=== PATIENT | male | born 1945 | race Caucasian/White ===

== ENCOUNTER → 2016-12-07 | Outpatient (CLI) | payer BC ==
[~2016-12-07] MED LIST: ASPI81TA21 PO; ATOR10TA88 PO; ATV/1 PO; CHOL1000 PO; EXEN1INJ4 SQ; FISHOIL PO; HYDR25TA4 PO; IBUP-103 PO; INSPMPHMLG; LISI-792 PO; LISI10TA PO; MULTTAB58 PO; NEPA0.6D OPL; OMEP20CA9 PO; OSEL75CA12 PO; POTASSIUM 99MG; PRED1SUS OPL; VALE250C PO; VITAMIN D3; [UNRECOGNIZED DRUG - OTHER]
[2016-12-07 12:38] LABS: ALT/SGPT 57 U/L (12-78); BLOOD UREA NITROGEN 20 mg/dl (7-18); BUN/CREATININE RATIO 16.5 (10-20); CALCIUM 8.9 mg/dl (8.5-10.1); CARBON DIOXIDE 29 mmol/L (21-32); CHLORIDE 101 mmol/L (98-107); CHOLESTEROL 94 mg/dl (0-200); GLUCOSE 309 mg/dl (70-99); POTASSIUM 4.2 mmol/L (3.5-5.1); SODIUM 139 mmol/L (136-145)
[2016-12-07 12:42] LABS: ESTIMATED AVERAGE GLUCOSE 183 mg/dl; HA1C FLAG Normal (Normal)
[2016-12-07 12:49] LABS: ALB/GLOB RATIO 1.4 (0.9-2); ALKALINE PHOSPHATASE 91 U/L (45-117); AST/SGOT 32 U/L (15-37); CHOLESTEROL/HDL RATIO 2.9; HDL CHOLESTEROL 32 mg/dl; LDL CHOLESTEROL CALCULATED 31 mg/dl; TRIGLYCERIDES 155 mg/dl (0-150); VERY LOW DENSITY LIPOPROT CALC 31 mg/dl
--- NOTE | 2016-12-12 13:32 | CODING QUERY MEDICAL NECESSITY ---
SUPPORTING DIAGNOSIS NEEDED A supporting diagnosis is required for the test/procedure performed on this patient in order for us to be reimbursed by the patient's insurance. Please provide a supporting diagnosis for the following test/procedure listed below next to the test name along with your signature. *If there is no additional diagnosis for this patient that would support the following test/procedure please document that below next to the test/procedure. Test(s)/Procedure(s) that require a supporting diagnosis: DOS 12/07 * Vitamin D DIAGNOSIS: Provider Signature: Date: Thank you [facility] Once completed, please kindly fax back to [phone] For questions please call [phone]
== END | disposition home or self-care (01) ==
LOC: C.LABPVFM 10:25
PROVIDERS: ATTEND Family Medicine
DX: E78.5 Hyperlipidemia, unspecified (principal); I10 Essential (primary) hypertension; K21.9 Gastro-esophageal reflux disease without esophagitis; E11.49 Type 2 diabetes mellitus with other diabetic neurological complication; Z12.31 Encounter for screening mammogram for malignant neoplasm of breast; E55.9 Vitamin D deficiency, unspecified

== ENCOUNTER → 2017-02-22 | Day surgery (SDC) | payer BC ==
[2017-02-13 13:39] VITALS: Ht 182.9 cm; Wt 118.2 kg
[~2017-02-22] VITALS: Ht 182.9 cm; Wt 118.2 kg
[~2017-02-22] MED LIST changes: +500ML BSS 0.3ML EPI 1:1000PF IRRIG ONE; +ACETAMINOPHEN 325 MG TAB PO PRN; +AMVISC PLUS 0.8ML SYRINGE INT OCU ONE; +ATOR10TA82 PO; -ATOR10TA88 PO; +ATROPINE SULFATE 0.1 MG/ML 5ML SYR IV PRN; +BSS FLUSH ONE; +ENDOCOAT 0.85ML SYRINGE INT OCU ONE; -EXEN1INJ4 SQ; +EpHEDrine SULFATE INJ 50 MG/ML AMP IV PRN; +EpINEphrine INJ 1MG/ML AMP 1 MG/ML AMP ONE; +FENTANYL CITRATE INJ 50 MCG/1 ML 2 ML VIAL IV PRN; -FISHOIL PO; +FLUMAZENIL 0.1 MG/1 ML 10 ML VIAL IV PRN; +HYDROmorphone INJ 2 MG/ML SYR/VIAL IV PRN; +LABETALOL HCL IV 5 MG/ML 20ML IV PRN; +LACTATED RINGER'S 1000ML 500 ML IV SCH; +LIDOCAINE 4% OP SOLN DROP CHARGE ONE; +LIDOCAINE 4% OP SOLN DROP CHARGE OPL SCH; +LIDOCAINE HCL 1% MPF 2 ML VIAL ONE; -LISI-792 PO; +MEPERIDINE HCL 25 MG/ML CARP IV PRN; +MIDAZOLAM HCL 1 MG/ML 2ML VIAL ONE; +MIX: 4ML BSS 1ML EPI 1:1000 PF TOP ONE; +MOXIFLOXACIN OPH SOLN PER DROP CHARGE ONE; +NALOXONE HCL 0.4 MG/1 ML VIAL/CARP IV PRN; +ONDANSETRON INJ 2 MG/ML 2 ML VIAL IV PRN; -OSEL75CA12 PO; +PHENYLEPHRINE 100MCG/ML 5ML SYR IV PRN; +PHENYLEPHRINE HCL 10% OP SOLN 5 ML BTL OPL ONE; -POTASSIUM 99MG; +POVIDONE-IODINE OP SOLN 30 ML BTL ONE; +PROPARACAINE 0.5% OP SOLN PER DROP CHARGE OPL SCH; +PROPARACAINE HCL 0.5% OP SOLN 15 ML BTL OPL ONE; +TOBRAMYCIN/DEXAMETHASONE OPH OINT PER APPLN CHARGE ONE; -VITAMIN D3; -[UNRECOGNIZED DRUG - OTHER]
[2017-02-22] MEDS: PHENYLEPHRINE HCL 10% OP SOLN PER DROP CHARGE OPL SCH ×3 (10:15→10:25)
[2017-02-22] MEDS: TROPICAMIDE 1% OP SOLN PER DROP CHARGE OPL SCH ×3 (10:16→10:26)
[2017-02-22] MEDS: CYCLOPENTOLATE HCL 1% OP SOLN PER DROP CHARGE OPL SCH ×3 (10:17→10:27)
[2017-02-22] MEDS: MOXIFLOXACIN OPH SOLN PER DROP CHARGE OPL SCH ×3 (10:18→10:28)
--- NOTE | 2017-02-22 11:06 | History & Physical Bridge - SC ---
H&P Re-Evaluation Bridge Note: I have examined the patient, reviewed the History & Physical and in the interval since the performance of the History & Physical I have noted the following changes of clinical significance: No changes noted. Left eye femtosecond-asissted cataract surgery
--- NOTE | 2017-02-22 11:50 | [facility] Post Operative Brief Note ---
Immediate Operative Summary Operative Date Feb 22, 2017. Pre-Operative Diagnosis Cataract left eye Post-Operative Diagnosis same Procedure(s) Performed Right Cataract Phacoemulsification With Intraocular Lens Implant Surgeon Dr Gregory Theatrical Rigger Surgeon(s) 0 Estimated Blood Loss 0 Findings left cataract Specimens 0 Complication(s) None Disposition
[2017-02-22 11:52] VITALS: TEMP 36.9
--- NOTE | 2017-02-22 11:53 | [facility] Operative Report ---
Operative Report Date of Service Feb 22, 2017. Operative Report DATE OF OPERATION: 02/22/17 PREOPERATIVE DIAGNOSIS: Senile nuclear cataract and astigmatism, left eye POSTOPERATIVE DIAGNOSIS: Senile nuclear cataract and astigmatism, left eye PROCEDURE PERFORMED: Phacoemulsification with toric intraocular lens implantation, left eye SURGEON: Dr. Reg Gregory ANESTHESIA: Topical with 1% intracameral lidocaine and monitored anesthesia care COMPLICATIONS: None DESCRIPTION OF PROCEDURE: After positively identifying the patient both verbally and by wristband in the preoperative area, the left eye was marked as the operative eye. Using a sterile marker, the 3:00, 6:00 and 9:00 position on the limbus were marked, and the Robomarker was used to melanie the 174 degree axis after placing a drop of proparacaine. The patient was first brought to the laser room where the femtosecond laser was used to create the capsulotomy, lens fragmentation, and main wound. The patient was then brought back to the operating room by the anesthesia and nursing staff where they were given a drop of tetracaine and betadine into the operative eye. They were then sterilely prepped and draped in the standard fashion typical for ophthalmic surgery. Steri-strips were placed along the upper eyelids to keep the lashes back, and a lid speculum was placed into the operative eye. At this point, a documented time out was performed with members of the ophthalmology, nursing, and anesthesia staffs all agreeing upon the correct patient, correct location for surgery, correct procedure, and correct type and power of intraocular lens to be implanted. The microscope was then swung into position. Then, a paracentesis wound was made using a sideport blade. Then, in sequence, 1% preservative-free lidocaine followed by Endocoat viscoelastic was injected into the anterior chamber. Next , the main incision opened with a Emmanuel spatula, and Utrata forceps were used to remove the capsulotomy. Hydrodissection was then performed with BSS on a flat-tip cannula. Next, the phacoemulsification handpiece was introduced into the eye and used to remove the nucleus in a avwkct-ycm-zxhlbae fashion. This was done without complication and then the irrigation-aspiration handpiece was introduced into the eye and used to remove all remaining cortical and epinuclear material. Amvisc was then injected into the anterior chamber as well as into the capsular bag and using the lens injector system, a [id number] 16.0 D lens, serial number [id number], and expiration date 08/2021 was injected into the capsular bag and rotated into the correct position to correctly line up with the toric marking. Next, the irrigation-aspiration handpiece was used to remove all remaining Amvisc. BSS was used to hydrate the main wound, and then BSS was injected into the paracentesis site to reach physiologic pressure and then the main wound was checked and found to be watertight. The patient was given drops of Vigamox and tobradex ointment into the operative eye, and then the surrounding area was cleaned and dried. A clear plastic shield was placed over the eye and the patient was then sat up and taken from the operating room by the anesthesia staff having tolerated the procedure well and suffering no complications. DISPOSITION: The patient was returned to the recovery room in stable condition. I attest to the content of the Intraoperative Record and any orders documented therein. Any exceptions are noted below.
--- NOTE | 2017-02-22 11:54 | Discharge Instructions-SurgCtr ---
Discharge Instructions Date of Service Feb 22, 2017. Visit Reason for Visit: Cataract Left Eye Discharge Discharge Diagnosis / Problem: left cataract Discharge Goals Goal(s): Decrease discomfort, Improve function Activity Recommendations Activity Limitations: as noted below Anesthesia . Post Anesthesia Instructions: If you have had General Anesthesia or IV Sedation: * Do not drive today. * Resume driving when surgeon permits. * Do not make important decisions or sign legal documents today. * Call surgeon for: 1. Temperature elevations greater than 101 degrees F. 2. Uncontrollable pain. 3. Excessive bleeding. 4. Persistent nausea and vomiting. 5. Medication intolerance (nausea, vomiting or rash). * For nausea and vomiting use only clear liquids such as: tea, soda, bouillon until nausea subsides, then gradually increase diet as tolerated. * If you have any concerns or questions, call your surgeon's office. If physician is unavailable and it is an emergency, call 911 or go to the nearest emergency room. . Instructions / Follow-Up Instructions / Follow-Up ACTIVITY RECOMMENDATIONS: * Light activities. * You may walk outside, read, watch television. * You may notice redness on the white part of the eye and some blurry vision - this is normal. MEDICATIONS: Resume previous medications unless instructed otherwise by your surgeon. Start all eye drops at 2 pm today: * Eye drops (today): Prednisone - one drop in operative eye every 2 hours while awake Ciprofloxacin - one drop in operative eye every 2 hours while awake Ilevro - one drop in operative eye daily SPECIAL CARE INSTRUCTIONS: * Tape plastic shield over eye to sleep at night. Call your doctor at with any concerns or problems. FOLLOW UP VISIT: Follow-up with Dr Gregory at [facility] as scheduled. Diet Recommendations Home Diet: no limitations Procedures Procedures Performed: Right Cataract Phacoemulsification With Intraocular Lens Implant Pending Studies Studies pending at discharge: no Medical Emergencies . Who to Call and When: Medical Emergencies: If at any time you feel your situation is an emergency, please call 911 immediately. . Non-Emergent Contact Non-Emergency issues call your: Surgeon . . "Provider Documentation" section prepared by Reg Gregory.
[2017-02-22 12:14] VITALS: BP 148/85; PULSE 77; O2SAT 97
--- NOTE | 2017-02-22 12:14 | Anesthesia Progress Nt - [facility] ---
Anesthesia Post Op Note Date & Time Feb 22, 2017 at 12:13 Vital Signs Pain Intensity: 0 Vital Signs Past 12 Hours Date Time Temp Pulse Resp B/P Pulse Ox O2 Delivery O2 Flow Rate FiO2 02/22/17 11:52 36.9 79 16 162/84 96 Room Air 02/22/17 11:20 84 20 180/91 100 02/22/17 11:15 88 20 174/92 98 02/22/17 10:05 36.5 86 18 157/91 97 Room Air Notes Mental Status: alert / awake / arousable, participated in evaluation Pt Amnestic to Procedure: Yes Nausea / Vomiting: adequately controlled Pain: adequately controlled Airway Patency, RR, SpO2: stable & adequate BP & HR: stable & adequate Hydration State: stable & adequate Anesthetic Complications: no major complications apparent
== END | disposition home or self-care (01) ==
LOC: X.SURG 09:52
PROVIDERS: ATTEND Ophthalmology
DX: H25.12 Age-related nuclear cataract, left eye (principal); I10 Essential (primary) hypertension; E11.36 Type 2 diabetes mellitus with diabetic cataract; Z88.0 Allergy status to penicillin; E66.9 Obesity, unspecified; G47.33 Obstructive sleep apnea (adult) (pediatric); Z98.890 Other specified postprocedural states

== ENCOUNTER → 2017-03-08 | Day surgery (SDC) | payer BC ==
[2017-03-01 10:56] VITALS: Ht 182.9 cm; Wt 120.5 kg
[~2017-03-08] VITALS: Ht 182.9 cm; Wt 120.5 kg
[~2017-03-08] MED LIST changes: -ATROPINE SULFATE 0.1 MG/ML 5ML SYR IV PRN; -EpHEDrine SULFATE INJ 50 MG/ML AMP IV PRN; -FENTANYL CITRATE INJ 50 MCG/1 ML 2 ML VIAL IV PRN; -FLUMAZENIL 0.1 MG/1 ML 10 ML VIAL IV PRN; -HYDROmorphone INJ 2 MG/ML SYR/VIAL IV PRN; -LABETALOL HCL IV 5 MG/ML 20ML IV PRN; -LIDOCAINE 4% OP SOLN DROP CHARGE OPL SCH; +LIDOCAINE 4% OP SOLN DROP CHARGE OPR SCH; -MEPERIDINE HCL 25 MG/ML CARP IV PRN; -NALOXONE HCL 0.4 MG/1 ML VIAL/CARP IV PRN; +NURSING VERBAL MED ORDER ONE; -ONDANSETRON INJ 2 MG/ML 2 ML VIAL IV PRN; -PHENYLEPHRINE 100MCG/ML 5ML SYR IV PRN; -PHENYLEPHRINE HCL 10% OP SOLN 5 ML BTL OPL ONE; +PHENYLEPHRINE HCL 10% OP SOLN 5 ML BTL OPR ONE; +PHENYLEPHRINE HCL 10% OP SOLN PER DROP CHARGE OPR SCH; -PROPARACAINE 0.5% OP SOLN PER DROP CHARGE OPL SCH; +PROPARACAINE 0.5% OP SOLN PER DROP CHARGE OPR SCH; -PROPARACAINE HCL 0.5% OP SOLN 15 ML BTL OPL ONE; +PROPARACAINE HCL 0.5% OP SOLN 15 ML BTL OPR ONE
[2017-03-08] MEDS: PHENYLEPHRINE HCL 2.5% OP SOLN PER DROP CHARGE OPR SCH ×4 (08:55→09:37)
[2017-03-08] MEDS: TROPICAMIDE 1% OP SOLN PER DROP CHARGE OPR SCH ×3 (08:56→09:06)
[2017-03-08] MEDS: CYCLOPENTOLATE HCL 1% OP SOLN PER DROP CHARGE OPR SCH ×3 (08:57→09:07)
[2017-03-08] MEDS: MOXIFLOXACIN OPH SOLN PER DROP CHARGE OPR SCH ×3 (08:58→09:08)
--- NOTE | 2017-03-08 09:02 | History & Physical Bridge - SC ---
H&P Re-Evaluation Bridge Note: I have examined the patient, reviewed the History & Physical and in the interval since the performance of the History & Physical I have noted the following changes of clinical significance: No changes noted. Right eye femtosecond laser-assisted cataract surgery.
--- NOTE | 2017-03-08 10:17 | [facility] Post Operative Brief Note ---
Immediate Operative Summary Operative Date Mar 08, 2017. Pre-Operative Diagnosis Cataract Right Eye Post-Operative Diagnosis Same Procedure(s) Performed Right Cataract Phacoemulsification With Intraocular Lens Implant; Symfony Lens Surgeon Dr. Gregory Wastewater Superintendent Surgeon(s) None Estimated Blood Loss 0 mL Findings right cataract Specimens None Complication(s) None Disposition
--- NOTE | 2017-03-08 10:20 | [facility] Operative Report ---
Operative Report Date of Service Mar 08, 2017. Operative Report DATE OF OPERATION: 03/08/17 PREOPERATIVE DIAGNOSIS: Senile nuclear cataract and astigmatism, right eye POSTOPERATIVE DIAGNOSIS: Senile nuclear cataract and astigmatism, right eye PROCEDURE PERFORMED: Phacoemulsification with toric intraocular lens implantation, right eye SURGEON: Dr. Reg Gregory ANESTHESIA: Topical with 1% intracameral lidocaine and monitored anesthesia care COMPLICATIONS: None DESCRIPTION OF PROCEDURE: After positively identifying the patient both verbally and by wristband in the preoperative area, the right eye was marked as the operative eye. Using a Robomarker, the 1 degree axis was marked after placing a drop of proparacaine. The patient was first brought to the laser room where the femtosecond laser was used to create the capsulotomy, lens fragmentation, and main incision. The patient was then brought back to the operating room by the anesthesia and nursing staff where they were given a drop of tetracaine and betadine into the operative eye. They were then sterilely prepped and draped in the standard fashion typical for ophthalmic surgery. Steri-strips were placed along the upper eyelids to keep the lashes back, and a lid speculum was placed into the operative eye. At this point, a documented time out was performed with members of the ophthalmology, nursing, and anesthesia staffs all agreeing upon the correct patient, correct location for surgery, correct procedure, and correct type and power of intraocular lens to be implanted. The microscope was then swung into position. Then, a paracentesis wound was made using a sideport blade. Then, in sequence, 1% preservative-free lidocaine followed by Endocoat viscoelastic was injected into the anterior chamber. Next , the main incision was made with a keratome blade in triplanar fashion as the femto main wound was incomplete. Utrata forceps were used to remove the capsulotomy. Hydrodissection was then performed with BSS on a flat-tip cannula. Next, the phacoemulsification handpiece was introduced into the eye and used to remove the nucleus in a clvecr-dgp-xffqtwc fashion. This was done without complication and then the irrigation-aspiration handpiece was introduced into the eye and used to remove all remaining cortical and epinuclear material. Amvisc was then injected into the anterior chamber as well as into the capsular bag and using the lens injector system, a [id number] 14.0 D lens, serial number [id number], and expiration date 10/2021 was injected into the capsular bag and rotated into the correct position to correctly line up with the toric marking. Next, the irrigation-aspiration handpiece was used to remove all remaining Amvisc. BSS was used to hydrate the main wound, and then BSS was injected into the paracentesis site to reach physiologic pressure and then the main wound was checked and found to be watertight. The patient was given drops of Vigamox and tobradex ointment into the operative eye, and then the surrounding area was cleaned and dried. A clear plastic shield was placed over the eye and the patient was then sat up and taken from the operating room by the anesthesia staff having tolerated the procedure well and suffering no complications. DISPOSITION: The patient was returned to the recovery room in stable condition. I attest to the content of the Intraoperative Record and any orders documented therein. Any exceptions are noted below.
--- NOTE | 2017-03-08 10:21 | Discharge Instructions-SurgCtr ---
Discharge Instructions Date of Service Mar 08, 2017. Visit Reason for Visit: Cataract Right Eye Discharge Discharge Diagnosis / Problem: right cataract Discharge Goals Goal(s): Decrease discomfort, Improve function Activity Recommendations Activity Limitations: as noted below Anesthesia . Post Anesthesia Instructions: If you have had General Anesthesia or IV Sedation: * Do not drive today. * Resume driving when surgeon permits. * Do not make important decisions or sign legal documents today. * Call surgeon for: 1. Temperature elevations greater than 101 degrees F. 2. Uncontrollable pain. 3. Excessive bleeding. 4. Persistent nausea and vomiting. 5. Medication intolerance (nausea, vomiting or rash). * For nausea and vomiting use only clear liquids such as: tea, soda, bouillon until nausea subsides, then gradually increase diet as tolerated. * If you have any concerns or questions, call your surgeon's office. If physician is unavailable and it is an emergency, call 911 or go to the nearest emergency room. . Instructions / Follow-Up Instructions / Follow-Up ACTIVITY RECOMMENDATIONS: * Light activities. * You may walk outside, read, watch television. * You may notice redness on the white part of the eye and some blurry vision - this is normal. MEDICATIONS: Resume previous medications unless instructed otherwise by your surgeon. Start all eye drops at 12:30 pm today: * Eye drops (today): Prednisone - one drop in operative eye every 2 hours while awake Ciprofloxacin - one drop in operative eye every 2 hours while awake Ilevro - one drop in operative eye daily SPECIAL CARE INSTRUCTIONS: * Tape plastic shield over eye to sleep at night. Call your doctor at with any concerns or problems. FOLLOW UP VISIT: Follow-up with Dr Gregory at [place] office as scheduled. Diet Recommendations Home Diet: no limitations Procedures Procedures Performed: Right Cataract Phacoemulsification With Intraocular Lens Implant; Symfony Lens Pending Studies Studies pending at discharge: no Medical Emergencies . Who to Call and When: Medical Emergencies: If at any time you feel your situation is an emergency, please call 911 immediately. . Non-Emergent Contact Non-Emergency issues call your: Surgeon . . "Provider Documentation" section prepared by Reg Gregory. .
[2017-03-08 10:25] VITALS: TEMP 36.5
--- NOTE | 2017-03-08 10:29 | Anesthesia Progress Nt - [facility] ---
Anesthesia Post Op Note Date & Time Mar 08, 2017 at 10:29 Vital Signs Pain Intensity: 0 Vital Signs Past 12 Hours Date Time Temp Pulse Resp B/P Pulse Ox O2 Delivery O2 Flow Rate FiO2 03/08/17 10:25 36.5 70 16 142/84 99 Room Air 03/08/17 09:46 76 16 173/89 98 03/08/17 09:42 75 16 175/92 97 03/08/17 08:51 36.5 85 18 148/90 97 Room Air Notes Mental Status: alert / awake / arousable, participated in evaluation Pt Amnestic to Procedure: No (recall as expected) Nausea / Vomiting: adequately controlled Pain: adequately controlled Airway Patency, RR, SpO2: stable & adequate BP & HR: stable & adequate Hydration State: stable & adequate Anesthetic Complications: no major complications apparent Pt doing well.
[2017-03-08 10:43] VITALS: BP 147/78; PULSE 67; O2SAT 98
== END | disposition home or self-care (01) ==
LOC: X.SURG 08:11
PROVIDERS: ATTEND Ophthalmology
DX: H25.11 Age-related nuclear cataract, right eye (principal); H52.201 Unspecified astigmatism, right eye; I10 Essential (primary) hypertension; E11.36 Type 2 diabetes mellitus with diabetic cataract; Z88.0 Allergy status to penicillin; Z68.36 Body mass index [BMI] 36.0-36.9, adult; Z90.89 Acquired absence of other organs; Z98.890 Other specified postprocedural states; E66.9 Obesity, unspecified

== ENCOUNTER → 2017-03-09 | Outpatient (CLI) | payer BC ==
[~2017-03-09] MED LIST changes: -500ML BSS 0.3ML EPI 1:1000PF IRRIG ONE; -ACETAMINOPHEN 325 MG TAB PO PRN; -AMVISC PLUS 0.8ML SYRINGE INT OCU ONE; -BSS FLUSH ONE; -ENDOCOAT 0.85ML SYRINGE INT OCU ONE; -EpINEphrine INJ 1MG/ML AMP 1 MG/ML AMP ONE; -LACTATED RINGER'S 1000ML 500 ML IV SCH; -LIDOCAINE 4% OP SOLN DROP CHARGE ONE; -LIDOCAINE 4% OP SOLN DROP CHARGE OPR SCH; -LIDOCAINE HCL 1% MPF 2 ML VIAL ONE; -MIDAZOLAM HCL 1 MG/ML 2ML VIAL ONE; -MIX: 4ML BSS 1ML EPI 1:1000 PF TOP ONE; -MOXIFLOXACIN OPH SOLN PER DROP CHARGE ONE; -NURSING VERBAL MED ORDER ONE; -PHENYLEPHRINE HCL 10% OP SOLN 5 ML BTL OPR ONE; -PHENYLEPHRINE HCL 10% OP SOLN PER DROP CHARGE OPR SCH; -POVIDONE-IODINE OP SOLN 30 ML BTL ONE; -PROPARACAINE 0.5% OP SOLN PER DROP CHARGE OPR SCH; -PROPARACAINE HCL 0.5% OP SOLN 15 ML BTL OPR ONE; -TOBRAMYCIN/DEXAMETHASONE OPH OINT PER APPLN CHARGE ONE
[2017-03-09 12:57] LABS: ESTIMATED AVERAGE GLUCOSE 169 mg/dl; HA1C FLAG Normal (Normal)
[2017-03-09 14:15] LABS: ALT/SGPT 46 U/L (12-78); AST/SGOT 27 U/L (15-37); BLOOD UREA NITROGEN 18 mg/dl (7-18); BUN/CREATININE RATIO 16.5 (10-20); CALCIUM 8.9 mg/dl (8.5-10.1); CARBON DIOXIDE 31 mmol/L (21-32); CHLORIDE 107 mmol/L (98-107); GLUCOSE 133 mg/dl (70-99); SODIUM 141 mmol/L (136-145)
[2017-03-09 14:18] LABS: ALB/GLOB RATIO 1.2 (0.9-2); ALKALINE PHOSPHATASE 76 U/L (45-117); CHOLESTEROL 83 mg/dl (0-200); CHOLESTEROL/HDL RATIO 2.3; HDL CHOLESTEROL 36 mg/dl; LDL CHOLESTEROL CALCULATED 30 mg/dl; TRIGLYCERIDES 84 mg/dl (0-150); VERY LOW DENSITY LIPOPROT CALC 17 mg/dl
[2017-03-09 16:54] LABS: RATIO 6.5 mcg/mg (0-30.0)
== END | disposition home or self-care (01) ==
LOC: C.LABPVFM 09:28
PROVIDERS: ATTEND Family Medicine
DX: E78.5 Hyperlipidemia, unspecified (principal); E55.9 Vitamin D deficiency, unspecified; E11.65 Type 2 diabetes mellitus with hyperglycemia; I10 Essential (primary) hypertension

== ENCOUNTER → 2017-07-13 | Outpatient (CLI) | payer BC ==
[~2017-07-13] MED LIST changes: -ATOR10TA82 PO; +ATOR10TA88 PO
[2017-07-13 12:59] LABS: ESTIMATED AVERAGE GLUCOSE 171 mg/dl; HA1C FLAG Normal (Normal)
[2017-07-13 13:09] LABS: ALT/SGPT 52 U/L (12-78); AST/SGOT 30 U/L (15-37); BLOOD UREA NITROGEN 22 mg/dl (7-18); BUN/CREATININE RATIO 19.6 (10-20); CALCIUM 8.7 mg/dl (8.5-10.1); CARBON DIOXIDE 31 mmol/L (21-32); CHLORIDE 104 mmol/L (98-107); GLUCOSE 174 mg/dl (70-99); POTASSIUM 3.9 mmol/L (3.5-5.1); SODIUM 138 mmol/L (136-145)
[2017-07-13 13:10] LABS: ALB/GLOB RATIO 1.1 (0.9-2); ALKALINE PHOSPHATASE 84 U/L (45-117); CHOLESTEROL 87 mg/dl (0-200); CHOLESTEROL/HDL RATIO 2.9; HDL CHOLESTEROL 30 mg/dl; LDL CHOLESTEROL CALCULATED 25 mg/dl; TRIGLYCERIDES 159 mg/dl (0-150); VERY LOW DENSITY LIPOPROT CALC 32 mg/dl
== END | disposition home or self-care (01) ==
LOC: C.LABPVFM 08:52
PROVIDERS: ATTEND Family Medicine
DX: E78.5 Hyperlipidemia, unspecified (principal); I10 Essential (primary) hypertension; K21.9 Gastro-esophageal reflux disease without esophagitis; E11.9 Type 2 diabetes mellitus without complications; E55.9 Vitamin D deficiency, unspecified

== ENCOUNTER → 2017-08-17 | Outpatient (CLI) | payer BC ==
--- NOTE | 2017-08-17 13:24 | DIAGNOSTIC IMAGING REPORT ---
SCROTAL ULTRASOUND CLINICAL HISTORY: Testicular lump. COMPARISON STUDY: None. TECHNIQUE: Grayscale and color and duplex Doppler sonography of the scrotum was performed. FINDINGS: The right testis measures 4.4 x 2.7 x 3.1 cm and the left measures 4.4 x 2.6 x 3.1 cm. There is no testicular mass. Color flow within each testis is symmetric. There are no solid epididymal lesions. There are multiple small bilateral epididymal cysts, the largest of which is a 1 cm left-sided cyst. This represents the palpable abnormality. There are small bilateral hydroceles and a small left varicocele. IMPRESSION: 1. No testicular mass. No evidence of testicular torsion. 2. 1 cm left epididymal cyst which represents the palpable abnormality. 3. Small left varicocele and small bilateral hydroceles. Electronically signed by: Gabriele Alvarez M.D. 08/17/2017 1:22 PM Dictated Date/Time: 08/17/2017 1:19 PM
== END | disposition home or self-care (01) ==
LOC: C.ULTR 12:30
PROVIDERS: ATTEND Urology
DX: N50.3 Cyst of epididymis (principal); I86.1 Scrotal varices; N43.3 Hydrocele, unspecified

== ENCOUNTER → 2017-09-11 | Outpatient (CLI) | payer BC ==
[~2017-09-11] MED LIST changes: +ATOR10TA82 PO; -ATOR10TA88 PO
--- NOTE | 2017-09-11 12:44 | DIAGNOSTIC IMAGING REPORT ---
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 The left kidney measures 12.4 cm. There is no evidence of hydronephrosis. There is a 18 mm upper pole left renal cyst. Both kidneys demonstrate a slightly lobulated contour. No bladder abnormalities are visualized. Bilateral ureteral jets were visualized. The prostate is significantly enlarged measuring approximately 7 cm. IMPRESSION : 1. 18 mm left renal cyst 2. No hydronephrosis 3. Prostamegaly Electronically signed by: Alex Juan M.D. 09/11/2017 12:43 PM Dictated Date/Time: 09/11/2017 12:42 PM
== END | disposition home or self-care (01) ==
LOC: C.ULTR 12:12
PROVIDERS: ATTEND Family Medicine
DX: D21.9 Benign neoplasm of connective and other soft tissue, unspecified (principal)

== ENCOUNTER → 2017-11-09 | Outpatient (CLI) | payer BC ==
[2017-11-09 13:02] LABS: ESTIMATED AVERAGE GLUCOSE 177 mg/dl; HA1C FLAG Normal (Normal)
[2017-11-09 13:08] LABS: ALT/SGPT 64 U/L (12-78); AST/SGOT 41 U/L (15-37); BLOOD UREA NITROGEN 18 mg/dl (7-18); BUN/CREATININE RATIO 16.3 (10-20); CALCIUM 8.9 mg/dl (8.5-10.1); CARBON DIOXIDE 28 mmol/L (21-32); CHLORIDE 101 mmol/L (98-107); CREATININE 1.13 mg/dl (0.60-1.40); GLUCOSE 190 mg/dl (70-99); POTASSIUM 4.1 mmol/L (3.5-5.1); SODIUM 134 mmol/L (136-145)
[2017-11-09 13:11] LABS: ALB/GLOB RATIO 1.1 (0.9-2); ALKALINE PHOSPHATASE 85 U/L (45-117); CHOLESTEROL 94 mg/dl (0-200); CHOLESTEROL/HDL RATIO 2.8; HDL CHOLESTEROL 34 mg/dl; LDL CHOLESTEROL CALCULATED 31 mg/dl; TRIGLYCERIDES 143 mg/dl (0-150); VERY LOW DENSITY LIPOPROT CALC 29 mg/dl
== END | disposition home or self-care (01) ==
LOC: C.LABPVFM 09:18
PROVIDERS: ATTEND Nurse Practitioner Adult Health
DX: Z00.00 Encounter for general adult medical examination without abnormal findings (principal); R97.20 Elevated prostate specific antigen [PSA]; N43.40 Spermatocele of epididymis, unspecified; E78.5 Hyperlipidemia, unspecified; I10 Essential (primary) hypertension; E66.9 Obesity, unspecified; G47.00 Insomnia, unspecified; E11.65 Type 2 diabetes mellitus with hyperglycemia

== ENCOUNTER → 2018-01-03 | Outpatient (CLI) | payer BC ==
[~2018-01-03] MED LIST changes: +AMLO-114 PO; -NEPA0.6D OPL; +OXYC-57 PO; -PRED1SUS OPL
[2018-01-03 17:33] LABS: BASO % 0.4 %; BASO ABS # 0.03 K/uL (0-0.2); EOS % 4.3 %; EOS ABS # 0.29 K/uL (0-0.5); HEMATOCRIT 41.7 % (42-52); HEMOGLOBIN 14.6 g/dL (14.0-18.0); IG# 0.03 K/uL (0.00-0.02); LYMPH % 16.6 %; LYMPH ABS # 1.12 K/uL (1.2-3.4); MEAN CELL VOLUME 83.7 fL (80-100); MEAN CORPUSCULAR HEMOGLOBIN 29.3 pg (25-34); MEAN PLATELET VOLUME 11.9 fL (7.4-10.4); MONO % 7.4 %; NEUT % 70.9 %; NEUT ABS # 4.79 K/uL (1.4-6.5); PLATELET COUNT 191 K/uL (130-400); RED CELL DISTRIBUTION WIDTH CV 13.8 % (11.5-14.5); RED CELL DISTRIBUTION WIDTH SD 41.7 fL (36.4-46.3); WHITE BLOOD COUNT 6.76 K/uL (4.8-10.8)
[2018-01-03 17:43] LABS: BLOOD UREA NITROGEN 17 mg/dl (7-18); CALCIUM 8.7 mg/dl (8.5-10.1); CARBON DIOXIDE 29 mmol/L (21-32); CREATININE 1.22 mg/dl (0.60-1.40); GLUCOSE 201 mg/dl (70-99); POTASSIUM 4.3 mmol/L (3.5-5.1); SODIUM 136 mmol/L (136-145)
== END | disposition home or self-care (01) ==
LOC: C.LABPVFM 14:16
PROVIDERS: ATTEND Surgery
DX: Z01.818 Encounter for other preprocedural examination (principal); K64.9 Unspecified hemorrhoids

== ENCOUNTER → 2018-01-09 | Day surgery (SDC) | payer BC ==
[2018-01-01 13:43] VITALS: Ht 182.9 cm; Wt 131.4 kg
[~2018-01-09] VITALS: Ht 182.9 cm; Wt 131.4 kg
[~2018-01-09] MED LIST changes: +ATROPINE SULFATE 0.1 MG/ML 5ML SYR IV PRN; +BENZOIN SPRAY 118 ML BTL TOP ONE; +BUPIVACAINE 0.5 % 5 MG/1 ML MPF 30ML VIAL ONE; +CLINDAMYCIN PHOS 150 MG/ML 2 ML VIAL IV SCH; +EpHEDrine SULFATE INJ 50 MG/ML AMP IV PRN; +FENTANYL CITRATE INJ 50 MCG/1 ML 2 ML VIAL IV PRN; +FENTANYL CITRATE INJ 50 MCG/1 ML 2 ML VIAL ONE; +LACTATED RINGER'S 1000ML 1,000 ML IV SCH; +MIDAZOLAM HCL 1 MG/ML 2ML VIAL ONE; +ONDANSETRON INJ 2 MG/ML 2 ML VIAL IV PRN; +OXYCODONE/ACETAMINOPHEN 5-325 TAB PO PRN; +PROMETHAZINE HCL INJ 6.25 MG in SODIUM CHLORIDE 0.9% 50ML 50 ML IV PRN; +PROPOFOL IV EMULSION 10 MG/ML 20 ML VIAL IV ONE; +SODIUM CHLORIDE 0.9% 1000ML 1,000 ML IV SCH
--- NOTE | 2018-01-09 08:11 | History & Physical Bridge - SC ---
H&P Re-Evaluation Bridge Note: I have examined the patient, reviewed the History & Physical and in the interval since the performance of the History & Physical I have noted the following changes of clinical significance: No changes noted
--- NOTE | 2018-01-09 09:02 | [facility] Operative Report ---
Operative Report Operative Date Jan 09, 2018. 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 Any exceptions are noted below.
--- NOTE | 2018-01-09 09:14 | Discharge Instructions-SurgCtr ---
Discharge Instructions Date of Service Jan 09, 2018. Visit Reason for Visit: Hemorrhoids Discharge Discharge Diagnosis / Problem: fistula in ano, hypertrophic papilla Discharge Goals Goal(s): Decrease discomfort, Improve function, Improve disease control Medications Stopped Medications Name(s): ASA Activity Recommendations Activity Limitations: as noted below Lifting Limitations: gradually increase as tolerated Exercise/Sports Limitations: until after follow-up appointment May Resume Sexual Activity: when tolerated Shower/Bathe: no limitations (may also soak in warm tub) Driving or Machine Use: resume 1 day after discharge Anesthesia . Post Anesthesia Instructions: If you have had General Anesthesia or IV Sedation: * Do not drive today. * Resume driving when surgeon permits. * Do not make important decisions or sign legal documents today. * Call surgeon for: 1. Temperature elevations greater than 101 degrees F. 2. Uncontrollable pain. 3. Excessive bleeding. 4. Persistent nausea and vomiting. 5. Medication intolerance (nausea, vomiting or rash). * For nausea and vomiting use only clear liquids such as: tea, soda, bouillon until nausea subsides, then gradually increase diet as tolerated. * If you have any concerns or questions, call your surgeon's office. If physician is unavailable and it is an emergency, call 911 or go to the nearest emergency room. . Instructions / Follow-Up Instructions / Follow-Up SPECIAL CARE INSTRUCTIONS: * Cover incisions and change daily for comfort/drainage. will have some drainage, and mild bleeding- will require a pad for 1-2 weeks * * Avoid constipation- may use Metamucil powder and colace twice daily and adjust as needed * May use ibuprofen for pain as tolerated. * Expect some swelling and bruising. Call your doctor if: * Temperature above 101 degrees * Pain not relieved by pain medicine ordered * There is increased drainage or redness from any incision * You have any unanswered questions or concerns [phone]. FOLLOW UP VISIT: If not already scheduled, please call the office for a follow-up visit. for 2 weeks- check up OFFICE PHONE NUMBER: Dr. Rebolledo Office Diet Recommendations Home Diet: resume previous diet Procedures Procedures Performed: Anal examine under anesthesia, fistulotomy, debridement and excision of anal skin tags Pending Studies Studies pending at discharge: no Medical Emergencies . Who to Call and When: Medical Emergencies: If at any time you feel your situation is an emergency, please call 911 immediately. . Non-Emergent Contact Non-Emergency issues call your: Primary Care Provider, Surgeon . . "Provider Documentation" section prepared by Raheel Rebolledo. .
--- NOTE | 2018-01-09 09:49 | Anesthesia Progress Nt - [facility] ---
Anesthesia Post Op Note Date & Time Jan 09, 2018 at 09:49 Vital Signs Pain Intensity: 0 Vital Signs Past 12 Hours Date Time Temp Pulse Resp B/P (MAP) Pulse Ox O2 Delivery O2 Flow Rate FiO2 01/09/18 09:23 36.6 89 16 154/87 100 Mask 6 01/09/18 07:32 36.7 87 20 171/95 (120) 97 Room Air Notes Mental Status: alert / awake / arousable, participated in evaluation Pt Amnestic to Procedure: Yes Nausea / Vomiting: adequately controlled Pain: adequately controlled Airway Patency, RR, SpO2: stable & adequate BP & HR: stable & adequate Hydration State: stable & adequate Anesthetic Complications: no major complications apparent
[2018-01-09 10:12] VITALS: TEMP 36.6
--- NOTE | 2018-01-09 10:32 | OPERATIVE REPORT ---
DATE OF OPERATION: 01/09/2018 NAME OF OPERATION: Examination under anesthesia, fistulotomy, and debridement of scar tissue and excision of hypertrophic papilla. PREOPERATIVE DIAGNOSIS: Anal pain and bleeding. POSTOPERATIVE DIAGNOSIS: Same with jxskidz-qm-zty and hypertrophic papilla. STAFF SURGEON: Raheel Rebolledo MD. ANESTHESIA: General. DESCRIPTION OF PROCEDURE: The patient was brought in the operating room and intubated on the bed and then placed on the operating room table in the prone position. His buttocks were taped apart, and then prepped and draped in the usual fashion. On inspection, the patient did have multiple anal papilla with 1 large area to the right and anterior and on inspection, he had what appeared to be a fhzddsq-fa-ics with significant scar tissue and stricturing in this area. He did not have significant prolapsing internal hemorrhoids. His internal hemorrhoids were approximately grade 2. At this point, a fistulotomy was performed and then the edges were debrided of scar tissue and then the hypertrophic papillae were excised. The fistulotomy also entailed at least partial internal sphincterotomy. He did appear to have somewhat of a stricture preoperatively. Post-fistulotomy, it appeared to be much more normal admitting 2 fingers easily. His external sphincter muscles were completely intact. Two chromic sutures were placed in the anoderm. The remainder of the wound was left open. Dressing was applied and the patient then transferred back to recovery room in stable condition. I did use some 0.5% plain Marcaine to anesthetize around the wound. I attest to the content of the Intraoperative Record and any orders documented therein. Any exception s are noted below.
[2018-01-09 10:33] VITALS: BP 176/99; PULSE 86; O2SAT 96
== END | disposition home or self-care (01) ==
LOC: X.SURG 07:03
PROVIDERS: ATTEND Surgery
DX: K60.3 Anal fistula (principal); K62.89 Other specified diseases of anus and rectum; K21.9 Gastro-esophageal reflux disease without esophagitis; N40.0 Benign prostatic hyperplasia without lower urinary tract symptoms; E11.49 Type 2 diabetes mellitus with other diabetic neurological complication; E11.42 Type 2 diabetes mellitus with diabetic polyneuropathy; E78.5 Hyperlipidemia, unspecified; H02.839 Dermatochalasis of unspecified eye, unspecified eyelid; I10 Essential (primary) hypertension; E55.9 Vitamin D deficiency, unspecified; E66.01 Morbid (severe) obesity due to excess calories; Z68.39 Body mass index [BMI] 39.0-39.9, adult; Z88.0 Allergy status to penicillin; Z79.4 Long term (current) use of insulin; Z87.442 Personal history of urinary calculi; Z83.3 Family history of diabetes mellitus; Z82.49 Family history of ischemic heart disease and other diseases of the circulatory system; Z80.1 Family history of malignant neoplasm of trachea, bronchus and lung

== ENCOUNTER → 2018-03-30 | Outpatient (CLI) | payer BC ==
[~2018-03-30] MED LIST changes: +ASPI-319 PO; -ASPI81TA21 PO; -ATROPINE SULFATE 0.1 MG/ML 5ML SYR IV PRN; -BENZOIN SPRAY 118 ML BTL TOP ONE; -BUPIVACAINE 0.5 % 5 MG/1 ML MPF 30ML VIAL ONE; -CLINDAMYCIN PHOS 150 MG/ML 2 ML VIAL IV SCH; -EpHEDrine SULFATE INJ 50 MG/ML AMP IV PRN; -FENTANYL CITRATE INJ 50 MCG/1 ML 2 ML VIAL IV PRN; -FENTANYL CITRATE INJ 50 MCG/1 ML 2 ML VIAL ONE; -LACTATED RINGER'S 1000ML 1,000 ML IV SCH; -MIDAZOLAM HCL 1 MG/ML 2ML VIAL ONE; -ONDANSETRON INJ 2 MG/ML 2 ML VIAL IV PRN; -OXYCODONE/ACETAMINOPHEN 5-325 TAB PO PRN; -PROMETHAZINE HCL INJ 6.25 MG in SODIUM CHLORIDE 0.9% 50ML 50 ML IV PRN; -PROPOFOL IV EMULSION 10 MG/ML 20 ML VIAL IV ONE; -SODIUM CHLORIDE 0.9% 1000ML 1,000 ML IV SCH
[2018-03-30 13:34] LABS: HEMOGLOBIN A1C 7.4 % (4.5-5.6)
== END | disposition home or self-care (01) ==
LOC: C.LABPVFM 08:59
PROVIDERS: ATTEND Nurse Practitioner Adult Health
DX: E11.49 Type 2 diabetes mellitus with other diabetic neurological complication (principal)

== ENCOUNTER 2022-04-05 13:49 | Inpatient (IN) ==
[2022-04-05] MEDS ORDERED: ONDANSETRON INJ 2 MG/ML 2 ML VIAL IV STA ×2 (14:05→17:11)
--- NOTE | 2022-04-05 14:10 | Emergency Department Note ---
Impression & Plan Near syncope, Vomiting and diarrhea, Hypomagnesemia ED Provider Note NAME: XANDER VANEGAS AGE: 76 SEX: M : 1945 ARRIVES VIA: Ambulance INFORMANT: [Patient][nursing] ED PROVIDER(S): [Armand Walsh MD] CHIEF COMPLAINT: Near syncope HISTORY OF PRESENT ILLNESS: The patient is a 76-year-old male who states that today, he began to have some diarrhea. He was at work when he began to feel dizzy and lightheaded and nauseated. He began to sweat. He had 2 vomiting spells and had a near syncopal event. There was no chest pain or abdominal pain. No black or bloody stool. The patient has not had fever or chills. The patient states that he is short of breath but this is a chronic issue for him. The patient states that his whole family or at least a good part of the family has the stomach bug. They came down with vomiting and diarrhea over the weekend. As per EMS, BSG was in the 140s. REVIEW OF SYSTEMS: See HPI for pertinent positives and negatives. A total of ten systems were reviewed and were otherwise negative. PMHx/PSHx: See Below SOCIAL HISTORY: See Below. PHYSICAL EXAM: GENERAL: Patient is in no acute distress. HEENT: No acute trauma, normocephalic atraumatic, mucous membranes moist, no nasal congestion, no scleral icterus. NECK: No stridor, no adenopathy, no meningismus, trachea is midline. LUNGS: Clear to auscultation bilaterally, no wheeze, no rhonchi, breath sounds equal. Breath sounds are diminished bilaterally. HEART: Mildly tachycardic with a regular rhythm, subtle systolic murmur heard. ABDOMEN: Soft, nontender, bowel sounds positive, small nontender umbilical hernia, no peritonitis. EXTREMITIES: No cyanosis, mild bilateral pedal edema, full range of motion of all the joints without pain or difficulty, no signs for acute trauma. NEUROLOGIC: Oriented x 3, no acute motor or sensory deficits, no focal weakness. SKIN: No rash, no jaundice, no diaphoresis. DIFFERENTIAL DIAGNOSIS: Infection, dehydration, foodborne or viral illness, dysrhythmia, metabolic abnormality, hypo/hyperglycemia, electrolyte disturbance, anemia, hypoxia, cardiac sources, intracerebral event, toxicologic issues, stroke, TIA, as well as other pathologies. EMERGENCY DEPARTMENT COURSE/PROCEDURES: ECG: Indication was near syncope. The ECG shows a sinus tachycardia with a first-degree AV block. PACs are seen. There is a right bundle branch block. The rate is 110. There is no ST elevation, no PVCs. The QTc is 473. Compared to an ECG from 11 November 2012, significant changes have occurred. Continuous Cardiac Monitoring: An order was placed for continuous cardiac monitoring. The monitor shows a rate of 103 with sinus tachycardia with a f irst-degree block. MEDICAL DECISION MAKING: There is no leukocytosis or concerning anemia. There is a normal platelet count. No renal failure. Magnesium was somewhat low at 1.6. There were some subtle liver enzyme elevations that have been documented before. ECG shows a si nus tachycardia, no obvious ischemia. Cardiac enzyme testing x1 is not consistent with acute cardiac injury. COVID, influenza and RSV test returned negative. Chest x-ray did not show pneumonia or CHF. On exam, the patient was nauseated and slightly tachycardic. He was not toxic, he was not febrile. Patient received IV Tylenol, IV magnesium, IV Zofran. A second dose of IV Zofran was given. He received IV saline, 1 L. The patient did attempt to take in some liquid and crackers, he began vomiting, he was given IV Phenergan. The patient is in need of a hospital stay. He is not doing well despite 3 doses of nausea medication. I do not think he is safe for discharge. This illness is very likely viral and/or foodborne. Apparently, several members of his family have something similar but, they are not quite as ill. I spoke with the patient, I talked with his family. I spoke with the director case. The on-call hospitalist was consulted. Past Med/Surg History Medical History BPH (benign prostatic hyperplasia) Diabetes mellitus, type 2 Dysesthesia R/L feet GERD (gastroesophageal reflux disease) History of TMJ syndrome Hyperlipidemia Hypertension Insulin pump in place Morbid obesity Urinary retention s/p urinary catheter (05/2021)- since removed Surgical History H/O knee surgery Spur removed from knee H/O neck surgery History of carpal tunnel surgery RT History of cataract surgery RT/LEFT History of colonoscopy History of esophagogastroduodenoscopy (EGD) History of surgery Exam under anesthesia, removal of skin tags, fistulotomy (01/09/18): Grade view 1 with Glidescope#4, ETT 8.0 (difficult mask. vent with 2 person 2/2 hamilton > elective glidescope with minimal neck extension- ETT easily passed, small right upper lip laceration noted) History of tonsillectomy and adenoidectomy History of tooth extraction RECENT TOOTH EXTRACTION Hx of LASIK Family History Aunt Diabetes Father Lung cancer Sister Diabetes Other No family history of adverse response to anesthesia Denies family history of Ovarian cancer Prostate cancer Myocardial infarction Breast cancer Colorectal cancer Hypertension Stroke Social History Smoking Status: Never smoker Second Hand Exposure: Yes (IN THE PAST); Hx Alcohol Use: Yes Alcohol type: beer Alcohol Intake Frequency: Monthly or Less Hx Substance Use: No Preferred Language: Turkmen Communication Ability: Effective Visual Impairment: No Limitations Hearing Ability: Normal 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: No Beliefs That Will Affect Care: None marital status: / Current Living Situation: Alone current occupational status: employed 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 Feels Safe at Home: Yes caffeine: Yes (coffee) Dental Care, Regularly: Yes Physical Activity Frequency: Does not Exercise Seatbelt Use: always Sunscreen Use: Yes Assistive Devices: Glasses Allergies Allergies Allergy/AdvReac Type Severity Reaction Status Date / Time Penicillins Allergy Intermediate HIVES Verified 04/05/22 19:29 metformin AdvReac Intermediate GI Verified 04/05/22 19:29 distress/diarrhea Home Meds Home Medications Medication Instructions Recorded Confirmed multivitamin 1 tab PO QAM 08/20/19 04/05/22 fluticasone propionate 50 2 sprays INTRANASAL DAILY PRN #16 12/09/19 04/05/22 mcg/actuation nasal gm spray,suspension cholecalciferol (vitamin D3) 25 2,000 units PO QAM cap 08/14/20 04/05/22 mcg (1,000 unit) capsule flash glucose scanning reader #1 ea 08/14/20 03/24/22 (FreeStyle Harini 14 Day [place]) aspirin 81 mg tablet,delayed 81 mg PO QAM 06/20/21 05/24/22 release cyanocobalamin (vitamin B-12) 1,000 mcg PO QAM 05/02/21 04/05/22 1,000 mcg capsule finasteride 5 mg tablet 5 mg PO HS 10/01/21 04/05/22 tamsulosin 0.4 mg capsule (Flomax) 0.4 mg PO QAM 10/01/21 04/05/22 ibuprofen 200 mg tablet 600 mg PO TID PRN tab 11/18/21 04/05/22 insulin lispro 100 unit/mL 0 unit CONTINUOUS SUBCUTANEOUS 04/05/22 04/05/22 subcutaneous solution (Humalog INFUSION CONTINOUS U-100 Insulin) valerian root 1,000 mg capsule 2,000 mg PO HS 04/05/22 04/05/22 Previous Rx's Medication Instructions Recorded insulin syringe-needle U-100 1 mL #300 ea 08/05/21 31 gauge x 5/16" (BD Insulin Syringe Ultra-Fine) trazodone 100 mg tablet 100 mg PO HS #90 tab 08/06/21 atorvastatin 10 mg tablet 5 mg PO HS #45 tab 08/11/21 lisinopril 20 mg tablet 40 mg PO QAM #90 tab 09/21/21 omeprazole 40 mg capsule,delayed 40 mg PO DAILYBB #90 cap 10/04/21 release hydrochlorothiazide 25 mg tablet 25 mg PO QAM #90 tab 10/22/21 Results & Data (ED) Vital Signs Vital Signs - 24 hr 04/05/22 14:00 04/05/22 14:07 04/05/22 14:30 Temperature 36.8 C Temperature Source Oral Pulse Rate 110 H 112 H 102 H Pulse Rate [Finger] Pulse Rate from SpO2 Sensor 109 H 102 H Respiratory Rate 24 16 24 Respiratory Effort / Characteristics Non-Labored Respiratory Depth Normal Respiratory Pattern Regular Blood Pressure 159/84 H 179/82 H Blood Pressure [Right Arm] Blood Pressure Mean 109 114 Blood Pressure Mean [Right Arm] Blood Pressure Position Sitting Pulse Oximetry 97 97 96 Oxygen Delivery Method Room Air Sepsis Recent Fever Within 48 Hours No Sepsis New/Unexplained Change in Mental Status No Sepsis Action Taken by Nursing No Action Required 04/05/22 14:31 04/05/22 15:00 04/05/22 15:30 Temperature Temperature Source Pulse Rate 106 H 102 H Pulse Rate [Finger] Pulse Rate from SpO2 Sensor 105 H 106 H 99 H Respiratory Rate 22 20 30 H Respiratory Effort / Characteristics Respiratory Depth Respiratory Pattern Blood Pressure 167/94 H 175/95 H 166/93 H Blood Pressure [Right Arm] Blood Pressure Mean 118 121 117 Blood Pressure Mean [Right Arm] Blood Pressure Position Pulse Oximetry 97 98 96 Oxygen Delivery Method Sepsis Recent Fever Within 48 Hours Sepsis New/Unexplained Change in Mental Status Sepsis Action Taken by Nursing 04/05/22 16:00 04/05/22 16:30 04/05/22 17:00 Temperature Temperature Source Pulse Rate 102 H 92 H 100 H Pulse Rate [Finger] Pulse Rate from SpO2 Sensor 100 H 92 H 100 H Respiratory Rate 21 28 H 28 H Respiratory Effort / Characteristics Respiratory Depth Respiratory Pattern Blood Pressure 181/83 H 141/83 H Blood Pressure [Right Arm] Blood Pressure Mean 115 102 Blood Pressure Mean [Right Arm] Blood Pressure Position Pulse Oximetry 95 95 96 Oxygen Delivery Method Sepsis Recent Fever Within 48 Hours Sepsis New/Unexplained Change in Mental Status Sepsis Action Taken by Nursing 04/05/22 17:01 04/05/22 17:23 04/05/22 17:30 Temperature Temperature Source Pulse Rate 103 H 104 H 103 H Pulse Rate [Finger] Pulse Rate from SpO2 Sensor Respiratory Rate 18 25 H Respiratory Effort / Characteristics Respiratory Depth Respiratory Pattern Blood Pressure 149/74 H 147/80 H 146/84 H Blood Pressure [Right Arm] Blood Pressure Mean 99 102 104 Blood Pressure Mean [Right Arm] Blood Pressure Position Pulse Oximetry Oxygen Delivery Method Sepsis Recent Fever Within 48 Hours Sepsis New/Unexplained Change in Mental Status Sepsis Action Taken by Nursing 04/05/22 19:58 Temperature Temperature Source Pulse Rate Pulse Rate [Finger] 105 H Pulse Rate from SpO2 Sensor Respiratory Rate 18 Respiratory Effort / Characteristics Respiratory Depth Respiratory Pattern Blood Pressure Blood Pressure [Right Arm] 134/83 Blood Pressure Mean Blood Pressure Mean [Right Arm] 100 Blood Pressure Position Pulse Oximetry 97 Oxygen Delivery Method Room Air Sepsis Recent Fever Within 48 Hours Sepsis New/Unexplained Change in Mental Status Sepsis Action Taken by [facility] Medications Current Medication List: was personally reviewed by me Laboratory Data Attestation: I reviewed the patient's lab results. Result diagrams: 04/05/22 14:00 04/05/22 14:00 Lab Results 04/05/22 04/05/22 04/05/22 Range/Units 14:00 14:00 14:22 WBC 9.32 (4.8-10.8) K/uL RBC 5.48 (4.7-6.1) M/uL Hgb 15.0 (14.0-18.0) g/dL Hct 44.8 (42-52) % MCV 81.8 (80-100) fL MCH 27.4 (25-34) pg MCHC 33.5 (32-36) g/dL RDW Std Deviation 42.2 (36.4-46.3) fL RDW Coeff of Joselin 14.1 (11.5-14.5) % Plt Count 160 (130-400) K/uL MPV 11.0 H (7.4-10.4) fL Immature Gran % (Auto) 0.1 % Neut % (Auto) 91.9 % Lymph % (Auto) 4.4 % [place] % (Auto) 2.6 % Eos % (Auto) 0.9 % Baso % (Auto) 0.1 % Neut # (Auto) 8.57 H (1.4-6.5) K/uL Lymph # (Auto) 0.41 L (1.2-3.4) K/uL [place] # (Auto) 0.24 (0.11-0.59) K/uL Eos # (Auto) 0.08 (0-0.5) K/uL Baso # (Auto) 0.01 (0-0.2) K/uL Immature Gran # (Auto) 0.01 (0.00-0.02) K/uL Sodium 140 (136-145) mmol/L Potassium 3.6 (3.5-5.1) mmol/L Chloride 103 (98-107) mmol/L Carbon Dioxide 27 (21-32) mmol/L Anion Gap 10 (3-11) BUN 20 (6-23) mg/dl Creatinine 1.07 (0.6-1.4) mg/dl Est Cr Clr Drug Dosing Not Reportable Est GFR ( Amer) 78.3 ml/min Est GFR (Non-Af Amer) 67.5 ml/min BUN/Creatinine Ratio 18.7 (10-20) Glucose 137 H (70-99(Fasting)) mg/dl Calcium 8.5 (8.5-10.1) mg/dl Magnesium 1.6 L (1.7-2.4) mg/dl Total Bilirubin 1.6 H (0.2-1.0) mg/dl AST 50 H (13-39) U/L ALT 61 H (7-52) U/L Alkaline Phosphatase 94 (34-104) U/L Troponin I High Sens 8.0 (0-20) pg/ml Total Protein 6.9 (6.0-8.3) gm/dl Albumin 4.3 (3.4-5.0) gm/dl Globulin 2.6 (2.5-4.0) gm/dl Albumin/Globulin Ratio 1.7 (0.9-2) SARS-CoV-2 (PCR) NEGATIVE (Negative) Influenza Type A (PCR) Negative (Neg) Influenza Type B (PCR) Negative (Neg) RSV (RT-PCR) Negative (Neg) Administered Medications Discontinued Medications Acetaminophen (Acetaminophen 1000 Mg/100 Ml Iv) 1,000 mg IV NOW STA Stop: 04/05/22 19:59 Last Admin: 04/05/22 20:10 Dose: 1,000 mg Documented by: [id number] Sodium Chloride (Nss) 500 mls @ 999 mls/hr IV .Q31M JEANA Stop: 04/05/22 14:45 Last Infusion: 04/05/22 14:51 Dose: 0 mls/hr Documented by: [id number] Admin: 04/05/22 14:20 Dose: 999 mls/hr Documented by: [id number] Magnesium Sulfate/Dextrose (Magnesium Sulfate / D5w) 1 gm in 100 mls @ 100 mls/hr IV NOW STA Stop: 04/05/22 17:04 Last Infusion: 04/05/22 17:26 Dose: 0 mls/hr Documented by: [id number] Admin: 04/05/22 16:26 Dose: 100 mls/hr Documented by: [id number] Sodium Chloride (Nss 1000ml) 500 mls @ 999 mls/hr IV .Q31M ONE Stop: 04/05/22 16:46 Last Infusion: 04/05/22 16:57 Dose: 0 mls/hr Documented by: [id number] Admin: 04/05/22 16:26 Dose: 999 mls/hr Documented by: [id number] Promethazine HCl (Phenergan) 6.25 mg in 50.25 mls @ 201 mls/hr IV NOW STA Stop: 04/05/22 17:25 Last Infusion: 04/05/22 19:35 Dose: 0 mls/hr Documented by: [id number] Admin: 04/05/22 19:17 Dose: 201 mls/hr Documented by: [id number] Ioversol (Optiray 320 100ml) 92 ml IV ONCE ONE Stop: 04/05/22 20:22 Last Admin: 04/05/22 20:23 Dose: 92 ml Documented by: [id number] Ondansetron HCl (Ondansetron Inj 2 Mg/Ml 2 Ml Vial) 4 mg IV NOW STA Stop: 04/05/22 14:06 Last Admin: 04/05/22 14:19 Dose: 4 mg Documented by: [id number] Ondansetron HCl (Ondansetron Inj 2 Mg/Ml 2 Ml Vial) 4 mg IV NOW STA Stop: 04/05/22 17:12 Last Admin: 04/05/22 17:22 Dose: 4 mg Documented by: [id number] Imaging Data Radiologist's Impression: Chest X-Ray 04/05/22 15:41 XR chest 1V portable CLINICAL HISTORY: Shortness of breath. COMPARISON STUDY: Chest radiograph September 21, 2021. FINDINGS: Postoperative findings within the spine are incidentally noted. There is no pneumothorax or pleural effusion. There is no consolidation to suggest pneumonia. Cardiomegaly is unchanged. Slight interstitial prominence is unchanged. IMPRESSION: No acute cardiopulmonary findings. No change in appearance of the chest. ACT 112: Negative or not required by law. Electronically signed by: Gabriele Alvarez M.D. 04/05/2022 4:06 PM Abdomen/Pelvis CT 04/05/22 19:58 CT abd pelvis IV con only CLINICAL HISTORY: abdominal pain, diarrhea COMPARISON STUDY: No previous studies for comparison. CT DOSE: 1593.69 mGy.cm TECHNIQUE: Standard CT of the Abdomen and Pelvis was performed with IV contrast. A dose lowering technique was utilized adhering to the principles of ALARA. Contrast Volume: Optiray 320, 92 ml. The patient did not receive oral contrast. FINDINGS: Lung base: The lung bases are clear. Abdominal cavity: There is no evidence for abdominal mass, adenopathy or ascites. Liver: There is homogeneous attenuation of the liver parenchyma. There is no evidence for enhancing mass lesion. There is evidence for fatty infiltration of the liver. Spleen: There is homogeneous attenuation of the splenic parenchyma. There is no enhancing mass lesion. Pancreas: There is homogeneous attenuation of the pancreatic parenchyma. There is no evidence for mass lesion or peripancreatic fluid collection. Gall Bladder: The gallbladder is well distended with no evidence for intraluminal calculi, wall thickening or pericholecystic edema. Adrenal glands: The adrenal glands are normal in size and attenuation. There is no evidence for enhancing mass lesion. Kidneys: There is homogeneous attenuation of the renal parenchyma bilaterally. There is no evidence for renal calculus or hydronephrosis. There is no evidence for enhancing mass. Bowel: Fluid-filled loops of large and small bowel are seen throughout the a bdomen and pelvis without evidence for disproportionate dilatation or obstruction. The findings are most characteristic of an ileus versus gastroenteritis. There is no evidence for mass lesion. There are no inflammatory changes present. There is no evidence for free air. There is no evidence for an inflamed appendix. Bladder: The bladder is markedly distended with encroachment upon the floor the bladder related to a markedly enlarged prostate. : There is no evidence for pelvic mass or adenopathy. There is no evidence for pelvic ascites. The prostate is markedly enlarged. Vasculature: There is no evidence for aneurysmal dilatation of the abdominal aorta. Mild atherosclerotic calcification is present. Osseous structures: There is no acute osseous pathology. Degenerative changes are seen within the spine. IMPRESSION: 1. Fluid-filled loops of large and small bowel throughout the abdomen and pelvis without evidence for disproportionate dilatation or obstruction. The findings are characteristic of an ileus versus gastroenteritis and correspond to the patient's history of diarrhea. 2. Marked prostate enlargement with encroachment upon the floor the bladder and marked distention of the urinary bladder. 3. Additional nonacute findings are delineated above. ACT 112: Negative or not required by law. Electronically signed by: Sigifredo Edward M.D. 04/05/2022 8:42 PM Discharge Plan Visit Data Chief Complaint: Shortness of Breath/Dyspnea Stated Complaint: SOB ED Provider: Armand Walsh Discharge Problem: Near syncope, Vomiting and diarrhea, Hypomagnesemia Patient Disposition: Admitted As Inpatient Condition: Fair Forms Stand Alone Forms: Work/School Release (ED), [facility], [facility], Virtual Emergency Department, Important Visit Information Prescriptions Prescriptions: No Action (DME) insulin syringe-needle U-100 [BD Insulin Syringe Ultra-Fine] 1 mL 31 gauge x 5/16 syringe See Dose Instructions .ROUTE .MEDSUPPLY Qty: 300 RF: 3 trazodone 100 mg tablet 100 mg PO HS Qty: 90 RF: 3 atorvastatin 10 mg tablet 5 mg PO HS Qty: 45 RF: 3 lisinopril 20 mg tablet 40 mg PO QAM Qty: 90 RF: 3 omeprazole 40 mg capsule,delayed release(DR/EC) 40 mg PO DAILYBB Qty: 90 RF: 3 hydrochlorothiazide 25 mg tablet 25 mg PO QAM Qty: 90 RF: 1 multivitamin tablet 1 tab PO QAM RF: 0 fluticasone propionate 50 mcg/actuation spray,suspension 2 sprays intranasal DAILY PRN (Reason: Congestion) Qty: 16 RF: 0 cholecalciferol (vitamin D3) 25 mcg (1,000 unit) capsule 2,000 units PO QAM RF: 0 (DME) FreeStyle Harini 14 Day [place] Misc See Rx Instructions .ROUTE .MEDSUPPLY Qty: 1 RF: 0 tamsulosin [Flomax] 0.4 mg capsule 0.4 mg PO QAM RF: 0 finasteride 5 mg tablet 5 mg PO HS RF: 0 valerian root 1,000 mg Capsule 2,000 mg PO HS RF: 0 insulin lispro [Humalog U-100 Insulin] 100 unit/mL solution 0 unit continuous subcutaneous infusion CONTINOUS RF: 0 aspirin 81 mg Tablet,Delayed Release (Dr/Ec) 81 mg PO QAM RF: 0 cyanocobalamin (vitamin B-12) 1,000 mcg capsule 1,000 mcg PO QAM RF: 0 ibuprofen 200 mg tablet 600 mg PO TID PRN (Reason: Pain) RF: 0 Referrals Referrals: Nohemi Teresa MD [Primary Care Provider] -
[2022-04-05] MEDS ORDERED: SODIUM CHLORIDE 0.9% 500 ML IV SCH (14:15)
[2022-04-05 14:16] LABS: Basophils # (auto) 0.01 K/uL (0-0.2); Basophils % (auto) 0.1 %; Eosinophils # (auto) 0.08 K/uL (0-0.5); Eosinophils % (auto) 0.9 %; Hematocrit (blood only) 44.8 % (42-52); Immature Granulocytes # (auto) 0.01 K/uL (0.00-0.02); Immature Granulocytes % (auto) 0.1 %; Lymphocytes # (auto) 0.41 K/uL (1.2-3.4); Lymphocytes % (auto) 4.4 %; Mean Corpuscular Hemoglobin 27.4 pg (25-34); Mean Corpuscular Hgb Conc 33.5 g/dL (32-36); Mean Corpuscular Volume 81.8 fL (80-100); Monocytes # (auto) 0.24 K/uL (0.11-0.59); Monocytes % (auto) 2.6 %; Neutrophils # (auto) 8.57 K/uL (1.4-6.5); Neutrophils % (auto) 91.9 %; Platelet Count 160 K/uL (130-400); RDW Coefficient of Variation 14.1 % (11.5-14.5); RDW Standard Deviation 42.2 fL (36.4-46.3); Red Blood Count 5.48 M/uL (4.7-6.1); White Blood Count 9.32 K/uL (4.8-10.8)
[2022-04-05 15:00] LABS: Alanine Aminotransferase 61 U/L (7-52); Albumin Globulin Ratio 1.7 (0.9-2); Albumin Level 4.3 gm/dl (3.4-5.0); Alkaline Phosphatase 94 U/L (34-104); Anion Gap 10 (3-11); Aspartate Aminotransferase 50 U/L (13-39); BUN Creatinine Ratio 18.7 (10-20); Bilirubin,Total 1.6 mg/dl (0.2-1.0); Blood Urea Nitrogen 20 mg/dl (6-23); Calcium 8.5 mg/dl (8.5-10.1); Carbon Dioxide 27 mmol/L (21-32); Chloride 103 mmol/L (98-107); Est GFR (African American) 78.3 ml/min; Est GFR (Non-African American) 67.5 ml/min; Globulin 2.6 gm/dl (2.5-4.0); Glucose 137 mg/dl (70-99(Fasting)); Magnesium 1.6 mg/dl (1.7-2.4); Potassium 3.6 mmol/L (3.5-5.1); Sodium 140 mmol/L (136-145); Total Protein 6.9 gm/dl (6.0-8.3)
[2022-04-05 15:29] LABS: Influenza A virus by PCR Negative (Neg); Influenza B virus by PCR Negative (Neg); RSV by PCR Negative (Neg); SARS CoV2 RNA(COVID-19) InHosp NEGATIVE (Negative)
[2022-04-05] MEDS ORDERED: MAGNESIUM SULFATE / D5W 1 GM/100 ML BAG IV STA (16:05)
--- NOTE | 2022-04-05 16:08 | XRay Report ---
XR chest 1V portable CLINICAL HISTORY: Shortness of breath. COMPARISON STUDY: Chest radiograph September 21, 2021. FINDINGS: Postoperative findings within the spine are incidentally noted. There is no pneumothorax or pleural effusion. There is no consolidation to suggest pneumonia. Cardiomegaly is unchanged. Slight interstitial prominence is unchanged. IMPRESSION: No acute cardiopulmonary findings. No change in appearance of the chest. ACT 112: Negative or not required by law. Electronically signed by: Gabriele Alvarez M.D. 04/05/2022 4:06 PM
[2022-04-05] MEDS ORDERED: SODIUM CHLORIDE 0.9% 1000ML 500 ML IV ONE (16:16)
[2022-04-05] MEDS ORDERED: PROMETHAZINE 6.25 MG/50.25 ML BAG IV STA (17:11)
--- NOTE | 2022-04-05 19:35 | History & Physical Report ---
Date of Service April 05, 2022 Assessment & Plan (1) Vomiting and diarrhea: Plan: - Suspect patient has a foodborne/viral GI illness as he was at a birthday democrat Monday and since then, multiple family members have also developed vomiting, diarrhea, and headache. - No leukocytosis or fever. Will obtain CT A/P, stool biofire, UA, and lipase for further workup and to look for potential sources of symptoms. - For now, clear liquid diet to be advanced as tolerated by patient, hydrate with IVF, pain and nausea/vomiting control, replete magnesium. (2) Hypomagnesemia: Plan: - 1.6, likely due to vomiting, diarrhea, also on HCTZ which can contribute. - Will replete and recheck in AM. (3) Diabetes mellitus, type 2: Plan: - Has an insulin pump which we will continue. BSG achs. - A1c last checked in January, 7.8. - CC diet. (4) Hyperlipidemia: Plan: - Continue atorvastatin. (5) Acid reflux disease: Plan: - Continue PPI. (6) Benign hypertension: Plan: - Continue HCTZ, lisinopril. (7) Insomnia: Plan: - Continue trazodone at night. (8) Low back pain: Plan: - Chronic, stable. - Continue PRN ibuprofen, Tylenol. (9) BPH w urinary obs/LUTS: Plan: - Continue with Flomax, Proscar. - Will bladder scan given distended bladder on CT. With dysuria here in ED, UA ordered. Plan: - Admit to med/surg. - SCDs for DVT ppx. - Ful Code. History of Present Illness Chief Complaint: vomiting, diarrhea x 1 day Primary Care Provider: Nohemi Teresa MD Mr. Garner is a 73 year-old male with past medical history of IDDM2 with neuropathy, hypertension, hyperlipidemia, GERD, BPH, anc chronic low back pain who presents today with diarrhea and vomiting. He has had frequent nonbloody diarrhea throughout the day starting today and at work this afternoon, had two episodes of diaphoresis followed by nausea and nonbloody emesis x2. He had no chest or abdominal pain prior to this and since then has felt nauseous and weak. He was at a birthday democrat with family on Monday and since then several of them have developed similar symptoms. He had some dysuria when urinating here in the ED, but this is his first time experiencing this. Denies fever/chills, myalgias, chest pain, palpitations, SOB, cough, abdominal pain, hematemesis, melena, or hematochezia. In ED, he is hypertensive and slightly tachycardic and tachypneic but afebrile and >95% on room air. Labs largely unremarkable, significant for magnesium 1.6, T bili 1.6, AST 50, ALT 61. CXR unremarkable. CT A/P with fluid-filled loops of large and small bowel throughout the abdomen and pelvis without evidence for disproportionate dilatation or obstruction, characteristic of an ileus versus gastroenteritis and correspond to the patient's history of diarrhea. Marked prostate enlargement with encroachment upon the floor the bladder and marked distention of the urinary bladder. Allergies Allergy/AdvReac Type Severity Reaction Status Date / Time Penicillins Allergy Intermediate HIVES Verified 04/05/22 19:29 metformin AdvReac Intermediate GI Verified 04/05/22 19:29 distress/diarrhea Home Medications Medication Instructions Recorded Confirmed Type multivitamin 1 tab PO QAM 08/20/19 04/05/22 History fluticasone propionate 50 2 sprays INTRANASAL DAILY PRN #16 12/09/19 04/05/22 History mcg/actuation nasal gm spray,suspension cholecalciferol (vitamin D3) 25 2,000 units PO QAM cap 08/14/20 04/05/22 History mcg (1,000 unit) capsule flash glucose scanning reader #1 ea 08/14/20 03/24/22 History (FreeStyle Harini 14 Day [place]) aspirin 81 mg tablet,delayed 81 mg PO QAM 05/02/21 04/05/22 History release cyanocobalamin (vitamin B-12) 1,000 mcg PO QAM 05/02/21 04/05/22 History 1,000 mcg capsule insulin syringe-needle U-100 1 mL #300 ea 08/05/21 03/24/22 Rx 31 gauge x 5/16" (BD Insulin Syringe Ultra-Fine) trazodone 100 mg tablet 100 mg PO HS #90 tab 08/06/21 04/05/22 Rx atorvastatin 10 mg tablet 5 mg PO HS #45 tab 08/11/21 04/05/22 Rx lisinopril 20 mg tablet 40 mg PO QAM #90 tab 09/21/21 04/05/22 Rx finasteride 5 mg tablet 5 mg PO HS 10/01/21 04/05/22 History tamsulosin 0.4 mg capsule (Flomax) 0.4 mg PO QAM 10/01/21 04/05/22 History omeprazole 40 mg capsule,delayed 40 mg PO DAILYBB #90 cap 10/04/21 04/05/22 Rx release hydrochlorothiazide 25 mg tablet 25 mg PO QAM #90 tab 10/22/21 04/05/22 Rx ibuprofen 200 mg tablet 600 mg PO TID PRN tab 11/18/21 04/05/22 History insulin lispro 100 unit/mL 0 unit CONTINUOUS SUBCUTANEOUS 04/05/22 04/05/22 History subcutaneous solution (Humalog INFUSION CONTINOUS U-100 Insulin) valerian root 1,000 mg capsule 2,000 mg PO HS 04/05/22 04/05/22 History Past Med/Surg History Medical History BPH (benign prostatic hyperplasia) Diabetes mellitus, type 2 Dysesthesia R/L feet GERD (gastroesophageal reflux disease) History of TMJ syndrome Hyperlipidemia Hypertension Insulin pump in place Morbid obesity Urinary retention s/p urinary catheter (05/2021)- since removed Surgical History H/O knee surgery Spur removed from knee H/O neck surgery History of carpal tunnel surgery RT History of cataract surgery RT/LEFT History of colonoscopy History of esophagogastroduodenoscopy (EGD) History of surgery Exam under anesthesia, removal of skin tags, fistulotomy (01/09/18): Grade view 1 with Glidescope#4, ETT 8.0 (difficult mask. vent with 2 person 2/2 hamilton > elective glidescope with minimal neck extension- ETT easily passed, small right upper lip laceration noted) History of tonsillectomy and adenoidectomy History of tooth extraction RECENT TOOTH EXTRACTION Hx of LASIK Family History Aunt Diabetes Father Lung cancer Sister Diabetes Other No family history of adverse response to anesthesia Denies family history of Ovarian cancer Prostate cancer Myocardial infarction Breast cancer Colorectal cancer Hypertension Stroke Social History Smoking Status: Never smoker Second Hand Exposure: Yes (IN THE PAST); Hx Alcohol Use: Yes Alcohol type: beer Alcohol Intake Frequency: Monthly or Less Hx Substance Use: No Preferred Language: Welsh Communication Ability: Effective Visual Impairment: No Limitations Hearing Ability: Normal Buddhist Monk Required: No Beliefs That Will Affect Care: None marital status: / Current Living Situation: Alone current occupational status: employed 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 Other Information That Helps Us Care for You: No Feels Safe at Home: Yes Safety Concerns: Feels Safe At This Time caffeine: Yes (coffee) Dental Care, Regularly: Yes Physical Activity Frequency: Does not Exercise Seatbelt Use: always Sunscreen Use: Yes Assistive Devices: None Assistive Devices Comment: pt has a cane but does not use it Review of Systems Review of Systems: Constitutional: No fever/chills, weakness, fatigue, myalgias, anorexia, night sweats Eyes: No diplopia, no worsening or blurred vision ENT: normal hearing, no trouble swallowing Respiratory: No cough, sputum, dyspnea at rest or on exertion Cardiovascular: No chest pain, tightness or palpitations Abdomen: nausea with nonbloody emesis x2 today, diarrhea since this AM; no abdominal pain, constipation, hematochezia or melena : dysuria once this evening; otherwise without hematuria, increased urgency/frequency, urinary retention Musculoskeletal: chronic back pain not acutely worse today; No joint pain, calf pain, swelling Neurologic: No weakness, numbness/tingling, or balance problems Psychiatric: No anxiety or depression Skin: No rash or itch Physical Exam Physical Exam: General: awake, alert, no apparent distress Head: Normocephalic, atraumatic ENT: PERRL, EOMI, no pharyngeal exudate, mucous membranes moist Chest: Clear to auscultation, on room air, no adventitious breath sounds Cardiac: Regular rate and rhythm, no murmur, no JVD, normal peripheral pulses, good capillary refill Abdominal: TTP in LLQ/suprapubic region; umbilical hernia present, not incarcerated; NABS x 4 quadrants, soft, no rebound, guarding or tenderness Extremities: Normal inspection, no peripheral edema or erythema, calfs nontender to palpation Psych: Normal mood and affect Neuro: AAO x 3, strength intact bilaterally and rated 5/5, no motor deficits, speech is clear, no peripheral sensory deficits Skin: no rash or erythema Results & Data Results & Data ([facility]) Vital Signs (Past 12 Hours) Vital Signs Temp Pulse Resp BP Pulse Ox 04/05/22 17:30 103 H 146/84 H 04/05/22 17:23 104 H 25 H 147/80 H 04/05/22 17:01 103 H 18 149/74 H 04/05/22 17:00 100 H 28 H 96 04/05/22 16:30 92 H 28 H 141/83 H 95 04/05/22 16:00 102 H 21 181/83 H 95 04/05/22 15:30 102 H 30 H 166/93 H 96 04/05/22 15:00 20 175/95 H 98 04/05/22 14:31 106 H 22 167/94 H 97 04/05/22 14:30 102 H 24 96 04/05/22 14:07 36.8 C 112 H 16 179/82 H 97 04/05/22 14:00 110 H 24 159/84 H 97 Laboratory Results Abnormal lab results 04/05/22 04/05/22 Range/Units 14:00 14:00 MPV 11.0 H (7.4-10.4) fL Neut # (Auto) 8.57 H (1.4-6.5) K/uL Lymph # (Auto) 0.41 L (1.2-3.4) K/uL Glucose 137 H (70-99(Fasting)) mg/dl Magnesium 1.6 L (1.7-2.4) mg/dl Total Bilirubin 1.6 H (0.2-1.0) mg/dl AST 50 H (13-39) U/L ALT 61 H (7-52) U/L Diagnostic Findings Chest X-Ray 04/05/22 15:41 XR chest 1V portable CLINICAL HISTORY: Shortness of breath. COMPARISON STUDY: Chest radiograph September 21, 2021. FINDINGS: Postoperative findings within the spine are incidentally noted. There is no pneumothorax or pleural effusion. There is no consolidation to suggest pneumonia. Cardiomegaly is unchanged. Slight interstitial prominence is unchanged. IMPRESSION: No acute cardiopulmonary findings. No change in appearance of the chest. ACT 112: Negative or not required by law. Electronically signed by: Gabriele Alvarez M.D. 04/05/2022 4:06 PM ECG Additional Comments: Sinus tachycardia with 1st degree A-V block with Premature atrial complexes Right bundle branch block Left anterior fascicular block Bifascicular block . No ST elevations, Code Status & VTE Plan Code Status Full Code. Supervising Physician Co-Signing Physician Notes Attending addendum: I have physically seen this patient, have supervised the LILLIAN's activities, and agree with the H&P unless as otherwise noted. Assessment and Plan: Nausea/vomiting and diarrhea- Differential: Toxin associated food poisoning versus viral etiology, among others Ordered CT abdomen and pelvis without contrast, stool PCR, UA and lipase Clear liquid diet for now, advance as tolerated IV fluids Diabetes mellitus- Continue insulin pump with coverage scale Hypomagnesemia- Magnesium 1.6 upon admission Hold HCTZ Replete IV, recheck labs in a.m. Remaining orders and notations as noted PG Care Time/CCT Total # of Minutes Spent Total Time Spent with Patient: Total time spent is greater than 50% in coordination of care (as documented) at patient's floor/unit and/or counseling patient: Coding Level of Care Code 23832 Initial Inpt Care Lvl 3 Diagnoses Vomiting and diarrhea R11.10; R19.7 Hyperlipidemia E78.5 Diabetes mellitus, type 2 E11.9 Acid reflux disease K21.9 Benign hypertension I10 Insomnia G47.00 Low back pain M54.5 BPH w urinary obs/LUTS N40.1; N13.8 Hypomagnesemia E83.42
[2022-04-05] MEDS ORDERED: ACETAMINOPHEN 1000 MG/100 ML IV IV STA (19:58)
[2022-04-05] MEDS ORDERED: OPTIRAY 320 100ml IV ONE (20:21)
--- NOTE | 2022-04-05 20:44 | CT Scan Report ---
CT abd pelvis IV con only CLINICAL HISTORY: abdominal pain, diarrhea COMPARISON STUDY: No previous studies for comparison. CT DOSE: 1593.69 mGy.cm TECHNIQUE: Standard CT of the Abdomen and Pelvis was performed with IV contrast. A dose lowering lexus hnique was utilized adhering to the principles of ALARA. Contrast Volume: Optiray 320, 92 ml. The patient did not receive oral contrast. FINDINGS: Lung base: The lung bases are clear. Abdominal cavity: There is no evidence for abdominal mass, adenopathy or ascites. Liver: There is homogeneous attenuation of the liver parenchyma. There is no evidence for enhancing m ass lesion. There is evidence for fatty infiltration of the liver. Spleen: There is homogeneous attenuation of the splenic parenchyma. There is no enhancing mass lesion . Pancreas: There is homogeneous attenuation of the pancreatic parenchyma. There is no evidence for mas s lesion or peripancreatic fluid collection. Gall Bladder: The gallbladder is well distended with no evidence for intraluminal calculi, wall thick ening or pericholecystic edema. Adrenal glands: The adrenal glands are normal in size and attenuation. There is no evidence for enhan cing mass lesion. Kidneys: There is homogeneous attenuation of the renal parenchyma bilaterally. There is no evidence f or renal calculus or hydronephrosis. There is no evidence for enhancing mass. Bowel: Fluid-filled loops of large and small bowel are seen throughout the abdomen and pelvis without evidence for disproportionate dilatation or obstruction. The findings are most characteristic of an ileus versus gastroenteritis. There is no evidence for mass lesion. There are no inflammatory changes present. There is no evidence for free air. There is no evidence for an inflamed appendix. Bladder: The bladder is markedly distended with encroachment upon the floor the bladder related to a markedly enlarged prostate. : There is no evidence for pelvic mass or adenopathy. There is no evidence for pelvic ascites. The prostate is markedly enlarged. Vasculature: There is no evidence for aneurysmal dilatation of the abdominal aorta. Mild atherosclero tic calcification is present. Osseous structures: There is no acute osseous pathology. Degenerative changes are seen within the spi ne. IMPRESSION: 1. Fluid-filled loops of large and small bowel throughout the abdomen and pelvis without evidence for disproportionate dilatation or obstruction. The findings are characteristic of an ileus versus gastr oenteritis and correspond to the patient's history of diarrhea. 2. Marked prostate enlargement with encroachment upon the floor the bladder and marked distention of the urinary bladder. 3. Additional nonacute findings are delineated above. ACT 112: Negative or not required by law. Electronically signed by: Sigifredo Edward M.D. 04/05/2022 8:42 PM
[2022-04-05] MEDS ORDERED: ONDANSETRON INJ 2 MG/ML 2 ML VIAL IV PRN (21:49)
[2022-04-05] MEDS ORDERED: GLUCAGON FOR INJ 1 MG VIAL SQ PRN (21:49)
[2022-04-05] MEDS ORDERED: GLUCOSE 10 TABS/TUBE PO PRN (21:49)
[2022-04-05] MEDS ORDERED: [UNRECOGNIZED DRUG - OTHER] SCH (21:49)
[2022-04-05] MEDS ORDERED: INSULIN U SCH (21:49)
[2022-04-05] MEDS ORDERED: MoRPHine SULFATE 2 MG/ML CARP IV PRN (21:49)
[2022-04-05] MEDS ORDERED: PHARMACY GLYCEMIC MGMT CONSULT PRN (21:49)
[2022-04-05] MEDS ORDERED: MoRPHine SULFATE 4 MG/ML 1 ML CARP\\VIAL IV PRN (21:49)
[2022-04-05] MEDS ORDERED: CARBOHYDRATES FOR HYPOGLYCEMIA PO PRN (21:49)
[2022-04-05] MEDS ORDERED: PROMETHAZINE HCL 12.5 MG in SODIUM CHLORIDE 0.9% 50 ML IV PRN (21:49)
[2022-04-05] MEDS ORDERED: FLUTICASONE PROPIONATE NA SPR 16 GM BTL NAE PRN (21:49)
[2022-04-05] MEDS ORDERED: ACETAMINOPHEN 325 MG TAB PO PRN (21:49)
[2022-04-05] MEDS ORDERED: POLYETHYLENE (MIRALAX) 17 GM PACK PO PRN (21:49)
[2022-04-05] MEDS ORDERED: [UNRECOGNIZED DRUG - OTHER] SCH (21:49)
[2022-04-05] MEDS ORDERED: DEXTROSE 50% 50 ML SYRINGE IV PRN (21:49)
[2022-04-05] MEDS ORDERED: GLUCOSE 40% GEL 15 GM TUBE PO PRN (21:49)
[2022-04-05] MEDS ORDERED: INSULIN HUMAN LISPRO (humaLOG) 100 UNITS/ML VIAL SC PRN (23:15)
[2022-04-05] MEDS: MAGNESIUM SULFATE / D5W 1 GM/100 ML BAG IV SCH (23:23)
[2022-04-05] MEDS: LACTATED RINGER'S 1,000 ML IV SCH (23:23)
[2022-04-05] MEDS: ATORVASTATIN 10 MG TAB PO SCH (23:23)
[2022-04-05] MEDS: FINASTERIDE 5 MG TAB PO SCH (23:24)
[2022-04-05] MEDS: traZODone HCL 100 MG TAB PO SCH (23:24)
[2022-04-06] MEDS: MAGNESIUM SULFATE / D5W 1 GM/100 ML BAG IV SCH (01:41)
[2022-04-06 03:42] LABS: Appearance Urine Clear (Clear); Bilirubin Urine Negative (Negative); Blood Urine Negative (Negative); Color Urine Yellow; Glucose Urine UA Negative (Negative); Ketones Urine Negative (Negative); Leukocyte Esterase Urine Negative (Negative); Nitrite Urine Negative (Negative); Protein Urine Negative (Negative); Specific Gravity Urine 1.028 (1.000-1.030); Urobilinogen Urine Negative (Negative); pH Urine 5.5 (4.5-7.5)
[2022-04-06 04:10] LABS: Adenovirus F 40/41 PCR Not Detected (NotDetected); Astrovirus PCR Not Detected (NotDetected); Campylobacter PCR Not Detected (NotDetected); Clostridium diff Toxin A/B PCR Not Detected (NotDetected); Cryptosporidium PCR Not Detected (NotDetected); Cyclospora cayetanensis PCR Not Detected (NotDetected); Entamoeba histolytica PCR Not Detected (NotDetected); Enteroaggregative E.coli(EAEC) Not Detected (NotDetected); Enteropathogenic E.coli (EPEC) Not Detected (NotDetected); Enterotoxigenic E.coli (ETEC) Not Detected (NotDetected); Giardia lamblia PCR Not Detected (NotDetected); Plesiomonas shigelloides PCR Not Detected (NotDetected); Rotavirus A PCR Not Detected (NotDetected); Salmonella PCR Not Detected (NotDetected); Sapovirus PCR Not Detected (NotDetected); Shiga-like Toxin E.coli (STEC) Not Detected (NotDetected); Shigella/Enteroinvasive E.coli Not Detected (NotDetected); Vibrio cholerae PCR Not Detected (NotDetected); Vibrio species PCR Not Detected (NotDetected); Yersinia enterocolitica PCR Not Detected (NotDetected)
[2022-04-06 04:17] LABS: Norovirus GI/GII PCR DETECTED (NotDetected)
[2022-04-06] MEDS: LACTATED RINGER'S 1,000 ML IV SCH ×2 (08:30→16:17)
[2022-04-06] MEDS: TAMSULOSIN HCL 0.4 MG CAP PO SCH (08:36)
[2022-04-06] MEDS: PANTOprazole 40 MG TAB PO SCH (08:37)
[2022-04-06] MEDS: lisinopril 40 MG TAB PO SCH (08:37)
[2022-04-06] MEDS: CYANOCOBALAMIN (B-12) 500 MCG TABLET PO SCH (08:38)
[2022-04-06] MEDS: hydroCHLOROthiazide 25 MG TAB PO SCH (08:38)
[2022-04-06] MEDS: CHOLECALCIFEROL 1,000 UNITS 25 MCG TAB PO SCH (08:39)
[2022-04-06] MEDS: ASPIRIN 81 MG ECTAB PO SCH (08:39)
--- NOTE | 2022-04-06 08:52 | Pharmacy Report ---
Pharmacy Glycemic Short Note 2 - Date of Service April 06, 2022 - Glycemic Short BSG Results (Last 24 hours): 04/05/22 04/05/22 04/06/22 14:00 22:23 02:58 Glucose 137 H POC Glucose 179 H 138 H 04/06/22 08:22 Glucose POC Glucose 119 H OUTPATIENT ANTIDIABETIC REGIMEN: * Humalog insulin pump * Settings obtained from diabetes visit note on 02/14/22 * Basal: 104 units/day * Correction factor: 25 * Carb ratio: 5 * BSG goal range 90-140 mg/dL * Will sometimes use SC injections in addition to pump * HbA1c: 7.8% (02/08/22) ASSESSMENT: * GS is a 76 year old male with type 2 DM reasonably well-controlled with insulin pump * Presents with nausea and vomiting, likely due to gastroenteritis * Humalog insulin pump continued upon admission and will continue for now * Will follow BSGs closely in light of sickness and likely decreased PO intake * May require temporary basal rate vs. transition to SC basal/bolus PLAN FOR INPATIENT GLYCEMIC CONTROL: Pt is to manage BSGs with insulin pump per outpatient settings. * RN will have patient read and sign agreement [id number] Insulin Pump Therapy Patient Agreement. * RN will provide and explain form [id number] Flowsheet for Patient * Patient will document their insulin dose given on [id number] which is kept at the bedside, available to caregivers upon request, and which becomes part of the permanent medical record. If at any time the patients condition evidences that he/she is not able to manage the insulin pump (i.e. frequent hypo/hyperglycemia) Pharmacy will assume glycemic control by discontinuing the pump & managing with SQ basal bolus insulin regimen for the interim.
[2022-04-06] MEDS: IBUPROFEN 600 MG TAB PO PRN ×3 (10:01→21:47)
[2022-04-06 11:13] LABS: Eosinophils # (auto) 0.01 K/uL (0-0.5); Eosinophils % (auto) 0.1 %; Hematocrit (blood only) 40.7 % (42-52); Hemoglobin 13.7 g/dL (14.0-18.0); Immature Granulocytes # (auto) 0.01 K/uL (0.00-0.02); Immature Granulocytes % (auto) 0.1 %; Lymphocytes # (auto) 0.46 K/uL (1.2-3.4); Lymphocytes % (auto) 6.9 %; Mean Corpuscular Hgb Conc 33.7 g/dL (32-36); Mean Corpuscular Volume 83.1 fL (80-100); Mean Platelet Volume 11.2 fL (7.4-10.4); Monocytes # (auto) 0.32 K/uL (0.11-0.59); Monocytes % (auto) 4.8 %; Neutrophils # (auto) 5.88 K/uL (1.4-6.5); Neutrophils % (auto) 88.1 %; Platelet Count 158 K/uL (130-400); RDW Coefficient of Variation 14.3 % (11.5-14.5); RDW Standard Deviation 43.8 fL (36.4-46.3); White Blood Count 6.68 K/uL (4.8-10.8)
[2022-04-06 11:29] LABS: Albumin Globulin Ratio 1.5 (0.9-2); Albumin Level 3.7 gm/dl (3.4-5.0); BUN Creatinine Ratio 14.5 (10-20); Bilirubin,Total 1.4 mg/dl (0.2-1.0); Calcium 8.4 mg/dl (8.5-10.1); Creatinine Clr Calc Pharmacy 80.6 ml/min; Est GFR (African American) 75.7 ml/min; Est GFR (Non-African American) 65.3 ml/min; Globulin 2.4 gm/dl (2.5-4.0); Potassium 3.9 mmol/L (3.5-5.1); Total Protein 6.1 gm/dl (6.0-8.3)
[2022-04-06] MEDS ORDERED: Nursing to Pharmacy Communication SCH (11:45)
--- NOTE | 2022-04-06 13:20 | Electrocardiogram Report ---
Test Reason : Blood Pressure : / mmHG Vent. Rate : 110 BPM Atrial Rate : 110 BPM P-R Int : 224 ms QRS Dur : 138 ms QT Int : 350 ms P-R-T Axes : 000 -84 042 degrees QTc Int : 473 ms Sinus tachycardia with 1st degree A-V block with Premature atrial complexes Right bundle branch block Left anterior fascicular block Bifascicular block Possible Anterolateral infarct , age undetermined Abnormal ECG When compared with ECG of 11-NOV-2012 11:00, Premature atrial complexes are now Present (RBBB and left anterior fascicular block) is now Present Borderline criteria for Lateral infarct are now Present Confirmed by Godwin May ([id number]) on 04/06/2022 1:20:25 PM Referred By: REFERRED SELF Confirmed By:Godwin May
[2022-04-06] MEDS ORDERED: LOPERAMIDE HCL 2 MG CAP PO STA (16:32)
--- NOTE | 2022-04-06 21:14 | Hospitalist Progress Note ---
Date of Service April 06, 2022 Assessment & Plan (1) Vomiting and diarrhea: Plan: Norvovirus Gastroenteritis confirmed. - patient has a foodborne/viral GI illness as he was at a birthday constitution party Monday and since then, multiple family members have also developed vomiting, diarrhea, and headache. - No leukocytosis or fever. Will obtain CT A/P, stool biofire, UA, and lipase for further workup and to look for potential sources of symptoms. - For now, clear liquid diet to be advanced as tolerated by patient, hydrate with IVF, pain and nausea/vomiting control, replete magnesium. -Continue IVF, ordered one time dose of loperamide due to his frequency of s tools and patient request. But will limit the usage as such to not mask his improvement. Possible discharge on 04/07 (2) Hypomagnesemia: Plan: - 1.6, likely due to vomiting, diarrhea, also on HCTZ which can contribute. - will recheck: 2.0 (3) Diabetes mellitus, type 2: Plan: - Has an insulin pump which we will continue. BSG achs. - A1c last checked in January, 7.8. - CC diet. (4) Hyperlipidemia: Plan: - Continue atorvastatin. (5) Acid reflux disease: Plan: - Continue PPI. (6) Benign hypertension: Plan: - Continue HCTZ, lisinopril. (7) Insomnia: Plan: - Continue trazodone at night. (8) Low back pain: Plan: - Chronic, stable. - Continue PRN ibuprofen, Tylenol. (9) BPH w urinary obs/LUTS: Plan: - Continue with Flomax, Proscar. - Will bladder scan given distended bladder on CT. With dysuria here in ED, UA ordered. Plan: - Admit to med/surg. - SCDs for DVT ppx. - Ful Code. Admission and Anticipated Discharge Date Admission Date: April 05, 2022 Subjective Patient reports his diarrhea has been ongoing. One BM per hour up until the afternoon, where it has decreased. Review of Systems Review of Systems: All systems reviewed & are unremarkable except as noted in HPI & below Physical Exam Physical Exam: General: awake, alert, no apparent distress Head: Normocephalic, atraumatic ENT: PERRL, EOMI, no pharyngeal exudate, mucous membranes moist Chest: Clear to auscultation, on room air, no adventitious breath sounds Cardiac: Regular rate and rhythm, no murmur, no JVD, normal peripheral pulses, good capillary refill Abdominal: umbilical hernia present, not incarcerated; NABS x 4 quadrants, soft, no rebound, guarding or tenderness Extremities: Normal inspection, no peripheral edema or erythema, calfs nontender to palpation Psych: Normal mood and affect Neuro: AAO x 3, strength intact bilaterally and rated 5/5, no motor deficits, speech is clear, no peripheral sensory deficits Skin: no rash or erythema Results & Data Results & Data ([facility]) Vital Signs (Past 12 Hours) Vital Signs Temp Pulse Resp BP Pulse Ox 04/06/22 15:59 37.1 C 106 H 16 138/81 95 PG Care Time/CCT Total # of Minutes Spent Total Time Spent with Patient: Total time spent is greater than 50% in coordination of care (as documented) at patient's floor/unit and/or counseling patient: Coding Level of Care Code 42130 Subseq Hosp Care Lvl 2 Diagnoses Vomiting and diarrhea R11.10; R19.7 Hypomagnesemia E83.42 Diabetes mellitus, type 2 E11.9 Hyperlipidemia E78.5 Acid reflux disease K21.9 Benign hypertension I10 Insomnia G47.00 Low back pain M54.5 BPH w urinary obs/LUTS N40.1; N13.8
[2022-04-06] MEDS: traZODone HCL 100 MG TAB PO SCH (21:48)
[2022-04-06] MEDS: FINASTERIDE 5 MG TAB PO SCH (21:48)
[2022-04-06] MEDS: ATORVASTATIN 10 MG TAB PO SCH (21:48)
[2022-04-07] MEDS: LACTATED RINGER'S 1,000 ML IV SCH ×2 (00:15→08:10)
[2022-04-07 07:23] LABS: Hematocrit (blood only) 40.3 % (42-52); Hemoglobin 13.5 g/dL (14.0-18.0); Mean Corpuscular Hemoglobin 27.8 pg (25-34); Mean Corpuscular Hgb Conc 33.5 g/dL (32-36); Mean Corpuscular Volume 83.1 fL (80-100); Platelet Count 140 K/uL (130-400); RDW Coefficient of Variation 14.3 % (11.5-14.5); RDW Standard Deviation 43.7 fL (36.4-46.3); Red Blood Count 4.85 M/uL (4.7-6.1); White Blood Count 4.98 K/uL (4.8-10.8)
[2022-04-07 07:35] LABS: BUN Creatinine Ratio 12.5 (10-20); Calcium 8.5 mg/dl (8.5-10.1); Creatinine Clr Calc Pharmacy 85.2 ml/min; Est GFR (Non-African American) 69.9 ml/min; Potassium 3.8 mmol/L (3.5-5.1)
[2022-04-07] MEDS: IBUPROFEN 600 MG TAB PO PRN (08:18)
[2022-04-07] MEDS: ASPIRIN 81 MG ECTAB PO SCH (08:18)
[2022-04-07] MEDS: CYANOCOBALAMIN (B-12) 500 MCG TABLET PO SCH (08:19)
[2022-04-07] MEDS: lisinopril 40 MG TAB PO SCH (08:19)
[2022-04-07] MEDS: PANTOprazole 40 MG TAB PO SCH (08:19)
[2022-04-07] MEDS: CHOLECALCIFEROL 1,000 UNITS 25 MCG TAB PO SCH (08:19)
[2022-04-07] MEDS: TAMSULOSIN HCL 0.4 MG CAP PO SCH (08:19)
[2022-04-07] MEDS: hydroCHLOROthiazide 25 MG TAB PO SCH (08:19)
--- NOTE | 2022-04-07 10:56 | Discharge Summary ---
Date of Service April 07, 2022 Admission HPI Per Admitting Provider Mr. Garner is a 73 year-old male with past medical history of IDDM2 with neuropathy, hypertension, hyperlipidemia, GERD, BPH, anc chronic low back pain who presents today with diarrhea and vomiting. He has had frequent nonbloody diarrhea throughout the day starting today and at work this afternoon, had two episodes of diaphoresis followed by nausea and nonbloody emesis x2. He had no chest or abdominal pain prior to this and since then has felt nauseous and weak. He was at a birthday green party with family on Monday and since then several of them have developed similar symptoms. He had some dysuria when urinating here in the ED, but this is his first time experiencing this. Denies fever/chills, myalgias, chest pain, palpitations, SOB, cough, abdominal pain, hematemesis, melena, or hematochezia. In ED, he is hypertensive and slightly tachycardic and tachypneic but afebrile and >95% on room air. Labs largely unremarkable, significant for magnesium 1.6, T bili 1.6, AST 50, ALT 61. CXR unremarkable. CT A/P with fluid-filled loops of large and small bowel throughout the abdomen and pelvis without evidence for disproportionate dilatation or obstruction, characteristic of an ileus versus gastroenteritis and correspond to the patient's history of diarrhea. Marked prostate enlargement with encroachment upon the floor the bladder and marked distention of the urinary bladder. Principal Diagnosis 1. Viral gastroenteritis d/t norovirus 2. Hypomagnesemia--replaced/resolved Discharge Exam GENERAL: 76 yo well-developed, well-nourished WM. NAD. LUNGS: Clear to auscultation bilaterally. No W/R/R. CARDIOVASCULAR: Regular rate and rhythm. No M/G/R. No JVD. ABDOMEN: Soft, non-tender and non-distended. BS normal x 4 quad. EXTREMITIES: No edema. Non-tender. Peripheral pulses +2/4. NEUROLOGIC: A&O x3. PSYCHIATRIC: Cooperative. Appropriate mood and affect. SKIN: Warm, dry, intact. No rashes or lesions. Discharge Data Allergies Allergy/AdvReac Type Severity Reaction Status Date / Time Penicillins Allergy Intermediate HIVES Verified 04/05/22 19:29 metformin AdvReac Intermediate GI Verified 04/05/22 19:29 distress/diarrhea Consultations 04/05/22 19:04 ED Decision to Admit Stat Ordered Studies Chest X-Ray 04/05/22 15:41 XR chest 1V portable CLINICAL HISTORY: Shortness of breath. COMPARISON STUDY: Chest radiograph September 21, 2021. FINDINGS: Postoperative findings within the spine are incidentally noted. There is no pneumothorax or pleural effusion. There is no consolidation to suggest pneumonia. Cardiomegaly is unchanged. Slight interstitial prominence is unchanged. IMPRESSION: No acute cardiopulmonary findings. No change in appearance of the chest. ACT 112: Negative or not required by law. Electronically signed by: Gabriele Alvarez M.D. 04/05/2022 4:06 PM Abdomen/Pelvis CT 04/05/22 19:58 CT abd pelvis IV con only CLINICAL HISTORY: abdominal pain, diarrhea COMPARISON STUDY: No previous studies for comparison. CT DOSE: 1593.69 mGy.cm TECHNIQUE: Standard CT of the Abdomen and Pelvis was performed with IV contrast. A dose lowering technique was utilized adhering to the principles of ALARA. Contrast Volume: Optiray 320, 92 ml. The patient did not receive oral contrast. FINDINGS: Lung base: The lung bases are clear. Abdominal cavity: There is no evidence for abdominal mass, adenopathy or ascites. Liver: There is homogeneous attenuation of the liver parenchyma. There is no evidence for enhancing mass lesion. There is evidence for fatty infiltration of the liver. Spleen: There is homogeneous attenuation of the splenic parenchyma. There is no enhancing mass lesion. Pancreas: There is homogeneous attenuation of the pancreatic parenchyma. There is no evidence for mass lesion or peripancreatic fluid collection. Gall Bladder: The gallbladder is well distended with no evidence for intraluminal calculi, wall thickening or pericholecystic edema. Adrenal glands: The adrenal glands are normal in size and attenuation. There is no evidence for enhancing mass lesion. Kidneys: There is homogeneous attenuation of the renal parenchyma bilaterally. There is no evidence for renal calculus or hydronephrosis. There is no evidence for enhancing mass. Bowel: Fluid-filled loops of large and small bowel are seen throughout the abdomen and pelvis without evidence for disproportionate dilatation or obstruction. The findings are most characteristic of an ileus versus gastroenteritis. There is no evidence for mass lesion. There are no inflammatory changes present. There is no evidence for free air. There is no evidence for an inflamed appendix. Bladder: The bladder is markedly distended with encroachment upon the floor the bladder related to a markedly enlarged prostate. : There is no evidence for pelvic mass or adenopathy. There is no evidence for pelvic ascites. The prostate is markedly enlarged. Vasculature: There is no evidence for aneurysmal dilatation of the abdominal aorta. Mild atherosclerotic calcification is present. Osseous structures: There is no acute osseous pathology. Degenerative changes are seen within the spine. IMPRESSION: 1. Fluid-filled loops of large and small bowel throughout the abdomen and pelvis without evidence for disproportionate dilatation or obstruction. The findings are characteristic of an ileus versus gastroenteritis and correspond to the patient's history of diarrhea. 2. Marked prostate enlargement with encroachment upon the floor the bladder and marked distention of the urinary bladder. 3. Additional nonacute findings are delineated above. ACT 112: Negative or not required by law. Electronically signed by: Sigifredo Edward M.D. 04/05/2022 8:42 PM Hospital Course (1) Vomiting and diarrhea: - patient has a foodborne/viral GI illness as he was at a birthday green party Monday and since then, multiple family members have also developed vomiting, diarrhea, and headache. - No leukocytosis or fever. CT A/P obtained with results as noted above (c/w GE) - stool biofire, UA, and lipase for further workup and to look for potential sources of symptoms. * stool biofire positive for norovirus - started on clear liquid diet and was advanced as tolerated by patient - he was hydrated with IVF, IV pain control and anti-emetics provided - Given a one time dose of Imodium for his diarrhea on 04/06 - This AM (04/07) pt completely asymptomatic, tolerating oral intake, no n/v/d for over 24 hrs - cap ivf (2) Hypomagnesemia: - 1.6, likely due to vomiting, diarrhea, also on HCTZ which can contribute. - replaced and normalized to 2.0 (3) Diabetes mellitus, type 2: - Has an insulin pump which we will continue. BSG achs. - A1c last checked in January, 7.8. - CC diet. (4) Hyperlipidemia: - Continue atorvastatin. (5) Acid reflux disease: - Continue PPI. (6) Benign hypertension: - Continue HCTZ, lisinopril. (7) Insomnia: - Continue trazodone at night. (8) Low back pain: - Chronic, stable. - Continue PRN ibuprofen, Tylenol. (9) BPH w urinary obs/LUTS: - Continue with Flomax, Proscar. - Will bladder scan given distended bladder on CT. With dysuria in ED, UA obtained which was WNL Patient is medically and hemodynamically stable for discharge. He can resume his home medications upon d/c (no changes made during this hospitalization). Recommended contacting his family physician to notify he was hospitalized and can discuss follow up. Above plan has been discussed with Dr. Valentino who has also seen and evaluated this patient prior to discharge and is in agreement with the aforementioned. Total Time Total Time Spent Total Time Spent (In Minutes): >30 minutes Discharge Plan Discharge Items Patient Disposition: Home - Self-Care Reason For Visit: GASTROENTERITIS Discharge Diagnosis: viral stomach illness Condition on Discharge: Fair Activity: Resume your previous activity Non-emergency contact: Primary Care Provider Call non-emergency contact if: you have any medication questions and your symptoms worsen Follow-up/Referrals: Nohemi Teresa MD [Primary Care Provider] - 04/12/22 3:00 pm Diet: Carb Consistent or DM2 Addtl Attending Provider Instructions: You were hospitalized due to a viral stomach illness (gastroenteritis). You were treated supportively with intravenous fluids, anti-nausea medicines, and some anti-diarrheal medicines. Thankfully, this is a self-limiting virus and generally symptoms completely resolve within 24-48 hours. It is recommended that you contact your family doctor upon discharge to schedule a follow up phone call and determine if she feels you should be seen in the office for follow up. You can resume your medications as prescribed prior to this hospitalization. No changes have been made to your medications. If you have any questions or concerns, please call the nonemergency number listed on your discharge paperwork. In the event of a medical emergency, call 911. Pending Studies at Discharge: No Stand-Alone Forms: [employer], Smoking Cessation Medications and DC Order Prescriptions: Continued (DME) insulin syringe-needle U-100 [BD Insulin Syringe Ultra-Fine] 1 mL 31 gauge x 5/16 syringe See Dose Instructions .ROUTE .MEDSUPPLY Qty: 300 RF: 3 trazodone 100 mg tablet 100 mg PO HS Qty: 90 RF: 3 atorvastatin 10 mg tablet 5 mg PO HS Qty: 45 RF: 3 lisinopril 20 mg tablet 40 mg PO QAM Qty: 90 RF: 3 omeprazole 40 mg capsule,delayed release(DR/EC) 40 mg PO DAILYBB Qty: 90 RF: 3 hydrochlorothiazide 25 mg tablet 25 mg PO QAM Qty: 90 RF: 1 multivitamin tablet 1 tab PO QAM RF: 0 fluticasone propionate 50 mcg/actuation spray,suspension 2 sprays intranasal DAILY PRN (Reason: Congestion) Qty: 16 RF: 0 cholecalciferol (vitamin D3) 25 mcg (1,000 unit) capsule 2,000 units PO QAM RF: 0 (DME) FreeStyle Harini 14 Day [place] Misc See Rx Instructions .ROUTE .MEDSUPPLY Qty: 1 RF: 0 tamsulosin [Flomax] 0.4 mg capsule 0.4 mg PO QAM RF: 0 finasteride 5 mg tablet 5 mg PO HS RF: 0 valerian root 1,000 mg Capsule 2,000 mg PO HS RF: 0 insulin lispro [Humalog U-100 Insulin] 100 unit/mL solution 0 unit continuous subcutaneous infusion CONTINOUS RF: 0 aspirin 81 mg Tablet,Delayed Release (Dr/Ec) 81 mg PO QAM RF: 0 cyanocobalamin (vitamin B-12) 1,000 mcg capsule 1,000 mcg PO QAM RF: 0 ibuprofen 200 mg tablet 600 mg PO TID PRN (Reason: Pain) RF: 0 Discharge Orders: Discharge Order (Routine); Ordered 04/07/22 Ordered By: Gela Lazo/Other Patient Handouts: ED Food Poison Or Gastroenteritis, ED Gastroenteritis, Viral (Adult) Admission Data Admit Date/Time: 04/05/22 20:07 Attending Provider: Iglesia Valentino Admit Provider: Jefferson Mensah Primary Care Provider: Nohemi Teresa Other Providers: Jefferson Mensah Other Interventions: Discharge Summary Assessment (RN) Last Done: 04/07/22 12:54 Supervising Physician Co-Signing Physician Notes I personally examined the patient and verified all owens points of history and exam, discussed case, and agree with decision making with Gurinder Cruz PAC feeling better eating Ok feels up to going home norovirus GE - now improved, safe/stable for home Coding Level of Care Code D/C DAY MANAGEMENT >30 MINS Diagnoses Vomiting and diarrhea R11.10; R19.7 Hypomagnesemia E83.42 Diabetes mellitus, type 2 E11.9 Hyperlipidemia E78.5 Acid reflux disease K21.9 Benign hypertension I10 Insomnia G47.00 Low back pain M54.5 BPH w urinary obs/LUTS N40.1; N13.8
== END 2022-04-07 15:19 | disposition home or self-care (01) | DRG 392 ==
LOC: ED 13:49 → SUATTDRO 20:07 → 3E 20:07

== ENCOUNTER 2023-05-17 16:58 | Observation (INO) ==
--- NOTE | 2023-05-17 17:06 | Emergency Department Note ---
Impression & Plan Syncope, Fall, Constipation, Acute thoracic back pain, Acute urinary retention, Hyperglycemia ED Provider Note NAME: XANDER VANEGAS AGE: 77 SEX: M : 1945 ARRIVES VIA: Ambulance INFORMANT: Patient, ED PROVIDER(S): Lance Sorto MD CHIEF COMPLAINT: Constipation, difficulty with urination, fall, back pain MEDICAL DECISION MAKING: Patient presents status post syncope and fall complaining of back discomfort. IV was established blood work was obtained patient did have a CT of the head cervical spine and thoracic spine as well as abdomen pelvis. Bladder scan performed the patient was ordered IV morphine IV Zofran. Patient's blood work shows a white count of 13 with a normal H&H and platelet count. The patient's kidney function is unremarkable with normal electrolytes. Glucose of 191. Bilirubin 1.6. Patient has had elevated bilirubin in the past. Troponin is not elevated. Urinalysis without evidence of obvious blood or infection. Ketones noted. Did receive IV fluids. COVID-negative. Patient CTs without any acute traumatic finding. Patient does have prior C4-C7 anterior discectomy and fusion. CT of the abdomen pelvis does show enlarged prostate with a decompressed bladder secondary to the Mao catheter that was placed. Patient does have constipation noted. Patient does have a noted cystic focus within the pancreatic body. The patient was informed of the findings. The patient still has back pain and did syncopized. He has been to the on-call hospital service Dr. Zaragoza and the patient was admitted to the medicine service. The patient was ordered Tylenol lidocaine patch as well as milk molasses enema Prior /Outside records reviewed: I did review diabetes visit from Stacie Lott from May 16. Differential diagnosis: Fracture, dislocation, contusion, intra-abdominal, pneumothorax, intrathoracic, intracranial, neurologic, compartment syndrome, rhabdomyolysis, as well as other pathologies. Diagnostics, as interpreted by me: ECG: Sinus tachycardia with first-degree AV block, rate of 109, prolonged [place], wide QRS, right bundle branch block pattern. No obvious ST elevations. Patient's EKG looks relatively unchanged from comparison April 05, 2022. Cardiac monitoring: An order was placed for continuous cardiac monitoring. The monitor shows a rate of 109 with tachcyardia and regular rhythm. Patient was placed on pulse oximetry Medical decision rules: [place] CT head rule, Nexus rule Imaging studies: See below HPI: Patient presents due to concern for fall and syncope. The patient states that he did try to have a bowel movement over the course of the day but is not pooped in 3 days. The patient states that he has been up and off the commode over the last day about 10 or 12 times but no diarrhea no bowel movement. The patient not urinated in 78 hours. Patient states that he started to get a little queasy and that he had a fall and believes that he likely hurt his back as he does have thoracic back pain. Patient denies any chest pains or shortness of breath. Patient has had some nausea but no vomiting. Patient did not take anything for pain prior to arrival to PAST MEDICAL HISTORY: See Below PAST SURGICAL HISTORY: See Below SOCIAL HISTORY: See Below HOME MEDICATIONS: See Below ALLERGIES: See Below VITALS: See Below PHYSICAL EXAMINATION: GENERAL: NAD, non-toxic. EYE EXAM: Normal conjunctiva. PERRL, no anisocoria and EOM's grossly intact w/o pain. Head: Normocephalic atraumatic. NECK: Supple, no nuchal rigidity, no adenopathy, non-tender. No signs of meningismus. FROM of the neck with good chin to chest and neck extension. No stridor. No midline C-spine TTP LUNGS: Clear to auscultation. Normal chest wall mechanics. HEART: Tachycardic and regular, no MRG. ABDOMEN: Abdomen soft, mild diffuse abdominal discomfort, reducible umbilical hernia. BACK: Midline mid thoracic discomfort without lower lumbar or lumbar midline TTP. No posterior chest wall pain SKIN: No rashes and no bruising. UPPER EXTREMITIES: Upper extremities are grossly normal. No TTP or deformity. LOWER EXTREMITIES: Grossly normal, no edema. No TTP or deformity. NEURO EXAM: A&O x3, cranial nerves II-XII grossly intact, normal speech, moves all 4 extremities. Past Med/Surg History Medical History BPH (benign prostatic hyperplasia) Diabetes mellitus, type 2 Dysesthesia R/L feet GERD (gastroesophageal reflux disease) History of esophageal dilatation History of TMJ syndrome Hyperlipidemia Hypertension Insulin pump in place Morbid obesity Urinary retention s/p urinary catheter (05/2021)- since removed Surgical History H/O knee surgery Spur removed from knee H/O neck surgery History of carpal tunnel surgery RT History of cataract surgery RT/LEFT History of colonoscopy History of esophagogastroduodenoscopy (EGD) History of prostate biopsy (~10/05/21) under MAC anesthesia @ [facility] History of surgery Exam under anesthesia, removal of skin tags, fistulotomy (01/09/18): Grade view 1 with Glidescope#4, ETT 8.0 (difficult mask. vent with 2 person 2/2 hamilton > elective glidescope with minimal neck extension- ETT easily passed, small right upper lip laceration noted) History of tonsillectomy and adenoidectomy History of tooth extraction RECENT TOOTH EXTRACTION Hx of LASIK Family History Aunt Diabetes Father Lung cancer Sister Diabetes Other No family history of adverse response to anesthesia Denies family history of Ovarian cancer Prostate cancer Myocardial infarction Breast cancer Colorectal cancer Hypertension Stroke Social History Smoking Status: Never smoker Second Hand Exposure: No; Do You Dip or Chew Tobacco: No; Hx Alcohol Use: Yes Alcohol type: beer Alcohol Intake Frequency: Monthly or Less Hx Substance Use: No Preferred Language: Grenadian Communication Ability: Effective Visual Impairment: No Limitations Hearing Ability: Normal Doll Wig Maker Rooted Hair Required: No Beliefs That Will Affect Care: None marital status: / Current Living Situation: Alone 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 How many Children do You have: 2 Feels Safe at Home: Yes Childhood Exposure to Second-Hand Smoke: No Diet: regular caffeine: Yes (coffee) Dental Care, Regularly: Yes Physical Activity Frequency: Daily Seatbelt Use: always Sunscreen Use: Yes Assistive Devices: None Allergies Allergies Allergy/AdvReac Type Severity Reaction Status Date / Time Penicillins Allergy Intermediate HIVES Verified 05/17/23 19:23 metformin AdvReac Intermediate GI Verified 05/17/23 19:23 distress/diarrhea Home Meds Home Medications Medication Instructions Recorded Confirmed multivitamin 1 tab PO QAM 08/20/19 05/17/23 flash glucose scanning reader #1 ea 08/14/20 03/28/23 (FreeStyle Harini 14 Day [place]) aspirin 81 mg tablet,delayed 81 mg PO QAM 05/02/21 05/17/23 release ibuprofen 200 mg tablet 600 mg PO TID PRN Pain 11/18/21 05/17/23 valerian root 1,000 mg capsule 2,000 mg PO HS 04/05/22 05/17/23 cholecalciferol (vitamin D3) 25 1,000 unit PO QAM 05/19/22 05/17/23 mcg (1,000 unit) capsule docusate sodium 100 mg capsule 100 mg PO BID PRN Constipation 08/19/22 05/17/23 (Colace) gabapentin 300 mg capsule 600 mg PO HS 05/17/23 05/17/23 Previous Rx's Medication Instructions Recorded insulin syringe-needle U-100 1 mL #300 ea 05/20/22 31 gauge x 5/16" (BD Insulin Syringe Ultra-Fine) blood sugar diagnostic (Contour #100 ea 09/29/22 Next Test Strips) lorazepam 1 mg tablet 1 mg PO DAILY PRN anxiety #30 tabs 09/29/22 trazodone 100 mg tablet 100 mg PO HS #90 tabs 12/01/22 flash glucose scanning reader #1 ea 12/30/22 (FreeStyle Harini 2 [place]) insulin lispro 100 unit/mL See Rx Instructions continuous 03/06/23 subcutaneous solution (Humalog subcutaneous infusion CONTINOUS U-100 Insulin) #23 vials semaglutide 2 mg/dose (8 mg/3 mL) 2 mg (0.75 mL) subcut .COMPLEX #9 03/06/23 subcutaneous pen injector mL atorvastatin 10 mg tablet 5 mg PO HS #45 tabs 03/13/23 amlodipine 5 mg tablet 5 mg PO QAM #90 tabs 03/28/23 finasteride 5 mg tablet 5 mg PO HS #90 tabs 03/28/23 hydrochlorothiazide 25 mg tablet 25 mg PO QAM #90 tabs 03/28/23 lisinopril 40 mg tablet 40 mg PO QAM #90 tabs 03/28/23 pantoprazole 40 mg tablet,delayed 40 mg PO DAILY #90 tabs 03/28/23 release tramadol 50 mg tablet 50 mg PO BID PRN pain #90 tabs 03/28/23 tamsulosin 0.4 mg capsule (Flomax) 0.4 mg PO QAM #90 caps 05/17/23 Results & Data (ED) Vital Signs Vital Signs - 24 hr 05/17/23 17:10 05/17/23 17:10 05/17/23 17:19 Temperature 36.9 C Temperature Source Oral Pulse Rate 106 H 107 H Pulse Rate [Apical] 107 H Pulse Rate from SpO2 Sensor Respiratory Rate 18 Respiratory Effort / Characteristics Non-Labored Respiratory Depth Normal Blood Pressure 136/95 Blood Pressure [Right Arm] Blood Pressure Mean 108 Blood Pressure Mean [Right Arm] Pulse Oximetry 98 Oxygen Delivery Method Room Air Sepsis Recent Fever Within 48 Hours No Sepsis New/Unexplained Change in Mental Status No Sepsis Action Taken by Nursing No Action Required 05/17/23 17:26 05/17/23 19:00 05/17/23 19:14 Temperature Temperature Source Pulse Rate Pulse Rate [Apical] 91 H Pulse Rate from SpO2 Sensor 96 H Respiratory Rate 16 Respiratory Effort / Characteristics Non-Labored Spontaneous Respiratory Depth Normal Blood Pressure 108/70 Blood Pressure [Right Arm] 108/70 Blood Pressure Mean 82 Blood Pressure Mean [Right Arm] 82 Pulse Oximetry 98 98 98 Oxygen Delivery Method Room Air Room Air Sepsis Recent Fever Within 48 Hours Sepsis New/Unexplained Change in Mental Status Sepsis Action Taken by Nursing 05/17/23 19:30 05/17/23 20:00 05/17/23 20:30 Temperature Temperature Source Pulse Rate Pulse Rate [Apical] Pulse Rate from SpO2 Sensor Respiratory Rate Respiratory Effort / Characteristics Respiratory Depth Blood Pressure 118/59 L 132/77 133/82 Blood Pressure [Right Arm] Blood Pressure Mean 87 91 97 Blood Pressure Mean [Right Arm] Pulse Oximetry Oxygen Delivery Method Sepsis Recent Fever Within 48 Hours Sepsis New/Unexplained Change in Mental Status Sepsis Action Taken by Snf Medications Current Medication List: was personally reviewed by me Laboratory Data Attestation: I reviewed the patient's lab results. 05/17/23 17:18 05/17/23 17:18 Lab Results 05/17/23 05/17/23 05/17/23 Range/Units 17:18 17:18 17:18 WBC 13.76 H (4.8-10.8) K/ul RBC 5.63 (4.70-6.10) M/uL Hgb 15.6 (14.0-18.0) g/dl Hct 46.3 (42.0-52.0) % MCV 82.2 (80.0-100.0) fL MCH 27.7 (25.0-34.0) pg MCHC 33.7 (32.0-36.0) g/dL RDW Std Deviation 41.2 (36.4-46.3) fL RDW Coeff of Joselin 14.0 (11.5-14.5) % Plt Count 173 (130-400) K/uL MPV 11.1 (9.4-12.4) fL Immature Gran % (Auto) 0.5 % Neut % (Auto) 90.3 % Lymph % (Auto) 3.4 % Teller % (Auto) 5.2 % Eos % (Auto) 0.3 % Baso % (Auto) 0.3 % Neut # (Auto) 12.43 H (1.40-6.50) K/uL Lymph # (Auto) 0.47 L (1.2-3.4) K/uL Teller # (Auto) 0.71 H (0.11-0.59) K/uL Eos # (Auto) 0.04 (0-0.50) K/uL Baso # (Auto) 0.04 (0-0.2) K/uL Immature Gran # (Auto) 0.07 (0.01-0.20) K/uL PT 11.4 (9.0-12.0) Seconds INR 1.0 (0.9-1.1) APTT 23.0 (21.0-31.0) Seconds PTT Ratio 0.8 Sodium 137 (136-145) mmol/L Potassium 3.8 (3.5-5.1) mmol/L Chloride 100 (98-107) mmol/L Carbon Dioxide 28 (21-32) mmol/L Anion Gap 9 (3-11) BUN 20 (6-23) mg/dl Creatinine 1.12 (0.6-1.4) mg/dl Est Cr Clr Drug Dosing 73.6 ml/min Est GFR ( Amer) 73.6 ml/min Est GFR (Non-Af Amer) 63.5 ml/min BUN/Creatinine Ratio 17.9 (10-20) Glucose 191 H (70-99(Fasting)) mg/dl Calcium 9.0 (8.6-10.3) mg/dl Magnesium 1.7 (1.7-2.4) mg/dl Total Bilirubin 1.6 H (0.2-1.0) mg/dl AST 27 (13-39) U/L ALT 30 (7-52) U/L Alkaline Phosphatase 90 (34-104) U/L Troponin I High Sens 4.7 (0-20) pg/ml Total Protein 7.1 (6.0-8.3) gm/dl Albumin 4.3 (3.4-5.0) gm/dl Globulin 2.8 (2.5-4.0) gm/dl Albumin/Globulin Ratio 1.5 (0.9-2) Lipase 14 (11-82) U/L TSH (0.300-4.500) uIu/ml Urine Color Urine Appearance (Clear) Urine pH (4.5-7.5) Ur Specific [place] (1.000-1.030) Urine Protein (Negative) Urine Glucose (UA) (Negative) Urine Ketones (Negative) Urine Blood (Negative) Urine Nitrite (Negative) Urine Bilirubin (Negative) Urine Urobilinogen (Negative) Ur Leukocyte Esterase (Negative) SARS-CoV-2, RNA, NAAT (NEGATIVE) 05/17/23 05/17/23 05/17/23 Range/Units 17:18 17:42 17:42 WBC (4.8-10.8) K/ul RBC (4.70-6.10) M/uL Hgb (14.0-18.0) g/dl Hct (42.0-52.0) % MCV (80.0-100.0) fL MCH (25.0-34.0) pg MCHC (32.0-36.0) g/dL RDW Std Deviation (36.4-46.3) fL RDW Coeff of Joselin (11.5-14.5) % Plt Count (130-400) K/uL MPV (9.4-12.4) fL Immature Gran % (Auto) % Neut % (Auto) % Lymph % (Auto) % Teller % (Auto) % Eos % (Auto) % Baso % (Auto) % Neut # (Auto) (1.40-6.50) K/uL Lymph # (Auto) (1.2-3.4) K/uL Teller # (Auto) (0.11-0.59) K/uL Eos # (Auto) (0-0.50) K/uL Baso # (Auto) (0-0.2) K/uL Immature Gran # (Auto) (0.01-0.20) K/uL PT (9.0-12.0) Seconds INR (0.9-1.1) APTT (21.0-31.0) Seconds PTT Ratio Sodium (136-145) mmol/L Potassium (3.5-5.1) mmol/L Chloride (98-107) mmol/L Carbon Dioxide (21-32) mmol/L Anion Gap (3-11) BUN (6-23) mg/dl Creatinine (0.6-1.4) mg/dl Est Cr Clr Drug Dosing ml/min Est GFR ( Amer) ml/min Est GFR (Non-Af Amer) ml/min BUN/Creatinine Ratio (10-20) Glucose (70-99(Fasting)) mg/dl Calcium (8.6-10.3) mg/dl Magnesium (1.7-2.4) mg/dl Total Bilirubin (0.2-1.0) mg/dl AST (13-39) U/L ALT (7-52) U/L Alkaline Phosphatase (34-104) U/L Troponin I High Sens (0-20) pg/ml Total Protein (6.0-8.3) gm/dl Albumin (3.4-5.0) gm/dl Globulin (2.5-4.0) gm/dl Albumin/Globulin Ratio (0.9-2) Lipase (11-82) U/L TSH 1.930 (0.300-4.500) uIu/ml Urine Color Dark Yellow Urine Appearance Clear (Clear) Urine pH 6.0 (4.5-7.5) Ur Specific [place] 1.022 (1.000-1.030) Urine Protein Negative (Negative) Urine Glucose (UA) Negative (Negative) Urine Ketones 1+ H (Negative) Urine Blood Negative (Negative) Urine Nitrite Negative (Negative) Urine Bilirubin Negative (Negative) Urine Urobilinogen Negative (Negative) Ur Leukocyte Esterase Negative (Negative) SARS-CoV-2, RNA, NAAT NEGATIVE (NEGATIVE) Administered Medications Miscellaneous (Remove Lidoderm Patch) 1 each N/A DAILY@2100 [facility], [facility]–1983 Stop: 06/16/23 20:59 Last Admin: 05/17/23 21:14 Dose: Not Given Documented By: TOD Discontinued Medications Acetaminophen (Acetaminophen 500 Mg Tab) 1,000 mg PO NOW STA Stop: 05/17/23 20:46 Last Admin: 05/17/23 21:13 Dose: 1,000 mg Documented By: TOD Lidocaine (Lidocaine 5% 1 Patch) 1 patch TD NOW STA Stop: 05/17/23 20:46 Last Admin: 05/17/23 21:13 Dose: 1 patch Documented By: TOD Morphine Sulfate (Morphine Sulfate 4 Mg/Ml 1 Ml Carp\\Vial) 4 mg IV NOW STA Stop: 05/17/23 17:20 Last Admin: 05/17/23 17:32 Dose: 4 mg Documented By: JOANNE Ondansetron HCl (Ondansetron Inj 2 Mg/Ml 2 Ml Vial) 4 mg IV NOW STA Stop: 05/17/23 17:20 Last Admin: 05/17/23 17:32 Dose: 4 mg Documented By: JOANNE Imaging Data Radiologist's Impression: Abdomen/Pelvis CT 05/17/23 17:19 CT OF THE ABDOMEN AND PELVIS WITH CONTRAST CLINICAL HISTORY: Abdominal pain. Fall. COMPARISON STUDY: CT of the abdomen and pelvis April 05, 2022. TECHNIQUE: Following IV administration of 95 mL of Optiray, axial images of the abdomen and pelvis were obtained from the lung bases to the proximal femurs. Images were reviewed in the axial, sagittal, and coronal planes. IV contrast was administered without complication. Automated exposure control was utilized for the study. A dose lowering technique was utilized adhering to the principles of ALARA. FINDINGS: Lung bases are unremarkable. No pneumatosis, free air or portal venous gas is present. No hemoperitoneum or pneumoperitoneum is present. There is hepatic steatosis. Splenomegaly is unchanged. The adrenal glands are unremarkable. A cystic focus within the pancreatic body is noted. This measures approximately 3.1 cm. The pancreatic duct is difficult to assess on this exam. There is no biliary ductal dilatation. There is a 3.1 cm left renal cyst. Several small bilateral renal calculi measure up to 3 mm there are no ureteral calculi. There is no hydronephrosis. There is a moderate to large amount of stool within the rectum. There is a moderate amount stool within the colon. There is mild presacral stranding. The prostate is markedly enlarged. A Mao balloon within the bladder is present. The bladder is collapsed. No acute fractures are identified within the visualized skeletal structures. IMPRESSION: 1. No acute traumatic findings within the abdomen or pelvis. 2. Markedly enlarged prostate. Mao balloon within the bladder which is collapsed. No hydronephrosis. Small bilateral renal calculi. No ureteral calculi. 3. Moderate to large amount stool within the rectum. Mild presacral stranding. This is nonspecific and could reflect mild stercoral colitis. No free air. Moderate of stool within the colon. 4. Cystic focus within the pancreatic body, as described above. This measures approximately 3.1 cm. This may reflect a side branch IPMN. This is not highly suspicious however main duct involvement would be difficult to exclude on this exam. Nonemergent pancreatic protocol MRI is recommended. ACT 112: Negative or not required by law. Electronically signed by: Gabriele Alvarez M.D. 05/17/2023 7:[address] 05/17/23 17:19 CT OF THE CERVICAL SPINE WITHOUT CONTRAST CLINICAL HISTORY: fall COMPARISON STUDY: Cervical spine CT November 11, 2012. TECHNIQUE: Helical axial images of the cervical spine were obtained without IV contrast. Sagittal and coronal reconstructions were viewed. Automated exposure control was utilized for the study. A dose lowering technique was utilized adhering to the principles of ALARA. FINDINGS: Alignment of the cervical spine is anatomic. There are stable postoperative findings consistent with C4-C7 anterior discectomy and fusion. Vertebral body heights are maintained. No acute cervical spine fracture or subluxation is present. There is no prevertebral edema. Facet joints are intact. Anterior osteophytosis of the upper cervical spine is present. There is moderate multilevel facet arthrosis. IMPRESSION: 1. No acute cervical spine fracture or subluxation. 2. Stable postoperative findings following C4-C7 anterior discectomy and fusion. ACT 112: Negative or not required by law. Electronically signed by: Gabriele Alvarez M.D. 05/17/2023 6:[address] 05/17/23 17:20 CT OF THE HEAD WITHOUT CONTRAST CLINICAL HISTORY: Fall. COMPARISON STUDY: Head CT November 11, 2012. TECHNIQUE: Helical axial images of the head were obtained without IV contrast. Automated exposure control was utilized for the study. A dose lowering technique was utilized adhering to the principles of ALARA. FINDINGS: No acute intracranial hemorrhage, midline shift or mass effect is present. The ventricular system is unremarkable. The basal cisterns are patent. No extra-axial collections are present. There are no findings to suggest acute dural sinus thrombosis or acute territorial infarct. No significant calvarial abnormalities are present. Visualized portions of the sinuses and mastoid air cells are clear. IMPRESSION: 1. No acute intracranial findings. 2. No acute calvarial fracture. ACT 112: Negative or not required by law. Electronically signed by: Gabriele Alvarez M.D. 05/17/2023 6:[address] 05/17/23 17:32 CT OF THE THORACIC SPINE CLINICAL HISTORY: Fall, mid thoracic pain. COMPARISON STUDY: Chest radiograph September 21, 2021. TECHNIQUE: Helical axial images of the thoracic spine were obtained. Sagittal and coronal reconstructions were viewed. Automated exposure control was utilized for the study. A dose lowering technique was utilized adhering to the principles of ALARA. FINDINGS: Alignment of the thoracic spine is anatomic. Vertebral body heights are maintained. There is no acute thoracic spine fracture. Moderate anterior osteophytosis of the thoracic spine is noted. There is mild multilevel disc space narrowing. Facet joints are intact. Central canal and neural foramen are suboptimally assessed given CT technique. Paravertebral soft tissues are unremarkable. No acute fractures are identified within visualized portions of the posterior ribs. Anterior fusion within the cervical spine is partially imaged. IMPRESSION: No acute thoracic spine fracture or subluxation. ACT 112: Negative or not required by law. Electronically signed by: Gabriele Alvarez M.D. 05/17/2023 7:05 PM Discharge Plan Visit Data Chief Complaint: Syncope ED Provider: Lance Sorto Discharge Problem: Syncope, Fall, Constipation, Acute thoracic back pain, Acute urinary retention, Hyperglycemia
[2023-05-17] MEDS ORDERED: ONDANSETRON INJ 2 MG/ML 2 ML VIAL IV STA (17:19)
[2023-05-17] MEDS ORDERED: MoRPHine SULFATE 4 MG/ML 1 ML CARP\\VIAL IV STA (17:19)
[2023-05-17 17:42] LABS: Hematocrit (blood only) 46.3 % (42.0-52.0); Hemoglobin 15.6 g/dl (14.0-18.0); Mean Corpuscular Hemoglobin 27.7 pg (25.0-34.0); Mean Corpuscular Hgb Conc 33.7 g/dL (32.0-36.0); Mean Corpuscular Volume 82.2 fL (80.0-100.0); Mean Platelet Volume 11.1 fL (9.4-12.4); Platelet Count 173 K/uL (130-400); RDW Standard Deviation 41.2 fL (36.4-46.3); Red Blood Count 5.63 M/uL (4.70-6.10); White Blood Count 13.76 K/ul (4.8-10.8)
[2023-05-17 17:59] LABS: Albumin Globulin Ratio 1.5 (0.9-2); Albumin Level 4.3 gm/dl (3.4-5.0); BUN Creatinine Ratio 17.9 (10-20); Bilirubin,Total 1.6 mg/dl (0.2-1.0); Creatinine Clr Calc Pharmacy 73.6 ml/min; Est GFR (African American) 73.6 ml/min; Est GFR (Non-African American) 63.5 ml/min; Globulin 2.8 gm/dl (2.5-4.0); Magnesium 1.7 mg/dl (1.7-2.4); Potassium 3.8 mmol/L (3.5-5.1); Total Protein 7.1 gm/dl (6.0-8.3)
[2023-05-17 18:00] LABS: Appearance Urine Clear (Clear); Bilirubin Urine Negative (Negative); Blood Urine Negative (Negative); Color Urine Dark Yellow; Glucose Urine UA Negative (Negative); Ketones Urine 1+ (Negative); Leukocyte Esterase Urine Negative (Negative); Nitrite Urine Negative (Negative); Protein Urine Negative (Negative); Specific Gravity Urine 1.022 (1.000-1.030); Urobilinogen Urine Negative (Negative)
[2023-05-17 18:03] LABS: Troponin I High Sensitivity 4.7 pg/ml (0-20)
[2023-05-17 18:07] LABS: Basophils # (auto) 0.04 K/uL (0-0.2); Basophils % (auto) 0.3 %; Eosinophils # (auto) 0.04 K/uL (0-0.50); Eosinophils % (auto) 0.3 %; Immature Granulocytes # (auto) 0.07 K/uL (0.01-0.20); Immature Granulocytes % (auto) 0.5 %; Lymphocytes # (auto) 0.47 K/uL (1.2-3.4); Lymphocytes % (auto) 3.4 %; Monocytes # (auto) 0.71 K/uL (0.11-0.59); Monocytes % (auto) 5.2 %; Neutrophils # (auto) 12.43 K/uL (1.40-6.50); Neutrophils % (auto) 90.3 %; Partial Thromboplastin Ratio 0.8; Prothrombin Time 11.4 Seconds (9.0-12.0)
--- NOTE | 2023-05-17 18:53 | CT Scan Report ---
CT OF THE HEAD WITHOUT CONTRAST CLINICAL HISTORY: Fall. COMPARISON STUDY: Head CT November 11, 2012. TECHNIQUE: Helical axial images of the head were obtained without IV contrast. Automated exposure con trol was utilized for the study. A dose lowering technique was utilized adhering to the principles o f ALARA. FINDINGS: No acute intracranial hemorrhage, midline shift or mass effect is present. The ventricular system is unremarkable. The basal cisterns are patent. No extra-axial collections are present. There are no findings to suggest acute dural sinus thrombosis or acute territorial infarct. No significant calvarial abnormalities are present. Visualized portions of the sinuses and mastoid air cells are yanira ar. IMPRESSION: 1. No acute intracranial findings. 2. No acute calvarial fracture. ACT 112: Negative or not required by law. Electronically signed by: Gabriele Alvarez M.D. 05/17/2023 6:52 PM
--- NOTE | 2023-05-17 18:58 | CT Scan Report ---
CT OF THE CERVICAL SPINE WITHOUT CONTRAST CLINICAL HISTORY: fall COMPARISON STUDY: Cervical spine CT November 11, 2012. TECHNIQUE: Helical axial images of the cervical spine were obtained without IV contrast. Sagittal a nd coronal reconstructions were viewed. Automated exposure control was utilized for the study. A do se lowering technique was utilized adhering to the principles of ALARA. FINDINGS: Alignment of the cervical spine is anatomic. There are stable postoperative findings consis tent with C4-C7 anterior discectomy and fusion. Vertebral body heights are maintained. No acute cervi hugo spine fracture or subluxation is present. There is no prevertebral edema. Facet joints are intact . Anterior osteophytosis of the upper cervical spine is present. There is moderate multilevel facet arthrosis. IMPRESSION: 1. No acute cervical spine fracture or subluxation. 2. Stable postoperative findings following C4-C7 anterior discectomy and fusion. ACT 112: Negative or not required by law. Electronically signed by: Gabriele Alvarez M.D. 05/17/2023 6:55 PM
--- NOTE | 2023-05-17 19:07 | CT Scan Report ---
CT OF THE THORACIC SPINE CLINICAL HISTORY: Fall, mid thoracic pain. COMPARISON STUDY: Chest radiograph September 21, 2021. TECHNIQUE: Helical axial images of the thoracic spine were obtained. Sagittal and coronal reconstru ctions were viewed. Automated exposure control was utilized for the study. A dose lowering techniqu e was utilized adhering to the principles of ALARA. FINDINGS: Alignment of the thoracic spine is anatomic. Vertebral body heights are maintained. There i s no acute thoracic spine fracture. Moderate anterior osteophytosis of the thoracic spine is noted. T here is mild multilevel disc space narrowing. Facet joints are intact. Central canal and neural sima en are suboptimally assessed given CT technique. Paravertebral soft tissues are unremarkable. No acut e fractures are identified within visualized portions of the posterior ribs. Anterior fusion within t he cervical spine is partially imaged. IMPRESSION: No acute thoracic spine fracture or subluxation. ACT 112: Negative or not required by law. Electronically signed by: Gabriele Alvarez M.D. 05/17/2023 7:05 PM
--- NOTE | 2023-05-17 19:20 | CT Scan Report ---
CT OF THE ABDOMEN AND PELVIS WITH CONTRAST CLINICAL HISTORY: Abdominal pain. Fall. COMPARISON STUDY: CT of the abdomen and pelvis April 05, 2022. TECHNIQUE: Following IV administration of 95 mL of Optiray, axial images of the abdomen and pelvis we re obtained from the lung bases to the proximal femurs. Images were reviewed in the axial, sagittal, and coronal planes. IV contrast was administered without complication. Automated exposure control wa s utilized for the study. A dose lowering technique was utilized adhering to the principles of ALARA . FINDINGS: Lung bases are unremarkable. No pneumatosis, free air or portal venous gas is present. No h emoperitoneum or pneumoperitoneum is present. There is hepatic steatosis. Splenomegaly is unchanged. The adrenal glands are unremarkable. A cystic focus within the pancreatic body is noted. This measure s approximately 3.1 cm. The pancreatic duct is difficult to assess on this exam. There is no biliary ductal dilatation. There is a 3.1 cm left renal cyst. Several small bilateral renal calculi measure u p to 3 mm there are no ureteral calculi. There is no hydronephrosis. There is a moderate to large ameena unt of stool within the rectum. There is a moderate amount stool within the colon. There is mild pres acral stranding. The prostate is markedly enlarged. A Mao balloon within the bladder is present. Th e bladder is collapsed. No acute fractures are identified within the visualized skeletal structures. IMPRESSION: 1. No acute traumatic findings within the abdomen or pelvis. 2. Markedly enlarged prostate. Mao balloon within the bladder which is collapsed. No hydronephrosis . Small bilateral renal calculi. No ureteral calculi. 3. Moderate to large amount stool within the rectum. Mild presacral stranding. This is nonspecific an d could reflect mild stercoral colitis. No free air. Moderate of stool within the colon. 4. Cystic focus within the pancreatic body, as described above. This measures approximately 3.1 cm. T his may reflect a side branch IPMN. This is not highly suspicious however main duct involvement would be difficult to exclude on this exam. Nonemergent pancreatic protocol MRI is recommended. ACT 112: Negative or not required by law. Electronically signed by: Gabriele Alvarez M.D. 05/17/2023 7:18 PM
[2023-05-17] MEDS ORDERED: ACETAMINOPHEN 500 MG TAB PO STA (20:45)
[2023-05-17] MEDS ORDERED: LIDOCAINE 5% 1 PATCH TD STA (20:45)
--- NOTE | 2023-05-17 21:47 | History & Physical Report ---
Date of Service May 17, 2023 Assessment & Plan (1) Syncope: (2) Constipation: (3) Urinary retention: (4) GERD (gastroesophageal reflux disease): (5) Controlled type 2 diabetes mellitus, with long-term current use of insulin: (6) Chronic back pain: (7) Hyperlipidemia: (8) Insomnia: Plan 77yo Male with PMH prostatomegaly, DM2 with neuropathy, GERD, HTN, HLD here for concern syncope urinary retention constipation. Syncope -CT head cervical thoracic spine no acute fracture or stroke -normal HR, doing well on room air -likely vasovagal syncope -admit to med/tele obs Urinary retention -urinary catheter placed drained 600cc -continue tamsulosin and finasteride Constipation -CT A/P: No acute traumatic findings within the abdomen or pelvis. Markedly enlarged prostate. Mao balloon within the bladder which is collapsed. No hydronephrosis. Small bilateral renal calculi. No ureteral calculi.Moderate to large amount stool within the rectum. Mild presacral stranding. This is nonspecific and could reflect mild stercoral colitis. No free air. Moderate of stool within the colon. -ED ordered milk of magnesia enema Pancreatic Mass -CT A/P Cystic focus within the pancreatic body, as described above. This measures approximately 3.1 cm. This may reflect a side branch IPMN. This is not highly suspicious however main duct involvement would be difficult to exclude on this exam. Nonemergent pancreatic protocol MRI is recommended. HTN -continue HCTZ lisinopril amlodipine HLD -continue atorvastatin Neuropathy -continue gabapentin Insomnia -continue trazodone DM2 -using his own insulin pump GERD -continue protonix FENa: carb consistent Code Status: Full DVT PPX: SCDs Dispo: med/tele Olivia Decker D.O. PGY 3, FCM History of Present Illness Chief Complaint: Syncope Primary Care Provider: Nohemi Teresa MD 77yo Male with PMH prostatomegaly, DM2 with neuropathy, GERD, HTN, HLD here for concern syncope urinary retention constipation. Patient states his last BM was 3.5 days ago, he feels constipated strained over toilet for 3 hours tried to dig out pieces with his fingers didn't help. He was walking back to the bathroom when he passed out fell backwards hit his back on the floor did not hit furniture on the way down. Feels he strained too hard over the toilet. He denies any fever SOB nausea pain. Only new medications in the past month were gabapentin added for his neuropathy. Patient follows with urology on a yearly basis, doesn't have urinary difficulty at baseline did pee earlier this morning, no history prostate surgery. Allergies Allergy/AdvReac Type Severity Reaction Status Date / Time Penicillins Allergy Intermediate HIVES Verified 05/17/23 19:23 metformin AdvReac Intermediate GI Verified 05/17/23 19:23 distress/diarrhea Home Medications Medication Instructions Recorded Confirmed Type multivitamin 1 tab PO QAM 08/20/19 05/19/23 History flash glucose scanning reader #1 ea 08/14/20 03/28/23 History (FreeStyle Harini 14 Day [place]) aspirin 81 mg tablet,delayed 81 mg PO QAM 05/02/21 05/19/23 History release ibuprofen 200 mg tablet 600 mg PO TID PRN Pain 11/18/21 05/19/23 History valerian root 1,000 mg capsule 2,000 mg PO HS 04/05/22 05/19/23 History insulin syringe-needle U-100 1 mL #300 ea 05/20/22 03/28/23 Rx 31 gauge x 5/16" (BD Insulin Syringe Ultra-Fine) blood sugar diagnostic (Contour #100 ea 09/29/22 03/28/23 Rx Next Test Strips) lorazepam 1 mg tablet 1 mg PO DAILY PRN anxiety #30 tabs 09/29/22 05/19/23 Rx trazodone 100 mg tablet 100 mg PO HS #90 tabs 12/01/22 05/19/23 Rx flash glucose scanning reader #1 ea 12/30/22 03/28/23 Rx (FreeStyle Harini 2 [place]) insulin lispro 100 unit/mL See Rx Instructions continuous 03/06/23 05/19/23 Rx subcutaneous solution (Humalog subcutaneous infusion CONTINOUS U-100 Insulin) #23 vials semaglutide 2 mg/dose (8 mg/3 mL) 2 mg (0.75 mL) subcut .COMPLEX #9 03/06/23 05/19/23 Rx subcutaneous pen injector mL atorvastatin 10 mg tablet 5 mg PO HS #45 tabs 03/13/23 05/19/23 Rx amlodipine 5 mg tablet 5 mg PO QAM #90 tabs 03/28/23 05/19/23 Rx finasteride 5 mg tablet 5 mg PO HS #90 tabs 03/28/23 05/19/23 Rx hydrochlorothiazide 25 mg tablet 25 mg PO QAM #90 tabs 03/28/23 05/19/23 Rx lisinopril 40 mg tablet 40 mg PO QAM #90 tabs 03/28/23 05/19/23 Rx pantoprazole 40 mg tablet,delayed 40 mg PO DAILY #90 tabs 03/28/23 05/19/23 Rx release tramadol 50 mg tablet 50 mg PO BID PRN pain #90 tabs 03/28/23 05/19/23 Rx tamsulosin 0.4 mg capsule (Flomax) 0.4 mg PO QAM #90 caps 05/17/23 05/19/23 Rx acetaminophen 325 mg tablet 650 mg PO Q4H PRN pain #30 tabs 05/18/23 05/19/23 Rx docusate sodium 100 mg capsule 100 mg PO BID #60 caps 05/18/23 05/19/23 Rx (Colace) polyethylene glycol 3350 17 17 g PO BID #119 grams 05/18/23 05/19/23 Rx gram/dose oral powder (Miralax) sennosides 8.6 mg capsule (senna) 8.6 mg PO BID #60 caps 05/18/23 05/19/23 Rx gabapentin 300 mg capsule 600 mg PO HS 05/19/23 05/19/23 History Past Med/Surg History Medical History (Updated 05/18/23 @ 17:52 by Rupa Weaver MD) BPH (benign prostatic hyperplasia) Cystic mass of pancreas Diabetes mellitus, type 2 Dysesthesia R/L feet GERD (gastroesophageal reflux disease) History of esophageal dilatation History of TMJ syndrome Hyperlipidemia Hypertension Insulin pump in place Morbid obesity Urinary retention s/p urinary catheter (05/2021)- since removed Surgical History H/O knee surgery Spur removed from knee H/O neck surgery History of carpal tunnel surgery RT History of cataract surgery RT/LEFT History of colonoscopy History of esophagogastroduodenoscopy (EGD) History of prostate biopsy (~10/05/21) under MAC anesthesia @ [facility] History of surgery Exam under anesthesia, removal of skin tags, fistulotomy (01/09/18): Grade view 1 with Glidescope#4, ETT 8.0 (difficult mask. vent with 2 person 2/2 hamilton > elective glidescope with minimal neck extension- ETT easily passed, small right upper lip laceration noted) History of tonsillectomy and adenoidectomy History of tooth extraction RECENT TOOTH EXTRACTION Hx of LASIK Family History Aunt Diabetes Father Lung cancer Sister Diabetes Other No family history of adverse response to anesthesia Denies family history of Ovarian cancer Prostate cancer Myocardial infarction Breast cancer Colorectal cancer Hypertension Stroke Social History Smoking Status: Former smoker Second Hand Exposure: No; Do You Dip or Chew Tobacco: No; Hx Alcohol Use: Yes Alcohol type: beer Alcohol Intake Frequency: Monthly or Less Hx Substance Use: No Preferred Language: Divehi Communication Ability: Effective Visual Impairment: No Limitations Hearing Ability: Normal Cabbage Salter Required: No Beliefs That Will Affect Care: None marital status: / Current Living Situation: Alone Current Living Situation Comment: Lives home alone 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 How many Children do You have: 2 Feels Safe at Home: Yes Childhood Exposure to Second-Hand Smoke: No Diet: regular caffeine: Yes (coffee) Dental Care, Regularly: Yes Physical Activity Frequency: Daily Seatbelt Use: always Sunscreen Use: Yes Assistive Devices: Cane Physical Exam Constitutional: well developed, well nourished, + obese, cooperative and comfortable Eyes: PERRL, conjunctivae normal, anicteric sclerae ENMT: external ear and nose normal, oropharynx normal Neck: trachea midline, no thyromegaly Respiratory: normal respiratory effort, lungs clear to auscultation Cardiovascular: Rate/Rhythm: regular rate and regular rhythm Gastrointestinal (Abdomen): Inspection/Auscultation: + abdomen distended Percussion/Palpation: abdomen soft; abdomen nontender Skin: no rashes, warm and dry Neurologic: PERRL, EOMI, accommodation nl, no face palsy, no dysarthria Psychiatric: Urinary catheter in place Results & Data Results & Data Vital Signs (Past 12 Hours) Vital Signs Temp Pulse Pulse Resp BP BP Pulse Ox 07/05/23 20:30 133/82 05/17/23 20:00 132/77 05/17/23 19:30 118/59 L 05/17/23 19:14 108/70 98 05/17/23 19:00 91 H 16 108/70 98 05/17/23 17:26 98 05/17/23 17:19 107 H 05/17/23 17:10 107 H 05/17/23 17:10 36.9 C 106 H 18 136/95 98 O2 Del Method 05/17/23 20:30 05/17/23 20:00 05/17/23 19:30 05/17/23 19:14 05/17/23 19:00 Room Air 05/17/23 17:26 Room Air 05/17/23 17:19 05/17/23 17:10 05/17/23 17:10 Room Air Supervising Physician Co-Signing Physician Notes Attending addendum: I have physically seen this patient, have supervised the medical residents activities, and agree with the H&P unless as otherwise noted. Assessment and Plan: Status post fall- Consistent with vasovagal syncope The patient will be admitted to telemetry for serial cardiac enzymes, serial EKG's, cardiac rhythm monitoring and a 2-D echocardiogram with Dopplers. BPH with LUTS- Urinary retention with catheter placement draining 600 cc Continue finasteride but changed from evening to morning Increase tamsulosin from 0.4 to 0.8 mg and change to evening IPMN- Side chain pancreatic cystic mass 3.1 cm in size Order pancreatic protocol MRI as noted as an outpatient depending upon MRI imaging results. it will be followed with serial imaging hypertension- Continue amlodipine, lisinopril and HCTZ Insomnia- Can continue trazodone for now, but be aware of potential aggravation of orthostatic hypotension Diabetes mellitus- Patient will use on pump and coverage notify nursing of correction pattern remaining orders and notations as noted Resident Activity Tracking Resident Involvement: Resident Care Provided Care Provided: Adult [facility] Medicine
[2023-05-17] MEDS ORDERED: GLUCOSE 40% GEL 15 GM TUBE PO PRN (22:54)
[2023-05-17] MEDS ORDERED: GLUCAGON FOR INJ 1 MG VIAL SQ PRN (22:54)
[2023-05-17] MEDS ORDERED: DEXTROSE 50% 50 ML SYRINGE IV PRN (22:54)
[2023-05-17] MEDS ORDERED: GLUCOSE 10 TAB/TUBE PO PRN (22:54)
[2023-05-17] MEDS ORDERED: CARBOHYDRATES FOR HYPOGLYCEMIA PO PRN (22:54)
[2023-05-17] MEDS ORDERED: POLYETHYLENE (MIRALAX) 17 GM PACK PO PRN (22:54)
[2023-05-17] MEDS ORDERED: INSULIN ASPART PER UNIT CHARGE SC SCH (23:15)
[2023-05-17] MEDS ORDERED: LANTUS PER UNIT CHARGE SQ SCH (23:15)
[2023-05-18] MEDS ORDERED: KETOROLAC TROMETHAMINE 15 MG/ML VIAL IV ONE (02:49)
[2023-05-18 07:45] LABS: Hematocrit (blood only) 39.6 % (42.0-52.0); Hemoglobin 13.6 g/dl (14.0-18.0); Mean Corpuscular Hemoglobin 27.9 pg (25.0-34.0); Mean Corpuscular Hgb Conc 34.3 g/dL (32.0-36.0); Mean Corpuscular Volume 81.3 fL (80.0-100.0); Mean Platelet Volume 11.5 fL (9.4-12.4); Platelet Count 159 K/uL (130-400); RDW Coefficient of Variation 14.2 % (11.5-14.5); RDW Standard Deviation 41.3 fL (36.4-46.3); Red Blood Count 4.87 M/uL (4.70-6.10); White Blood Count 8.46 K/ul (4.8-10.8)
[2023-05-18 08:11] LABS: BUN Creatinine Ratio 17.4 (10-20); Calcium 8.6 mg/dl (8.6-10.3); Creatinine Clr Calc Pharmacy 66.3 ml/min; Est GFR (Non-African American) 57.8 ml/min; Potassium 3.9 mmol/L (3.5-5.1)
[2023-05-18] MEDS: ACETAMINOPHEN 325 MG TAB PO PRN ×2 (08:36→14:21)
[2023-05-18] MEDS ORDERED: ASPIRIN 81 MG ECTAB PO SCH (09:00)
[2023-05-18] MEDS ORDERED: lisinopril 40 MG TAB PO SCH (09:00)
[2023-05-18] MEDS ORDERED: FINASTERIDE 5 MG TAB PO SCH ×2 (09:00→21:00)
[2023-05-18] MEDS ORDERED: hydroCHLOROthiazide 25 MG TAB PO SCH (09:00)
[2023-05-18] MEDS ORDERED: amLODIPine BESYLATE 5 MG TAB PO SCH (09:00)
[2023-05-18] MEDS ORDERED: PANTOprazole 40 MG TAB PO SCH (09:00)
[2023-05-18] MEDS ORDERED: TAMSULOSIN HCL 0.4 MG CAP PO SCH ×2 (09:00→21:00)
[2023-05-18] MEDS ORDERED: bisacodyL 10 MG SUPP PR STA (11:02)
[2023-05-18] MEDS ORDERED: DOCUSATE SODIUM/SENNA 50/8.6MG TAB PO SCH (11:15)
[2023-05-18] MEDS ORDERED: POLYETHYLENE (MIRALAX) 17 GM PACK PO SCH (11:15)
--- NOTE | 2023-05-18 17:46 | Discharge Summary ---
Discharge Summary Date of Service May 18, 2023 Notes For Next Care Provider Needs trial of void with Urology within 1-2 weeks Needs follow up with GI for 3.1cm pancreatic body cyst Admission HPI Per Admitting Provider 77yo Male with PMH prostatomegaly, DM2 with neuropathy, GERD, HTN, HLD here for concern syncope urinary retention constipation. Patient states his last BM was 3.5 days ago, he feels constipated strained over toilet for 3 hours tried to dig out pieces with his fingers didn't help. He was walking back to the bathroom when he passed out fell backwards hit his back on the floor did not hit furniture on the way down. Feels he strained too hard over the toilet. He denies any fever SOB nausea pain. Only new medications in the past month were gabapentin added for his neuropathy. Patient follows with urology on a yearly basis, doesn't have urinary difficulty at baseline did pee earlier this morning, no history prostate surgery. Principal Dx & Hospital Course #1 = Principal Diagnosis (1) Syncope: 77yo Male with PMH prostatomegaly, DM2 with neuropathy, GERD, HTN, HLD here for concern syncope urinary retention constipation. Syncope-ECG unchanged from previous, history consistent with vasovagal syncope from constipation and straining. No events on tele here. -CT head, cervical, thoracic spine no acute fracture or stroke -avoid straining and constipation -no other workup needed -does take FLomax but needs to stay on this given severe BPH and urinary retention (2) Constipation: Constipation -CT A/P: No acute traumatic findings within the abdomen or pelvis. Markedly enlarged prostate. Mao balloon within the bladder which is collapsed. No hydronephrosis. Small bilateral renal calculi. No ureteral calculi.Moderate to large amount stool within the rectum. Mild presacral stranding. This is nonspecific and could reflect mild stercoral colitis. No free air. Moderate of stool within the colon. -ED ordered milk of magnesia enema -I ordered bisacodyl HI x 1, Miralax, sennakot/docusate and had 4 BMs after admission -continue Miralax bid, senna bid, docusate bid after discharge until cleaned out -he thinks constipation much worse since starting on gabapentin-advised d/w PCP about reduction in dose as he should stay on gabapentin for his neuropathy (as it is helping) (3) Urinary retention: Urinary retention-long history of such, requiring Mao and CIC at times Had prostate MRI and biopsy in past that was benign. Offered surgical reduction in prostate but declined at that time -urinary catheter placed drained 600cc -continue tamsulosin and finasteride -f/u with Urology within 1-2 weeks for TOV and to discuss resumption of CIC vs s urgical options (4) GERD (gastroesophageal reflux disease): -continue protonix (5) Controlled type 2 diabetes mellitus, with long-term current use of insulin: DM2 -using his own insulin pump -on Ozempic with Neuropathy -continue gabapentin and consider reducing dose as above for constipation (6) Chronic back pain: with acute pain from fall, mild, imaging negative (7) Hyperlipidemia: -continue atorvastatin (8) Insomnia: -continue trazodone (9) Cystic mass of pancreas: Pancreatic Mass -CT A/P Cystic focus within the pancreatic body,This measures approximately 3.1 cm. This may reflect a side branch IPMN. This is not highly suspicious however main duct involvement would be difficult to exclude on this exam. Nonemergent pancreatic protocol MRI is recommended. Advised pt he needs outpt GI f/u and possibly EUS but can get pancreas MRI first asked Nurse Navigator to arrange GI f/u (10) Benign hypertension: BPs controlled -continue HCTZ ,lisinopril, amlodipine Plan Dispo-stable for dc to home Discharge Exam Constitutional WD/WN, vitals as above + obese Respiratory normal respiratory effort, lungs clear to auscultation Cardiovascular RRR, no murmur, no edema Gastrointestinal (Abdomen) normal bowel sounds, soft, nontender, no hepatosplenomegaly Updated Medication List Medication Instructions Recorded Confirmed Type multivitamin 1 tab PO QAM 08/20/19 05/17/23 History flash glucose scanning reader #1 ea 08/14/20 03/28/23 History (FreeStyle Harini 14 Day [place]) aspirin 81 mg tablet,delayed 81 mg PO QAM 05/02/21 05/17/23 History release ibuprofen 200 mg tablet 600 mg PO TID PRN Pain 11/18/21 05/17/23 History valerian root 1,000 mg capsule 2,000 mg PO HS 04/05/22 05/17/23 History cholecalciferol (vitamin D3) 25 1,000 unit PO QAM 05/19/22 05/17/23 History mcg (1,000 unit) capsule insulin syringe-needle U-100 1 mL #300 ea 05/20/22 03/28/23 Rx 31 gauge x 5/16" (BD Insulin Syringe Ultra-Fine) blood sugar diagnostic (Contour #100 ea 09/29/22 03/28/23 Rx Next Test Strips) lorazepam 1 mg tablet 1 mg PO DAILY PRN anxiety #30 tabs 09/29/22 05/17/23 Rx trazodone 100 mg tablet 100 mg PO HS #90 tabs 12/01/22 05/17/23 Rx flash glucose scanning reader #1 ea 12/30/22 03/28/23 Rx (YOGASMOGA Harini 2 [place]) insulin lispro 100 unit/mL See Rx Instructions continuous 03/06/23 05/17/23 Rx subcutaneous solution (Humalog subcutaneous infusion CONTINOUS U-100 Insulin) #23 vials semaglutide 2 mg/dose (8 mg/3 mL) 2 mg (0.75 mL) subcut .COMPLEX #9 03/06/23 05/17/23 Rx subcutaneous pen injector mL atorvastatin 10 mg tablet 5 mg PO HS #45 tabs 03/13/23 05/17/23 Rx amlodipine 5 mg tablet 5 mg PO QAM #90 tabs 03/28/23 05/17/23 Rx finasteride 5 mg tablet 5 mg PO HS #90 tabs 03/28/23 05/17/23 Rx hydrochlorothiazide 25 mg tablet 25 mg PO QAM #90 tabs 03/28/23 05/17/23 Rx lisinopril 40 mg tablet 40 mg PO QAM #90 tabs 03/28/23 05/17/23 Rx pantoprazole 40 mg tablet,delayed 40 mg PO DAILY #90 tabs 03/28/23 05/17/23 Rx release tramadol 50 mg tablet 50 mg PO BID PRN pain #90 tabs 03/28/23 05/17/23 Rx gabapentin 300 mg capsule 600 mg PO HS 05/17/23 05/17/23 History tamsulosin 0.4 mg capsule (Flomax) 0.4 mg PO QAM #90 caps 05/17/23 05/17/23 Rx acetaminophen 325 mg tablet 650 mg PO Q4H PRN pain #30 tabs 05/18/23 Rx docusate sodium 100 mg capsule 100 mg PO BID #60 caps 05/18/23 05/17/23 Rx (Colace) polyethylene glycol 3350 17 17 g PO BID #119 grams 05/18/23 Rx gram/dose oral powder (Miralax) sennosides 8.6 mg capsule (senna) 8.6 mg PO BID #60 caps 05/18/23 Rx Hospital Stay Data Consultations 05/17/23 20:45 ED Decision to Admit Stat 05/18/23 17:17 Consult [facility] nuclear physics professor Routine 05/18/23 17:45 Consult [facility] nuclear physics professor Routine Diagnostic Imagining Performed 05/17/23 17:19 CT abd pelvis IV con only Stat CT cervical spine wo con Stat 05/17/23 17:20 CT head/brain wo con Stat 05/17/23 17:32 CT thoracic spine wo con Stat Pending Results Patient Have Any Pending Studies at Discharge: No Discharge Instructions Given to Patient (Per Discharging Provider) You were admitted after passing out after straining to have a bowel movement. You had a fecal impaction which was treated with laxatives and a suppository with success. You passed out from straining. The workup for your heart was normal and you did not have any problems with abnormal heart rhythms. Please continue to take laxatives daily until you have cleaned yourself out to the point where your stool is watery and loose. You should talk to your doctor about possibly decreasing the dose of your gabapentin as this may have contributed to your worsening constipation. You were also retaining a large amount of urine and required a Mao catheter be placed. Please keep the Mao in place and follow up with your Urologist within 1-2 weeks for a trial of void. You may need restart self-catheterization versus have a prostate surgery to keep this from happening again. It is also important to keep your bowels moving as constipatino can also contribute to urinary retention. Incidentally, you were found to have a cyst on your pancreas that will need follow up. An appointment with GI will be arranged for you to further discuss this nad order a pancreas MRI. Total Time Total Time Spent Total Time Spent (In Minutes): 35 min Coding Level of Care Code 17753 INP/OBS DISCH >30 MIN Diagnoses Syncope R55 Constipation K59.00 Urinary retention R33.9 GERD (gastroesophageal reflux disease) K21.9 Controlled type 2 diabetes mellitus, with long-term current use of insulin E11.9; Z79.4 Chronic back pain M54.9; G89.29 Hyperlipidemia E78.5 Insomnia G47.00 Cystic mass of pancreas K86.2 Benign hypertension I10
[2023-05-18] MEDS ORDERED: GABAPENTIN 300 MG CAP PO SCH (21:00)
[2023-05-18] MEDS ORDERED: ATORVASTATIN 10 MG TAB PO SCH (21:00)
[2023-05-18] MEDS ORDERED: traZODone HCL 100 MG TAB PO SCH (21:00)
--- NOTE | 2023-05-19 23:01 | Electrocardiogram Report ---
Test Reason : Blood Pressure : / mmHG Vent. Rate : 109 BPM Atrial Rate : 109 BPM P-R Int : 224 ms QRS Dur : 136 ms QT Int : 370 ms P-R-T Axes : 000 -87 014 degrees QTc Int : 498 ms Sinus tachycardia with 1st degree A-V block Right bundle branch block Left anterior fascicular block Bifascicular block Possible Anterolateral infarct (cited on or before 05-APR-2022) Abnormal ECG When compared with ECG of 05-APR-2022 13:58, Premature atrial complexes are no longer Present T wave inversion now evident in Inferior leads Confirmed by Antonio Ulloa ([id number]) on 05/19/2023 11:01:20 PM Referred By: REFERRED SELF Confirmed By:Antonio Ulloa
--- NOTE | 2023-05-20 05:16 | Billing Data ---
Date of Service May 20, 2023 Coding Level of Care Code 74852 INT INP/OBS CARE
== END 2023-05-18 18:38 | disposition home or self-care (01) ==
LOC: ED 16:58 → 2W 16:58 → SUATTDRO 21:42 → 2W 05-18 00:17
DX: Z79.4 Long term (current) use of insulin; G89.29 Other chronic pain; I44.0 Atrioventricular block, first degree; N40.1 Benign prostatic hyperplasia with lower urinary tract symptoms; Y92.009 Unspecified place in unspecified non-institutional (private) residence as the place of occurrence of the external cause; Z79.82 Long term (current) use of aspirin; E11.42 Type 2 diabetes mellitus with diabetic polyneuropathy; E66.9 Obesity, unspecified; E78.5 Hyperlipidemia, unspecified; W18.30XA Fall on same level, unspecified, initial encounter; K86.2 Cyst of pancreas; Z68.36 Body mass index [BMI] 36.0-36.9, adult; Z87.891 Personal history of nicotine dependence; Z98.1 Arthrodesis status; Z88.0 Allergy status to penicillin; Z79.85 Long-term (current) use of injectable non-insulin antidiabetic drugs; K21.9 Gastro-esophageal reflux disease without esophagitis; K59.00 Constipation, unspecified; Y93.01 Activity, walking, marching and hiking; M54.6 Pain in thoracic spine; R55 Syncope and collapse; Z79.899 Other long term (current) drug therapy; I45.10 Unspecified right bundle-branch block; Z88.8 Allergy status to other drugs, medicaments and biological substances; Z20.822 Contact with and (suspected) exposure to COVID-19; G47.00 Insomnia, unspecified; I10 Essential (primary) hypertension; R33.8 Other retention of urine

== ENCOUNTER 2025-02-25 01:19 | Inpatient (IN) ==
--- NOTE | 2025-02-25 01:34 | Emergency Department Note ---
Impression & Plan Fever, Confusion, Dehydration, Pulmonary embolism, Hypoxia ED Provider Note ED Provider Note NAME: XANDER VANEGAS AGE:79 SEX: Male : 1945 ARRIVES VIA: EMS INFORMANT: Patient ED PROVIDER(s): Gillian Moran DO CHIEF COMPLAINT: Confusion, fever, recent surgery HPI: This is a 79-year-old male brought in by EMS due to family's concern for slight confusion noted this evening when he did not know the date today. Patient recently underwent a partial pancreatectomy at [facility]. While admitted he also developed C. difficile and was started on vancomycin. Patient states he has been doing well since arrival home, taking the medications including the antibiotics as prescribed, and following his other discharge instructions. On arrival here patient can answer all questions of orientation with exception of the date. He states he still has intermittent nausea and does take Zofran at home. He denies any abdominal pain. He denies headaches, difficulty breathing, cough or URI symptoms. He states he has not had diarrhea in 3 to 4 days now. He denies any melena or hematochezia. PAST MEDICAL HISTORY:See Below PAST SURGICAL HISTORY:See Below FAMILY HISTORY:See Below SOCIAL HISTORY:See Below HOME MEDICATIONS:See Below ALLERGIES:See Below VITALS:See Below PHYSICAL EXAMINATION: GENERAL: alert, well appearing, well nourished, no distress, non-toxic EYE EXAM: normal conjunctiva, PERRL and EOM's grossly intact OROPHARYNX: no exudate, no erythema, lips, buccal mucosa, and tongue normal and mucous membranes are dry NECK: supple, no nuchal rigidity, no adenopathy, non-tender LUNGS: Clear to auscultation. Normal chest wall mechanics, no w/r/r, patient mildly hypoxic on arrival at 88% HEART: no murmurs, S1 normal and S2 normal ABDOMEN: abdomen soft, non-tender, normo-active bowel sounds, no masses, no rebound or guarding. Vertical midline incision consistent with exploratory laparotomy noted and appears to be healing well, other smaller incisions consistent with initial laparoscopic surgery and/or drains also are well- appearing and healing, no evidence of dehiscence, drainage, or surrounding cellulitis SKIN: no rashes, petechiae, orbruising UPPER EXTREMITIES: upper extremities are grossly normal. FROM, nml pulses b/l. LOWER EXTREMITIES: 1+ bl pitting edema which patient states is chronic. FROM, nml pulses b/l. No calf tenderness bilaterally. NEURO EXAM: Normal sensorium, cranial nerves II-XII grossly intact, normal speech, no facial droop,nogross weakness of arms, no gross weakness of legs. Gross sensation intact. No ataxia. Vital Signs: reviewed and remarkable Differential Diagnosis: PE, C.diff, sbo, viral syndrome, pneumonia, meningitis, urinary tract infection, sepsis, bacteremia, postop abscess, cellulitis, as well as others were entertained. MEDICAL DECISION MAKING: This is a 79-year-old male presents emergency department due to concern for fatigue, fever, and mild confusion noted by family. Patient noted to be mildly hypoxic here additionally. Patient's status post partial pancreatectomy 2 weeks ago. Labs including cultures for possible sepsis drawn and sent, IV established, EKG and chest x-ray performed at bedside and interpreted by me and patient monitored on telemetry. Patient started on IV fluids per sepsis protocol. He was given empiric dose of IV cefepime. Patient is already taking oral vancomycin due to recent diagnosis of C. difficile. He was placed on oxygen via nasal cannula due to the mild hypoxia noted although he denied any sense of being short of breath. Nasal swab obtained and sent for viral panel. No leukocytosis and initial lactic acid reassuring. Nasal swab negative for acute viral illness. Patient was noted to have mild hyponatremia and elevated creatinine. Patient continued on IV fluids. Out of consideration for the differential diagnosis and due to concern for initial vitals and presentation patient sent for CT imaging of the head, chest, abdomen and pelvis. Patient found to have multiple PEs on CT angiography of the chest. No evidence of acute abnormalities in the head including no ICH. Abdominal CT reassuring accounting for postop changes and findings. Possible splenic infarct noted. Patient and family at bedside updated on results. No prior history of any bleeding problems. Patient started on heparin bolus and drip. Patient did receive greater than 30 mL/KG of IV fluids based on ideal body weight. He did appear improved and reported feeling improved with this. Patient was noted to have an elevated procalcitonin. Troponin negative. VBG reassuring. Case discussed with the hospitalist team for additional evaluation and management. I do not suspect meningitis/encephalitis. Consultation(s): 0515: Discussed with Dr. Cohen, [facility] hospitalist team, for additional evaluation and management. ER Treatment Provided: See below 0217: Updated family who is now at bedside. They state yesterday he seemed more tired and did not have much to eat or drink all day. Today he seemed fatigued as well but was sipping some diet Sprite. She states this evening then he developed shaking chills and at that time began talking about the furniture store. 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 She states she was concerned that he was getting confused and given the chills was concern for other postop complication. Family states they are fdc through the course of oral vancomycin and his stools are no longer watery but are still soft. She does feel he has been improving. Diagnostics Interpreted By Me: -ECG: Sinus tachycardia rate of 101 with first-degree AV block, leftward axis, right bundle branch block, nonspecific ST/T wave changes -Cardiac Monitoring: An order was placed for continuous cardiac monitoring. The monitor shows a rate of 92 with normal sinus rhythm. -Laboratory studies: As stated above and show below. -Imaging studies: X-ray Chest: A single view study of the chest was reviewed and was negative for cardiomegaly, focal infiltrate, effusion, pulmonary edema, or wide mediastinum. Triage Nursing Note Reviewed Prior/Outside Records Reviewed Critical Care: Critical care of 42 min performed to assess and manage high likelihood of life-threatening pulmonary embolism, involving labs and imaging performed with assessment to evaluate fever and hypoxia diagnosis with frequent reassessment. This time includes bedside time, treatment discussions with patient/family/consultants, documentation time and excludes procedure time. Past Med/Surg History Problem List (Updated 02/25/25 @ 06:14 by Patria Holden PA-C) Anemia Altered mental status Renal insufficiency Hypoxia (Acute) Pulmonary embolism (Acute) Dehydration (Acute) Confusion (Acute) Fever (Acute) S/P laparotomy C. 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 Rash COVID (Acute) Intraductal papillary mucinous neoplasm of pancreas Urinary retention Cystic mass of pancreas Constipation (Acute) Acute thoracic back pain (Acute) Acute urinary retention (Acute) Hyperglycemia (Acute) Constipation Syncope Chronic back pain (~01/30/25) Grieving Vitamin D deficiency Steatosis of liver Metabolic syndrome Dietary counseling and surveillance GERD (gastroesophageal reflux disease) Cramping of hands Esophageal dysphagia Hyperlipidemia Acid reflux disease Benign hypertension Insomnia Low back pain Controlled type 2 diabetes mellitus, with long-term current use of insulin (Chronic) Diabetic peripheral neuropathy Obesity Elevated PSA Routine health maintenance Cerumen impaction Hematuria Prostate cancer screening BPH w urinary obs/LUTS Hearing loss Encounter for pre-operative examination Gastroenteritis due to norovirus Encounter for examination following treatment at hospital Medical History Diabetes mellitus, type 2 Fall Syncope History of esophageal dilatation Morbid obesity Urinary retention s/p urinary catheter (05/2021)- since removed BPH (benign prostatic hyperplasia) Insulin pump in place History of TMJ syndrome Hypertension Hyperlipidemia Dysesthesia R/L feet Surgical History History of prostate biopsy (~10/05/21) under MAC anesthesia @ [facility] History of surgery Exam under anesthesia, removal of skin tags, fistulotomy (01/09/18): Grade view 1 with Glidescope#4, ETT 8.0 (difficult mask. vent with 2 person 2/2 hamilton > elective glidescope with minimal neck extension- ETT easily passed, small right upper lip laceration noted) History of esophagogastroduodenoscopy (EGD) History of colonoscopy Hx of LASIK History of cataract surgery RT/LEFT History of tooth extraction RECENT TOOTH EXTRACTION H/O knee surgery Spur removed from knee History of tonsillectomy and adenoidectomy H/O neck surgery History of carpal tunnel surgery RT Family History Aunt Diabetes Father Lung cancer Sister Diabetes Other No family history of adverse response to anesthesia Denies family history of Ovarian cancer Prostate cancer Myocardial infarction Breast cancer Colorectal cancer Hypertension Stroke Social History Smoking Status: Never smoker Second Hand Exposure: No; Do You Dip or Chew Tobacco: No; Hx Alcohol Use: Yes Alcohol type: beer Alcohol Intake Frequency: Monthly or Less Hx Substance Use: No Preferred Language: Khmer Communication Ability: Effective Visual Impairment: No Limitations Hearing Ability: Normal Impact 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 Beliefs That Will Affect Care: None marital status: / Current Living Situation: Alone Current Living Situation Comment: Lives home alone 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 How many Children do You have: 2 Other Information That Helps Us Care for You: No Feels Safe at Home: Yes Safety Concerns: Feels Safe At This Time Childhood Exposure to Second-Hand Smoke: No Diet: regular caffeine: Yes (coffee) during the past year weight has: remained stable Dental Care, Regularly: Yes Physical Activity Frequency: Daily Seatbelt Use: always Sunscreen Use: Yes Do you think of yourself as: straight/heterosexual Gender Identity: Male Assistive Devices: Cane and Walker Allergies Allergies Allergy/AdvReac Type Severity Reaction Status Date / Time Penicillins Allergy Intermediate HIVES Verified 12/05/24 12:51 metformin AdvReac Intermediate GI Verified 12/05/24 12:51 distress/diarrhea Home Meds Home Medications Medication Instructions Recorded Confirmed multivitamin 1 tab PO QAM 08/20/19 02/25/25 aspirin 81 mg tablet,delayed 81 mg PO QAM 05/02/21 02/25/25 release semaglutide 0.25 mg or 0.5 mg (2 2 mg subcut UD 12/05/24 02/25/25 mg/3 mL) subcutaneous pen injector (Ozempic) NALOXONE NASAL SPRAY 1 spray intranasal DIRECTED PRN 02/19/25 02/25/25 Other cholecalciferol (vitamin D3) 25 25 mcg PO DAILY 02/19/25 02/25/25 mcg (1,000 unit) tablet enoxaparin 40 mg/0.4 mL 40 mg subcut DAILY 02/19/25 02/25/25 subcutaneous syringe mecobalamin (vitamin B12) 1 tab PO DAILY 02/19/25 02/25/25 ondansetron 4 mg disintegrating 4 mg PO Q6H PRN nausea and vomiting 02/19/25 02/25/25 tablet oxycodone 5 mg tablet See Rx Instructions PO Q4H PRN Pain 02/19/25 02/25/25 vancomycin 25 mg/mL oral solution 125 mg PO Q6H 02/19/25 02/25/25 amlodipine 5 mg tablet 5 mg PO QPM 02/25/25 02/25/25 lisinopril 40 mg tablet 40 mg PO UD 02/25/25 02/25/25 pantoprazole 40 mg tablet,delayed 40 mg PO UD 02/25/25 02/25/25 release Previous Rx's Medication Instructions Recorded insulin syringe-needle U-100 1 mL #300 ea 05/20/22 31 gauge x 5/16" (BD Insulin Syringe Ultra-Fine) blood sugar diagnostic (Contour #100 ea 09/29/22 Next Test Strips) acetaminophen 325 mg tablet 650 mg (2 x 325 mg) PO Q4H PRN 05/18/23 pain #30 tabs atorvastatin 10 mg tablet 5 mg (1/2 x 10 mg) PO HS #45 tabs 03/07/24 pen needle, diabetic 31 gauge x #100 ea 03/07/24 3/16" (BD Ultra-Fine Mini Pen Needle) insulin lispro 100 unit/mL See Rx Instructions continuous 03/14/24 subcutaneous solution (Humalog subcutaneous infusion CONTINOUS U-100 Insulin) #23 vials gabapentin 300 mg capsule 300 mg PO HS #90 caps 05/23/24 hydrochlorothiazide 25 mg tablet 25 mg PO QAM #90 tabs 11/14/24 trazodone 100 mg tablet 100 mg PO HS #90 tabs 11/18/24 tramadol 50 mg tablet 50 mg PO BID PRN pain #90 tabs 01/27/25 Results & Data (ED) Vital Signs Vital Signs - 24 hr 02/25/25 01:28 02/25/25 01:28 02/25/25 01:29 Temperature 38.9 C H Temperature Source Oral Pulse Rate 102 H 100 H 99 H Pulse Rate [Apical] Pulse Rate [Finger] Pulse Rhythm [Finger] Pulse Strength [Finger] Respiratory Rate 15 18 Respiratory Effort / Characteristics Respiratory Depth Respiratory Pattern Blood Pressure 138/45 L Blood Pressure [Right Arm] Blood Pressure Mean 76 Blood Pressure Mean [Right Arm] Pulse Oximetry 88 L 93 Oxygen Delivery Method Room Air Nasal Cannula Oxygen Flow Rate 2 Sepsis Recent Fever Within 48 Hours Yes Sepsis New/Unexplained Change in Mental Status Yes Sepsis Action Taken by Nursing Physician Notified 02/25/25 01:50 02/25/25 02:54 02/25/25 03:30 Temperature Temperature Source Pulse Rate Pulse Rate [Apical] 85 Pulse Rate [Finger] 98 H 91 H Pulse Rhythm [Finger] Regular Pulse Strength [Finger] Normal Respiratory Rate 22 18 24 Respiratory Effort / Characteristics Non-Labored Spontaneous Non-Labored Spontaneous Non-Labored Spontaneous Respiratory Depth Normal Normal Normal Respiratory Pattern Regular Blood Pressure Blood Pressure [Right Arm] 132/58 L 100/54 L 115/62 Blood Pressure Mean Blood Pressure Mean [Right Arm] 82 69 79 Pulse Oximetry 96 93 95 Oxygen Delivery Method Nasal Cannula Nasal Cannula Nasal Cannula Oxygen Flow Rate 2 2 2 Sepsis Recent Fever Within 48 Hours Sepsis New/Unexplained Change in Mental Status Sepsis Action Taken by Nursing 02/25/25 04:15 02/25/25 04:42 02/25/25 05:29 Temperature 37.6 C H Temperature Source Oral Pulse Rate 83 Pulse Rate [Apical] 84 Pulse Rate [Finger] Pulse Rhythm [Finger] Pulse Strength [Finger] Respiratory Rate 24 Respiratory Effort / Characteristics Respiratory Depth Respiratory Pattern Blood Pressure Blood Pressure [Right Arm] 111/61 Blood Pressure Mean Blood Pressure Mean [Right Arm] 77 Pulse Oximetry 94 Oxygen Delivery Method Nasal Cannula Oxygen Flow Rate 2 Sepsis Recent Fever Within 48 Hours Sepsis New/Unexplained Change in Mental Status Sepsis Action Taken by Nursing Laboratory Data 02/26/25 01:14 02/25/25 01:29 Lab Results 02/25/25 02/25/25 02/25/25 Range/Units 01:29 01:34 01:40 WBC 8.95 (4.8-10.8) K/ul RBC 3.25 L (4.70-6.10) M/uL Hgb 8.6 L (14.0-18.0) g/dl Hct 26.6 L (42.0-52.0) % MCV 81.8 (80.0-100.0) fL MCH 26.5 (25.0-34.0) pg MCHC 32.3 (32.0-36.0) g/dL RDW Std Deviation 47.6 H (36.4-46.3) fL RDW Coeff of Joselin 15.9 H (11.5-14.5) % Plt Count 451 H (130-400) K/uL MPV 11.5 (9.4-12.4) fL Immature Gran % (Auto) 0.8 % Neut % (Auto) 87.3 % Lymph % (Auto) 6.6 % [place] % (Auto) 4.9 % Eos % (Auto) 0.1 % Baso % (Auto) 0.3 % Neut # (Auto) 7.81 H (1.40-6.50) K/uL Lymph # (Auto) 0.59 L (1.20-3.40) K/uL [place] # (Auto) 0.44 (0.11-0.59) K/uL Eos # (Auto) 0.01 (0.00-0.50) K/uL Baso # (Auto) 0.03 (0.00-0.20) K/uL Immature Gran # (Auto) 0.07 (0.01-0.20) K/uL PT Cancelled INR Cancelled VBG pH (7.36-7.41) VBG pCO2 (38-50) mmHg VBG pO2 mmHg VBG HCO3 mmol/L VBG O2 Saturation % VBG Base Excess mEq/L Sodium 133 L (136-145) mmol/L Potassium 3.6 (3.5-5.1) mmol/L Chloride 99 (98-107) mmol/L Carbon Dioxide 28 (21-32) mmol/L Anion Gap 6 (3-11) BUN 26 H (6-23) mg/dl Creatinine 1.78 H (0.6-1.4) mg/dl Est Cr Clr Drug Dosing 45.0 ml/min eGFR 38.57 BUN/Creatinine Ratio 14.6 (10-20) Glucose 138 H (70-99(Fasting)) mg/dl Lactate 1.4 (0.4-2.0) mmol/L Calcium 7.9 L (8.6-10.3) mg/dl Magnesium 2.0 (1.7-2.4) mg/dl Total Bilirubin 0.9 (0.2-1.0) mg/dl Direct Bilirubin 0.3 H (0-0.2) mg/dl AST 32 (13-39) U/L ALT 28 (7-52) U/L Alkaline Phosphatase 92 (34-104) U/L Troponin I High Sens 13.4 (0-20) pg/ml Total Protein 5.7 L (6.0-8.3) gm/dl Albumin 3.4 (3.4-5.0) gm/dl Procalcitonin 0.90 H (0-0.5) ng/ml Nasal Screen MRSA (PCR) (Negative) Adenovirus (PCR) Not Detected (NotDetected) B. pertussis DNA (PCR) Not Detected (NotDetected) B.parapertussis DNA PCR Not Detected (NotDetected) C. pneumoniae DNA (PCR) Not Detected (NotDetected) Coronavirus OC43 (PCR) Not Detected (NotDetected) Coronavirus HKU1 (PCR) Not Detected (NotDetected) Coronavirus 229E (PCR) Not Detected (NotDetected) SARS-CoV-2 (PCR) Not Detected (NotDetected) Coronavirus NL63 (PCR) Not Detected (NotDetected) Human Metapneumovir PCR Not Detected (NotDetected) Influenza Type A (PCR) Not Detected (NotDetected) Influenza Type B (PCR) Not Detected (NotDetected) M. pneumoniae (PCR) Not Detected (NotDetected) Parainfluenza 1 (PCR) Not Detected (NotDetected) Parainfluenza 2 (PCR) Not Detected (NotDetected) Parainfluenza 3 (PCR) Not Detected (NotDetected) Parainfluenza 4 (PCR) Not Detected (NotDetected) RSV (PCR) Not Detected (NotDetected) Entero/Rhino (PCR) Not Detected (NotDetected) 02/25/25 02/25/25 Range/Units 02:05 04:51 WBC (4.8-10.8) K/ul RBC (4.70-6.10) M/uL Hgb (14.0-18.0) g/dl Hct (42.0-52.0) % MCV (80.0-100.0) fL MCH (25.0-34.0) pg MCHC (32.0-36.0) g/dL RDW Std Deviation (36.4-46.3) fL RDW Coeff of Joselin (11.5-14.5) % Plt Count (130-400) K/uL MPV (9.4-12.4) fL Immature Gran % (Auto) % Neut % (Auto) % Lymph % (Auto) % [place] % (Auto) % Eos % (Auto) % Baso % (Auto) % Neut # (Auto) (1.40-6.50) K/uL Lymph # (Auto) (1.20-3.40) K/uL [place] # (Auto) (0.11-0.59) K/uL Eos # (Auto) (0.00-0.50) K/uL Baso # (Auto) (0.00-0.20) K/uL Immature Gran # (Auto) (0.01-0.20) K/uL PT 12.5 H INR 1.2 H VBG pH 7.40 (7.36-7.41) VBG pCO2 44 (38-50) mmHg VBG pO2 22 mmHg VBG HCO3 27 mmol/L VBG O2 Saturation < 60.0 % VBG Base Excess 2.0 mEq/L Sodium (136-145) mmol/L Potassium (3.5-5.1) mmol/L Chloride (98-107) mmol/L Carbon Dioxide (21-32) mmol/L Anion Gap (3-11) BUN (6-23) mg/dl Creatinine (0.6-1.4) mg/dl Est Cr Clr Drug Dosing ml/min eGFR BUN/Creatinine Ratio (10-20) Glucose (70-99(Fasting)) mg/dl Lactate (0.4-2.0) mmol/L Calcium (8.6-10.3) mg/dl Magnesium (1.7-2.4) mg/dl Total Bilirubin (0.2-1.0) mg/dl Direct Bilirubin (0-0.2) mg/dl AST (13-39) U/L ALT (7-52) U/L Alkaline Phosphatase (34-104) U/L Troponin I High Sens (0-20) pg/ml Total Protein (6.0-8.3) gm/dl Albumin (3.4-5.0) gm/dl Procalcitonin (0-0.5) ng/ml Nasal Screen MRSA (PCR) Negative (Negative) Adenovirus (PCR) (NotDetected) B. pertussis DNA (PCR) (NotDetected) B.parapertussis DNA PCR (NotDetected) C. pneumoniae DNA (PCR) (NotDetected) Coronavirus OC43 (PCR) (NotDetected) Coronavirus HKU1 (PCR) (NotDetected) Coronavirus 229E (PCR) (NotDetected) SARS-CoV-2 (PCR) (NotDetected) Coronavirus NL63 (PCR) (NotDetected) Human Metapneumovir PCR (NotDetected) Influenza Type A (PCR) (NotDetected) Influenza Type B (PCR) (NotDetected) M. pneumoniae (PCR) (NotDetected) Parainfluenza 1 (PCR) (NotDetected) Parainfluenza 2 (PCR) (NotDetected) Parainfluenza 3 (PCR) (NotDetected) Parainfluenza 4 (PCR) (NotDetected) RSV (PCR) (NotDetected) Entero/Rhino (PCR) (NotDetected) Administered Medications Acetaminophen (Acetaminophen 325 Mg Tab) 650 mg PO Q4H PRN PRN Reason: Pain or Fever Stop: 03/27/25 08:54 Last Admin: 02/25/25 22:20 Dose: 650 mg Documented By: Admin: 02/25/25 12:54 Dose: 650 mg Documented By: Amlodipine Besylate (Amlodipine Besylate 5 Mg Tab) 5 mg PO QPM JEANA Stop: 03/27/25 20:59 Last Admin: 02/25/25 20:53 Dose: 5 mg Documented By: VALERIE Aspirin (Aspirin 81 Mg Ectab) 81 mg PO QAM JEANA Stop: 03/27/25 08:59 Last Admin: 02/25/25 09:16 Dose: 81 mg Documented By: Atorvastatin Calcium (Atorvastatin 10 Mg Tab) 5 mg PO HS JEANA Stop: 03/27/25 20:59 Last Admin: 02/25/25 20:53 Dose: 5 mg Documented By: VALERIE Wallace Syrup (Wallace Syrup 5 Ml Udp) 5 ml PO Q6 JEANA Stop: 03/04/25 23:59 Last Admin: 02/26/25 06:13 Dose: 5 ml Documented By: Admin: 02/26/25 01:10 Dose: 5 ml Documented By: Admin: 02/25/25 17:10 Dose: 5 ml Documented By: Admin: 02/25/25 11:58 Dose: 5 ml Documented By: Gabapentin (Gabapentin 300 Mg Cap) 300 mg PO HS JEANA Stop: 03/27/25 20:59 Last Admin: 02/25/25 20:53 Dose: 300 mg Documented By: VALERIE Heparin Sodium/Dextrose (Heparin 69225 Unit/500 Ml D5w) 25,000 units in 500 mls @ 33 mls/hr IV .[id number] JEANA; Protocol Stop: 03/27/25 04:59 Last Titration: 02/26/25 07:16 Dose: 1,650 units/hr, 33 mls/hr Documented By: PIERRE Co-signed By: VALERIE Admin: 02/25/25 20:56 Dose: 1,650 units/hr, 33 mls/hr Documented By: KF Co-signed By: GAUTAM Titration: 02/25/25 20:42 Dose: Infused Documented By: VALERIE Co-signed By: GAUTAM Titration: 02/25/25 19:06 Dose: 1,650 units/hr, 33 mls/hr Documented By: ALEX Co-signed By: VALERIE Titration: 02/25/25 17:42 Dose: 1,650 units/hr, 33 mls/hr Documented By: ALEX Co-signed By: CESARIO Titration: 02/25/25 12:59 Dose: 1,650 units/hr, 33 mls/hr Documented By: Co-signed By: RIGO Admin: 02/25/25 05:32 Dose: 1,650 units/hr, 33 mls/hr Documented By: MED Co-signed By: DML Insulin Aspart (Insulin, Rapid-Acting Pump) 0 each N/A ACHS [facility]; Protocol Stop: 03/27/25 09:09 Last Admin: 02/25/25 20:57 Dose: 0.6 each Documented By: VALERIE Co-signed By: GAUTAM Admin: 02/25/25 17:14 Dose: 9 each Documented By: ALEX Co-signed By: CESARIO Admin: 02/25/25 15:18 Dose: Not Given Documented By: Admin: 02/25/25 11:55 Dose: Not Given Documented By: Miscellaneous (Continuous Glucose Monitor) 0 each N/A ACHS JEANA Stop: 03/27/25 16:29 Last Admin: 02/25/25 20:59 Dose: Not Given Documented By: Admin: 02/25/25 16:05 Dose: Not Given Documented By: ALEX Miscellaneous (Continuous Glucose Monitor) 0 each N/A ACHS JEANA Stop: 03/27/25 16:29 Last Admin: 02/25/25 20:57 Dose: 1 each Documented By: Admin: 02/25/25 16:56 Dose: 1 each Documented By: ALEX Trazodone HCl (Trazodone Hcl 100 Mg Tab) 100 mg PO HS JEANA Stop: 03/27/25 20:59 Last Admin: 02/25/25 20:53 Dose: 100 mg Documented By: VALERIE Vancomycin HCl (Vancomycin Hcl 125 Mg/2.5ml Soln) 125 mg PO Q6 JEANA Stop: 03/04/25 23:59 Last Admin: 02/26/25 06:13 Dose: 125 mg Documented By: Admin: 02/26/25 01:10 Dose: 125 mg Documented By: Admin: 02/25/25 17:10 Dose: 125 mg Documented By: Admin: 02/25/25 11:58 Dose: 125 mg Documented By: Discontinued Medications Heparin Sodium (Porcine) (Heparin Sod (Porcine) 1000 Unit/Ml) 1 units IV NOW ONE Stop: 02/25/25 04:47 Last Admin: 02/25/25 05:34 Dose: 7,000 units Documented By: CARLEE Co-signed By: PARVEZ Heparin Sodium/Dextrose (Heparin Iv Adult Wt-Based Standard W/ Initial Bolus Protocol) 1 each IV NOW STA; Protocol Stop: 02/25/25 04:32 Last Admin: 02/25/25 05:48 Dose: Not Given Documented By: CARLEE Sodium Chloride (Nss) 1,000 mls @ 999 mls/hr IV .Q1H1M JEANA Stop: 02/25/25 02:30 Last Infusion: 02/25/25 02:27 Dose: Infused Documented By: Admin: 02/25/25 01:47 Dose: 999 mls/hr Documented By: PADMINI Cefepime HCl (Maxipime 2000mg) 2,000 mg in 20 mls @ 5 mls/min IV NOW STA; Protocol Stop: 02/25/25 01:32 Last Admin: 02/25/25 01:46 Dose: 5 mls/min Documented By: PADMINI Acetaminophen (Ofirmev) 1,000 mg in 100 mls @ 400 mls/hr IV NOW STA Stop: 02/25/25 01:43 Last Infusion: 02/25/25 02:25 Dose: Infused Documented By: Admin: 02/25/25 01:46 Dose: 400 mls/hr Documented By: PADMINI Sodium Chloride (Nss) 1,000 mls @ 999 mls/hr IV .Q1H1M ONE Stop: 02/25/25 03:23 Last Infusion: 02/25/25 07:42 Dose: Infused Documented By: Admin: 02/25/25 02:27 Dose: 999 mls/hr Documented By: RIGO Sodium Chloride (Nss) 1,000 mls @ 999 mls/hr IV .Q1H1M ONE Stop: 02/25/25 04:35 Last Infusion: 02/25/25 07:42 Dose: Infused Documented By: Admin: 02/25/25 04:18 Dose: 999 mls/hr Documented By: CARLEE Ioversol (Optiray 320 125ml) 125 ml IV ONCE ONE Stop: 02/25/25 02:52 Last Admin: 02/25/25 02:51 Dose: 118 ml Documented By: ANSHUL Imaging Data Radiologist's Impression: Chest X-Ray 02/25/25 01:29 EXAM: XR chest 1V portable CLINICAL HISTORY: Sepsis. TECHNIQUE: An X-ray image of the chest is obtained in AP projection. COMPARISON: 04/05/2022. FINDINGS: Pulmonary Parenchyma: Lungs show prominent perihilar bronchovascular markings. No evidence of consolidation, collapse, or focal opacities. No pulmonary nodules are identified. No evidence of pleural effusion or pleural thickening. Heart and Mediastinum: The heart size appears enlarged. No mediastinal widening or masses. No hilar or mediastinal lymphadenopathy. Bony Thorax: The bony thorax appears intact without fractures or deformities. 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 Soft Tissues: Soft tissues overlying the chest wall are unremarkable. IMPRESSION: 1. Prominent perihilar bronchovascular markings, a non-specific finding; clinical correlation is advised. 2. No acute cardiopulmonary abnormalities are identified. 3. No interval changes. Electronically signed by Danny Dash 02-25-2025 02:57 AM Abdomen/Pelvis CT 02/25/25 01:31 EXAM: CT abd pelvis IV con only CLINICAL HISTORY: fever, s/p abd surgery TECHNIQUE: Multiple contiguous axial images were obtained from the level of diaphragm to the pubis symphysis. This study was acquired after the IV administration of iodinated contrast material, given the patients indications for the examination. If IV contrast material had not been administered, the likelihood of detecting abnormalities relevant to the patients condition would have been substantially decreased. Coronal and sagittal reformatted images were generated and reviewed to improve anatomic localization and optimize lesion detection. CT scan was performed according to ALARA (as low as reasonable achievable). COMPARISON: with CT dated 05/17/2023 FINDINGS: The visualized lung bases shows subsegmental atelectasis changes and a thin walled cyst in left lung base measuring ~27 x 21mm.- as seen previously. ABDOMEN/PELVIS: The liver is normal in size and attenuation. No focal liver lesions are seen. There is no intra or extrahepatic biliary ductal dilatation. Hepatic vasculature is patent. The gallbladder is distended. Faint hyperdense content seen in dependent areas- could be sludge. The spleen is enlarged in size with ill defined hypodense areas within, largest measuring ~ 51 x 47 x 40mm - could represent areas of infarcts- suggest ultrasound correlation - new finding. The pancreas is diffusely replaced by fat, predominantly in the region of body and tail with fat stranding in pancreatic and peripancreatic regions. there is interval increase of fatty infiltration compared to previous study. Adrenal glands are unremarkable. The kidneys are normal in size and attenuation. There is no hydronephrosis. Minimal bilateral perinephric fat stranding. No renal masses are identified. Bosniak type 1 cyst in upper pole of left kidney. ~2mm radiodense calculi in lower pole of right and upper pole of left kidney. The ureters are normal in caliber and no ureteral calculi are seen. The bladder is normal in contour with diffusely thickening of wall, measuring upto 6mm in thickness. Enlarged and heterodense prostate measuring ~5.5 x 4.6 x 3.8cm No evidence of focal or diffuse bowel wall thickening or evidence of bowel obstruction is seen. No evidence of inflamed appendix. No adenopathy or fluid collections are seen. The aorta is normal in caliber. No aggressive appearing osseous lesions are identified. Degenerative changes in visualised spine. IMPRESSION: 1. Splenomegaly with interval development of hypodense areas within - could be infarcts - suggest ultrasound correlation - new finding. 2. Diffuse fatty infiltration of pancreas with peripancreatic fat stranding - advised correlation with serum amylase and lipase to rule out pancreatitis - new finding. 3. Prostatomegaly with diffuse urinary bladder wall thickening - could be due to chronic outflow obstruction - suggest clinical correlation. 4. Bilateral non obstructive renal calculi. 5. Faint hyperdense content seen in dependent area of gall bladder- could be sludge. Advised ultrasound correlation. Electronically signed by Yoel Montano 02-25-2025 03:55 AM Chest CTA 02/25/25 01:31 EXAM: CT angio chest PE protocol CLINICAL HISTORY: PE TECHNIQUE: Contiguous axial images were obtained from the neck base through the upper abdomen following intravenous administration of iodinated contrast material. Angiographic images were processed, 3D MIP images were acquired for interpretation. If IV contrast material had not been administered, the likelihood of detecting abnormalities relevant to the patient's condition would have been substantially decreased. Coronal and sagittal 3-D MIPs were likewise performed and indicated to increase the sensitivity of detectin diffuse clinically relevant pathology. CT scan was performed according to ALARA (as low as reasonable achievable). COMPARISON: None. FINDINGS: Hypodense filling defects are noted involving distal part of right main pulmonary artery extending into the anterior segmental branch of right upper lobe, right middle lobar artery, right lower lobar artery and its segmental branches - suggestive of pulmonary embolism. Small thin walled cyst/bulla is noted involving lingula. Few subsegmental atelectasis are noted involving bilateral lung bases. The central airways are patent. Rest of lungs are clear. No pleural effusion. The heart, aorta, and pulmonary arteries are of normal size and configuration. There are coronary artery and aortic atherosclerotic calcifications. No pericardial effusion is identified. The thyroid is unremarkable. No mediastinal, hilar, or axillary lymphadenopathy is noted. No suspicious lytic or sclerotic osseous lesions are identified. IMPRESSION: 1. Hypodense filling defects are noted involving distal part of right main pulmonary artery extending into the anterior segmental branch of right upper lobe, right middle lobar artery, right lower lobar artery and its segmental branches - suggestive of pulmonary thromboembolism. 2. Small thin walled cyst/bulla is noted involving lingula. 3. Few subsegmental atelectasis are noted involving bilateral lung bases. Electronically signed by Yoel Montano 02-25-2025 03:[address] 02/25/25 01:34 EXAM: CT head/brain wo con CLINICAL HISTORY: confusion TECHNIQUE: Multiple axial images are obtained from the skull base to the vertex without contrast. CT scan was performed according to ALARA (as low as reasonable achievable). COMPARISON: 17:34:32 [employer] . FINDINGS: There is cerebral atrophy. No evidence of space occupying lesion, hemorrhage, edema, mass effect, midline shift, extra axial collection, or hydrocephalus is noted. Basal cisterns are symmetric and normal in size and configuration. There are scattered periventricular hypodensities as can be seen with chronic microvascular ischemic changes. The mares-white matter differentiation is preserved. Visualized paranasal sinuses and mastoid air cells are well aerated. Orbital contents are within normal limits. Bony structures are intact. IMPRESSION: 1. No evidence of acute intracranial abnormality is demonstrated. 2. Chronic microvascular ischemic changes. 3. Cerebral atrophy. No other new interval abnormality since prior study. Electronically signed by Yoel Montano 02-25-2025 03:46 AM Discharge Plan Visit Data Chief Complaint: Illness Stated Complaint: FEVER, RECENT SURGERY ON PANCREAS AND APPENDIX ED Provider: Gillian Moran Discharge Problem: Fever, Confusion, Dehydration, Pulmonary embolism, Hypoxia Patient Disposition: Admitted As Inpatient Discharge Instructions Interventions: ED Discharge Assessment Last Done: 02/25/25 08:57
[2025-02-25] MEDS: CEFEPIME 2000MG 2,000 MG/20 ML SYR IV STA (01:46)
[2025-02-25] MEDS: ACETAMINOPHEN 1,000 MG/100 ML VIAL IV STA (01:46)
[2025-02-25] MEDS: SODIUM CHLORIDE 0.9% 1,000 ML IV SCH (01:47)
[2025-02-25 01:55] LABS: Basophils # (auto) 0.03 K/uL (0.00-0.20); Basophils % (auto) 0.3 %; Eosinophils # (auto) 0.01 K/uL (0.00-0.50); Eosinophils % (auto) 0.1 %; Hematocrit (blood only) 26.6 % (42.0-52.0); Hemoglobin 8.6 g/dl (14.0-18.0); Immature Granulocytes # (auto) 0.07 K/uL (0.01-0.20); Immature Granulocytes % (auto) 0.8 %; Lymphocytes # (auto) 0.59 K/uL (1.20-3.40); Lymphocytes % (auto) 6.6 %; Mean Corpuscular Hemoglobin 26.5 pg (25.0-34.0); Mean Corpuscular Hgb Conc 32.3 g/dL (32.0-36.0); Mean Corpuscular Volume 81.8 fL (80.0-100.0); Mean Platelet Volume 11.5 fL (9.4-12.4); Monocytes # (auto) 0.44 K/uL (0.11-0.59); Monocytes % (auto) 4.9 %; Neutrophils # (auto) 7.81 K/uL (1.40-6.50); Neutrophils % (auto) 87.3 %; Platelet Count 451 K/uL (130-400); RDW Coefficient of Variation 15.9 % (11.5-14.5); RDW Standard Deviation 47.6 fL (36.4-46.3); Red Blood Count 3.25 M/uL (4.70-6.10); White Blood Count 8.95 K/ul (4.8-10.8)
[2025-02-25 02:12] LABS: Albumin Level 3.4 gm/dl (3.4-5.0); BUN Creatinine Ratio 14.6 (10-20); Bilirubin Direct 0.3 mg/dl (0-0.2); Bilirubin,Total 0.9 mg/dl (0.2-1.0); Calcium 7.9 mg/dl (8.6-10.3); Potassium 3.6 mmol/L (3.5-5.1); Total Protein 5.7 gm/dl (6.0-8.3)
[2025-02-25 02:18] LABS: Troponin I High Sensitivity 13.4 pg/ml (0-20)
[2025-02-25] MEDS: SODIUM CHLORIDE 0.9% 1,000 ML IV ONE ×2 (02:27→04:18)
[2025-02-25 02:29] LABS: HCO3 VBG 27 mmol/L; Oxygen Saturation VBG < 60.0 %; PCO2 VBG 44 mmHg (38-50); PO2 VBG 22 mmHg
[2025-02-25 02:40] LABS: Adenovirus PCR Not Detected (NotDetected); Bordetella parapertussis PCR Not Detected (NotDetected); Bordetella pertussis PCR Not Detected (NotDetected); Chlamydia pneumoniae PCR Not Detected (NotDetected); Coronavirus 229E PCR Not Detected (NotDetected); Coronavirus CoV-2 (COVID19)PCR Not Detected (NotDetected); Coronavirus HKU1 PCR Not Detected (NotDetected); Coronavirus NL63 PCR Not Detected (NotDetected); Coronavirus OC43PCR Not Detected (NotDetected); Human Metapneumovirus PCR Not Detected (NotDetected); Influenza A PCR Not Detected (NotDetected); Influenza B PCR Not Detected (NotDetected); Mycoplasma pneumoniae PCR Not Detected (NotDetected); Parainfluenza Virus 1 PCR Not Detected (NotDetected); Parainfluenza Virus 2 PCR Not Detected (NotDetected); Parainfluenza Virus 3 PCR Not Detected (NotDetected); Parainfluenza Virus 4 PCR Not Detected (NotDetected); Respiratory Syncytial VirusPCR Not Detected (NotDetected); Rhinovirus/Enterovirus PCR Not Detected (NotDetected)
[2025-02-25] MEDS: OPTIRAY 320 125ml IV ONE (02:51)
--- NOTE | 2025-02-25 02:57 | XRay Report ---
EXAM: XR chest 1V portable CLINICAL HISTORY: Sepsis. TECHNIQUE: An X-ray image of the chest is obtained in AP projection. COMPARISON: 04/05/2022. FINDINGS: Pulmonary Parenchyma: Lungs show prominent perihilar bronchovascular markings. No evidence of consolidation, collapse, or focal opacities. No pulmonary nodules are identified. No evidence of pleural effusion or pleural thickening. Heart and Mediastinum: The heart size appears enlarged. No mediastinal widening or masses. No hilar or mediastinal lymphadenopathy. Bony Thorax: The bony thorax appears intact without fractures or deformities. 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 Soft Tissues: Soft tissues overlying the chest wall are unremarkable. IMPRESSION: 1. Prominent perihilar bronchovascular markings, a non-specific finding; clinical correlation is advised. 2. No acute cardiopulmonary abnormalities are identified. 3. No interval changes. Electronically signed by Danny Dash 02-25-2025 02:57 AM
[2025-02-25 03:01] LABS: INR 1.2 (0.9-1.1); Prothrombin Time 12.5 Seconds (9.0-12.0)
--- NOTE | 2025-02-25 03:37 | CT Scan Report ---
EXAM: CT angio chest PE protocol CLINICAL HISTORY: PE TECHNIQUE: Contiguous axial images were obtained from the neck base through the upper abdomen following intravenous administration of iodinated contrast material. Angiographic images were processed, 3D MIP images were acquired for interpretation. If IV contrast material had not been administered, the likelihood of detecting abnormalities relevant to the patient's condition would have been substantially decreased. Coronal and sagittal 3-D MIPs were likewise performed and indicated to increase the sensitivity of detectin diffuse clinically relevant pathology. CT scan was performed according to ALARA (as low as reasonable achievable). COMPARISON: None. FINDINGS: Hypodense filling defects are noted involving distal part of right main pulmonary artery extending into the anterior segmental branch of right upper lobe, right middle lobar artery, right lower lobar artery and its segmental branches - suggestive of pulmonary embolism. Small thin walled cyst/bulla is noted involving lingula. Few subsegmental atelectasis are noted involving bilateral lung bases. The central airways are patent. Rest of lungs are clear. No pleural effusion. The heart, aorta, and pulmonary arteries are of normal size and configuration. There are coronary artery and aortic atherosclerotic calcifications. No pericardial effusion is identified. The thyroid is unremarkable. No mediastinal, hilar, or axillary lymphadenopathy is noted. No suspicious lytic or sclerotic osseous lesions are identified. IMPRESSION: 1. Hypodense filling defects are noted involving distal part of right main pulmonary artery extending into the anterior segmental branch of right upper lobe, right middle lobar artery, right lower lobar artery and its segmental branches - suggestive of pulmonary thromboembolism. 2. Small thin walled cyst/bulla is noted involving lingula. 3. Few subsegmental atelectasis are noted involving bilateral lung bases. Electronically signed by Yoel Montano 02-25-2025 03:37 AM
--- NOTE | 2025-02-25 03:46 | CT Scan Report ---
EXAM: CT head/brain wo con CLINICAL HISTORY: confusion TECHNIQUE: Multiple axial images are obtained from the skull base to the vertex without contrast. CT scan was performed according to ALARA (as low as reasonable achievable). COMPARISON: 17:34:32 [employer] . FINDINGS: There is cerebral atrophy. No evidence of space occupying lesion, hemorrhage, edema, mass effect, midline shift, extra axial collection, or hydrocephalus is noted. Basal cisterns are symmetric and normal in size and configuration. There are scattered periventricular hypodensities as can be seen with chronic microvascular ischemic changes. The mares-white matter differentiation is preserved. Visualized paranasal sinuses and mastoid air cells are well aerated. Orbital contents are within normal limits. Bony structures are intact. IMPRESSION: 1. No evidence of acute intracranial abnormality is demonstrated. 2. Chronic microvascular ischemic changes. 3. Cerebral atrophy. No other new interval abnormality since prior study. Electronically signed by Yoel Montano 02-25-2025 03:46 AM
--- NOTE | 2025-02-25 03:55 | CT Scan Report ---
EXAM: CT abd pelvis IV con only CLINICAL HISTORY: fever, s/p abd surgery TECHNIQUE: Multiple contiguous axial images were obtained from the level of diaphragm to the pubis symphysis. This study was acquired after the IV administration of iodinated contrast material, given the patients indications for the examination. If IV contrast material had not been administered, the likelihood of detecting abnormalities relevant to the patients condition would have been substantially decreased. Coronal and sagittal reformatted images were generated and reviewed to improve anatomic localization and optimize lesion detection. CT scan was performed according to ALARA (as low as reasonable achievable). COMPARISON: with CT dated 05/17/2023 FINDINGS: The visualized lung bases shows subsegmental atelectasis changes and a thin walled cyst in left lung base measuring ~27 x 21mm.- as seen previously. ABDOMEN/PELVIS: The liver is normal in size and attenuation. No focal liver lesions are seen. There is no intra or extrahepatic biliary ductal dilatation. Hepatic vasculature is patent. The gallbladder is distended. Faint hyperdense content seen in dependent areas- could be sludge. The spleen is enlarged in size with ill defined hypodense areas within, largest measuring ~ 51 x 47 x 40mm - could represent areas of infarcts- suggest ultrasound correlation - new finding. The pancreas is diffusely replaced by fat, predominantly in the region of body and tail with fat stranding in pancreatic and peripancreatic regions. there is interval increase of fatty infiltration compared to previous study. Adrenal glands are unremarkable. The kidneys are normal in size and attenuation. There is no hydronephrosis. Minimal bilateral perinephric fat stranding. No renal masses are identified. Bosniak type 1 cyst in upper pole of left kidney. ~2mm radiodense calculi in lower pole of right and upper pole of left kidney. The ureters are normal in caliber and no ureteral calculi are seen. The bladder is normal in contour with diffusely thickening of wall, measuring upto 6mm in thickness. Enlarged and heterodense prostate measuring ~5.5 x 4.6 x 3.8cm No evidence of focal or diffuse bowel wall thickening or evidence of bowel obstruction is seen. No evidence of inflamed appendix. No adenopathy or fluid collections are seen. The aorta is normal in caliber. No aggressive appearing osseous lesions are identified. Degenerative changes in visualised spine. IMPRESSION: 1. Splenomegaly with interval development of hypodense areas within - could be infarcts - suggest ultrasound correlation - new finding. 2. Diffuse fatty infiltration of pancreas with peripancreatic fat stranding - advised correlation with serum amylase and lipase to rule out pancreatitis - new finding. 3. Prostatomegaly with diffuse urinary bladder wall thickening - could be due to chronic outflow obstruction - suggest clinical correlation. 4. Bilateral non obstructive renal calculi. 5. Faint hyperdense content seen in dependent area of gall bladder- could be sludge. Advised ultrasound correlation. Electronically signed by Yoel Montano 02-25-2025 03:55 AM
--- NOTE | 2025-02-25 05:09 | History & Physical Report ---
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 ED evaluation reveals no leukocytosis, H&H 8.6/26.6; PT/INR 12.5/1.2; VBG WNL; CMP sodium 133, BUN 26, CR 1.78, glucose 138; lactate 1.4; calcium 7.9; procalcitonin 0.9; UA pending; BioFire negative; CXR prominent perihilar bronchovascular markings which is nonspecific but no acute findings otherwise; CTAP splenomegaly interval development of hypodense areas (could be infarct), diffuse fatty infiltrated pancreas with peripancreatic fat stranding, prostamegaly diffuse urinary bladder wall thickening could be due to chronic outflow obstruction, bilateral nonobstructive renal calculi, faint hyperdense content seen in the dependent area of gallbladder could be sludge; c hest CTA hypotensively defect noted involving distal part of right main pulmonary artery extending to the anterior segment branch of right upper lobe, right middle lobe artery, right lower lobar artery, and segmental branches suggestive of pulmonary TE, small thin-walled cyst/bullae noted in lingula, few suppurative potential atelectasis bilateral lung bases; head CT no evidence of acute findings, chronic microvascular ischemic changes and cerebral atrophy; EKG sinus tach with first-degree AV block and PACs, LAD, RBBB at 101 bpm.; Provided with 3L NSS, heparin, cefepime, and acetaminophen in ED. #AMS Altered mentation following partial pancreatectomy, with associated fever starting day of arrival. On Vancomycin for CDiff. Is taking Oxycodone for pain 2/2 recent surgery, has taken ~ 15 pills since procedure and no adverse reactions or change in mentation. Suspect component of hypoxia from PE, ? medication related, pending UA. - CBC without leukocytosis, H&H 8.6/26.6; PT/INR elevated 12.5/1.2; CMP sodium 133, creatinine and BUN supportive of PAYAM, glucose 138, Pro-Amos 0.90 - CXR without acute findings - CTAP with splenomegaly and peripancreatic fat stranding, possible sludge in gallbladder, prostatomegaly with diffuse bladder wall thickening, nonobstructing renal calculi - CTA supportive for pulmonary TE- patient was hypoxic on arrival -- heparin co ntinued - Pending UA - No other clear source of infection - Cefepime x 1 given in ED- deferred continuation of abx at time of admission #Acute Hypoxia/PE Onset of AMS on the day of arrival, tachycardic initially and hypoxic on arrival. Patient with recent surgical intervention (partial pancreatectomy) on 02/09/2025. - EKG sinus tachycardia with a first-degree AV block and PACs - CTA with findings suggestive of pulmonary TE - Echo pending (no prior echo in chart) - Heparin - continue #Renal insufficiency Likely secondary to renal hypoperfusion due to decreased intake since recent discharge from prior hospital. Received 3L NSS in ED. - Cr 1.78, BUN 26; UA pending - BMP am - PVR pending; bladder scan prn - Hold nephrotoxic agents - HOLD lisinopril, HCTZ, avoid NSAIDs - Continue to promote oral hydration- deferred further IVF given presence of PE and pending echo for pressures - adjust fluids as appropriate #Anemia S/p partial pancreatectomy, no active bleeding per patient - H/H 8.6/26.6 -> Repeat q12hr - Transfuse if Hgb < 7 - Iron panel pending - Vitamin B12 + folate pending #T2DM H/o DMT2, on insulin, with hypoinsulinemia and s/p partial pancreatectomy. At home regimen insulin lispro and semaglutide weekly. With insulin pump in place; follows with endocrinology. - Most recent A1C 11/2024 @ 6.4% - May use own insulin pump - BSG ACHS - Adjust regimen as needed - Please contact patient's scada engineer per patient's request #C. diff Previously identified C. difficile as diagnosed per [facility] discharge summary on 02/16/2025, placed on vancomycin every 6 hours - Contact precautions deferred at admission - formed stool x 3 days - add precautions if change in stools/diarrhea - CBC without leukocytosis, lactate normal, Pro-Amos 0.90 - Continue p.o. vancomycin #Bed sores Patient expresses concern for bedsores on backside - Wound care q shift - Turn q2hr #Pain- Gabapentin, tramadol, oxycodone #HTN- Amlodipine, HCTZ, lisinopril #HLD- Atorvastatin #GERD- Pantoprazole Dispo: Admit, PCU VTE Prophylaxis: Heparin This document was dictated utilizing NumberFour. Please excuse any grammatical errors that may be secondary to use of this software. 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 Patient was evaluated at [facility] on February 10, 2025 to have part of the pancreas and his appendix removed. Patient was home on February 18, 2025. Started on vancomycin for C. difficile but seem to have decreased oral intake over the past few days since being home and with altered mentation. Daughter is in room and helps to provide a history. 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 He spiked a fever around 2014 (101.4F) and his daughter gave him Tylenol and an Oxycodone but then shortly after this, he had an abrupt onset of altered mentation and was unaware of the year or where he was. Daughter notes that the patient seemed to have been deep breathing at that time then would hold his breath and he appeared to have a glazed over look in his eyes. 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 Of note, patient does state that he feels as though he has not been able to urinate as freely as he helped but he also has not had a good oral intake over the past 2 to 3 days. Notes that his stools became more formed approximately 3 days ago and he is having a bowel movement approximately 1-2 times per day and they are more formed. Has continued to take vancomycin as prescribed. Patient states that he feels better overall and the daughter states that he seems to be more at his baseline. He states he has no complaints at the time of evaluation to include no chest pain, shortness of breath, palpitations, abdominal pain, N/V/D/C, numbness/tingling, URI symptoms, or fever/chills. Patient has never had this happen before. ED evaluation reveals no leukocytosis, H&H 8.6/26.6; PT/INR 12.5/1.2; VBG WNL; CMP sodium 133, BUN 26, CR 1.78, glucose 138; lactate 1.4; calcium 7.9; procalcitonin 0.9; UA pending; BioFire negative; CXR prominent perihilar bronchovascular markings which is nonspecific but no acute findings otherwise; CTAP splenomegaly interval development of hypodense areas (could be infarct), diffuse fatty infiltrated pancreas with peripancreatic fat stranding, prostamegaly diffuse urinary bladder wall thickening could be due to chronic outflow obstruction, bilateral nonobstructive renal calculi, faint hyperdense content seen in the dependent area of gallbladder could be sludge; chest CTA hypotensively defect noted involving distal part of right main pulmonary artery extending to the anterior segment branch of right upper lobe, right middle lobe artery, right lower lobar artery, and segmental branches suggestive of pulmonary TE, small thin-walled cyst/bullae noted in lingula, few suppurative potential atelectasis bilateral lung bases; head CT no evidence of acute findings, chronic microvascular ischemic changes and cerebral atrophy; EKG sinus tach with first-degree AV block and PACs, LAD, RBBB at 101 bpm.; Provided with 3L NSS, heparin, cefepime, and acetaminophen in ED. Please see Dr. Cohen's attestation for adjustments/additions to treatment plan. Allergies Allergy/AdvReac Type Severity Reaction Status Date / Time Penicillins Allergy Intermediate HIVES Verified 12/05/24 12:51 metformin AdvReac Intermediate GI Verified 12/05/24 12:51 distress/diarrhea Home Medications Medication Instructions Recorded Confirmed Type multivitamin 1 tab PO QAM 08/20/19 02/25/25 History aspirin 81 mg tablet,delayed 81 mg PO QAM 05/02/21 02/25/25 History release insulin syringe-needle U-100 1 mL #300 ea 05/20/22 02/19/25 Rx 31 gauge x 5/16" (BD Insulin Syringe Ultra-Fine) blood sugar diagnostic (Contour #100 ea 09/29/22 02/19/25 Rx Next Test Strips) acetaminophen 325 mg tablet 650 mg (2 x 325 mg) PO Q4H PRN 05/18/23 02/25/25 Rx pain #30 tabs atorvastatin 10 mg tablet 5 mg (1/2 x 10 mg) PO HS #45 tabs 03/07/24 02/25/25 Rx pen needle, diabetic 31 gauge x #100 ea 03/07/24 02/19/25 Rx 3/16" (BD Ultra-Fine Mini Pen Needle) insulin lispro 100 unit/mL See Rx Instructions continuous 03/14/24 02/25/25 Rx subcutaneous solution (Humalog subcutaneous infusion CONTINOUS U-100 Insulin) #23 vials gabapentin 300 mg capsule 300 mg PO HS #90 caps 05/23/24 02/25/25 Rx hydrochlorothiazide 25 mg tablet 25 mg PO QAM #90 tabs 11/14/24 02/25/25 Rx trazodone 100 mg tablet 100 mg PO HS #90 tabs 11/18/24 02/25/25 Rx semaglutide 0.25 mg or 0.5 mg (2 2 mg subcut UD 12/05/24 02/25/25 History mg/3 mL) subcutaneous pen injector (Ozempic) tramadol 50 mg tablet 50 mg PO BID PRN pain #90 tabs 01/27/25 02/25/25 Rx NALOXONE NASAL SPRAY 1 spray intranasal DIRECTED PRN 02/19/25 02/25/25 History Other cholecalciferol (vitamin D3) 25 25 mcg PO DAILY 02/19/25 02/25/25 History mcg (1,000 unit) tablet enoxaparin 40 mg/0.4 mL 40 mg subcut DAILY 02/19/25 02/25/25 History subcutaneous syringe mecobalamin (vitamin B12) 1 tab PO DAILY 02/19/25 02/25/25 History ondansetron 4 mg disintegrating 4 mg PO Q6H PRN nausea and vomiting 02/19/25 02/25/25 History tablet oxycodone 5 mg tablet See Rx Instructions PO Q4H PRN Pain 02/19/25 02/25/25 History vancomycin 25 mg/mL oral solution 125 mg PO Q6H 02/19/25 02/25/25 History amlodipine 5 mg tablet 5 mg PO QPM 02/25/25 02/25/25 History lisinopril 40 mg tablet 40 mg PO UD 02/25/25 02/25/25 History pantoprazole 40 mg tablet,delayed 40 mg PO UD 02/25/25 02/25/25 History release Past Med/Surg History Problem List (Updated 02/25/25 @ 06:14 by Patria Holden PA-C) Anemia Altered mental status Renal insufficiency Hypoxia (Acute) Pulmonary embolism (Acute) Dehydration (Acute) Confusion (Acute) Fever (Acute) S/P laparotomy C. 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 Rash COVID (Acute) Intraductal papillary mucinous neoplasm of pancreas Urinary retention Cystic mass of pancreas Constipation (Acute) Acute thoracic back pain (Acute) Acute urinary retention (Acute) Hyperglycemia (Acute) Constipation Syncope Chronic back pain (~01/30/25) Grieving Vitamin D deficiency Steatosis of liver Metabolic syndrome Dietary counseling and surveillance GERD (gastroesophageal reflux disease) Cramping of hands Esophageal dysphagia Hyperlipidemia Acid reflux disease Benign hypertension Insomnia Low back pain Controlled type 2 diabetes mellitus, with long-term current use of insulin (Chronic) Diabetic peripheral neuropathy Obesity Elevated PSA Routine health maintenance Cerumen impaction Hematuria Prostate cancer screening BPH w urinary obs/LUTS Hearing loss Encounter for pre-operative examination Gastroenteritis due to norovirus Encounter for examination following treatment at hospital Medical History Diabetes mellitus, type 2 Fall Syncope History of esophageal dilatation Morbid obesity Urinary retention s/p urinary catheter (05/2021)- since removed BPH (benign prostatic hyperplasia) Insulin pump in place History of TMJ syndrome Hypertension Hyperlipidemia Dysesthesia R/L feet Surgical History History of prostate biopsy (~10/05/21) under MAC anesthesia @ [facility] History of surgery Exam under anesthesia, removal of skin tags, fistulotomy (01/09/18): Grade view 1 with Glidescope#4, ETT 8.0 (difficult mask. vent with 2 person 2/2 hamilton > elective glidescope with minimal neck extension- ETT easily passed, small right upper lip laceration noted) History of esophagogastroduodenoscopy (EGD) History of colonoscopy Hx of LASIK History of cataract surgery RT/LEFT History of tooth extraction RECENT TOOTH EXTRACTION H/O knee surgery Spur removed from knee History of tonsillectomy and adenoidectomy H/O neck surgery History of carpal tunnel surgery RT Family History Aunt Diabetes Father Lung cancer Sister Diabetes Other No family history of adverse response to anesthesia Denies family history of Ovarian cancer Prostate cancer Myocardial infarction Breast cancer Colorectal cancer Hypertension Stroke Social History Smoking Status: Never smoker Second Hand Exposure: No; Do You Dip or Chew Tobacco: No; Hx Alcohol Use: Yes Alcohol type: beer Alcohol Intake Frequency: Monthly or Less Hx Substance Use: No Preferred Language: Maldivian Communication Ability: Effective Visual Impairment: No Limitations Hearing Ability: Normal Staff Development Educator Required: No Beliefs That Will Affect Care: None marital status: / Current Living Situation: Alone Current Living Situation Comment: Lives home alone current occupational status: retired current occupation: [employer] How many Children do You have: 2 Other Information That Helps Us Care for You: No Feels Safe at Home: Yes Safety Concerns: Feels Safe At This Time Childhood Exposure to Second-Hand Smoke: No Diet: regular caffeine: Yes (coffee) during the past year weight has: remained stable Dental Care, Regularly: Yes Physical Activity Frequency: Daily Seatbelt Use: always Sunscreen Use: Yes Do you think of yourself as: straight/heterosexual Gender Identity: Male Assistive Devices: Cane and Walker Review of Systems Review of Systems: All systems reviewed & are unremarkable except as noted in Subjective Physical Exam Physical Exam: General: No acute distress Skin: Warm and dry, slightly pale in appearance Head: Normocephalic, atraumatic Eyes: PERRL, conjunctivae clear, sclera non-icteric ENT: External ear and ear canal without swelling; nose atraumatic; good dentition, tongue normal appearance, pharynx normal Neck: Supple, no LAD Cardio: RRR, no M/G/R, S1 and S2 normal Resp: No respiratory distress, Lungs CTA in all lobes bilaterally, no wheezes, rales, or rhonchi Abdomen: Soft, symmetric, nontender; No masses or hepatosplenomegaly; Bowel sounds normoactive; multiple schwarz red nevi across abdomen; surgical scars with dressings in place, appear to be healing well MSK: No deformities; pulses palpable and equal; 1+ pitting edema bilateral lower extremities to level of knee. Neuro: Awake, alert; Sensation intact bilaterally; CN grossly intact Psych: Appropriate mood and affect; good judgement and insight; Correctly states that the year is 2024, able to identify the month, his last name, and the current [place] president. Daughter present in room at time of visit. Results & Data Results & Data Vital Signs (Past 12 Hours) Vital Signs Temp Pulse Pulse Pulse Resp BP BP 02/25/25 04:42 37.6 C H 02/25/25 04:15 84 24 111/61 02/25/25 03:30 85 24 115/62 02/25/25 02:54 91 H 18 100/54 L 02/25/25 01:50 98 H 22 132/58 L 02/25/25 01:29 99 H 18 02/25/25 01:28 100 H 02/25/25 01:28 38.9 C H 102 H 15 138/45 L Pulse Ox O2 Del Method O2 Flow Rate 02/25/25 04:42 02/25/25 04:15 94 Nasal Cannula 2 02/25/25 03:30 95 Nasal Cannula 2 02/25/25 02:54 93 Nasal Cannula 2 02/25/25 01:50 96 Nasal Cannula 2 02/25/25 01:29 93 Nasal Cannula 2 02/25/25 01:28 02/25/25 01:28 88 L Room Air Laboratory Results 02/25/25 01:40 Aerobic Blood Culture - Pending Blood Anaerobic Blood Culture - Pending 02/25/25 01:34 Aerobic Blood Culture - Pending Blood Anaerobic Blood Culture - Pending 02/25/25 02/25/25 02/25/25 02:05 01:40 01:34 WBC RBC Hgb Hct MCV MCH MCHC RDW Std Deviation RDW Coeff of Joselin Plt Count MPV Immature Gran % (Auto) Neut % (Auto) Lymph % (Auto) Teller % (Auto) Eos % (Auto) Baso % (Auto) Neut # (Auto) Lymph # (Auto) Teller # (Auto) Eos # (Auto) Baso # (Auto) Immature Gran # (Auto) PT 12.5 H INR 1.2 H VBG pH 7.40 VBG pCO2 44 VBG pO2 22 VBG HCO3 27 VBG O2 Saturation < 60.0 VBG Base Excess 2.0 Sodium Potassium Chloride Carbon Dioxide Anion Gap BUN Creatinine Est Cr Clr Drug Dosing eGFR BUN/Creatinine Ratio Glucose Lactate 1.4 Calcium Magnesium Total Bilirubin Direct Bilirubin AST ALT Alkaline Phosphatase Troponin I High Sens Total Protein Albumin Procalcitonin Adenovirus (PCR) Not Detected B. pertussis DNA (PCR) Not Detected B.parapertussis DNA PCR Not Detected C. pneumoniae DNA (PCR) Not Detected Coronavirus OC43 (PCR) Not Detected Coronavirus HKU1 (PCR) Not Detected Coronavirus 229E (PCR) Not Detected SARS-CoV-2 (PCR) Not Detected Coronavirus NL63 (PCR) Not Detected Human Metapneumovir PCR Not Detected Influenza Type A (PCR) Not Detected Influenza Type B (PCR) Not Detected M. pneumoniae (PCR) Not Detected Parainfluenza 1 (PCR) Not Detected Parainfluenza 2 (PCR) Not Detected Parainfluenza 3 (PCR) Not Detected Parainfluenza 4 (PCR) Not Detected RSV (PCR) Not Detected Entero/Rhino (PCR) Not Detected 02/25/25 01:29 WBC 8.95 RBC 3.25 L Hgb 8.6 L Hct 26.6 L MCV 81.8 MCH 26.5 MCHC 32.3 RDW Std Deviation 47.6 H RDW Coeff of Joselin 15.9 H Plt Count 451 H MPV 11.5 Immature Gran % (Auto) 0.8 Neut % (Auto) 87.3 Lymph % (Auto) 6.6 Teller % (Auto) 4.9 Eos % (Auto) 0.1 Baso % (Auto) 0.3 Neut # (Auto) 7.81 H Lymph # (Auto) 0.59 L Teller # (Auto) 0.44 Eos # (Auto) 0.01 Baso # (Auto) 0.03 Immature Gran # (Auto) 0.07 PT Cancelled INR Cancelled VBG pH VBG pCO2 VBG pO2 VBG HCO3 VBG O2 Saturation VBG Base Excess Sodium 133 L Potassium 3.6 Chloride 99 Carbon Dioxide 28 Anion Gap 6 BUN 26 H Creatinine 1.78 H Est Cr Clr Drug Dosing 45.0 eGFR 38.57 BUN/Creatinine Ratio 14.6 Glucose 138 H Lactate Calcium 7.9 L Magnesium 2.0 Total Bilirubin 0.9 Direct Bilirubin 0.3 H AST 32 ALT 28 Alkaline Phosphatase 92 Troponin I High Sens 13.4 Total Protein 5.7 L Albumin 3.4 Procalcitonin 0.90 H Adenovirus (PCR) B. pertussis DNA (PCR) B.parapertussis DNA PCR C. pneumoniae DNA (PCR) Coronavirus OC43 (PCR) Coronavirus HKU1 (PCR) Coronavirus 229E (PCR) SARS-CoV-2 (PCR) Coronavirus NL63 (PCR) Human Metapneumovir PCR Influenza Type A (PCR) Influenza Type B (PCR) M. pneumoniae (PCR) Parainfluenza 1 (PCR) Parainfluenza 2 (PCR) Parainfluenza 3 (PCR) Parainfluenza 4 (PCR) RSV (PCR) Entero/Rhino (PCR) Diagnostic Findings Chest X-Ray 02/25/25 01:29 EXAM: XR chest 1V portable CLINICAL HISTORY: Sepsis. TECHNIQUE: An X-ray image of the chest is obtained in AP projection. COMPARISON: 04/05/2022. FINDINGS: Pulmonary Parenchyma: Lungs show prominent perihilar bronchovascular markings. No evidence of consolidation, collapse, or focal opacities. No pulmonary nodules are identified. No evidence of pleural effusion or pleural thickening. Heart and Mediastinum: The heart size appears enlarged. No mediastinal widening or masses. No hilar or mediastinal lymphadenopathy. Bony Thorax: The bony thorax appears intact without fractures or deformities. 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 Soft Tissues: Soft tissues overlying the chest wall are unremarkable. IMPRESSION: 1. Prominent perihilar bronchovascular markings, a non-specific finding; clinical correlation is advised. 2. No acute cardiopulmonary abnormalities are identified. 3. No interval changes. Electronically signed by Danny Dash 02-25-2025 02:57 AM Abdomen/Pelvis CT 02/25/25 01:31 EXAM: CT abd pelvis IV con only CLINICAL HISTORY: fever, s/p abd surgery TECHNIQUE: Multiple contiguous axial images were obtained from the level of diaphragm to the pubis symphysis. This study was acquired after the IV administration of iodinated contrast material, given the patients indications for the examination. If IV contrast material had not been administered, the likelihood of detecting abnormalities relevant to the patients condition would have been substantially decreased. Coronal and sagittal reformatted images were generated and reviewed to improve anatomic localization and optimize lesion detection. CT scan was performed according to ALARA (as low as reasonable achievable). COMPARISON: with CT dated 05/17/2023 FINDINGS: The visualized lung bases shows subsegmental atelectasis changes and a thin walled cyst in left lung base measuring ~27 x 21mm.- as seen previously. ABDOMEN/PELVIS: The liver is normal in size and attenuation. No focal liver lesions are seen. There is no intra or extrahepatic biliary ductal dilatation. Hepatic vasculature is patent. The gallbladder is distended. Faint hyperdense content seen in dependent areas- could be sludge. The spleen is enlarged in size with ill defined hypodense areas within, largest measuring ~ 51 x 47 x 40mm - could represent areas of infarcts- suggest ultrasound correlation - new finding. The pancreas is diffusely replaced by fat, predominantly in the region of body and tail with fat stranding in pancreatic and peripancreatic regions. there is interval increase of fatty infiltration compared to previous study. Adrenal glands are unremarkable. The kidneys are normal in size and attenuation. There is no hydronephrosis. Minimal bilateral perinephric fat stranding. No renal masses are identified. Bosniak type 1 cyst in upper pole of left kidney. ~2mm radiodense calculi in lower pole of right and upper pole of left kidney. The ureters are normal in caliber and no ureteral calculi are seen. The bladder is normal in contour with diffusely thickening of wall, measuring upto 6mm in thickness. Enlarged and heterodense prostate measuring ~5.5 x 4.6 x 3.8cm No evidence of focal or diffuse bowel wall thickening or evidence of bowel obstruction is seen. No evidence of inflamed appendix. No adenopathy or fluid collections are seen. The aorta is normal in caliber. No aggressive appearing osseous lesions are identified. Degenerative changes in visualised spine. IMPRESSION: 1. Splenomegaly with interval development of hypodense areas within - could be infarcts - suggest ultrasound correlation - new finding. 2. Diffuse fatty infiltration of pancreas with peripancreatic fat stranding - advised correlation with serum amylase and lipase to rule out pancreatitis - new finding. 3. Prostatomegaly with diffuse urinary bladder wall thickening - could be due to chronic outflow obstruction - suggest clinical correlation. 4. Bilateral non obstructive renal calculi. 5. Faint hyperdense content seen in dependent area of gall bladder- could be sludge. Advised ultrasound correlation. Electronically signed by Yoel Montano 02-25-2025 03:55 AM Chest CTA 02/25/25 01:31 EXAM: CT angio chest PE protocol CLINICAL HISTORY: PE TECHNIQUE: Contiguous axial images were obtained from the neck base through the upper abdomen following intravenous administration of iodinated contrast material. Angiographic images were processed, 3D MIP images were acquired for interpretation. If IV contrast material had not been administered, the likelihood of detecting abnormalities relevant to the patient's condition would have been substantially decreased. Coronal and sagittal 3-D MIPs were likewise performed and indicated to increase the sensitivity of detectin diffuse clinically relevant pathology. CT scan was performed according to ALARA (as low as reasonable achievable). COMPARISON: None. FINDINGS: Hypodense filling defects are noted involving distal part of right main pulmonary artery extending into the anterior segmental branch of right upper lobe, right middle lobar artery, right lower lobar artery and its segmental branches - suggestive of pulmonary embolism. Small thin walled cyst/bulla is noted involving lingula. Few subsegmental atelectasis are noted involving bilateral lung bases. The central airways are patent. Rest of lungs are clear. No pleural effusion. The heart, aorta, and pulmonary arteries are of normal size and configuration. There are coronary artery and aortic atherosclerotic calcifications. No pericardial effusion is identified. The thyroid is unremarkable. No mediastinal, hilar, or axillary lymphadenopathy is noted. No suspicious lytic or sclerotic osseous lesions are identified. IMPRESSION: 1. Hypodense filling defects are noted involving distal part of right main pulmonary artery extending into the anterior segmental branch of right upper lobe, right middle lobar artery, right lower lobar artery and its segmental branches - suggestive of pulmonary thromboembolism. 2. Small thin walled cyst/bulla is noted involving lingula. 3. Few subsegmental atelectasis are noted involving bilateral lung bases. Electronically signed by Yoel Montano 02-25-2025 03:[address] 02/25/25 01:34 EXAM: CT head/brain wo con CLINICAL HISTORY: confusion TECHNIQUE: Multiple axial images are obtained from the skull base to the vertex without contrast. CT scan was performed according to ALARA (as low as reasonable achievable). COMPARISON: 17:34:32 [employer] STATIONS . FINDINGS: There is cerebral atrophy. No evidence of space occupying lesion, hemorrhage, edema, mass effect, midline shift, extra axial collection, or hydrocephalus is noted. Basal cisterns are symmetric and normal in size and configuration. There are scattered periventricular hypodensities as can be seen with chronic microvascular ischemic changes. The mares-white matter differentiation is preserved. Visualized paranasal sinuses and mastoid air cells are well aerated. Orbital contents are within normal limits. Bony structures are intact. IMPRESSION: 1. No evidence of acute intracranial abnormality is demonstrated. 2. Chronic microvascular ischemic changes. 3. Cerebral atrophy. No other new interval abnormality since prior study. Electronically signed by Yoel Montano 02-25-2025 03:46 AM Medications Administered 3L NSS Heparin sodium IV Cefepime 2 g IV Acetaminophen 1 g IV ECG Additional Comments: Sinus tachycardia with first-degree AV block and PACs, LAD, RBBB 101 bpm, NJ 260, QRS 138, QT/QTc 330/427, PRT */-78/61 Code Status & VTE Plan Code Status Full Supervising Physician Co-Signing Physician Notes Patient seen and examined, chart reviewed, case discussed with JEAN Holden and I agree with the assessment and plan as above PG Care Time/CCT Total # of Minutes Spent Total Time Spent with Patient: Total time spent is greater than 50% in coordination of care (as documented) at patient's floor/unit and/or counseling patient: Coding Level of Care Code 94773 INT INP/OBS CARE 3/75MIN Diagnoses Altered mental status R41.82 Pulmonary embolism I26.99 Renal insufficiency N28.9 Anemia D64.9
[2025-02-25] MEDS: HEPARIN 25000 UNIT/500 ML D5W 25,000 UNITS/500 ML BAG IV SCH (05:32)
[2025-02-25] MEDS: HEPARIN SOD (PORCINE) 1000 UNIT/ML IV ONE (05:34)
[2025-02-25] MEDS: Heparin IV Adult Wt-Based Standard w/ INITIAL Bolus Protocol IV STA (05:48)
[2025-02-25] MEDS ORDERED: GLUCOSE 10 TAB/TUBE PO PRN ×3 (08:55→15:56)
[2025-02-25] MEDS ORDERED: INSULIN HUMAN REGULAR SC PRN (08:55)
[2025-02-25] MEDS ORDERED: DEXTROSE 50% 50 ML SYRINGE IV PRN ×3 (08:55→15:56)
[2025-02-25] MEDS ORDERED: INSULIN, Regular PUMP SC SCH (08:55)
[2025-02-25] MEDS ORDERED: CARBOHYDRATES FOR HYPOGLYCEMIA PO PRN ×3 (08:55→15:56)
[2025-02-25] MEDS ORDERED: GLUCOSE 40% GEL 15 GM TUBE PO PRN ×3 (08:55→15:56)
[2025-02-25] MEDS ORDERED: ONDANSETRON INJ 2 MG/ML 2 ML VIAL IV PRN (08:55)
[2025-02-25] MEDS ORDERED: GLUCAGON FOR INJ 1 MG VIAL SQ PRN ×3 (08:55→15:56)
[2025-02-25 09:11] LABS: Appearance Urine Clear (Clear); Bilirubin Urine Negative (Negative); Blood Urine Trace-intact (Negative); Color Urine Yellow; Glucose Urine UA Negative (Negative); Ketones Urine Negative (Negative); Leukocyte Esterase Urine 1+ (Negative); Nitrite Urine Positive (Negative); Protein Urine Negative (Negative); Specific Gravity Urine <= 1.005 (1.000-1.030); Urobilinogen Urine Negative (Negative)
[2025-02-25] MEDS ORDERED: INSULIN ASPART 100 UNITS/ML VIAL SC PRN (09:15)
[2025-02-25] MEDS: ASPIRIN 81 MG ECTAB PO SCH (09:16)
[2025-02-25 09:27] LABS: Epithelial Cell Urine 0-2 /hpf (0-2); RBC Urine 0-2 /hpf (0-2); WBC Urine >50 /hpf (0-5)
[2025-02-25 09:28] LABS: Bacteria Urine None Seen (None Seen)
--- NOTE | 2025-02-25 11:44 | Electrocardiogram Report ---
Test Reason : Blood Pressure : */* mmHG Vent. Rate : 101 BPM Atrial Rate : 101 BPM P-R Int : 260 ms QRS Dur : 138 ms QT Int : 330 ms P-R-T Axes : * -78 61 degrees QTcB Int : 427 ms Sinus tachycardia with 1st degree A-V block with Premature atrial complexes Left axis deviation Right bundle branch block Abnormal ECG When compared with ECG of 17-May-2023 17:05, Premature atrial complexes are now Present Borderline criteria for Lateral infarct are no longer Present T wave inversion no longer evident in Inferior leads QT has shortened Confirmed by Pee Curtis ([id number]) on 02/25/2025 11:44:00 AM Referred By: REFERRED SELF Confirmed By: Pee Curtis
[2025-02-25] MEDS: INSULIN, Rapid-Acting PUMP SCH (11:55)
[2025-02-25] MEDS: CHERRY SYRUP 5 ML UDP PO SCH (11:58)
[2025-02-25] MEDS: VANCOMYCIN HCL 125 MG/2.5ML SOLN PO SCH (11:58)
[2025-02-25 12:53] LABS: ANTI-Xa, UFH(UnfractionatedHep 0.43 IU/ml (0.3-0.7)
[2025-02-25] MEDS: ACETAMINOPHEN 325 MG TAB PO PRN (12:54)
[2025-02-25 13:00] LABS: Ferritin 63.8 ng/ml (8-388)
[2025-02-25 13:05] LABS: Folate (Folic Acid),Ser orPlas 16.96 ng/ml (>5.38)
--- NOTE | 2025-02-25 13:05 | XCELERA ---
[id number]
[2025-02-25 13:06] LABS: Vitamin B12 > 1500 pg/ml (180-914)
[2025-02-25 13:15] LABS: Iron < 10 mcg/dl (35-175); Total Iron Binding Cap Calc 329 mcg/dl (250-450); Transferrin 235 mg/dl (200-360)
--- NOTE | 2025-02-25 14:30 | Hospitalist Progress Note ---
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 UA pending; BioFire negative; CTAP splenomegaly interval development of hypodense areas (could be infarct), diffuse fatty infiltrated pancreas with peripancreatic fat stranding;chest CTA shows PE, Provided with 3L NSS, heparin, cefepime, and acetaminophen in ED. #metabolic encephalopathy Altered mentation following partial pancreatectomy, with associated fever starting day of arrival. On Vancomycin for CDiff. Is taking Oxycodone for pain 2/2 recent surgery, has taken ~ 15 pills since procedure and no adverse reactions or change in mentation. Suspect component of hypoxia from PE, ? medication related, pending UA. No evidence of initial infectious etiology defined, certainly there are minor changes on abdominal CT which were postoperatively" and LFTs are anything significant. - CTA supportive for pulmonary PE- patient was hypoxic on arrival -- heparin continued - Pending UA - Cefepime x 1 given in ED- deferred continuation of abx at time of admission #Acute Hypoxia/PE Onset of AMS on the day of arrival, tachycardic initially and hypoxic on arrival. Patient with recent surgical intervention (partial pancreatectomy) on 02/09/2025. - Echo pending (no prior echo in chart) - Heparin - continue patient was, Splenic infarct seen on CT abdomen pelvis. Echocardiogram will be helpful to see if he has a PFO for paradoxical embolus #Renal insufficiency Likely secondary to renal hypoperfusion due to decreased intake since recent discharge from prior hospital. Received 3L NSS in ED. - Hold nephrotoxic agents - HOLD lisinopril, HCTZ, avoid NSAIDs - Continue to promote oral hydration- deferred further IVF given presence of PE and pending echo for pressures - adjust fluids as appropriate #Anemia hemoglobin trending downwards certainly if it continues to go down may need to stop and consider a filter. Additionally may consider reimaging abdomen to look for intra-abdominal bleeding on heparin with recent surgery 1 week ago S/p partial pancreatectomy, - Iron panel pending - Vitamin B12 + folate pending #T2DM H/o DMT2, on insulin, with hypoinsulinemia and s/p partial pancreatectomy. At home regimen insulin lispro and semaglutide weekly. With insulin pump in place; follows with endocrinology. - Most recent A1C 11/2024 @ 6.4% - May use own insulin pump - BSG ACHS #C. diff Previously identified C. difficile as diagnosed per [facility] discharge summary on 02/16/2025, placed on vancomycin every 6 hours - Contact precautions deferred at admission - formed stool x 3 days - add preca utions if change in stools/diarrhea - Continue p.o. vancomycin #Bed sores Patient expresses concern for bedsores on sacrum #GERD- Pantoprazole VTE Prophylaxis: Heparin Admission and Anticipated Discharge Date Admission Date: February 25, 2025 Subjective Patient reportedly has some mental clearing is able to give me details regarding his partial pancreatectomy and appendectomy with return to the OR due to a leak at the appendix site. Patient also states he has been Emmel able to walk and was discharged home with a walker where prior to surgery he was able to walk fine. Patient also states that he be on home oxycodone which may have created some of the confusion. Physical Exam Physical Exam: Patient is alert oriented x 3. Abdomen has a midline incision scars were as port entrance wounds from his laparoscopic surgery. His abdomen is slightly protuberant bowel sounds are present he soft not focally tender in any 1 area Results & Data Results & Data Vital Signs (Past 12 Hours) Vital Signs Temp Pulse Pulse Pulse Resp BP BP 02/25/25 14:03 02/25/25 14:03 99.3 F 79 18 124/70 02/25/25 11:27 82 20 136/63 02/25/25 10:31 02/25/25 09:00 74 24 117/61 02/25/25 08:30 118/59 L 02/25/25 08:03 78 24 120/55 L 02/25/25 07:48 77 22 105/58 L 02/25/25 07:33 74 24 108/60 02/25/25 06:47 81 26 H 128/72 02/25/25 06:30 81 24 115/62 02/25/25 06:17 80 24 128/65 02/25/25 05:29 83 02/25/25 04:42 99.7 F H 02/25/25 04:15 84 24 111/61 02/25/25 03:30 85 24 115/62 02/25/25 02:54 91 H 18 100/54 L Pulse Ox Pulse Ox O2 Del Method O2 Del Method O2 Flow Rate O2 Flow Rate 02/25/25 14:03 Nasal Cannula 3 02/25/25 14:03 98 Nasal Cannula 3 02/25/25 11:27 97 Nasal Cannula 2 02/25/25 10:31 93 Nasal Cannula 3 02/25/25 09:00 99 Nasal Cannula 2 02/25/25 08:30 02/25/25 08:03 95 Nasal Cannula 2 02/25/25 07:48 94 Nasal Cannula 2 02/25/25 07:33 97 Nasal Cannula 2 02/25/25 06:47 92 Nasal Cannula 2 02/25/25 06:30 96 Nasal Cannula 2 02/25/25 06:17 94 Nasal Cannula 2 02/25/25 05:29 02/25/25 04:42 02/25/25 04:15 94 Nasal Cannula 2 02/25/25 03:30 95 Nasal Cannula 2 02/25/25 02:54 93 Nasal Cannula 2 Laboratory Results Reviewed CBC reviewed chemistry PG Care Time/CCT Total # of Minutes Spent Total Time Spent with Patient: Total time spent is greater than 50% in coordination of care (as documented) at patient's floor/unit and/or counseling patient: Coding Level of Care Code None Diagnoses Altered mental status R41.82 Pulmonary embolism I26.99 Renal insufficiency N28.9 Anemia D64.9
[2025-02-25 15:00] LABS: Hematocrit (blood only) 22.8 % (42.0-52.0); Hemoglobin 7.4 g/dl (14.0-18.0)
[2025-02-25] MEDS: Continuous Glucose Monitor SCH ×2 (16:05→16:56)
[2025-02-25 17:33] LABS: ANTI-Xa, UFH(UnfractionatedHep 0.36 IU/ml (0.3-0.7)
[2025-02-25] MEDS: amLODIPine BESYLATE 5 MG TAB PO SCH (20:53)
[2025-02-25] MEDS: traZODone HCL 100 MG TAB PO SCH (20:53)
[2025-02-25] MEDS: ATORVASTATIN 10 MG TAB PO SCH (20:53)
[2025-02-25] MEDS: GABAPENTIN 300 MG CAP PO SCH (20:53)
[2025-02-26 01:30] LABS: Hematocrit (blood only) 23.5 % (42.0-52.0); Hemoglobin 7.7 g/dl (14.0-18.0)
[2025-02-26 07:01] LABS: ANTI-Xa, UFH(UnfractionatedHep 0.39 IU/ml (0.3-0.7)
[2025-02-26 07:43] LABS: Albumin Level 2.8 gm/dl (3.4-5.0); Bilirubin,Total 0.6 mg/dl (0.2-1.0); Calcium 7.8 mg/dl (8.6-10.3); Potassium 3.4 mmol/L (3.5-5.1)
[2025-02-26 07:49] LABS: Albumin Globulin Ratio 1.3 (0.9-2); Creatinine Clr Calc Pharmacy 68.6 ml/min; Globulin 2.2 gm/dl (2.5-4.0)
[2025-02-26] MEDS: POTASSIUM CHLORIDE 20 MEQ/15 ML UDC PO STA (08:56)
--- NOTE | 2025-02-26 16:48 | Hospitalist Progress Note ---
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 his CT scan also found splenomegaly and prostate enlargement with chronic outflow obstruction pulmonary embolus hypotension, PAYAM Altered mental status intraductal papillary mucinous neoplasm of pancreas s/p surgery at [facility] (january 2025) hx of C. difficiel diarrhea type 2 insulin dependent diabetes hx of dysphagia s/p multiple esophgeal dilation hypertension GERD decubitus ulcer insomnia overall plan vascular surgery consulted for IVC filtered; note he's was dc from [facility] with l ovenox protonix BID, trend h/h continue to hold his lisinopril and hctz given his PAYAM may need to cut down his gabapentin if PAYAM persist AMS, check ABG for CO2 retention, avoid seatives #AMS f/u on urine analysis if ongoing confusion check ABG for CO2 retention may need to cut down his gabapentin if PAYAM persist splenomegaly continue to monitor no LUQ tenderness prostate megaly with bladder wall thickening bladder scan, may need flomax. for obstruction nonobstructing renal calculi #Renal insufficiency hold lisinopril and hctz creatinine improved to 1.18 hx of pancreatic procedure was at [facility] in early february and needed ICU states after he's developed hypotension he's was dc with lovenox #Anemia S/p partial pancreatectomy, no active bleeding per patient - H/H 8.6/26.6 -> Repeat q12hr - Transfuse if Hgb < 7 - Iron panel pending - Vitamin B12 + folate pending #[id number] on insulin pump H/o DMT2, on insulin, with hypoinsulinemia and s/p partial pancreatectomy. At home regimen insulin lispro and semaglutide weekly. With insulin pump in place; follows with endocrinology. 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 diff Previously identified C. difficile as diagnosed per [facility] discharge summary on 02/16/2025, placed on vancomycin every 6 hours - Contact precautions deferred at admission - formed stool x 3 days - add precautions if change in stools/diarrhea - CBC without leukocytosis, lactate normal, Pro-Amos 0.90 - Continue p.o. vancomycin #Bed sores Patient expresses concern for bedsores on backside - Wound care q shift - Turn q2hr #Pain- Gabapentin, tramadol, oxycodone #HTN- Amlodipine, HCTZ, lisinopril (lisinopril and hctz being held) #HLD- Atorvastatin #GERD- Pantoprazole dysphagia s/p multiple esophageal dilatation Dispo: Admit, PCU VTE Prophylaxis: Heparin Admission and Anticipated Discharge Date Admission Date: February 25, 2025 Subjective Patient is feeling weak and requesting rehab He had anemia in his CTA from PE will consult vascular surgery for IVC filter, no chest pain no shortness of breath He still have confusion he's on vancomycin In january; he's was admitted to [facility] for removal of pancreatic cysts he's developed hypotension Review of Systems Review of Systems: General: no fever; no chill neuro: + for confusion heart: No chest pain lung: no shortness of breath Physical Exam Physical Exam: Vital signs reviewed. General: Well-appearing [], in no significant distress. HEENT: AT/NC Cardiovascular: Regular rate and rhythm, no extra sounds. Pulmonary: Clear to auscultation bilaterally, normal work of breathing. Abdomen: Soft, nontender, nondistended, positive bowel sounds. [ midline surgical scar is healing : + for pérez catheter Musculoskeletal: Atraumatic, no peripheral edema. Neurologic: Patient awake alert and oriented x 3, full strength in all 4 extremities. Skin: Warm, dry, no rash Results & Data Results & Data Vital Signs (Past 12 Hours) Vital Signs Temp Pulse Pulse Resp BP Pulse Ox O2 Del Method 02/26/25 11:11 Nasal Cannula 02/26/25 10:25 36.5 C 87 20 130/68 99 Nasal Cannula 02/26/25 08:18 78 02/26/25 07:00 36.5 C 79 18 136/75 98 Nasal Cannula O2 Flow Rate 02/26/25 11:11 2 02/26/25 10:25 2 02/26/25 08:18 02/26/25 07:00 2 Laboratory Results Abnormal lab results 02/26/25 02/26/25 02/26/25 Range/Units 01:14 06:18 07:16 Hgb 7.7 L (14.0-18.0) g/dl Hct 23.5 L (42.0-52.0) % Potassium 3.4 L (3.5-5.1) mmol/L Glucose 109 H (70-99(Fasting)) mg/dl POC Glucose 156 H (70-99) mg/dl Calcium 7.8 L (8.6-10.3) mg/dl Total Protein 5.0 L (6.0-8.3) gm/dl Albumin 2.8 L (3.4-5.0) gm/dl Globulin 2.2 L (2.5-4.0) gm/dl 02/26/25 02/26/25 Range/Units 11:03 16:01 Hgb (14.0-18.0) g/dl Hct (42.0-52.0) % Potassium (3.5-5.1) mmol/L Glucose (70-99(Fasting)) mg/dl POC Glucose 138 H 201 H (70-99) mg/dl Calcium (8.6-10.3) mg/dl Total Protein (6.0-8.3) gm/dl Albumin (3.4-5.0) gm/dl Globulin (2.5-4.0) gm/dl Diagnostic Findings Chest X-Ray 02/25/25 01:29 EXAM: XR chest 1V portable CLINICAL HISTORY: Sepsis. TECHNIQUE: An X-ray image of the chest is obtained in AP projection. COMPARISON: 04/05/2022. FINDINGS: Pulmonary Parenchyma: Lungs show prominent perihilar bronchovascular markings. No evidence of consolidation, collapse, or focal opacities. No pulmonary nodules are identified. No evidence of pleural effusion or pleural thickening. Heart and Mediastinum: The heart size appears enlarged. No mediastinal widening or masses. No hilar or mediastinal lymphadenopathy. Bony Thorax: The bony thorax appears intact without fractures or deformities. 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 Soft Tissues: Soft tissues overlying the chest wall are unremarkable. IMPRESSION: 1. Prominent perihilar bronchovascular markings, a non-specific finding; clinical correlation is advised. 2. No acute cardiopulmonary abnormalities are identified. 3. No interval changes. Electronically signed by Danny Dash 02-25-2025 02:57 AM Abdomen/Pelvis CT 02/25/25 01:31 EXAM: CT abd pelvis IV con only CLINICAL HISTORY: fever, s/p abd surgery TECHNIQUE: Multiple contiguous axial images were obtained from the level of diaphragm to the pubis symphysis. This study was acquired after the IV administration of iodinated contrast material, given the patients indications for the examination. If IV contrast material had not been administered, the likelihood of detecting abnormalities relevant to the patients condition would have been substantially decreased. Coronal and sagittal reformatted images were generated and reviewed to improve anatomic localization and optimize lesion detection. CT scan was performed according to ALARA (as low as reasonable achievable). COMPARISON: with CT dated 05/17/2023 FINDINGS: The visualized lung bases shows subsegmental atelectasis changes and a thin walled cyst in left lung base measuring ~27 x 21mm.- as seen previously. ABDOMEN/PELVIS: The liver is normal in size and attenuation. No focal liver lesions are seen. There is no intra or extrahepatic biliary ductal dilatation. Hepatic vasculature is patent. The gallbladder is distended. Faint hyperdense content seen in dependent areas- could be sludge. The spleen is enlarged in size with ill defined hypodense areas within, largest measuring ~ 51 x 47 x 40mm - could represent areas of infarcts- suggest ultrasound correlation - new finding. The pancreas is diffusely replaced by fat, predominantly in the region of body and tail with fat stranding in pancreatic and peripancreatic regions. there is interval increase of fatty infiltration compared to previous study. Adrenal glands are unremarkable. The kidneys are normal in size and attenuation. There is no hydronephrosis. Minimal bilateral perinephric fat stranding. No renal masses are identified. Bosniak type 1 cyst in upper pole of left kidney. ~2mm radiodense calculi in lower pole of right and upper pole of left kidney. The ureters are normal in caliber and no ureteral calculi are seen. The bladder is normal in contour with diffusely thickening of wall, measuring upto 6mm in thickness. Enlarged and heterodense prostate measuring ~5.5 x 4.6 x 3.8cm No evidence of focal or diffuse bowel wall thickening or evidence of bowel obstruction is seen. No evidence of inflamed appendix. No adenopathy or fluid collections are seen. The aorta is normal in caliber. No aggressive appearing osseous lesions are identified. Degenerative changes in visualised spine. IMPRESSION: 1. Splenomegaly with interval development of hypodense areas within - could be infarcts - suggest ultrasound correlation - new finding. 2. Diffuse fatty infiltration of pancreas with peripancreatic fat stranding - advised correlation with serum amylase and lipase to rule out pancreatitis - new finding. 3. Prostatomegaly with diffuse urinary bladder wall thickening - could be due to chronic outflow obstruction - suggest clinical correlation. 4. Bilateral non obstructive renal calculi. 5. Faint hyperdense content seen in dependent area of gall bladder- could be sludge. Advised ultrasound correlation. Electronically signed by Yoel Montano 02-25-2025 03:55 AM Chest CTA 02/25/25 01:31 EXAM: CT angio chest PE protocol CLINICAL HISTORY: PE TECHNIQUE: Contiguous axial images were obtained from the neck base through the upper abdomen following intravenous administration of iodinated contrast material. Angiographic images were processed, 3D MIP images were acquired for interpretation. If IV contrast material had not been administered, the likelihood of detecting abnormalities relevant to the patient's condition would have been substantially decreased. Coronal and sagittal 3-D MIPs were likewise performed and indicated to increase the sensitivity of detectin diffuse clinically relevant pathology. CT scan was performed according to ALARA (as low as reasonable achievable). COMPARISON: None. FINDINGS: Hypodense filling defects are noted involving distal part of right main pulmonary artery extending into the anterior segmental branch of right upper lobe, right middle lobar artery, right lower lobar artery and its segmental branches - suggestive of pulmonary embolism. Small thin walled cyst/bulla is noted involving lingula. Few subsegmental atelectasis are noted involving bilateral lung bases. The central airways are patent. Rest of lungs are clear. No pleural effusion. The heart, aorta, and pulmonary arteries are of normal size and configuration. There are coronary artery and aortic atherosclerotic calcifications. No pericardial effusion is identified. The thyroid is unremarkable. No mediastinal, hilar, or axillary lymphadenopathy is noted. No suspicious lytic or sclerotic osseous lesions are identified. IMPRESSION: 1. Hypodense filling defects are noted involving distal part of right main pulmonary artery extending into the anterior segmental branch of right upper lobe, right middle lobar artery, right lower lobar artery and its segmental branches - suggestive of pulmonary thromboembolism. 2. Small thin walled cyst/bulla is noted involving lingula. 3. Few subsegmental atelectasis are noted involving bilateral lung bases. Electronically signed by Yoel Montano 02-25-2025 03:[address] 02/25/25 01:34 EXAM: CT head/brain wo con CLINICAL HISTORY: confusion TECHNIQUE: Multiple axial images are obtained from the skull base to the vertex without contrast. CT scan was performed according to ALARA (as low as reasonable achievable). COMPARISON: 17:34:32 DIRECTOR OF PROMOTIONS . FINDINGS: There is cerebral atrophy. No evidence of space occupying lesion, hemorrhage, edema, mass effect, midline shift, extra axial collection, or hydrocephalus is noted. Basal cisterns are symmetric and normal in size and configuration. There are scattered periventricular hypodensities as can be seen with chronic microvascular ischemic changes. The mares-white matter differentiation is preserved. Visualized paranasal sinuses and mastoid air cells are well aerated. Orbital contents are within normal limits. Bony structures are intact. IMPRESSION: 1. No evidence of acute intracranial abnormality is demonstrated. 2. Chronic microvascular ischemic changes. 3. Cerebral atrophy. No other new interval abnormality since prior study. Electronically signed by Yoel Montano 02-25-2025 03:46 AM Medications Administered Home Medications Medication Instructions Recorded Confirmed Last Taken multivitamin 1 tab PO QAM 08/20/19 02/25/25 05/17/23 aspirin 81 mg tablet,delayed 81 mg PO QAM 05/02/21 02/25/25 05/17/23 release insulin syringe-needle U-100 1 mL #300 ea 05/20/22 02/19/25 06/08/22 31 gauge x 5/16" (BD Insulin Syringe Ultra-Fine) blood sugar diagnostic (Contour #100 ea 09/29/22 02/19/25 Unknown Next Test Strips) acetaminophen 325 mg tablet 650 mg (2 x 325 mg) PO Q4H PRN 05/18/23 02/25/25 Unknown pain #30 tabs atorvastatin 10 mg tablet 5 mg (1/2 x 10 mg) PO HS #45 tabs 03/07/24 02/25/25 Unknown pen needle, diabetic 31 gauge x #100 ea 03/07/24 02/19/25 Unknown 3/16" (BD Ultra-Fine Mini Pen Needle) insulin lispro 100 unit/mL See Rx Instructions continuous 03/14/24 02/25/25 Unknown subcutaneous solution (Humalog subcutaneous infusion CONTINOUS U-100 Insulin) #23 vials gabapentin 300 mg capsule 300 mg PO HS #90 caps 05/23/24 02/25/25 Unknown hydrochlorothiazide 25 mg tablet 25 mg PO QAM #90 tabs 11/14/24 02/25/25 Unknown trazodone 100 mg tablet 100 mg PO HS #90 tabs 11/18/24 02/25/25 Unknown semaglutide 0.25 mg or 0.5 mg (2 2 mg subcut UD 12/05/24 02/25/25 Unknown mg/3 mL) subcutaneous pen injector (Ozempic) tramadol 50 mg tablet 50 mg PO BID PRN pain #90 tabs 01/27/25 02/25/25 Unknown NALOXONE NASAL SPRAY 1 spray intranasal DIRECTED PRN 02/19/25 02/25/25 Unknow n Other cholecalciferol (vitamin D3) 25 25 mcg PO DAILY 02/19/25 02/25/25 Unknown mcg (1,000 unit) tablet enoxaparin 40 mg/0.4 mL 40 mg subcut DAILY 02/19/25 02/25/25 Unknown subcutaneous syringe mecobalamin (vitamin B12) 1 tab PO DAILY 02/19/25 02/25/25 Unknown ondansetron 4 mg disintegrating 4 mg PO Q6H PRN nausea and vomiting 02/19/25 02/25/25 Unknown tablet oxycodone 5 mg tablet See Rx Instructions PO Q4H PRN Pain 02/19/25 02/25/25 Unknown vancomycin 25 mg/mL oral solution 125 mg PO Q6H 02/19/25 02/25/25 Unknown amlodipine 5 mg tablet 5 mg PO QPM 02/25/25 02/25/25 Unknown lisinopril 40 mg tablet 40 mg PO UD 02/25/25 02/25/25 Unknown pantoprazole 40 mg tablet,delayed 40 mg PO UD 02/25/25 02/25/25 Unknown release Active Medications Generic Name Dose Route Start Last Admin Trade Name Freq PRN Reason Stop Dose Admin Acetaminophen 650 mg 02/25/25 08:55 02/26/25 16:20 Acetaminophen 325 Mg Tab PO 03/27/25 08:54 650 mg Q4H PRN Administration Pain or Fever Amlodipine Besylate 5 mg 02/25/25 21:00 02/25/25 20:53 Amlodipine Besylate 5 Mg Tab PO 03/27/25 20:59 5 mg QPM JEANA Administration Aspirin 81 mg 02/25/25 09:00 02/26/25 08:56 Aspirin 81 Mg Ectab PO 03/27/25 08:59 81 mg QAM JEANA Administration Atorvastatin Calcium 5 mg 02/25/25 21:00 02/25/25 20:53 Atorvastatin 10 Mg Tab PO 03/27/25 20:59 5 mg HS JEANA Administration Wallace Syrup 5 ml 02/25/25 12:00 02/26/25 12:15 Wallace Syrup 5 Ml Udp PO 03/04/25 23:59 5 ml Q6 JEANA Administration Gabapentin 300 mg 02/25/25 21:00 02/25/25 20:53 Gabapentin 300 Mg Cap PO 03/27/25 20:59 300 mg HS JEANA Administration Heparin Sodium/Dextrose 25,000 units in 500 mls @ 33 mls/hr 02/25/25 05:00 02/26/25 15:04 Heparin 96753 Unit/500 Ml D5w IV 03/27/25 04:59 1,650 units/hr .[id number] JEANA 33 mls/hr Titration Protocol 1,650 UNITS/HR Insulin Aspart 0 each 02/25/25 09:10 02/26/25 12:14 Insulin, Rapid-Acting Pump N/A 03/27/25 09:09 8.4 each ACHS JEANA Administration Protocol Miscellaneous 0 each 02/25/25 16:30 02/26/25 16:14 Continuous Glucose Monitor N/A 03/27/25 16:29 Not Given ACHS JEANA Miscellaneous 0 each 02/25/25 16:30 02/26/25 16:15 Continuous Glucose Monitor N/A 03/27/25 16:29 1 each ACHS JEANA Administration Trazodone HCl 100 mg 02/25/25 21:00 02/25/25 20:53 Trazodone Hcl 100 Mg Tab PO 03/27/25 20:59 100 mg HS JEANA Administration Vancomycin HCl 125 mg 02/25/25 12:00 02/26/25 12:17 Vancomycin Hcl 125 Mg/2.5ml Soln PO 03/04/25 23:59 125 mg Q6 JEANA Administration PG Care Time/CCT Total # of Minutes Spent Total Time Spent with Patient: Total time spent is greater than 50% in coordination of care (as documented) at patient's floor/unit and/or counseling patient: Coding Level of Care Code 79028 SUB INP/OBS CARE 2/35MIN Diagnoses Altered mental status R41.82 Pulmonary embolism I26.99 Renal insufficiency N28.9 Anemia D64.9
[2025-02-27 07:17] LABS: Hematocrit (blood only) 26.2 % (42.0-52.0); Hemoglobin 8.4 g/dl (14.0-18.0); Mean Corpuscular Hgb Conc 32.1 g/dL (32.0-36.0); Mean Corpuscular Volume 81.1 fL (80.0-100.0); Mean Platelet Volume 11.3 fL (9.4-12.4); Platelet Count 357 K/uL (130-400); RDW Coefficient of Variation 15.9 % (11.5-14.5); RDW Standard Deviation 47.3 fL (36.4-46.3); Red Blood Count 3.23 M/uL (4.70-6.10)
[2025-02-27 07:21] LABS: ANTI-Xa, UFH(UnfractionatedHep 0.32 IU/ml (0.3-0.7)
[2025-02-27 08:34] LABS: Albumin Level 2.9 gm/dl (3.4-5.0); Bilirubin,Total 0.6 mg/dl (0.2-1.0); Potassium 3.4 mmol/L (3.5-5.1)
[2025-02-27 08:40] LABS: Albumin Globulin Ratio 1.3 (0.9-2); Creatinine Clr Calc Pharmacy 73.7 ml/min; Globulin 2.3 gm/dl (2.5-4.0); Total Protein 5.2 gm/dl (6.0-8.3)
--- NOTE | 2025-02-27 12:30 | Hospitalist Progress Note ---
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 his CT scan also found splenomegaly and prostate enlargement with chronic outflow obstruction pulmonary embolus hypotension, PAYAM Altered mental status intraductal papillary mucinous neoplasm of pancreas s/p surgery at [facility] (january 2025) hx of C. difficiel diarrhea type 2 insulin dependent diabetes hx of dysphagia s/p multiple esophgeal dilation hypertension GERD decubitus ulcer insomnia overall plan c/t to hold lisinopril and hctz oral hydration, vancomycin appreciate vascular surgery consult for IVC filter he's was dc from [facility] on lovenox but has PE #AMS improving; f/u on urine analysis splenomegaly continue to monitor prostate megaly with bladder wall thickening bladder scan, may need flomax. for obstruction nonobstructing renal calculi #Renal insufficiency creatinine stable close to baseline. gentle IV fluid hold lisinopril and hctz creatinine improved to 1.18 hx of pancreatic procedure was at [facility] in early february and needed ICU states after he's developed hypotension he's was dc with lovenox #Anemia S/p partial pancreatectomy, no active bleeding per patient baseline h/h of 13. give iron transfusion while here #[id number] on insulin pump H/o DMT2, on insulin, with hypoinsulinemia and s/p partial pancreatectomy. At home regimen insulin lispro and semaglutide weekly. With insulin pump in place; follows with endocrinology. - Most recent A1C 11/2024 @ 6.4% - May use own insulin pump - [facility] ACHS - Adjust regimen as needed - Please contact patient's slumber room attendant per patient's request #C. diff Previously identified C. difficile as diagnosed per [facility] discharge summary on 02/16/2025, placed on vancomycin every 6 hours currently only has one bowel movement per day discussed in the future; if he has antibiotics will need vancomycin taper #Bed sores Patient expresses concern for bedsores on backside - Wound care q shift - Turn q2hr #Pain- Gabapentin, tramadol, oxycodone #HTN- Amlodipine, HCTZ, lisinopril (lisinopril and hctz being held) #HLD- Atorvastatin #GERD- Pantoprazole dysphagia s/p multiple esophageal dilatation Dispo: Admit, PCU VTE Prophylaxis: Heparin Admission and Anticipated Discharge Date Admission Date: February 25, 2025 Subjective Vascular surgery consulted for IVC filter No chest pain no shortness of breath weakness seems improved Currently only have 1 bowel movement per day He will either go home tomorrow afternoon or go to acute rehab No other discharge Review of Systems Review of Systems: Constitutional: No Fever, No Chills, No Night Sweats, No Fatigue, No Malaise Cardiovascular: No Chest Pain, No SOB, No PND, No Dyspnea on Exertion, Gastrointestinal: No Nausea, No Vomiting, No Diarrhea, Genitourinary: No Dysmenorrhea, No DUB, No Dyspareunia, No Dysuria, No Urinary Frequency, No Hematuria, No Urinary Incontinence, No Urgency, No Flank Pain, No Urinary Flow Changes, Musculoskeletal: No Arthralgias, No Myalgias, No Joint Swelling, No Joint Stiffness, No Back Pain, No Neck Pain, No Injury History Neuro: Weakness this is improving Heme/Lymph: No Bruising, No Bleeding, No Transfusions History, No Lymphadenopathy Endocrine: No Polyuria, No Polydipsia, No Temperature Intolerance Physical Exam Physical Exam: VITALS: Reviewed. WEIGHT/BMI reviewed. GEN: Healthy appearing, well-developed, NAD. PSYCH: Good Judgment. AOx3. Normal memory, mood, and affect. HEENT -Head: NC/AT; CV: RRR, no m/r/g. LUNGS: No respiratory distress ABD: Soft, NT/ND, NBS, SKIN: Pale NEURO: AO x 3 Results & Data Results & Data Vital Signs (Past 12 Hours) Vital Signs Temp Pulse Resp BP Pulse Ox O2 Del Method 02/27/25 08:00 36.8 C 85 18 132/72 98 Room Air 02/27/25 02:52 36.8 C 84 16 124/64 96 Room Air Laboratory Results Laboratory Results WBC 7.10 K/ul (4.8-10.8) 02/27/25 06:52 RBC 3.23 M/uL (4.70-6.10) L 02/27/25 06:52 Hgb 8.4 g/dl (14.0-18.0) L 02/27/25 06:52 Hct 26.2 % (42.0-52.0) L 02/27/25 06:52 MCV 81.1 fL (80.0-100.0) 02/27/25 06:52 MCH 26.0 pg (25.0-34.0) 02/27/25 06:52 MCHC 32.1 g/dL (32.0-36.0) 02/27/25 06:52 RDW Std Deviation 47.3 fL (36.4-46.3) H 02/27/25 06:52 RDW Coeff of Joselin 15.9 % (11.5-14.5) H 02/27/25 06:52 Plt Count 357 K/uL (130-400) 02/27/25 06:52 MPV 11.3 fL (9.4-12.4) 02/27/25 06:52 Immature Gran % (Auto) 0.8 % 02/25/25 01: Neut % (Auto) 87.3 % 02/25/25 01: Lymph % (Auto) 6.6 % 02/25/25 01: Owsley % (Auto) 4.9 % 02/25/25 01: Eos % (Auto) 0.1 % 02/25/25 01: Baso % (Auto) 0.3 % 02/25/25 01: Neut # (Auto) 7.81 K/uL (1.40-6.50) H 02/25/25 01:29 Lymph # (Auto) 0.59 K/uL (1.20-3.40) L 02/25/25 01:29 Owsley # (Auto) 0.44 K/uL (0.11-0.59) 02/25/25 01:29 Eos # (Auto) 0.01 K/uL (0.00-0.50) 02/25/25 01: Baso # (Auto) 0.03 K/uL (0.00-0.20) 02/25/25 01:29 Immature Gran # (Auto) 0.07 K/uL (0.01-0.20) 02/25/25 01:29 PT 12.5 Seconds (9.0-12.0) H 02/25/25 02:05 INR 1.2 (0.9-1.1) H 02/25/25 02:05 Heparin Anti-Xa, Unfract 0.32 IU/ml (0.3-0.7) 02/27/25 06:52 VBG pH 7.40 (7.36-7.41) 02/25/25 02:05 VBG pCO2 44 mmHg (38-50) 02/25/25 02:05 VBG pO2 22 mmHg 02/25/25 02:05 VBG HCO3 27 mmol/L 02/25/25 02:05 VBG O2 Saturation < 60.0 % 02/25/25 02:05 VBG Base Excess 2.0 mEq/L 02/25/25 02:05 Sodium 139 mmol/L (136-145) 02/27/25 06:52 Potassium 3.4 mmol/L (3.5-5.1) L 02/27/25 06:52 Chloride 104 mmol/L (98-107) 02/27/25 06:52 Carbon Dioxide 30 mmol/L (21-32) 02/27/25 06:52 Anion Gap 5 (3-11) 02/27/25 06:52 BUN 11 mg/dl (6-23) 02/27/25 06:52 Creatinine 1.10 mg/dl (0.6-1.4) 02/27/25 06:52 Est Cr Clr Drug Dosing 73.7 ml/min 02/27/25 06:52 eGFR 68.71 02/27/25 06:52 BUN/Creatinine Ratio 10.0 (10-20) 02/27/25 06:52 Glucose 116 mg/dl (70-99(Fasting)) H 02/27/25 06:52 POC Glucose 122 mg/dl (70-99) H 02/27/25 11:21 Lactate 1.4 mmol/L (0.4-2.0) 02/25/25 01:34 Calcium 8.0 mg/dl (8.6-10.3) L 02/27/25 06:52 Magnesium 2.0 mg/dl (1.7-2.4) 02/25/25 01:29 Iron < 10 mcg/dl (35-175) L 02/25/25 11:39 TIBC 329 mcg/dl (250-450) 02/25/25 11:39 Transferrin 235 mg/dl (200-360) 02/25/25 11:39 Transferrin % Sat TNP 02/25/25 11:39 Ferritin 63.8 ng/ml (8-388) 02/25/25 11:39 Total Bilirubin 0.6 mg/dl (0.2-1.0) 02/27/25 06:52 Direct Bilirubin 0.3 mg/dl (0-0.2) H 02/25/25 01:29 AST 24 U/L (13-39) 02/27/25 06:52 ALT 18 U/L (7-52) 02/27/25 06:52 Alkaline Phosphatase 74 U/L (34-104) 02/27/25 06:52 Troponin I High Sens 13.4 pg/ml (0-20) 02/25/25 01:29 Total Protein 5.2 gm/dl (6.0-8.3) L 02/27/25 06:52 Albumin 2.9 gm/dl (3.4-5.0) L 02/27/25 06:52 Globulin 2.3 gm/dl (2.5-4.0) L 02/27/25 06:52 Albumin/Globulin Ratio 1.3 (0.9-2) 02/27/25 06:52 Vitamin B12 > 1500 pg/ml (180-914) H 02/25/25 11:39 Folate 16.96 ng/ml (>5.38) 02/25/25 11:39 Procalcitonin 0.90 ng/ml (0-0.5) H 02/25/25 01:29 Urine Color Yellow 02/25/25 Unknown Urine Appearance Clear (Clear) 02/25/25 Unknown Urine pH 6.0 (4.5-7.5) 02/25/25 Unknown Ur Specific Plato <= 1.005 (1.000-1.030) 02/25/25 Unknown Urine Protein Negative (Negative) 02/25/25 Unknown Urine Glucose (UA) Negative (Negative) 02/25/25 Unknown Urine Ketones Negative (Negative) 02/25/25 Unknown Urine Blood Trace-intact (Negative) H 02/25/25 Unknown Urine Nitrite Positive (Negative) A 02/25/25 Unknown Urine Bilirubin Negative (Negative) 02/25/25 Unknown Urine Urobilinogen Negative (Negative) 02/25/25 Unknown Ur Leukocyte Esterase 1+ (Negative) H 02/25/25 Unknown Urine RBC 0-2 /hpf (0-2) 02/25/25 Unknown Urine WBC >50 /hpf (0-5) H 02/25/25 Unknown Ur Epithelial Cells 0-2 /hpf (0-2) 02/25/25 Unknown Urine Bacteria None Seen (None Seen) 02/25/25 Unknown Nasal Screen MRSA (PCR) Negative (Negative) 02/25/25 04:51 Adenovirus (PCR) Not Detected (NotDetected) 02/25/25 01:40 B. pertussis DNA (PCR) Not Detected (NotDetected) 02/25/25 01:40 B.parapertussis DNA PCR Not Detected (NotDetected) 02/25/25 01:40 C. pneumoniae DNA (PCR) Not Detected (NotDetected) 02/25/25 01:40 Coronavirus OC43 (PCR) Not Detected (NotDetected) 02/25/25 01:40 Coronavirus HKU1 (PCR) Not Detected (NotDetected) 02/25/25 01:40 Coronavirus 229E (PCR) Not Detected (NotDetected) 02/25/25 01:40 SARS-CoV-2 (PCR) Not Detected (NotDetected) 02/25/25 01:40 Coronavirus NL63 (PCR) Not Detected (NotDetected) 02/25/25 01:40 Human Metapneumovir PCR Not Detected (NotDetected) 02/25/25 01:40 Influenza Type A (PCR) Not Detected (NotDetected) 02/25/25 01:40 Influenza Type B (PCR) Not Detected (NotDetected) 02/25/25 01:40 M. pneumoniae (PCR) Not Detected (NotDetected) 02/25/25 01:40 Parainfluenza 1 (PCR) Not Detected (NotDetected) 02/25/25 01:40 Parainfluenza 2 (PCR) Not Detected (NotDetected) 02/25/25 01:40 Parainfluenza 3 (PCR) Not Detected (NotDetected) 02/25/25 01:40 Parainfluenza 4 (PCR) Not Detected (NotDetected) 02/25/25 01:40 RSV (PCR) Not Detected (NotDetected) 02/25/25 01:40 Entero/Rhino (PCR) Not Detected (NotDetected) 02/25/25 01:40 Impressions Chest X-Ray 02/25/25 01:29 EXAM: XR chest 1V portable CLINICAL HISTORY: Sepsis. TECHNIQUE: An X-ray image of the chest is obtained in AP projection. COMPARISON: 04/05/2022. FINDINGS: Pulmonary Parenchyma: Lungs show prominent perihilar bronchovascular markings. No evidence of consolidation, collapse, or focal opacities. No pulmonary nodules are identified. No evidence of pleural effusion or pleural thickening. Heart and Mediastinum: The heart size appears enlarged. No mediastinal widening or masses. No hilar or mediastinal lymphadenopathy. Bony Thorax: The bony thorax appears intact without fractures or deformities. 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 Soft Tissues: Soft tissues overlying the chest wall are unremarkable. IMPRESSION: 1. Prominent perihilar bronchovascular markings, a non-specific finding; clinical correlation is advised. 2. No acute cardiopulmonary abnormalities are identified. 3. No interval changes. Electronically signed by Danny Dash 02-25-2025 02:57 AM Abdomen/Pelvis CT 02/25/25 01:31 EXAM: CT abd pelvis IV con only CLINICAL HISTORY: fever, s/p abd surgery TECHNIQUE: Multiple contiguous axial images were obtained from the level of diaphragm to the pubis symphysis. This study was acquired after the IV administration of iodinated contrast material, given the patients indications for the examination. If IV contrast material had not been administered, the likelihood of detecting abnormalities relevant to the patients condition would have been substantially decreased. Coronal and sagittal reformatted images were generated and reviewed to improve anatomic localization and optimize lesion detection. CT scan was performed according to ALARA (as low as reasonable achievable). COMPARISON: with CT dated 05/17/2023 FINDINGS: The visualized lung bases shows subsegmental atelectasis changes and a thin walled cyst in left lung base measuring ~27 x 21mm.- as seen previously. ABDOMEN/PELVIS: The liver is normal in size and attenuation. No focal liver lesions are seen. There is no intra or extrahepatic biliary ductal dilatation. Hepatic vasculature is patent. The gallbladder is distended. Faint hyperdense content seen in dependent areas- could be sludge. The spleen is enlarged in size with ill defined hypodense areas within, largest measuring ~ 51 x 47 x 40mm - could represent areas of infarcts- suggest ultrasound correlation - new finding. The pancreas is diffusely replaced by fat, predominantly in the region of body and tail with fat stranding in pancreatic and peripancreatic regions. there is interval increase of fatty infiltration compared to previous study. Adrenal glands are unremarkable. The kidneys are normal in size and attenuation. There is no hydronephrosis. Minimal bilateral perinephric fat stranding. No renal masses are identified. Bosniak type 1 cyst in upper pole of left kidney. ~2mm radiodense calculi in lower pole of right and upper pole of left kidney. The ureters are normal in caliber and no ureteral calculi are seen. The bladder is normal in contour with diffusely thickening of wall, measuring upto 6mm in thickness. Enlarged and heterodense prostate measuring ~5.5 x 4.6 x 3.8cm No evidence of focal or diffuse bowel wall thickening or evidence of bowel obstruction is seen. No evidence of inflamed appendix. No adenopathy or fluid collections are seen. The aorta is normal in caliber. No aggressive appearing osseous lesions are identified. Degenerative changes in visualised spine. IMPRESSION: 1. Splenomegaly with interval development of hypodense areas within - could be infarcts - suggest ultrasound correlation - new finding. 2. Diffuse fatty infiltration of pancreas with peripancreatic fat stranding - advised correlation with serum amylase and lipase to rule out pancreatitis - new finding. 3. Prostatomegaly with diffuse urinary bladder wall thickening - could be due to chronic outflow obstruction - suggest clinical correlation. 4. Bilateral non obstructive renal calculi. 5. Faint hyperdense content seen in dependent area of gall bladder- could be sludge. Advised ultrasound correlation. Electronically signed by Yoel Montano 02-25-2025 03:55 AM Chest CTA 02/25/25 01:31 EXAM: CT angio chest PE protocol CLINICAL HISTORY: PE TECHNIQUE: Contiguous axial images were obtained from the neck base through the upper abdomen following intravenous administration of iodinated contrast material. Angiographic images were processed, 3D MIP images were acquired for interpretation. If IV contrast material had not been administered, the likelihood of detecting abnormalities relevant to the patient's condition would have been substantially decreased. Coronal and sagittal 3-D MIPs were likewise performed and indicated to increase the sensitivity of detectin diffuse clinically relevant pathology. CT scan was performed according to ALARA (as low as reasonable achievable). COMPARISON: None. FINDINGS: Hypodense filling defects are noted involving distal part of right main pulmonary artery extending into the anterior segmental branch of right upper lobe, right middle lobar artery, right lower lobar artery and its segmental branches - suggestive of pulmonary embolism. Small thin walled cyst/bulla is noted involving lingula. Few subsegmental atelectasis are noted involving bilateral lung bases. The central airways are patent. Rest of lungs are clear. No pleural effusion. The heart, aorta, and pulmonary arteries are of normal size and configuration. There are coronary artery and aortic atherosclerotic calcifications. No pericardial effusion is identified. The thyroid is unremarkable. No mediastinal, hilar, or axillary lymphadenopathy is noted. No suspicious lytic or sclerotic osseous lesions are identified. IMPRESSION: 1. Hypodense filling defects are noted involving distal part of right main pulmonary artery extending into the anterior segmental branch of right upper lobe, right middle lobar artery, right lower lobar artery and its segmental branches - suggestive of pulmonary thromboembolism. 2. Small thin walled cyst/bulla is noted involving lingula. 3. Few subsegmental atelectasis are noted involving bilateral lung bases. Electronically signed by Yoel Montano 02-25-2025 03:[address] 02/25/25 01:34 EXAM: CT head/brain wo con CLINICAL HISTORY: confusion TECHNIQUE: Multiple axial images are obtained from the skull base to the vertex without contrast. CT scan was performed according to ALARA (as low as reasonable achievable). COMPARISON: 17:34:32 [employer] . FINDINGS: There is cerebral atrophy. No evidence of space occupying lesion, hemorrhage, edema, mass effect, midline shift, extra axial collection, or hydrocephalus is noted. Basal cisterns are symmetric and normal in size and configuration. There are scattered periventricular hypodensities as can be seen with chronic microvascular ischemic changes. The mares-white matter differentiation is preserved. Visualized paranasal sinuses and mastoid air cells are well aerated. Orbital contents are within normal limits. Bony structures are intact. IMPRESSION: 1. No evidence of acute intracranial abnormality is demonstrated. 2. Chronic microvascular ischemic changes. 3. Cerebral atrophy. No other new interval abnormality since prior study. Electronically signed by Yoel Montano 02-25-2025 03:46 AM Medications Administered Current Inpatient Medications Acetaminophen (Acetaminophen 325 Mg Tab) 650 mg PO Q4H PRN PRN Reason: Pain or Fever Stop: 03/27/25 08:54 Last Admin: 02/26/25 16:20 Dose: 650 mg Amlodipine Besylate (Amlodipine Besylate 5 Mg Tab) 5 mg PO QPM JEANA Stop: 03/27/25 20:59 Last Admin: 02/26/25 20:42 Dose: 5 mg Aspirin (Aspirin 81 Mg Ectab) 81 mg PO QAM JEANA Stop: 03/27/25 08:59 Last Admin: 02/27/25 08:15 Dose: 81 mg Atorvastatin Calcium (Atorvastatin 10 Mg Tab) 5 mg PO HS JEANA Stop: 03/27/25 20:59 Last Admin: 02/26/25 20:42 Dose: 5 mg Wallace Syrup (Wallace Syrup 5 Ml Udp) 5 ml PO Q6 JEANA Stop: 03/04/25 23:59 Last Admin: 02/27/25 11:28 Dose: 5 ml Dextrose (Dextrose 50% 50 Ml Syringe) 25 - 50 ml IV UD PRN; Protocol PRN Reason: Hypoglycemia Protocol Stop: 03/27/25 08:54 Dextrose (Dextrose 50% 50 Ml Syringe) 25 - 50 ml IV UD PRN; Protocol PRN Reason: Hypoglycemia Protocol Stop: 03/27/25 14:36 Gabapentin (Gabapentin 300 Mg Cap) 300 mg PO HS JEANA Stop: 03/27/25 20:59 Last Admin: 02/26/25 20:42 Dose: 300 mg Glucagon (Glucagon For Inj 1 Mg Vial) 1 mg SQ UD PRN; Protocol PRN Reason: Hypoglycemia Protocol Stop: 03/27/25 08:54 Glucagon (Glucagon For Inj 1 Mg Vial) 1 mg SQ UD PRN; Protocol PRN Reason: Hypoglycemia Protocol Stop: 03/27/25 14:36 Glucose (Glucose 40% Gel 15 Gm Tube) 15 - 30 gm PO UD PRN; Protocol PRN Reason: Hypoglycemia Protocol Stop: 03/27/25 08:54 Glucose (Glucose 10 Tab/Tube) 4 - 8 tab PO UD PRN; Protocol PRN Reason: Hypoglycemia Protocol Stop: 03/27/25 08:54 Glucose (Glucose 40% Gel 15 Gm Tube) 15 - 30 gm PO UD PRN; Protocol PRN Reason: Hypoglycemia Protocol Stop: 03/27/25 14:36 Glucose (Glucose 10 Tab/Tube) 4 - 8 tab PO UD PRN; Protocol PRN Reason: Hypoglycemia Protocol Stop: 03/27/25 14:36 Heparin Sodium/Dextrose (Heparin 90039 Unit/500 Ml D5w) 25,000 units in 500 mls @ 33 mls/hr IV .[id number] JEANA; Protocol Stop: 03/27/25 04:59 Last Titration: 02/27/25 06:52 Dose: 1,650 units/hr, 33 mls/hr Insulin Aspart (Insulin, Rapid-Acting Pump) 0 each N/A [facility]; Protocol Stop: 03/27/25 09:09 Last Admin: 02/27/25 12:04 Dose: 11.7 each Insulin Aspart (Insulin Aspart 100 Units/Ml Vial) 0 units SC PRN PRN PRN Reason: Pump Refill Use ONLY Stop: 03/27/25 09:14 Miscellaneous (Carbohydrates For Hypoglycemia ) 15 - 30 gm PO UD PRN PRN Reason: Hypoglycemia Protocol Stop: 03/27/25 08:54 Miscellaneous (Continuous Glucose Monitor) 0 each N/A [facility] Stop: 03/27/25 16:29 Last Admin: 02/27/25 09:53 Dose: Not Given Miscellaneous (Carbohydrates For Hypoglycemia ) 15 - 30 gm PO UD PRN PRN Reason: Hypoglycemia Protocol Stop: 03/27/25 14:36 Miscellaneous (Continuous Glucose Monitor) 0 each N/A [facility] Stop: 03/27/25 16:29 Last Admin: 02/27/25 11:23 Dose: 1 each Miscellaneous (Carbohydrates For Hypoglycemia ) 15 - 30 gm PO UD PRN PRN Reason: Hypoglycemia Protocol Stop: 03/27/25 15:55 Ondansetron HCl (Ondansetron Inj 2 Mg/Ml 2 Ml Vial) 4 mg IV Q6H PRN PRN Reason: Nausea Stop: 03/27/25 08:54 Oxycodone HCl (Oxycodone Hcl Ir 5 Mg Tab (Immediate Release)) 5 - 10 mg PO Q4H PRN PRN Reason: Pain Stop: 03/11/25 08:54 Trazodone HCl (Trazodone Hcl 100 Mg Tab) 100 mg PO HS JEANA Stop: 03/27/25 20:59 Last Admin: 02/26/25 20:42 Dose: 100 mg Vancomycin HCl (Vancomycin Hcl 125 Mg/2.5ml Soln) 125 mg PO Q6 JEANA Stop: 03/04/25 23:59 Last Admin: 02/27/25 11:28 Dose: 125 mg PG Care Time/CCT Total # of Minutes Spent Total Time Spent with Patient: Total time 15 spent is greater than 50% in coordination of care (as documented) at patient's floor/unit and/or counseling patient: Coding Level of Care Code 84368 SUB INP/OBS CARE 2/35MIN Diagnoses Altered mental status R41.82 Pulmonary embolism I26.99 Renal insufficiency N28.9 Anemia D64.9 Time Spent (min) 15
--- NOTE | 2025-02-27 15:34 | Consultation ---
Date of Consultation February 27, 2025 Assessment & Plan (1) Pulmonary embolism: Would recommend insertion of a cava filter. He did have a PE while on lovenox and he does have a history of ca. which may make him hypercoagulable. These factors may make him more prone to further clots. Would place filter tomorrow. I have discussed the risks options and benefits of the procedure with the patient. The patient understands the risks options and benefits and agrees to the procedure. 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 He was found to have a PE while on lovenox therapy. Denies any leg pain. Denies any SOB at present Allergies Allergy/AdvReac Type Severity Reaction Status Date / Time Penicillins Allergy Intermediate HIVES Verified 12/05/24 12:51 metformin AdvReac Intermediate GI Verified 12/05/24 12:51 distress/diarrhea Home Medications Medication Instructions Recorded Confirmed Type multivitamin 1 tab PO QAM 08/20/19 02/25/25 History aspirin 81 mg tablet,delayed 81 mg PO QAM 05/02/21 02/25/25 History release insulin syringe-needle U-100 1 mL #300 ea 05/20/22 02/19/25 Rx 31 gauge x 5/16" (BD Insulin Syringe Ultra-Fine) blood sugar diagnostic (Contour #100 ea 09/29/22 02/19/25 Rx Next Test Strips) acetaminophen 325 mg tablet 650 mg (2 x 325 mg) PO Q4H PRN 05/18/23 02/25/25 Rx pain #30 tabs atorvastatin 10 mg tablet 5 mg (1/2 x 10 mg) PO HS #45 tabs 03/07/24 02/25/25 Rx pen needle, diabetic 31 gauge x #100 ea 03/07/24 02/19/25 Rx 3/16" (BD Ultra-Fine Mini Pen Needle) insulin lispro 100 unit/mL See Rx Instructions continuous 03/14/24 02/25/25 Rx subcutaneous solution (Humalog subcutaneous infusion CONTINOUS U-100 Insulin) #23 vials gabapentin 300 mg capsule 300 mg PO HS #90 caps 05/23/24 02/25/25 Rx hydrochlorothiazide 25 mg tablet 25 mg PO QAM #90 tabs 11/14/24 02/25/25 Rx trazodone 100 mg tablet 100 mg PO HS #90 tabs 11/18/24 02/25/25 Rx semaglutide 0.25 mg or 0.5 mg (2 2 mg subcut UD 12/05/24 02/25/25 History mg/3 mL) subcutaneous pen injector (Ozempic) tramadol 50 mg tablet 50 mg PO BID PRN pain #90 tabs 01/27/25 02/25/25 Rx NALOXONE NASAL SPRAY 1 spray intranasal DIRECTED PRN 02/19/25 02/25/25 History Other cholecalciferol (vitamin D3) 25 25 mcg PO DAILY 02/19/25 02/25/25 History mcg (1,000 unit) tablet enoxaparin 40 mg/0.4 mL 40 mg subcut DAILY 02/19/25 02/25/25 History subcutaneous syringe mecobalamin (vitamin B12) 1 tab PO DAILY 02/19/25 02/25/25 History ondansetron 4 mg disintegrating 4 mg PO Q6H PRN nausea and vomiting 02/19/25 02/25/25 History tablet oxycodone 5 mg tablet See Rx Instructions PO Q4H PRN Pain 02/19/25 02/25/25 History vancomycin 25 mg/mL oral solution 125 mg PO Q6H 02/19/25 02/25/25 History amlodipine 5 mg tablet 5 mg PO QPM 02/25/25 02/25/25 History lisinopril 40 mg tablet 40 mg PO UD 02/25/25 02/25/25 History pantoprazole 40 mg tablet,delayed 40 mg PO UD 02/25/25 02/25/25 History release Patient History Medical History Diabetes mellitus, type 2 Fall Syncope History of esophageal dilatation Morbid obesity Urinary retention s/p urinary catheter (05/2021)- since removed BPH (benign prostatic hyperplasia) Insulin pump in place History of TMJ syndrome Hypertension Hyperlipidemia Dysesthesia R/L feet Surgical History History of prostate biopsy (~10/05/21) under MAC anesthesia @ [facility] History of surgery Exam under anesthesia, removal of skin tags, fistulotomy (01/09/18): Grade view 1 with Glidescope#4, ETT 8.0 (difficult mask. vent with 2 person 2/2 hamilton > elective glidescope with minimal neck extension- ETT easily passed, small right upper lip laceration noted) History of esophagogastroduodenoscopy (EGD) History of colonoscopy Hx of LASIK History of cataract surgery RT/LEFT History of tooth extraction RECENT TOOTH EXTRACTION H/O knee surgery Spur removed from knee History of tonsillectomy and adenoidectomy H/O neck surgery History of carpal tunnel surgery RT Family History Aunt Diabetes Father Lung cancer Sister Diabetes Other No family history of adverse response to anesthesia Denies family history of Ovarian cancer Prostate cancer Myocardial infarction Breast cancer Colorectal cancer Hypertension Stroke Social History Smoking Status: Never smoker Second Hand Exposure: No; Do You Dip or Chew Tobacco: No; Hx Alcohol Use: Yes Alcohol type: beer Alcohol Intake Frequency: Monthly or Less Hx Substance Use: No Preferred Language: Maori Communication Ability: Effective Visual Impairment: No Limitations Hearing Ability: Normal Boatswain Mate Required: No Beliefs That Will Affect Care: None marital status: / Current Living Situation: Alone Current Living Situation Comment: Lives home alone 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 How many Children do You have: 2 Other Information That Helps Us Care for You: No Feels Safe at Home: Yes Safety Concerns: Feels Safe At This Time Childhood Exposure to Second-Hand Smoke: No Diet: regular caffeine: Yes (coffee) during the past year weight has: remained stable Dental Care, Regularly: Yes Physical Activity Frequency: Daily Seatbelt Use: always Sunscreen Use: Yes Do you think of yourself as: straight/heterosexual Gender Identity: Male Assistive Devices: Walker and Wheelchair Review of Systems Review of Systems: All systems reviewed & are unremarkable except as noted in HPI & below Physical Exam Constitutional: WD/WN, vitals as above Respiratory: normal respiratory effort; no respiratory distress Cardiovascular: Rate/Rhythm: regular rate and regular rhythm Extremities: no edema Gastrointestinal (Abdomen): Inspection/Auscultation: abdomen normal to inspection Percussion/Palpation: abdomen soft Neurologic: CN's II-XI intact bilaterally and moves all extremities Psychiatric: A+Ox3, euthymic affect Results & Data Vital Signs (Past 12 Hours) Vital Signs Temp Pulse Resp BP BP Pulse Ox O2 Del Method 02/27/25 15:17 36.7 C 89 16 143/75 H 98 Room Air 02/27/25 08:00 36.8 C 85 18 132/72 98 Room Air
[2025-02-27] MEDS: IRON SUCROSE 200 MG in SODIUM CHLORIDE 0.9% 100 ML IV ONE (20:51)
[2025-02-28] MEDS ORDERED: Nursing to Pharmacy Communication SCH ×2 (00:45→19:00)
[2025-02-28] MEDS: INSULIN, Rapid-Acting PUMP SCH ×2 (06:43→20:30)
--- NOTE | 2025-02-28 07:38 | History & Physical Bridge Note ---
Date of Service February 28, 2025 History & Physical Bridge Note Patient for insertion of vena cava filter. I have discussed the risks options and benefits of the procedure with the patient. The patient understands the risks options and benefits and agrees to the procedure. I have examined the patient, reviewed the History & Physical and in the interval since the performance of the History & Physical I have noted the following changes of clinical significance: no changes noted
[2025-02-28 08:15] LABS: Hematocrit (blood only) 26.8 % (42.0-52.0); Hemoglobin 8.6 g/dl (14.0-18.0); Mean Corpuscular Hemoglobin 26.1 pg (25.0-34.0); Mean Corpuscular Hgb Conc 32.1 g/dL (32.0-36.0); Mean Corpuscular Volume 81.2 fL (80.0-100.0); Mean Platelet Volume 11.2 fL (9.4-12.4); Platelet Count 342 K/uL (130-400); RDW Coefficient of Variation 15.7 % (11.5-14.5); RDW Standard Deviation 46.5 fL (36.4-46.3); White Blood Count 7.04 K/ul (4.8-10.8)
[2025-02-28 08:30] LABS: Albumin Globulin Ratio 1.3 (0.9-2); BUN Creatinine Ratio 11.1 (10-20); Bilirubin,Total 0.7 mg/dl (0.2-1.0); Globulin 2.3 gm/dl (2.5-4.0); Potassium 3.5 mmol/L (3.5-5.1); Total Protein 5.3 gm/dl (6.0-8.3)
[2025-02-28] MEDS: IRON SUCROSE 300 MG in SODIUM CHLORIDE 0.9% 250 ML IV ONE (10:02)
[2025-02-28] MEDS: CLINDAMYCIN/D5W 900 MG/50 ML BAG IV SCH (13:45)
--- NOTE | 2025-02-28 13:47 | Pre Anesthesia Assessment ---
Date of Service February 28, 2025 Pre Sedation Assessment Vital Signs Temp Pulse Pulse Pulse Resp BP BP 02/28/25 13:07 36.6 C 98 H 18 157/76 H 02/28/25 12:02 02/28/25 11:04 36.7 C 104 H 18 149/69 H 02/28/25 08:46 74 02/28/25 07:16 36.7 C 84 18 121/68 02/28/25 04:32 36.7 C 73 20 143/64 H 02/28/25 04:05 84 02/27/25 23:33 36.4 C L 89 20 165/80 H 02/27/25 20:10 02/27/25 19:18 37.0 C 86 20 149/77 H 02/27/25 18:12 02/27/25 18:11 93 H 02/27/25 15:17 36.7 C 89 16 143/75 H Pulse Ox O2 Del Method 02/28/25 13:07 96 Room Air 02/28/25 12:02 Room Air 02/28/25 11:04 96 Room Air 02/28/25 08:46 02/28/25 07:16 96 Room Air 02/28/25 04:32 96 Room Air 02/28/25 04:05 02/27/25 23:33 99 Room Air 02/27/25 20:10 Room Air 02/27/25 19:18 99 Room Air 02/27/25 18:12 Room Air 02/27/25 18:11 02/27/25 15:17 98 Room Air Cardiovascular RRR, no murmur, no edema Respiratory normal respiratory effort, lungs clear to auscultation Pre-Sedation Airway Assessment Smoking Status: Never smoker Hx Sleep Apnea: No Short, Thick Neck: Yes Thyromental Distance: > or= 3.5 Finger Breadths Oral Cavity: + WNL Mallampati Class: III ASA: ASA3 NPO Status Date of Last Intake of Fluids: 02/27/25 Time of Last Intake of Fluids: 23:00 Date of Last Intake of Solid Food: 02/27/25 Time of Last Intake of Solid Foods: 20:00 Procedure Planning Contraindications for Sedation: none Current Medications Reviewed: Yes Notes The planned sedation has been discussed with the patient. Informed Consent was obtained. I have identified the patient, determined the appropriateness of sedation and have assessed the patient immediately prior to the procedure. All medicine(s) and interventions are by my order.
--- NOTE | 2025-02-28 13:52 | Hospitalist Progress Note ---
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 his CT scan also found splenomegaly and prostate enlargement with chronic outflow obstruction pulmonary embolus hypotension, PAYAM weakness, intraductal papillary mucinous neoplasm of pancreas s/p surgery at [facility] (january 2025) hx of C. difficiel diarrhea type 2 insulin dependent diabetes on insulin pump hx of dysphagia s/p multiple esophgeal dilation hypertension GERD decubitus ulcer insomnia overall plan continue to hold lisinopril and hctz provide another dose of iron infusion breakthrough PE on lovenox (was dc from [facility] with lovenox) plan for IVC filter today, insurance declined [facility] supsect weakness from symptomatic anemia superimpose on deconditoning h/h drop from 13 (baseline) ---> 8.5 may provide another unit of blood prior to discharge daughter updatd at bedside #AMS improving; AAox3 breakthrough PE on lovenox planning for IVC filter on 02/28 splenomegaly continue to monitor prostate megaly with bladder wall thickening bladder scan, may need flomax. for obstruction weakness, symptomatic anemia iron deficiency, s/p IV infusion will provide another unit of blood transufsion nonobstructing renal calculi #Renal insufficiency creatinine stable close to baseline. gentle IV fluid hold lisinopril and hctz creatinine improved to 1.18 hx of pancreatic procedure was at [facility] in early february and needed ICU states after he's developed hypotension he's was dc with lovenox #symptomatic Anemia S/p partial pancreatectomy, no active bleeding per patient baseline h/h of 13. give iron transfusion while here #[id number] on insulin pump H/o DMT2, on insulin, with hypoinsulinemia and s/p partial pancreatectomy. At home regimen insulin lispro and semaglutide weekly. With insulin pump in place; follows with endocrinology. - Most recent A1C 11/2024 @ 6.4% - May use own insulin pump - BSG ACHS - Adjust regimen as needed - Please contact patient's resident associate per patient's request #C. diff Previously identified C. difficile as diagnosed per [facility] discharge summary on 02/16/2025, placed on vancomycin every 6 hours currently only has one bowel movement per day discussed in the future; if he has antibiotics will need vancomycin taper #Bed sores Patient expresses concern for bedsores on backside - Wound care q shift - Turn q2hr #Pain- Gabapentin, tramadol, oxycodone #HTN- Amlodipine, HCTZ, lisinopril (lisinopril and hctz being held) #HLD- Atorvastatin #GERD- Pantoprazole dysphagia s/p multiple esophageal dilatation Dispo: Admit, PCU VTE Prophylaxis: Heparin Admission and Anticipated Discharge Date Admission Date: February 25, 2025 Subjective Insurances have declined paying for acute [facility] On interview he denies shortness of breath status post IVC filter today Diarrhea slowed down Most likely discharge home tomorrow Daughter updated, requested for home services Review of Systems Review of Systems: Constitutional: weakness Cardiovascular: No Chest Pain, No SOB, No PND, No Dyspnea on Exertion, No Orthopnea, No Claudication, No Edema, No Palpitations Respiratory: No Cough, No Sputum, No Wheezing, No Smoke Exposure, No Dyspnea Gastrointestinal: diarrhea resolved; no hematochezia; no melena. no nausea, no vomiting Genitourinary: No Urinary Frequency, No Hematuria, No Urinary Incontinence, No Urgency, No Flank Pain, No Urinary Flow Changes, No Hesitancy Musculoskeletal: chronic back pain Neuro: no headache; no worsening witness; no dizziness \ Physical Exam Physical Exam: VITALS: Reviewed. WEIGHT/BMI reviewed. GEN: Healthy appearing, well-developed, NAD. overweight \ -Head: NC/AT; CV: RRR, no m/r/g. LUNGS: CTAB, no w/r/c. ABD: Soft, NT/ND, NBS, no masses or organomegaly. MSK; no presacral edema MSK: No deformities, Normal gait. EXT: No clubbing, cyanosis, or edema. NEURO: Ambulating with no limitations. Normal muscle strength and tone. No focal deficits. Results & Data Results & Data Vital Signs (Past 12 Hours) Vital Signs Temp Pulse Pulse Pulse Resp BP BP 02/28/25 13:07 36.6 C 98 H 18 157/76 H 02/28/25 12:02 02/28/25 11:04 36.7 C 104 H 18 149/69 H 02/28/25 08:46 74 02/28/25 07:16 36.7 C 84 18 121/68 02/28/25 04:32 36.7 C 73 20 143/64 H 02/28/25 04:05 84 Pulse Ox O2 Del Method 02/28/25 13:07 96 Room Air 02/28/25 12:02 Room Air 02/28/25 11:04 96 Room Air 02/28/25 08:46 02/28/25 07:16 96 Room Air 02/28/25 04:32 96 Room Air 02/28/25 04:05 Laboratory Results Abnormal lab results 02/27/25 02/27/25 02/28/25 Range/Units 16:16 20:10 00:30 RBC (4.70-6.10) M/uL Hgb (14.0-18.0) g/dl Hct (42.0-52.0) % RDW Std Deviation (36.4-46.3) fL RDW Coeff of Joselin (11.5-14.5) % Glucose (70-99(Fasting)) mg/dl POC Glucose 145 H 256 H 155 H (70-99) mg/dl Calcium (8.6-10.3) mg/dl Total Protein (6.0-8.3) gm/dl Albumin (3.4-5.0) gm/dl Globulin (2.5-4.0) gm/dl 02/28/25 02/28/25 02/28/25 Range/Units 06:41 08:05 11:55 RBC 3.30 L (4.70-6.10) M/uL Hgb 8.6 L (14.0-18.0) g/dl Hct 26.8 L (42.0-52.0) % RDW Std Deviation 46.5 H (36.4-46.3) fL RDW Coeff of Joselin 15.7 H (11.5-14.5) % Glucose 128 H (70-99(Fasting)) mg/dl POC Glucose 110 H 226 H (70-99) mg/dl Calcium 8.0 L (8.6-10.3) mg/dl Total Protein 5.3 L (6.0-8.3) gm/dl Albumin 3.0 L (3.4-5.0) gm/dl Globulin 2.3 L (2.5-4.0) gm/dl 02/28/25 Range/Units 13:07 RBC (4.70-6.10) M/uL Hgb (14.0-18.0) g/dl Hct (42.0-52.0) % RDW Std Deviation (36.4-46.3) fL RDW Coeff of Joselin (11.5-14.5) % Glucose (70-99(Fasting)) mg/dl POC Glucose 204 H (70-99) mg/dl Calcium (8.6-10.3) mg/dl Total Protein (6.0-8.3) gm/dl Albumin (3.4-5.0) gm/dl Globulin (2.5-4.0) gm/dl Diagnostic Findings Chest X-Ray 02/25/25 01:29 EXAM: XR chest 1V portable CLINICAL HISTORY: Sepsis. TECHNIQUE: An X-ray image of the chest is obtained in AP projection. COMPARISON: 04/05/2022. FINDINGS: Pulmonary Parenchyma: Lungs show prominent perihilar bronchovascular markings. No evidence of consolidation, collapse, or focal opacities. No pulmonary nodules are identified. No evidence of pleural effusion or pleural thickening. Heart and Mediastinum: The heart size appears enlarged. No mediastinal widening or masses. No hilar or mediastinal lymphadenopathy. Bony Thorax: The bony thorax appears intact without fractures or deformities. 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 Soft Tissues: Soft tissues overlying the chest wall are unremarkable. IMPRESSION: 1. Prominent perihilar bronchovascular markings, a non-specific finding; clinical correlation is advised. 2. No acute cardiopulmonary abnormalities are identified. 3. No interval changes. Electronically signed by Danny Dash 02-25-2025 02:57 AM Abdomen/Pelvis CT 02/25/25 01:31 EXAM: CT abd pelvis IV con only CLINICAL HISTORY: fever, s/p abd surgery TECHNIQUE: Multiple contiguous axial images were obtained from the level of diaphragm to the pubis symphysis. This study was acquired after the IV administration of iodinated contrast material, given the patients indications for the examination. If IV contrast material had not been administered, the likelihood of detecting abnormalities relevant to the patients condition would have been substantially decreased. Coronal and sagittal reformatted images were generated and reviewed to improve anatomic localization and optimize lesion detection. CT scan was performed according to ALARA (as low as reasonable achievable). COMPARISON: with CT dated 05/17/2023 FINDINGS: The visualized lung bases shows subsegmental atelectasis changes and a thin walled cyst in left lung base measuring ~27 x 21mm.- as seen previously. ABDOMEN/PELVIS: The liver is normal in size and attenuation. No focal liver lesions are seen. There is no intra or extrahepatic biliary ductal dilatation. Hepatic vasculature is patent. The gallbladder is distended. Faint hyperdense content seen in dependent areas- could be sludge. The spleen is enlarged in size with ill defined hypodense areas within, largest measuring ~ 51 x 47 x 40mm - could represent areas of infarcts- suggest ultrasound correlation - new finding. The pancreas is diffusely replaced by fat, predominantly in the region of body and tail with fat stranding in pancreatic and peripancreatic regions. there is interval increase of fatty infiltration compared to previous study. Adrenal glands are unremarkable. The kidneys are normal in size and attenuation. There is no hydronephrosis. Minimal bilateral perinephric fat stranding. No renal masses are identified. Bosniak type 1 cyst in upper pole of left kidney. ~2mm radiodense calculi in lower pole of right and upper pole of left kidney. The ureters are normal in caliber and no ureteral calculi are seen. The bladder is normal in contour with diffusely thickening of wall, measuring upto 6mm in thickness. Enlarged and heterodense prostate measuring ~5.5 x 4.6 x 3.8cm No evidence of focal or diffuse bowel wall thickening or evidence of bowel obstruction is seen. No evidence of inflamed appendix. No adenopathy or fluid collections are seen. The aorta is normal in caliber. No aggressive appearing osseous lesions are identified. Degenerative changes in visualised spine. IMPRESSION: 1. Splenomegaly with interval development of hypodense areas within - could be infarcts - suggest ultrasound correlation - new finding. 2. Diffuse fatty infiltration of pancreas with peripancreatic fat stranding - advised correlation with serum amylase and lipase to rule out pancreatitis - new finding. 3. Prostatomegaly with diffuse urinary bladder wall thickening - could be due to chronic outflow obstruction - suggest clinical correlation. 4. Bilateral non obstructive renal calculi. 5. Faint hyperdense content seen in dependent area of gall bladder- could be sludge. Advised ultrasound correlation. Electronically signed by Yoel Montano 02-25-2025 03:55 AM Chest CTA 02/25/25 01:31 EXAM: CT angio chest PE protocol CLINICAL HISTORY: PE TECHNIQUE: Contiguous axial images were obtained from the neck base through the upper abdomen following intravenous administration of iodinated contrast material. Angiographic images were processed, 3D MIP images were acquired for interpretation. If IV contrast material had not been administered, the likelihood of detecting abnormalities relevant to the patient's condition would have been substantially decreased. Coronal and sagittal 3-D MIPs were likewise performed and indicated to increase the sensitivity of detectin diffuse clinically relevant pathology. CT scan was performed according to ALARA (as low as reasonable achievable). COMPARISON: None. FINDINGS: Hypodense filling defects are noted involving distal part of right main pulmonary artery extending into the anterior segmental branch of right upper lobe, right middle lobar artery, right lower lobar artery and its segmental branches - suggestive of pulmonary embolism. Small thin walled cyst/bulla is noted involving lingula. Few subsegmental atelectasis are noted involving bilateral lung bases. The central airways are patent. Rest of lungs are clear. No pleural effusion. The heart, aorta, and pulmonary arteries are of normal size and configuration. There are coronary artery and aortic atherosclerotic calcifications. No pericardial effusion is identified. The thyroid is unremarkable. No mediastinal, hilar, or axillary lymphadenopathy is noted. No suspicious lytic or sclerotic osseous lesions are identified. IMPRESSION: 1. Hypodense filling defects are noted involving distal part of right main pulmonary artery extending into the anterior segmental branch of right upper lobe, right middle lobar artery, right lower lobar artery and its segmental branches - suggestive of pulmonary thromboembolism. 2. Small thin walled cyst/bulla is noted involving lingula. 3. Few subsegmental atelectasis are noted involving bilateral lung bases. Electronically signed by Yoel Montano 02-25-2025 03:[address] 02/25/25 01:34 EXAM: CT head/brain wo con CLINICAL HISTORY: confusion TECHNIQUE: Multiple axial images are obtained from the skull base to the vertex without contrast. CT scan was performed according to ALARA (as low as reasonable achievable). COMPARISON: 17:34:[address] INTERPRETER . FINDINGS: There is cerebral atrophy. No evidence of space occupying lesion, hemorrhage, edema, mass effect, midline shift, extra axial collection, or hydrocephalus is noted. Basal cisterns are symmetric and normal in size and configuration. There are scattered periventricular hypodensities as can be seen with chronic microvascular ischemic changes. The mares-white matter differentiation is preserved. Visualized paranasal sinuses and mastoid air cells are well aerated. Orbital contents are within normal limits. Bony structures are intact. IMPRESSION: 1. No evidence of acute intracranial abnormality is demonstrated. 2. Chronic microvascular ischemic changes. 3. Cerebral atrophy. No other new interval abnormality since prior study. Electronically signed by Yoel Montano 02-25-2025 03:46 AM PG Care Time/CCT Total # of Minutes Spent Total Time Spent with Patient: Total time spent is greater than 50% in coordination of care (as documented) at patient's floor/unit and/or counseling patient: Coding Level of Care Code 09947 SUB INP/OBS CARE 2/35MIN Diagnoses Altered mental status R41.82 Pulmonary embolism I26.99 Renal insufficiency N28.9 Anemia D64.9 Time Spent (min) 35
[2025-02-28] MEDS: MIDAZOLAM HCL 1 MG/ML 2ML VIAL ONE (14:00)
[2025-02-28] MEDS: fentaNYL citrate PF 100 MCG/2 ML VIAL ONE (14:00)
[2025-02-28] MEDS: LIDOCAINE 1% LOCAL 20 ML VIAL ONE ×2 (14:12→14:50)
[2025-02-28] MEDS: VISIPAQUE IV PRN (14:13)
--- NOTE | 2025-02-28 14:15 | Post Operative Brief Note ---
Immediate Post Op Note Date of Surgery February 28, 2025 Pre & Post Diagnosis Operation Date: 02/28/25 14:00 Pre-Op Diagnosis: PE, hypercoagulable Post-Op Diagnosis: PE, hypercoagulable I identified the patient and participated in the time-out.: Yes Procedure Operation Date: 02/28/25 14:00 Actual Procedures p Insertion of Vena Cava Filter, Left Femoral Vein Approach, Ultrasound Localization of Left Femoral Vein, Moderate Sedation [id number](Left) - Justin House MD Surgeon Justin House MD Hoister MD Renetta Estimated Blood Loss 0 Findings Consistent with Post-Op Diagnosis Anesthesia Type RN Sedation Complications none Disposition Accompanied Patient To Recovery: No Disposition: Recovery Room
[2025-02-28] MEDS: OPTIRAY 300 IV PRN (14:17)
--- NOTE | 2025-02-28 14:20 | Post Anesthesia Assessment ---
Date of Service February 28, 2025 Post Sedation Assessment Vital Signs Temp Pulse Pulse Pulse Resp BP BP 02/28/25 14:15 90 18 124/70 02/28/25 14:10 86 18 128/74 02/28/25 14:05 86 18 132/74 02/28/25 14:00 84 18 138/79 02/28/25 13:55 80 18 148/78 H 02/28/25 13:07 36.6 C 98 H 18 157/76 H 02/28/25 12:02 02/28/25 11:04 36.7 C 104 H 18 149/69 H 02/28/25 08:46 74 02/28/25 07:16 36.7 C 84 18 121/68 02/28/25 04:32 36.7 C 73 20 143/64 H 02/28/25 04:05 84 02/27/25 23:33 36.4 C L 89 20 165/80 H 02/27/25 20:10 02/27/25 19:18 37.0 C 86 20 149/77 H 02/27/25 18:12 02/27/25 18:11 93 H 02/27/25 15:17 36.7 C 89 16 143/75 H Pulse Ox O2 Del Method O2 Flow Rate 02/28/25 14:15 98 Room Air 02/28/25 14:10 100 Oxymask 3 02/28/25 14:05 100 Oxymask 3 02/28/25 14:00 100 Oxymask 3 02/28/25 13:55 97 Room Air 02/28/25 13:07 96 Room Air 02/28/25 12:02 Room Air 02/28/25 11:04 96 Room Air 02/28/25 08:46 02/28/25 07:16 96 Room Air 02/28/25 04:32 96 Room Air 02/28/25 04:05 02/27/25 23:33 99 Room Air 02/27/25 20:10 Room Air 02/27/25 19:18 99 Room Air 02/27/25 18:12 Room Air 02/27/25 18:11 02/27/25 15:17 98 Room Air Recovery Score Activity: Moves 4 extremities Respiration: Deep Breath/Cough Circulation: +/-20% PreAnes Value Consciousness: Fully Awake Oxygen Saturation: > 92% On Room Air Post Anesthesia Score: 10 Discharge Sedation Level of Care: Fast Track Phase II Post Sedation Plan On clinical assessment, the patient appears to have tolerated the sedation without complications. Patient is recovering as anticipated. Patient will continue to be monitored by nursing and may be discharged when sedation discharge criteria are met per below protocol. Upon Completions of procedure up to 15 minutes continue every 5 minute vital signs and the P.A.R. score; then discharge to a Phase I or Fast Track to Phase II per the following guidelines: * Discharge Patient to appropriate Phase II area if PAR is 8 or greater or return to pre- procedure baseline. The post - procedure orders will be as directed. * If PAR score is less than 8 or not return to pre-procedure baseline then patient will follow Phase I monitoring till PAR is reached for Phase II. The Phase I may be done in procedure room or may call to secure a Phase I area. * If naloxone or flumazenil are used for reversal, hold in Phase I for continued monitoring from when last reversal dose was given for a minimum of 60 minutes or longer pending the nurse and/or physician discretion of patient condition before discharge to Phase II. Please call the Sedation Physician to re-evaluate and complete post-note for discharge to Phase II area. Do NOT discharge from procedure sedation or Phase 1 until post- sedation evaluation note is complete by procedure /sedation MD Sedation Discharge Instructions to be given to the patient at discharge to home.
--- NOTE | 2025-02-28 14:20 | Operative Report ---
Post Operative Report Pre & Post Diagnosis Operation Date: 02/28/25 14:00 Pre-Op Diagnosis: PE, hypercoagulable Post-Op Diagnosis: PE, hypercoagulable I identified the patient and participated in the time-out.: Yes Procedure Operation Date: 02/28/25 14:00 Actual Procedures p Insertion of Vena Cava Filter, Left Femoral Vein Approach, Ultrasound Localization of Left Femoral Vein, Moderate Sedation [id number](Left) - Justin House MD Surgeon Justin House MD Shoe Planner Ilia Caban MD Estimated Blood Loss 0 Findings Consistent with Post-Op Diagnosis IVC patent without thrombus. CFV patent without thrombus. IVC filter successfully placed in infrarenal position within the IVC Specimens None Anesthesia Type RN Sedation Complications None Disposition Accompanied Patient To Recovery: No Indications Tyshawn Garner is a 79 year old male with in a current hypercoaguable state secondary to malignancy and unable to tolerate anticoagulation. After discussion of the risks vs benefits he elected for IVC filter placement Description of Procedure The patient was brought to the angio suite and placed in the supine position. The left groin was prepped and draped in the usual fashion. The left femoral vein was located with ultrasound. It was patent, compressed easily, and had no filling defects. The vein was then punctured under ultrasound visualization. A guidewire was then passed centrally into the inferior vena cava under fluoroscopic guidance. The puncture site was then dilated and the filter sheath inserted. It was passed to the infra renal vena cava. A venacavagram was done which showed no cava clot and an acceptable size. The renal veins were identified. The filter was then passed through the sheath and deployed in the infra renal vena cava in an upright position. Satisfied with the positioning of the filter, the sheath was removed. Pressure was applied to the puncture site. Adequate hemostasis was obtained and a sterile dressing was applied. The patient left the angio suite in good condition and tolerated the procedure well. A total of 1.6min fluoroscopy time, 67 mGy and 15cc contrast were used for the duration of the case Dr. House was present and scrubbed for the entire procedure. I attest to the content of the Intraoperative Record and any orders documented therein. Any exceptions are noted below. Supervising Physician Co-Signing Physician Notes Justin House MD
[2025-02-28] MEDS: PANTOprazole 40 MG TAB PO SCH (16:26)
[2025-02-28] MEDS: oxyCODONE HCL IR 5 MG TAB (IMMEDIATE RELEASE) PO PRN (16:30)
[2025-03-01 07:26] LABS: Hematocrit (blood only) 26.5 % (42.0-52.0); Hemoglobin 8.2 g/dl (14.0-18.0); Mean Corpuscular Hemoglobin 25.5 pg (25.0-34.0); Mean Corpuscular Hgb Conc 30.9 g/dL (32.0-36.0); Mean Corpuscular Volume 82.6 fL (80.0-100.0); Mean Platelet Volume 11.4 fL (9.4-12.4); Nucleated RBC # (auto) 0.04 K/uL (0.00-0.12); Nucleated RBC % (auto) 0.6 %; Platelet Count 359 K/uL (130-400); RDW Coefficient of Variation 16.1 % (11.5-14.5); RDW Standard Deviation 48.9 fL (36.4-46.3); Red Blood Count 3.21 M/uL (4.70-6.10); White Blood Count 7.11 K/ul (4.8-10.8)
[2025-03-01 07:50] LABS: BUN Creatinine Ratio 8.5 (10-20); Calcium 8.2 mg/dl (8.6-10.3); Potassium 3.7 mmol/L (3.5-5.1)
[2025-03-01] MEDS: POTASSIUM CHLORIDE 20 MEQ/15 ML UDC PO SCH (09:04)
[2025-03-01] MEDS ORDERED: SODIUM CHLORIDE 0.9% 100 ML IV PRN (09:22)
[2025-03-01] MEDS: hydroCHLOROthiazide 25 MG TAB PO SCH (10:25)
--- NOTE | 2025-03-01 10:36 | Hospitalist Progress Note ---
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 his CT scan also found splenomegaly and prostate enlargement with chronic outflow obstruction breakthrough pulmonary embolus on lovenox deconditoning, anemia C. difficle diarrhea hypotension, PAYAM intraductal papillary mucinous neoplasm of pancreas s/p surgery at [facility] [[email or web address] (january 2025) type 2 insulin dependent diabetes on insulin pump hx of dysphagia s/p multiple esophgeal dilation hypertension GERD decubitus ulcer insomnia overall plan case management will look for [facility] family expressed ongoing concerned about his ability to enter and leave the house giving him one unit of blood given profound weakness (h/h drop from 13 --> 8.5 over course of 3-4 months) s/p blood transfusion he will received iron infusion while at [facility] #AMS improving; AAox3 breakthrough PE on lovenox planning for IVC filter on 02/28 leg edema, resuming hctz on thursday 03/01 splenomegaly continue to monitor prostate megaly with bladder wall thickening bladder scan, may need flomax. for obstruction weakness, symptomatic anemia iron deficiency, s/p IV infusion giving one unit onf 03/01 nonobstructing renal calculi #Renal insufficiency creatinine stable close to baseline. gentle IV fluid hold lisinopril hctz was resumed on thursday 03/01 hx of pancreatic procedure was at [facility] [[email or web address]] in early february and needed ICU states after he's developed hypotension he's was dc with lovenox #symptomatic Anemia S/p partial pancreatectomy, no active bleeding per patient baseline h/h of 13. give iron transfusion while here #H3RN-oh's on insulin pump he's been using his insulin pump here H/o DMT2, on insulin, with hypoinsulinemia and s/p partial pancreatectomy. At home regimen insulin lispro and semaglutide weekly. With insulin pump in place; follows with endocrinology. - Most recent A1C 11/2024 @ 6.4% - May use own insulin pump - BSG ACHS - Adjust regimen as needed - Please contact patient's vascular tech per patient's request #C. diff Previously identified C. difficile as diagnosed per [facility] discharge summary on 02/16/2025, placed on vancomycin every 6 hours currently only has one bowel movement per day discussed in the future; if he has antibiotics will need vancomycin taper #Bed sores Patient expresses concern for bedsores on backside - Wound care q shift - Turn q2hr #Pain- Gabapentin, tramadol, oxycodone #HTN- Amlodipine, HCTZ, lisinopril (lisinopril and hctz being held) #HLD- Atorvastatin #GERD- Pantoprazole dysphagia s/p multiple esophageal dilatation Dispo: Admit, PCU VTE Prophylaxis: Heparin Admission and Anticipated Discharge Date Admission Date: February 25, 2025 Subjective He is still having weaknesses I suspect his weakness this is related to deconditioning and significant drop on H&H from 13-8.9 over period of 2 to 3 months 1 unit of blood today, no chest pain Status post IVC filter Leg edema, resuming hydrochlorothiazide 25 mg Diarrhea is slowing down I would extend the course of his vancomycin to control the C. difficile Review of Systems Review of Systems: Constitutional: Positive for weakness this, no fever no chills Cardiovascular: No Chest Pain, No SOB, No PND, No Dyspnea on Exertion, No Orthopnea, No Claudication, No Edema, No Palpitations Respiratory: No Cough, No Sputum, No Wheezing, Gastrointestinal: No Nausea, No Vomiting, No abdominal pain no hematochezia, diarrhea slowing down Musculoskeletal: Chronic back pain Neuro: Positive for weaknesses, negative for dizziness Physical Exam Physical Exam: VITALS: Reviewed. WEIGHT/BMI reviewed. GEN: Healthy appearing, well-developed, NAD. -Head: NC/AT; -Eyes: PERRL, EOMI. No discharge or redn ess; -Ears: External ears are normal. Normal TMs. -Nose: Normal nares. CV: RRR, no m/r/g. LUNGS: CTAB, no w/r/c. ABD: Soft, NT/ND, NBS, no masses or organomegaly. 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 EXT: No clubbing, cyanosis, or edema. NEURO: AAox3 Results & Data Results & Data Vital Signs (Past 12 Hours) Vital Signs Temp Pulse Pulse Resp BP Pulse Ox O2 Del Method 03/01/25 08:00 36.6 C 90 20 144/72 H 96 Room Air 03/01/25 07:25 73 03/01/25 03:04 36.7 C 77 16 141/68 H 97 Room Air Laboratory Results Abnormal Lab Results 02/28/25 02/28/25 02/28/25 11:55 13:07 16:04 WBC RBC Hgb Hct MCV MCH MCHC RDW Std Deviation RDW Coeff of Joselin Plt Count MPV Absolute Nucleated RBC Nucleated RBC % (auto) Sodium Potassium Chloride Carbon Dioxide Anion Gap BUN Creatinine Est Cr Clr Drug Dosing eGFR BUN/Creatinine Ratio Glucose POC Glucose 226 H 204 H 171 H Calcium Blood Type Recheck Crossmatch 02/28/25 03/01/25 03/01/25 20:10 07:01 07:12 WBC 7.11 RBC 3.21 L Hgb 8.2 L Hct 26.5 L MCV 82.6 MCH 25.5 MCHC 30.9 L RDW Std Deviation 48.9 H RDW Coeff of Joselin 16.1 H Plt Count 359 MPV 11.4 Absolute Nucleated RBC 0.04 Nucleated RBC % (auto) 0.6 Sodium 139 Potassium 3.7 Chloride 104 Carbon Dioxide 30 Anion Gap 5 BUN 10 Creatinine 1.17 Est Cr Clr Drug Dosing 68.0 eGFR 63.81 BUN/Creatinine Ratio 8.5 L Glucose 109 H POC Glucose 143 H Calcium 8.2 L Blood Type Recheck A Positive Crossmatch 03/01/25 03/01/25 07:14 09:29 WBC RBC Hgb Hct MCV MCH MCHC RDW Std Deviation RDW Coeff of Joselin Plt Count MPV Absolute Nucleated RBC Nucleated RBC % (auto) Sodium Potassium Chloride Carbon Dioxide Anion Gap BUN Creatinine Est Cr Clr Drug Dosing eGFR BUN/Creatinine Ratio Glucose POC Glucose 116 H Calcium Blood Type Recheck Crossmatch See Detail Medications Administered Current Inpatient Medications Acetaminophen (Acetaminophen 325 Mg Tab) 650 mg PO Q4H PRN PRN Reason: Pain or Fever Stop: 03/27/25 08:54 Last Admin: 02/28/25 22:34 Dose: 650 mg Amlodipine Besylate (Amlodipine Besylate 5 Mg Tab) 5 mg PO QPM [facility] Stop: 03/27/25 20:59 Last Admin: 02/28/25 22:36 Dose: 5 mg Aspirin (Aspirin 81 Mg Ectab) 81 mg PO QAM [facility] Stop: 03/27/25 08:59 Last Admin: 03/01/25 09:07 Dose: 81 mg Atorvastatin Calcium (Atorvastatin 10 Mg Tab) 5 mg PO [facility] Stop: 03/27/25 20:59 Last Admin: 02/28/25 22:36 Dose: 5 mg Wallace Syrup (Wallace Syrup 5 Ml Udp) 5 ml PO Q6 [facility] Stop: 03/04/25 23:59 Last Admin: 03/01/25 06:26 Dose: 5 ml Dextrose (Dextrose 50% 50 Ml Syringe) 25 - 50 ml IV UD PRN; Protocol PRN Reason: Hypoglycemia Protocol Stop: 03/27/25 14:36 Gabapentin (Gabapentin 300 Mg Cap) 300 mg PO [facility] Stop: 03/27/25 20:59 Last Admin: 02/28/25 22:37 Dose: 300 mg Glucagon (Glucagon For Inj 1 Mg Vial) 1 mg SQ UD PRN; Protocol PRN Reason: Hypoglycemia Protocol Stop: 03/27/25 14:36 Glucose (Glucose 40% Gel 15 Gm Tube) 15 - 30 gm PO UD PRN; Protocol PRN Reason: Hypoglycemia Protocol Stop: 03/27/25 14:36 Glucose (Glucose 10 Tab/Tube) 4 - 8 tab PO UD PRN; Protocol PRN Reason: Hypoglycemia Protocol Stop: 03/27/25 14:36 Hydrochlorothiazide ([facility]chlorothiazide 25 Mg Tab) [facility] Stop: 03/31/25 09:29 Last Admin: 03/01/25 10:25 Dose: 25 mg Sodium Chloride (Nss) 100 mls @ 15 mls/hr IV .Q6H40M PRN PRN Reason: For Transfusion Duration Stop: 03/01/25 17:23 Insulin Aspart (Insulin Aspart 100 Units/Ml Vial) 0 units SC PRN PRN PRN Reason: Pump Refill Use ONLY Stop: 03/27/25 09:14 Insulin Aspart (Insulin, Rapid-Acting Pump) 0 each N/A ACHS [facility]; Protocol Stop: 03/30/25 05:59 Last Admin: 03/01/25 09:07 Dose: 8.6 each Ioversol (Optiray 300) 15 ml IV UD PRN PRN Reason: Interaction Checking Stop: 03/04/25 14:15 Last Admin: 02/28/25 14:17 Dose: 15 ml Miscellaneous (Continuous Glucose Monitor) 0 each N/A ACHS [facility] Stop: 03/27/25 16:29 Last Admin: 03/01/25 09:06 Dose: 1 each Miscellaneous (Carbohydrates For Hypoglycemia ) 15 - 30 gm PO UD PRN PRN Reason: Hypoglycemia Protocol Stop: 03/27/25 15:55 Ondansetron HCl (Ondansetron Inj 2 Mg/Ml 2 Ml Vial) 4 mg IV Q6H PRN PRN Reason: Nausea Stop: 03/27/25 08:54 Oxycodone HCl (Oxycodone Hcl Ir 5 Mg Tab (Immediate Release)) 5 - 10 mg PO Q4H PRN PRN Reason: Pain Stop: 03/11/25 08:54 Last Admin: 02/28/25 16:30 Dose: 5 mg Pantoprazole Sodium (Pantoprazole 40 Mg Tab) 40 mg PO DAILY [facility] Stop: 03/30/25 14:59 Last Admin: 03/01/25 09:07 Dose: 40 mg Potassium Chloride (Potassium Chloride 20 Meq/15 Ml Udc) 40 meq PO QAM [facility] Stop: 03/31/25 08:59 Last Admin: 03/01/25 09:04 Dose: 40 meq Trazodone HCl (Trazodone Hcl 100 Mg Tab) 100 mg PO HS [facility] Stop: 03/27/25 20:59 Last Admin: 02/28/25 22:36 Dose: 100 mg Vancomycin HCl (Vancomycin Hcl 125 Mg/2.5ml Soln) 125 mg PO Q6 [facility] Stop: 03/04/25 23:59 Last Admin: 03/01/25 06:32 Dose: 125 mg PG Care Time/CCT Total # of Minutes Spent Total Time Spent with Patient: Total time spent is greater than 50% in coordination of care (as documented) at patient's floor/unit and/or counseling patient: Coding Level of Care Code 00833 SUB INP/OBS CARE 2/35MIN Diagnoses Altered mental status R41.82 Pulmonary embolism I26.99 Renal insufficiency N28.9 Anemia D64.9
[2025-03-02 06:18] LABS: BUN Creatinine Ratio 7.6 (10-20); Calcium 8.2 mg/dl (8.6-10.3)
[2025-03-02 06:25] LABS: Hematocrit (blood only) 28.6 % (42.0-52.0); Hemoglobin 9.2 g/dl (14.0-18.0); Mean Corpuscular Hemoglobin 26.2 pg (25.0-34.0); Mean Corpuscular Hgb Conc 32.2 g/dL (32.0-36.0); Mean Corpuscular Volume 81.5 fL (80.0-100.0); Mean Platelet Volume 11.7 fL (9.4-12.4); Nucleated RBC # (auto) 0.02 K/uL (0.00-0.12); Nucleated RBC % (auto) 0.3 %; Platelet Count 328 K/uL (130-400); RDW Coefficient of Variation 15.9 % (11.5-14.5); RDW Standard Deviation 46.7 fL (36.4-46.3); Red Blood Count 3.51 M/uL (4.70-6.10)
[2025-03-02] MEDS: VITAMIN B COMPLEX TAB PO SCH (08:33)
[2025-03-02] MEDS: CEROVITE ADV FORMULA TAB PO SCH (08:33)
[2025-03-02] MEDS: IRON SUCROSE 200 MG in SODIUM CHLORIDE 0.9% 100 ML IV ONE (08:33)
[2025-03-02] MEDS ORDERED: ENOXAPARIN 1.5 MG/KG SQ SCH (12:00)
--- NOTE | 2025-03-02 12:11 | Hospitalist Progress Note ---
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 his CT scan also found splenomegaly and prostate enlargement with chronic outflow obstruction breakthrough pulmonary embolus on lovenox PAYAM, hypotension deconditoning, anemia C. difficle diarrhea decubitus ulcer intraductal papillary mucinous neoplasm of pancreas s/p surgery at [facility] (january 2025) type 2 insulin dependent diabetes on insulin pump hx of dysphagia s/p multiple esophgeal dilation hypertension GERD insomnia overall plan no new distress; placement to [facility] s/p blood transfusion PAYAM improving and may re-introduce lisinopril 40mg giving him iron infusion here begin lovenox on 03/02/2024 for breakthrough PE, likely need 3-6 months courses f/u with hematology breakthrough PE on lovenox s/p IVC filter on 02/28 begin lovenox on 03/02/2025 C.difficile diarrhea plan for 14 days course of vancomycin PAYAM, improving holding lisinorpil for another 24 hours creatinine of 1.1 leg edema, resuming hctz on thursday 03/01 improving splenomegaly continue to monitor prostate megaly with bladder wall thickening heidi explained that he s/p prostate removal at [facility] no outflow symptoms weakness, symptomatic anemia iron deficiency, s/p IV infusion giving one unit onf 03/01 nonobstructing renal calculi hx of IMPN s/p whipppe procedure at [facility]. was at [facility] in early february and needed ICU states after he's developed hypotension #symptomatic Anemia S/p partial pancreatectomy, no active bleeding per patient baseline h/h of 13. s/p transufsion on 03/01/2025 (one unit), no melena, no bloody stool #[id number] on insulin pump he's been using his insulin pump here H/o DMT2, on insulin, with hypoinsulinemia and s/p partial pancreatectomy. At home regimen insulin lispro and semaglutide weekly. With insulin pump in place; follows with endocrinology. 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 per patient's request #Bed sores Patient expresses concern for bedsores on backside - Wound care q shift - Turn q2hr #Pain- Gabapentin, tramadol, oxycodone #HTN- Amlodipine, HCTZ, lisinopril (lisinopril and hctz being held) #HLD- Atorvastatin #GERD- Pantoprazole dysphagia s/p multiple esophageal dilatation Dispo: Admit, PCU VTE Prophylaxis: Heparin Admission and Anticipated Discharge Date Admission Date: February 25, 2025 Subjective He is status post blood transfusion H&H improved from 8.2 to 9.2 We will resume his hydrochlorothiazide 25 mg yesterday leg edema improved Plan for placement to short-term rehab Resume Lovenox Potential discharge tomorrow if kidney function stable H&H stable Review of Systems Review of Systems: Constitutional: No Weight Change, No Fever, No Chills, No Night Sweats, No Fatigue, No Malaise ENT/Mouth: No Hearing Changes, No Ear Pain, No Nasal Congestion, No Sinus Pain, No Hoarseness, No sore throat, No Rhinorrhea, No Swallowing Difficulty Eyes: No Eye Pain, No Swelling, No Redness, No Foreign Body, No Discharge, No Vision Changes Cardiovascular: No Chest Pain, No SOB, No PND, No Dyspnea on Exertion, No Orthopnea Gastrointestinal: No Nausea, No Vomiting, No Diarrhea, No Constipation, diarrhea resolved Genitourinary: + for hx of prostate surgery Skin: No Skin Lesions, No Pruritis, No Hair Changes, No Breast/Skin Changes, No Nipple Discharge Neuro: no worsening weakness Heme/Lymph: No Bruising, No Bleeding, No Transfusions History, No Lymphadenopathy Endocrine: + for hx of type 1 diabetes on insulin pump Physical Exam Physical Exam: VITALS: Reviewed. GEN: Healthy appearing, well-developed, NAD. PSYCH: Good Judgment. AOx3. Normal memory, mood, and affect. HEENT -Head: NC/AT; -Mouth and throat: MMM. Normal gums, muc autumn, palate,. Good dentition. NECK: Supple, with no masses. CV: RRR, no m/r/g. LUNGS: CTAB, no w/r/c. ABD: Soft, NT/ND, NBS, no masses or organomegaly. no LLQ tenderness : N/A MSK: No deformities, Normal gait. EXT: No clubbing, cyanosis, or edema. NEURO:AAOx 3; no numbness Results & Data Results & Data Vital Signs (Past 12 Hours) Vital Signs Temp Pulse Pulse Pulse Resp BP Pulse Ox 03/02/25 11:05 36.5 C 93 H 20 167/72 H 98 03/02/25 07:00 36.7 C 90 20 124/76 96 03/02/25 02:45 36.6 C 80 18 126/71 96 03/02/25 01:00 03/02/25 00:10 66 O2 Del Method O2 Del Method 03/02/25 11:05 Room Air 03/02/25 07:00 Room Air 03/02/25 02:45 Room Air 03/02/25 01:00 Room Air 03/02/25 00:10 Laboratory Results 03/02/25 03/02/25 03/01/25 07:07 05:27 22:20 WBC 6.50 RBC 3.51 L Hgb 9.2 L Hct 28.6 L MCV 81.5 MCH 26.2 MCHC 32.2 RDW Std Deviation 46.7 H RDW Coeff of Joselin 15.9 H Plt Count 328 MPV 11.7 Absolute Nucleated RBC 0.02 Nucleated RBC % (auto) 0.3 Sodium 138 Potassium 4.0 Chloride 105 Carbon Dioxide 29 Anion Gap 4 BUN 9 Creatinine 1.18 Est Cr Clr Drug Dosing 68.0 eGFR 63.16 BUN/Creatinine Ratio 7.6 L Glucose 111 H POC Glucose 124 H 164 H Calcium 8.2 L Crossmatch 03/01/25 09:29 WBC RBC Hgb Hct MCV MCH MCHC RDW Std Deviation RDW Coeff of Joselin Plt Count MPV Absolute Nucleated RBC Nucleated RBC % (auto) Sodium Potassium Chloride Carbon Dioxide Anion Gap BUN Creatinine Est Cr Clr Drug Dosing eGFR BUN/Creatinine Ratio Glucose POC Glucose Calcium Crossmatch See Detail Diagnostic Findings Laboratory Results WBC 6.50 K/ul (4.8-10.8) 03/02/25 05:27 RBC 3.51 M/uL (4.70-6.10) L 03/02/25 05:27 Hgb 9.2 g/dl (14.0-18.0) L 03/02/25 05:27 Hct 28.6 % (42.0-52.0) L 03/02/25 05:27 MCV 81.5 fL (80.0-100.0) 03/02/25 05:27 MCH 26.2 pg (25.0-34.0) 03/02/25 05: MCHC 32.2 g/dL (32.0-36.0) 03/02/25 05: RDW Std Deviation 46.7 fL (36.4-46.3) H 03/02/25 05: RDW Coeff of Joselin 15.9 % (11.5-14.5) H 03/02/25 05:27 Plt Count 328 K/uL (130-400) 03/02/25 05: MPV 11.7 fL (9.4-12.4) 03/02/25 05:27 Immature Gran % (Auto) 0.8 % 02/25/25 01: Neut % (Auto) 87.3 % 02/25/25 01: Lymph % (Auto) 6.6 % 02/25/25 01: Gonzales % (Auto) 4.9 % 02/25/25 01: Eos % (Auto) 0.1 % 02/25/25 01: Baso % (Auto) 0.3 % 02/25/25 01:29 Neut # (Auto) 7.81 K/uL (1.40-6.50) H 02/25/25 01:29 Lymph # (Auto) 0.59 K/uL (1.20-3.40) L 02/25/25 01:29 Gonzales # (Auto) 0.44 K/uL (0.11-0.59) 02/25/25 01: Eos # (Auto) 0.01 K/uL (0.00-0.50) 02/25/25 01:29 Baso # (Auto) 0.03 K/uL (0.00-0.20) 02/25/25 01:29 Immature Gran # (Auto) 0.07 K/uL (0.01-0.20) 02/25/25 01:29 Absolute Nucleated RBC 0.02 K/uL (0.00-0.12) 03/02/25 05:27 Nucleated RBC % (auto) 0.3 % 03/02/25 05:27 PT 12.5 Seconds (9.0-12.0) H 02/25/25 02:05 INR 1.2 (0.9-1.1) H 02/25/25 02:05 Heparin Anti-Xa, Unfract 0.32 IU/ml (0.3-0.7) 02/27/25 06:52 VBG pH 7.40 (7.36-7.41) 02/25/25 02:05 VBG pCO2 44 mmHg (38-50) 02/25/25 02:05 VBG pO2 22 mmHg 02/25/25 02:05 VBG HCO3 27 mmol/L 02/25/25 02:05 VBG O2 Saturation < 60.0 % 02/25/25 02:05 VBG Base Excess 2.0 mEq/L 02/25/25 02:05 Sodium 138 mmol/L (136-145) 03/02/25 05:27 Potassium 4.0 mmol/L (3.5-5.1) 03/02/25 05:27 Chloride 105 mmol/L (98-107) 03/02/25 05:27 Carbon Dioxide 29 mmol/L (21-32) 03/02/25 05:27 Anion Gap 4 (3-11) 03/02/25 05:27 BUN 9 mg/dl (6-23) 03/02/25 05:27 Creatinine 1.18 mg/dl (0.6-1.4) 03/02/25 05:27 Est Cr Clr Drug Dosing 68.0 ml/min 03/02/25 05:27 eGFR 63.16 03/02/25 05:27 BUN/Creatinine Ratio 7.6 (10-20) L 03/02/25 05:27 Glucose 111 mg/dl (70-99(Fasting)) H 03/02/25 05:27 POC Glucose 124 mg/dl (70-99) H 03/02/25 07:07 Lactate 1.4 mmol/L (0.4-2.0) 02/25/25 01:34 Calcium 8.2 mg/dl (8.6-10.3) L 03/02/25 05:27 Magnesium 2.0 mg/dl (1.7-2.4) 02/25/25 01:29 Iron < 10 mcg/dl (35-175) L 02/25/25 11:39 TIBC 329 mcg/dl (250-450) 02/25/25 11:39 Transferrin 235 mg/dl (200-360) 02/25/25 11:39 Transferrin % Sat TNP 02/25/25 11:39 Ferritin 63.8 ng/ml (8-388) 02/25/25 11:39 Total Bilirubin 0.7 mg/dl (0.2-1.0) 02/28/25 08:05 Direct Bilirubin 0.3 mg/dl (0-0.2) H 02/25/25 01:29 AST 35 U/L (13-39) 02/28/25 08:05 ALT 26 U/L (7-52) 02/28/25 08:05 Alkaline Phosphatase 80 U/L (34-104) 02/28/25 08:05 Troponin I High Sens 13.4 pg/ml (0-20) 02/25/25 01:29 Total Protein 5.3 gm/dl (6.0-8.3) L 02/28/25 08:05 Albumin 3.0 gm/dl (3.4-5.0) L 02/28/25 08:05 Globulin 2.3 gm/dl (2.5-4.0) L 02/28/25 08:05 Albumin/Globulin Ratio 1.3 (0.9-2) 02/28/25 08:05 Vitamin B12 > 1500 pg/ml (180-914) H 02/25/25 11:39 Folate 16.96 ng/ml (>5.38) 02/25/25 11:39 Procalcitonin 0.90 ng/ml (0-0.5) H 02/25/25 01:29 Urine Color Yellow 02/25/25 Unknown Urine Appearance Clear (Clear) 02/25/25 Unknown Urine pH 6.0 (4.5-7.5) 02/25/25 Unknown Ur Specific [place] <= 1.005 (1.000-1.030) 02/25/25 Unknown Urine Protein Negative (Negative) 02/25/25 Unknown Urine Glucose (UA) Negative (Negative) 02/25/25 Unknown Urine Ketones Negative (Negative) 02/25/25 Unknown Urine Blood Trace-intact (Negative) H 02/25/25 Unknown Urine Nitrite Positive (Negative) A 02/25/25 Unknown Urine Bilirubin Negative (Negative) 02/25/25 Unknown Urine Urobilinogen Negative (Negative) 02/25/25 Unknown Ur Leukocyte Esterase 1+ (Negative) H 02/25/25 Unknown Urine RBC 0-2 /hpf (0-2) 02/25/25 Unknown Urine WBC >50 /hpf (0-5) H 02/25/25 Unknown Ur Epithelial Cells 0-2 /hpf (0-2) 02/25/25 Unknown Urine Bacteria None Seen (None Seen) 02/25/25 Unknown Nasal Screen MRSA (PCR) Negative (Negative) 02/25/25 04:51 Stl C. diff Tox B Gene Negative Cdiff Gene (Neg) 02/27/25 12:46 Adenovirus (PCR) Not Detected (NotDetected) 02/25/25 01:40 B. pertussis DNA (PCR) Not Detected (NotDetected) 02/25/25 01:40 B.parapertussis DNA PCR Not Detected (NotDetected) 02/25/25 01:40 C. pneumoniae DNA (PCR) Not Detected (NotDetected) 02/25/25 01:40 Coronavirus OC43 (PCR) Not Detected (NotDetected) 02/25/25 01:40 Coronavirus HKU1 (PCR) Not Detected (NotDetected) 02/25/25 01:40 Coronavirus 229E (PCR) Not Detected (NotDetected) 02/25/25 01:40 SARS-CoV-2 (PCR) Not Detected (NotDetected) 02/25/25 01:40 Coronavirus NL63 (PCR) Not Detected (NotDetected) 02/25/25 01:40 Human Metapneumovir PCR Not Detected (NotDetected) 02/25/25 01:40 Influenza Type A (PCR) Not Detected (NotDetected) 02/25/25 01:40 Influenza Type B (PCR) Not Detected (NotDetected) 02/25/25 01:40 M. pneumoniae (PCR) Not Detected (NotDetected) 02/25/25 01:40 Parainfluenza 1 (PCR) Not Detected (NotDetected) 02/25/25 01:40 Parainfluenza 2 (PCR) Not Detected (NotDetected) 02/25/25 01:40 Parainfluenza 3 (PCR) Not Detected (NotDetected) 02/25/25 01:40 Parainfluenza 4 (PCR) Not Detected (NotDetected) 02/25/25 01:40 RSV (PCR) Not Detected (NotDetected) 02/25/25 01:40 Entero/Rhino (PCR) Not Detected (NotDetected) 02/25/25 01:40 Blood Type A Positive 03/01/25 09:29 Blood Type Recheck A Positive 03/01/25 07:12 Antibody Screen NEGATIVE 03/01/25 09:29 Crossmatch See Detail 03/01/25 09:29 Impressions Chest X-Ray 02/25/25 01:29 EXAM: XR chest 1V portable CLINICAL HISTORY: Sepsis. TECHNIQUE: An X-ray image of the chest is obtained in AP projection. COMPARISON: 04/05/2022. FINDINGS: Pulmonary Parenchyma: Lungs show prominent perihilar bronchovascular markings. No evidence of consolidation, collapse, or focal opacities. No pulmonary nodules are identified. No evidence of pleural effusion or pleural thickening. Heart and Mediastinum: The heart size appears enlarged. No mediastinal widening or masses. No hilar or mediastinal lymphadenopathy. Bony Thorax: The bony thorax appears intact without fractures or deformities. 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 Soft Tissues: Soft tissues overlying the chest wall are unremarkable. IMPRESSION: 1. Prominent perihilar bronchovascular markings, a non-specific finding; clinical correlation is advised. 2. No acute cardiopulmonary abnormalities are identified. 3. No interval changes. Electronically signed by Danny Dash 02-25-2025 02:57 AM Abdomen/Pelvis CT 02/25/25 01:31 EXAM: CT abd pelvis IV con only CLINICAL HISTORY: fever, s/p abd surgery TECHNIQUE: Multiple contiguous axial images were obtained from the level of diaphragm to the pubis symphysis. This study was acquired after the IV administration of iodinated contrast material, given the patients indications for the examination. If IV contrast material had not been administered, the likelihood of detecting abnormalities relevant to the patients condition would have been substantially decreased. Coronal and sagittal reformatted images were generated and reviewed to improve anatomic localization and optimize lesion detection. CT scan was performed according to ALARA (as low as reasonable achievable). COMPARISON: with CT dated 05/17/2023 FINDINGS: The visualized lung bases shows subsegmental atelectasis changes and a thin walled cyst in left lung base measuring ~27 x 21mm.- as seen previously. ABDOMEN/PELVIS: The liver is normal in size and attenuation. No focal liver lesions are seen. There is no intra or extrahepatic biliary ductal dilatation. Hepatic vasculature is patent. The gallbladder is distended. Faint hyperdense content seen in dependent areas- could be sludge. The spleen is enlarged in size with ill defined hypodense areas within, largest measuring ~ 51 x 47 x 40mm - could represent areas of infarcts- suggest ultrasound correlation - new finding. The pancreas is diffusely replaced by fat, predominantly in the region of body and tail with fat stranding in pancreatic and peripancreatic regions. there is interval increase of fatty infiltration compared to previous study. Adrenal glands are unremarkable. The kidneys are normal in size and attenuation. There is no hydronephrosis. Minimal bilateral perinephric fat stranding. No renal masses are identified. Bosniak type 1 cyst in upper pole of left kidney. ~2mm radiodense calculi in lower pole of right and upper pole of left kidney. The ureters are normal in caliber and no ureteral calculi are seen. The bladder is normal in contour with diffusely thickening of wall, measuring upto 6mm in thickness. Enlarged and heterodense prostate measuring ~5.5 x 4.6 x 3.8cm No evidence of focal or diffuse bowel wall thickening or evidence of bowel obstruction is seen. No evidence of inflamed appendix. No adenopathy or fluid collections are seen. The aorta is normal in caliber. No aggressive appearing osseous lesions are identified. Degenerative changes in visualised spine. IMPRESSION: 1. Splenomegaly with interval development of hypodense areas within - could be infarcts - suggest ultrasound correlation - new finding. 2. Diffuse fatty infiltration of pancreas with peripancreatic fat stranding - advised correlation with serum amylase and lipase to rule out pancreatitis - new finding. 3. Prostatomegaly with diffuse urinary bladder wall thickening - could be due to chronic outflow obstruction - suggest clinical correlation. 4. Bilateral non obstructive renal calculi. 5. Faint hyperdense content seen in dependent area of gall bladder- could be sludge. Advised ultrasound correlation. Electronically signed by Yoel Montano 02-25-2025 03:55 AM Chest CTA 02/25/25 01:31 EXAM: CT angio chest PE protocol CLINICAL HISTORY: PE TECHNIQUE: Contiguous axial images were obtained from the neck base through the upper abdomen following intravenous administration of iodinated contrast material. Angiographic images were processed, 3D MIP images were acquired for interpretation. If IV contrast material had not been administered, the likelihood of detecting abnormalities relevant to the patient's condition would have been substantially decreased. Coronal and sagittal 3-D MIPs were likewise performed and indicated to increase the sensitivity of detectin diffuse clinically relevant pathology. CT scan was performed according to ALARA (as low as reasonable achievable). COMPARISON: None. FINDINGS: Hypodense filling defects are noted involving distal part of right main pulmonary artery extending into the anterior segmental branch of right upper lobe, right middle lobar artery, right lower lobar artery and its segmental branches - suggestive of pulmonary embolism. Small thin walled cyst/bulla is noted involving lingula. Few subsegmental atelectasis are noted involving bilateral lung bases. The central airways are patent. Rest of lungs are clear. No pleural effusion. The heart, aorta, and pulmonary arteries are of normal size and configuration. There are coronary artery and aortic atherosclerotic calcifications. No pericardial effusion is identified. The thyroid is unremarkable. No mediastinal, hilar, or axillary lymphadenopathy is noted. No suspicious lytic or sclerotic osseous lesions are identified. IMPRESSION: 1. Hypodense filling defects are noted involving distal part of right main pulmonary artery extending into the anterior segmental branch of right upper lobe, right middle lobar artery, right lower lobar artery and its segmental branches - suggestive of pulmonary thromboembolism. 2. Small thin walled cyst/bulla is noted involving lingula. 3. Few subsegmental atelectasis are noted involving bilateral lung bases. Electronically signed by Yoel Montano 02-25-2025 03:[address] 02/25/25 01:34 EXAM: CT head/brain wo con CLINICAL HISTORY: confusion TECHNIQUE: Multiple axial images are obtained from the skull base to the vertex without contrast. CT scan was performed according to ALARA (as low as reasonable achievable). COMPARISON: [facility]NOR/03/2023 17:34:32 PURIFICATION DIRECTOR . FINDINGS: There is cerebral atrophy. No evidence of space occupying lesion, hemorrhage, edema, mass effect, midline shift, extra axial collection, or hydrocephalus is noted. Basal cisterns are symmetric and normal in size and configuration. There are scattered periventricular hypodensities as can be seen with chronic microvascular ischemic changes. The mares-white matter differentiation is preserved. Visualized paranasal sinuses and mastoid air cells are well aerated. Orbital contents are within normal limits. Bony structures are intact. IMPRESSION: 1. No evidence of acute intracranial abnormality is demonstrated. 2. Chronic microvascular ischemic changes. 3. Cerebral atrophy. No other new interval abnormality since prior study. Electronically signed by Yoel Montano 02-25-2025 03:46 AM PG Care Time/CCT Total # of Minutes Spent Total Time Spent with Patient: Total time spent is greater than 50% in coordination of care (as documented) at patient's floor/unit and/or counseling patient: Coding Level of Care Code 73312 SUB INP/OBS CARE 2/35MIN Diagnoses Altered mental status R41.82 Pulmonary embolism I26.99 Renal insufficiency N28.9 Anemia D64.9
[2025-03-02] MEDS: ENOXAPARIN INJ 120 MG/0.8 ML SYR SQ SCH (13:25)
[2025-03-03 06:40] LABS: Hematocrit (blood only) 29.3 % (42.0-52.0); Hemoglobin 9.5 g/dl (14.0-18.0); Mean Corpuscular Hemoglobin 26.8 pg (25.0-34.0); Mean Corpuscular Hgb Conc 32.4 g/dL (32.0-36.0); Mean Corpuscular Volume 82.5 fL (80.0-100.0); Mean Platelet Volume 11.5 fL (9.4-12.4); Platelet Count 303 K/uL (130-400); RDW Coefficient of Variation 16.9 % (11.5-14.5); RDW Standard Deviation 47.9 fL (36.4-46.3); Red Blood Count 3.55 M/uL (4.70-6.10); White Blood Count 6.25 K/ul (4.8-10.8)
[2025-03-03 07:01] LABS: BUN Creatinine Ratio 6.7 (10-20); Calcium 8.2 mg/dl (8.6-10.3); Creatinine Clr Calc Pharmacy 67.1 ml/min
[2025-03-03] MEDS: ZINC SULFATE 220 MG CAPSULE PO SCH (07:54)
[2025-03-03] MEDS: FERROUS SULFATE 325 MG/7.4 ML UDP PO SCH (11:25)
[2025-03-03] MEDS: IRON SUCROSE 200 MG in SODIUM CHLORIDE 0.9% 100 ML IV ONE (15:15)
[2025-03-03] MEDS: lisinopril 20 MG TAB PO SCH (15:25)
--- NOTE | 2025-03-03 16:10 | Hospitalist Progress Note ---
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 his CT scan also found splenomegaly and prostate enlargement with chronic outflow obstruction breakthrough pulmonary embolus on lovenox PAYAM, hypotension deconditoning, anemia C. difficle diarrhea decubitus ulcer intraductal papillary mucinous neoplasm of pancreas s/p surgery at [facility] (january 2025) type 2 insulin dependent diabetes on insulin pump hx of dysphagia s/p multiple esophgeal dilation hypertension GERD insomnia overall plan he is medically ready to go to [facility] await insurance authorization resuming lisinopril given PAYAM improving lovenox treatment dose for PE for 3-4 months if he has weight loss, he will need to cut down his lovenox f/u with hematology f/u with surgeon at [facility] breakthrough PE on lovenox s/p IVC filter on 02/28 begin lovenox on 03/02/2025 C.difficile diarrhea plan for 14 days course of vancomycin no diarrhea for more than 3 days PAYAM, improving creatinine of 1.1 leg edema, resuming hctz on thursday 03/01 improving splenomegaly continue to monitor prostate megaly with bladder wall thickening heidi explained that he s/p prostate removal at [facility] no outflow symptoms weakness, symptomatic anemia iron deficiency, s/p IV infusion giving one unit onf 03/01 nonobstructing renal calculi hx of IMPN s/p whipppe procedure at [facility]. was at [facility] in early february and needed ICU states after he's developed hypotension #symptomatic Anemia S/p partial pancreatectomy, no active bleeding per patient baseline h/h of 13. s/p transufsion on 03/01/2025 (one unit), no melena, no bloody stool #[id number] on insulin pump he's been using his insulin pump here H/o DMT2, on insulin, with hypoinsulinemia and s/p partial pancreatectomy. At home regimen insulin lispro and semaglutide weekly. With insulin pump in place; follows with endocrinology. - Most recent A1C 11/2024 @ 6.4% - May use own insulin pump - Please contact patient's pediatric dermatologist per patient's request #Bed sores Patient expresses concern for bedsores on backside - Wound care q shift - Turn q2hr #Pain- Gabapentin, tramadol, oxycodone #HTN- Amlodipine, HCTZ, lisinopril (lisinopril and hctz being held) #HLD- Atorvastatin #GERD- Pantoprazole dysphagia s/p multiple esophageal dilatation Dispo: Admit, PCU VTE Prophylaxis: Heparin Admission and Anticipated Discharge Date Admission Date: February 25, 2025 Subjective His H&H is stable, He is medically ready to go to short-term rehab No abdominal pain diarrhea resolved no melena Iron deficiency he is declining iron tablet he is agreeable for iron infusion On Lovenox for breakthrough PE Review of Systems Review of Systems: Constitutional: No Weight Change, No Fever, No Chills, No Night Sweats, No Fatigue, No Malaise Cardiovascular: No Chest Pain, No SOB, No PND, No Dyspnea on Exertion, No Orthopnea, Gastrointestinal: No Nausea, No Vomiting, No Diarrhea, No Constipation, No Pain, No Heartburn, No Anorexia, No Dysphagia, No Hematochezia, No Melena, No Flatulence, No Jaundice Genitourinary: no urinary issues; hx of BPH s/p surgery at [facility] Musculoskeletal: + for chronic back pain Neuro: weakness improving; no dizziness Psych: No Anxiety/Panic, No Depression, No Insomnia, No Personality Changes, No Delusions, No Rumination, No SI/HI/AH/VH, No Social Issues, No Memory Changes, No Violence/Abuse Hx., No Eating Concerns Physical Exam Physical Exam: VITALS: Reviewed. WEIGHT/BMI reviewed. GEN: Healthy appearing, well-developed, NAD. -Head: NC/AT; -Eyes: PERRL, EOMI. No discharge or redn ess; -Ears: External ears are normal. Normal TMs. -Nose: Normal nares. -Mouth and throat: MMM. Normal gums, muc autumn, palate,. Good dentition. NECK: Supple, with no masses. CV: RRR, no m/r/g. LUNGS: CTAB, no w/r/c. ABD: Soft, NT/ND, NBS, no masses or organomegaly. : N/A SKIN: Warm, well perfused. No skin rashes or abnormal lesions. MSK: no pre-scral edema NEURO: ambulating with walker; AAox3; able to following command Results & Data Results & Data Vital Signs (Past 12 Hours) Vital Signs Temp Pulse Pulse Resp BP Pulse Ox O2 Del Method 03/03/25 15:15 36.8 C 90 18 127/73 100 Room Air 03/03/25 11:01 36.3 C L 89 18 155/75 H 100 Room Air 03/03/25 08:00 81 03/03/25 07:03 36.7 C 82 18 119/67 95 Room Air Laboratory Results Laboratory Results - last 72 hr 02/28/25 03/01/25 03/01/25 20:10 07:01 07:12 WBC 7.11 RBC 3.21 L Hgb 8.2 L Hct 26.5 L MCV 82.6 MCH 25.5 MCHC 30.9 L RDW Std Deviation 48.9 H RDW Coeff of Joselin 16.1 H Plt Count 359 MPV 11.4 Absolute Nucleated RBC 0.04 Nucleated RBC % (auto) 0.6 Sodium 139 Potassium 3.7 Chloride 104 Carbon Dioxide 30 Anion Gap 5 BUN 10 Creatinine 1.17 Est Cr Clr Drug Dosing 68.0 eGFR 63.81 BUN/Creatinine Ratio 8.5 L Glucose 109 H POC Glucose 143 H Calcium 8.2 L Blood Type Blood Type Recheck A Positive Antibody Screen Crossmatch 03/01/25 03/01/25 03/01/25 07:14 09:29 22:20 WBC RBC Hgb Hct MCV MCH MCHC RDW Std Deviation RDW Coeff of Joselin Plt Count MPV Absolute Nucleated RBC Nucleated RBC % (auto) Sodium Potassium Chloride Carbon Dioxide Anion Gap BUN Creatinine Est Cr Clr Drug Dosing eGFR BUN/Creatinine Ratio Glucose POC Glucose 116 H 164 H Calcium Blood Type A Positive Blood Type Recheck Antibody Screen NEGATIVE Crossmatch See Detail 03/02/25 03/02/25 03/03/25 05:27 07:07 06:15 WBC 6.50 6.25 RBC 3.51 L 3.55 L Hgb 9.2 L 9.5 L Hct 28.6 L 29.3 L MCV 81.5 82.5 MCH 26.2 26.8 MCHC 32.2 32.4 RDW Std Deviation 46.7 H 47.9 H RDW Coeff of Joselin 15.9 H 16.9 H Plt Count 328 303 MPV 11.7 11.5 Absolute Nucleated RBC 0.02 Nucleated RBC % (auto) 0.3 Sodium 138 139 Potassium 4.0 4.0 Chloride 105 105 Carbon Dioxide 29 29 Anion Gap 4 5 BUN 9 8 Creatinine 1.18 1.19 Est Cr Clr Drug Dosing 68.0 67.1 eGFR 63.16 62.52 BUN/Creatinine Ratio 7.6 L 6.7 L Glucose 111 H 107 H POC Glucose 124 H Calcium 8.2 L 8.2 L Blood Type Blood Type Recheck Antibody Screen Crossmatch 03/03/25 07:00 WBC RBC Hgb Hct MCV MCH MCHC RDW Std Deviation RDW Coeff of Joselin Plt Count MPV Absolute Nucleated RBC Nucleated RBC % (auto) Sodium Potassium Chloride Carbon Dioxide Anion Gap BUN Creatinine Est Cr Clr Drug Dosing eGFR BUN/Creatinine Ratio Glucose POC Glucose 120 H Calcium Blood Type Blood Type Recheck Antibody Screen Crossmatch Medications Administered Current Inpatient Medications Acetaminophen (Acetaminophen 325 Mg Tab) 650 mg PO Q4H PRN PRN Reason: Pain or Fever Stop: 03/27/25 08:54 Last Admin: 03/02/25 22:45 Dose: 650 mg Amlodipine Besylate (Amlodipine Besylate 5 Mg Tab) 5 mg PO QPM JEANA Stop: 03/27/25 20:59 Last Admin: 03/02/25 22:49 Dose: 5 mg Aspirin (Aspirin 81 Mg Ectab) 81 mg PO QAM JEANA Stop: 03/27/25 08:59 Last Admin: 03/03/25 07:55 Dose: 81 mg Atorvastatin Calcium (Atorvastatin 10 Mg Tab) 5 mg PO HS JEANA Stop: 03/27/25 20:59 Last Admin: 03/02/25 22:48 Dose: 5 mg Wallace Syrup (Wallace Syrup 5 Ml Udp) 5 ml PO Q6 JEANA Stop: 03/04/25 23:59 Last Admin: 03/03/25 11:25 Dose: 5 ml Dextrose (Dextrose 50% 50 Ml Syringe) 25 - 50 ml IV UD PRN; Protocol PRN Reason: Hypoglycemia Protocol Stop: 03/27/25 14:36 Enoxaparin Sodium (Enoxaparin Inj 120 Mg/0.8 Ml Syr) 120 mg SQ Q12H JEANA Stop: 04/01/25 12:29 Last Admin: 03/03/25 11:25 Dose: 120 mg Ferrous Sulfate (Ferrous Sulfate 325 Mg/7.4 Ml Udp) 325 mg PO DAILYBL JEANA Stop: 04/02/25 10:29 Last Admin: 03/03/25 11:25 Dose: Not Given Gabapentin (Gabapentin 300 Mg Cap) 300 mg PO HS JEANA Stop: 03/27/25 20:59 Last Admin: 03/02/25 22:48 Dose: 300 mg Glucagon (Glucagon For Inj 1 Mg Vial) 1 mg SQ UD PRN; Protocol PRN Reason: Hypoglycemia Protocol Stop: 03/27/25 14:36 Glucose (Glucose 40% Gel 15 Gm Tube) 15 - 30 gm PO UD PRN; Protocol PRN Reason: Hypoglycemia Protocol Stop: 03/27/25 14:36 Glucose (Glucose 10 Tab/Tube) 4 - 8 tab PO UD PRN; Protocol PRN Reason: Hypoglycemia Protocol Stop: 03/27/25 14:36 Hydrochlorothiazide (Hydrochlorothiazide 25 Mg Tab) 25 mg PO QAM [facility] Stop: 03/31/25 09:29 Last Admin: 03/03/25 07:55 Dose: 25 mg Insulin Aspart (Insulin Aspart 100 Units/Ml Vial) 0 units SC PRN PRN PRN Reason: Pump Refill Use ONLY Stop: 03/27/25 09:14 Insulin Aspart (Insulin, Rapid-Acting Pump) 0 each N/A ACHS [facility]; Protocol Stop: 03/30/25 05:59 Last Admin: 03/03/25 11:56 Dose: 10.1 each Ioversol (Optiray 300) 15 ml IV UD PRN PRN Reason: Interaction Checking Stop: 03/04/25 14:15 Last Admin: 02/28/25 14:17 Dose: 15 ml Lisinopril (Lisinopril 20 Mg Tab) 20 mg PO QAM [facility] Stop: 04/02/25 14:14 Last Admin: 03/03/25 15:25 Dose: 20 mg Miscellaneous (Continuous Glucose Monitor) 0 each N/A ACHS [facility] Stop: 03/27/25 16:29 Last Admin: 03/03/25 11:26 Dose: 1 each Miscellaneous (Carbohydrates For Hypoglycemia ) 15 - 30 gm PO UD PRN PRN Reason: Hypoglycemia Protocol Stop: 03/27/25 15:55 Multivitamins/Minerals (Cerovite Adv Formula Tab) 1 tab PO QAM JEANA Stop: 04/01/25 08:59 Last Admin: 03/03/25 07:56 Dose: 1 tab Ondansetron HCl (Ondansetron Inj 2 Mg/Ml 2 Ml Vial) 4 mg IV Q6H PRN PRN Reason: Nausea Stop: 03/27/25 08:54 Oxycodone HCl (Oxycodone Hcl Ir 5 Mg Tab (Immediate Release)) 5 - 10 mg PO Q4H PRN PRN Reason: Pain Stop: 03/11/25 08:54 Last Admin: 02/28/25 16:30 Dose: 5 mg Pantoprazole Sodium (Pantoprazole 40 Mg Tab) 40 mg PO DAILY JEANA Stop: 03/30/25 14:59 Last Admin: 03/03/25 07:55 Dose: 40 mg Potassium Chloride (Potassium Chloride 20 Meq/15 Ml Udc) 40 meq PO QAM JEANA Stop: 03/31/25 08:59 Last Admin: 03/03/25 07:55 Dose: 40 meq Trazodone HCl (Trazodone Hcl 100 Mg Tab) 100 mg PO HS JEANA Stop: 03/27/25 20:59 Last Admin: 03/02/25 22:48 Dose: 100 mg Vancomycin HCl (Vancomycin Hcl 125 Mg/2.5ml Soln) 125 mg PO Q6 JEANA Stop: 03/04/25 23:59 Last Admin: 03/03/25 11:25 Dose: 125 mg Vitamin B Complex (Vitamin B Complex Tab) 1 tab PO QAM JEANA Stop: 04/01/25 08:59 Last Admin: 03/03/25 07:54 Dose: 1 tab Zinc Sulfate (Zinc Sulfate 220 Mg Capsule) 220 mg PO QAM JEANA Stop: 04/02/25 08:59 Last Admin: 03/03/25 07:54 Dose: 220 mg PG Care Time/CCT Total # of Minutes Spent Total Time Spent with Patient: Total time spent is greater than 50% in coordination of care (as documented) at patient's floor/unit and/or counseling patient: Coding Level of Care Code 53847 SUB INP/OBS CARE 12/07MIN Diagnoses Altered mental status R41.82 Pulmonary embolism I26.99 Renal insufficiency N28.9 Anemia D64.9 Time Spent (min) 15
[2025-03-04 07:48] VITALS: TEMP 98.6
[2025-03-04 11:32] VITALS: BP 114/61; PULSE 89; RESP 17; O2SAT 98
--- NOTE | 2025-03-04 13:20 | Discharge Summary ---
Discharge Summary Date of Service March 04, 2025 Principal Dx & Hospital Course #1 = Principal Diagnosis (1) Altered mental status: resolved, AAox3 for 4-5 days (2) Pulmonary embolism: s/p IVC filter lovenox 120mg q12 hours (3) Renal insufficiency: resolved, his Isaac-I and hctz 25mg was held re-introduced on 03/02/2025 and creatinine stable at 1.1--1.2 (4) Anemia: suspect chronic anemia related to excessive blood draw. 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 his CT scan also found splenomegaly and prostate enlargement with chronic outflow obstruction breakthrough pulmonary embolus on lovenox PAYAM, hypotension deconditoning, anemia C. difficle diarrhea decubitus ulcer intraductal papillary mucinous neoplasm of pancreas s/p surgery at [facility] (january 2025) type 2 insulin dependent diabetes on insulin pump hx of dysphagia s/p multiple esophgeal dilation hypertension GERD insomnia overall plan has has PE after lovenox 40mg he's s/p IVC filter and will need lovenxo treatment dose for 2-3 months his PPI regime was increased from once a day to BID. added carfate can repeat CTA in 2-3 months and then stop lovenox vancomycin for C. difficile for additional 10 days daily dressing change for decubitus ulcer. he's been self-administering insulin pump at [facility] and has stable blood sugar breakthrough PE on lovenox s/p IVC filter on 02/28 begin lovenox 120mg BID carafate for stress ulcer prevention PPI once a day increased to BID repeat CTA in 2-3 months, can consider stopping lovenox if his CTA in 2 months show PE resolved C.difficile diarrhea plan for 14 days course of vancomycin no diarrhea for more than 3 days PAYAM, resolved; his ISAAC-I and hctz was held leg edema, resuming hctz on thursday 03/01 improving splenomegaly continue to monitor, no abdominal pain h/h stable prostate megaly with bladder wall thickening heidi explained that he s/p prostate removal at [facility] no outflow symptoms weakness, symptomatic anemia iron deficiency, s/p IV infusion giving one unit of pRBC on 03/01 placement to [facility] STR on 03/04/2024 nonobstructing renal calculi hx of IMPN s/p whipppe procedure at [facility]. was at [facility] in early february and needed ICU states after he's developed hypotension #[id number] on insulin pump he's been using his insulin pump here he's been using insulin pump H/o DMT2, on insulin, with hypoinsulinemia and s/p partial pancreatectomy. At home regimen insulin lispro and semaglutide weekly. With insulin pump in place; follows with endocrinology. #Bed sores Patient expresses concern for bedsores on backside - Wound care q shift - Turn q2hr #Pain- Gabapentin, tramadol, oxycodone #HTN- Amlodipine, HCTZ, lisinopril (lisinopril and hctz being held) #HLD- Atorvastatin #GERD- Pantoprazole dysphagia s/p multiple esophageal dilatation Notes For Next Care Provider carafate and PPI BID for stress ulcer prevention lovenox 120mg q12 hours, cut down his significant weight loss in addition, repeat CTA in 2-3 months. can cut down or stop lovenox if CTA show PE resolved check decubitus ulcer on regular visit. may need wound care Medication Changes From Visit PPI increased from once a day to BID added carafate Admission HPI Per Admitting Provider 79-year-old male PMHx T2DM insulin-dependent, insomnia, HTN, HLD, elevated PSA, GERD, intraductal papillary mucinous neoplasm of pancreas and s/p partial pancreatectomy pancreatectomy - hypoinsulinemia - who presents for confusion and fever following recent surgical intervention. Patient was evaluated at [facility] on February 10, 2025 to have part of the pancreas and his appendix removed. Patient was home on February 18, 2025. Started on vancomycin for C. difficile but seem to have decreased oral intake over the past few days since being home and with altered mentation. Daughter is in room and helps to provide a history. States that the only complaint that the patient had the day [employer] was that he was cold. He spiked a fever around 2014 (101.4F) and his daughter gave him Tylenol and an Oxycodone but then shortly after this, he had an abrupt onset of altered mentation and was unaware of the year or where he was. Daughter notes that the patient seemed to have been deep breathing at that time then would hold his breath and he appeared to have a glazed over look in his eyes. 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 Of note, patient does state that he feels as though he has not been able to urinate as freely as he helped but he also has not had a good oral intake over the past 2 to 3 days. Notes that his stools became more formed approximately 3 days ago and he is having a bowel movement approximately 1-2 times per day and they are more formed. Has continued to take vancomycin as prescribed. Patient states that he feels better overall and the daughter states that he seems to be more at his baseline. He states he has no complaints at the time of evaluation to include no chest pain, shortness of breath, palpitations, abdominal pain, N/V/D/C, numbness/tingling, URI symptoms, or fever/chills. Patient has never had this happen before. ED evaluation reveals no leukocytosis, H&H 8.6/26.6; PT/INR 12.5/1.2; VBG WNL; CMP sodium 133, BUN 26, CR 1.78, glucose 138; lactate 1.4; calcium 7.9; procalcitonin 0.9; UA pending; BioFire negative; CXR prominent perihilar bronchovascular markings which is nonspecific but no acute findings otherwise; CTAP splenomegaly interval development of hypodense areas (could be infarct), diffuse fatty infiltrated pancreas with peripancreatic fat stranding, prostamegaly diffuse urinary bladder wall thickening could be due to chronic outflow obstruction, bilateral nonobstructive renal calculi, faint hyperdense content seen in the dependent area of gallbladder could be sludge; chest CTA hypotensively defect noted involving distal part of right main pulmonary artery extending to the anterior segment branch of right upper lobe, right middle lobe artery, right lower lobar artery, and segmental branches suggestive of pulmonary TE, small thin-walled cyst/bullae noted in lingula, few suppurative potential atelectasis bilateral lung bases; head CT no evidence of acute findings, chronic microvascular ischemic changes and cerebral atrophy; EKG sinus tach with first- degree AV block and PACs, LAD, RBBB at 101 bpm.; Provided with 3L NSS, heparin, cefepime, and acetaminophen in ED. Please see Dr. Cohen's attestation for adjustments/additions to treatment plan. Hospital course Patient is a 79-year-old gentleman with history of type 2 diabetes on insulin pump, BPH status post surgery, CKD, hypertension, history of colonic polyp he was hospitalized at [facility] from January to February 18 for removal for what intraductal papillary mucinous cancer of pancreas status post partial pancreatectomy. His hospital course at [facility] was complicated by hypotension and C. difficile diarrhea On day of admission he was having confusion and hypotension, limited urinary output, he was found to be in PAYAM from 1.1-1.83 his ISAAC inhibitor and HCTZ was held He CTA showed no pulmonary embolus, started on heparin drip he is status post IVC filter. He was started on Lovenox treatment dose 120 twice daily. Given his history of GERD we added Carafate, increase his PPI to twice daily. He was having significant weaknesses and I noticed his H&H dropped from 13-8.1 over period of 4 to 5 months He received 1 unit of blood transfusion and his weakness is improved. Noticed he had colonoscopy in March 2021 5 mm polyp from rectum removed He had no hematochezia no melena while on Lovenox treatment dose He was discharged to long term on March 04, 2025 We addressed her PPI from once a day to twice a day and add Carafate He will be on another 10 days of vancomycin for C. difficile diarrhea The long term should perform bladder scan and monitor for urinary retention, he might benefit from Flomax Discharge Exam VITALS: Reviewed. WEIGHT/BMI reviewed. GEN: Healthy appearing, well-developed, NAD. -Head: NC/AT; -Mouth and throat: MMM. Normal gums, mucosa, palate,. Good dentition. CV: RRR, no m/r/g. LUNGS: CTAB, no w/r/c. ABD: Soft, NT/ND, NBS, no masses or organomegaly. : no CVA tenderness MSK: no pre-scral edema; no CVA tenderness NEURO: ambulating with walker; AAox3; able to following command Discharge Plan Discharge Items Patient Disposition: Transfer Residential Fac Reason For Visit: PE, PAYAM, AMS Discharge Diagnosis: PAYAM, anemia, C. difficile diarrhea deconditoning Condition on Discharge: Fair Activity: Per Instructions section Lifting: Gradually increase as tolerated Non-emergency contact: Primary Care Provider Call non-emergency contact if: your wound has increased redness Follow-up/Referrals: Nohemi Teresa MD [Primary Care Provider] - Diet: Carb Consistent or DM2 Addtl Attending Provider Instructions: repeat CBC and BMP (creatinine value) in 7-10 days Pending Studies at Discharge: Yes Studies:: repeat CBC and BMP Stand-Alone Forms: My [facility] Skilled Items Patient informed of condition?: Yes DNR: No Discharge Level of Care: Skilled Communicable Disease: Yes Discharge Prognosis: Improving Lines: None Urinary Catheter: No Medications and DC Order Prescriptions: New vancomycin 125 mg capsule 125 mg PO QID 10 Days Qty: 40 0RF enoxaparin [Lovenox] 120 mg/0.8 mL syringe 120 mg subcut Q12H 30 Days Qty: 48 0RF multivitamin Tablet 1 tab PO DAILY 30 Days Qty: 30 0RF sucralfate [Carafate] 1 gram tablet 1 g PO TID 28 Days Qty: 84 0RF Continued insulin lispro [Humalog U-100 Insulin] 100 unit/mL solution See Rx Instructions continuous subcutaneous infusion CONTINOUS Qty: 23 3RF Rx Instructions: insulin pump TDD 275 units via continuous subcutaneous infusion subcut; PLEASE mail to pt residence gabapentin 300 mg capsule 300 mg PO HS Qty: 90 2RF trazodone 100 mg tablet 100 mg PO HS Qty: 90 3RF tramadol 50 mg tablet 50 mg PO BID PRN (Reason: pain) Qty: 90 0RF ondansetron 4 mg tablet,disintegrating 4 mg PO Q6H PRN (Reason: nausea and vomiting) oxycodone 5 mg tablet See Rx Instructions PO Q4H PRN (Reason: Pain) Patient Comments: CONFIRMED W/ PT AND ON [facility] SUMMARY 02/19/25 Rx Instructions: 1-2 TABS Q4H PRN FOR PAIN orally q4h PRN; NALOXONE NASAL SPRAY 1 spray intranasal DIRECTED PRN (Reason: Other) Patient Comments: CONFIRMED W/ PT AND ON [facility] SUMMARY 02/19/25 Rx Instructions: SPRAY INTO ONE NOSTRIL FOR SUPSECTED OVERDOSE. REPEAT X1, IF NO RESPONSE AFTER 3 MIN cholecalciferol (vitamin D3) 25 mcg (1,000 unit) tablet 25 mcg PO DAILY mecobalamin (vitamin B12) 1 tab PO DAILY Rx Instructions: otc unknown strength/unable to verify (DME) insulin syringe-needle U-100 [BD Insulin Syringe Ultra-Fine] 1 mL 31 gauge x 5/16 syringe See Dose Instructions .ROUTE .MEDSUPPLY Qty: 300 3RF Dose Instruction: As directed Rx Instructions: Inject insulin 3 times a day (DME) Contour Next Test Strips Strip See Rx Instructions .ROUTE .MEDSUPPLY Qty: 100 3RF Rx Instructions: Check 1x a day multivitamin tablet 1 tab PO QAM (DME) pen needle, diabetic [BD Ultra-Fine Mini Pen Needle] 31 gauge x 3/16" needle See Rx Instructions .ROUTE .MEDSUPPLY Qty: 100 2RF Rx Instructions: as needed for smaller doses of Ozempic atorvastatin 10 mg tablet 5 mg PO HS Qty: 45 3RF Ozempic 0.25 mg or 0.5 mg (2 mg/3 mL) pen injector 2 mg subcut UD Hold Instructions: ON HOLD UNTIL DIRECTED BY DEVOPS DEVELOPER WHEN TO RESUME Rx Instructions: 2 mg subcut wk. last filled 11/18/23 hydrochlorothiazide 25 mg tablet 25 mg PO QAM Qty: 90 3RF aspirin 81 mg Tablet,Delayed Release (Dr/Ec) 81 mg PO QAM Patient Comments: on hold d/t tooth extraction acetaminophen 325 mg Tablet 650 mg PO Q4H PRN (Reason: pain) Qty: 30 0RF Rx Instructions: OTC unable to verify amlodipine 5 mg tablet 5 mg PO QPM lisinopril 40 mg tablet 40 mg PO UD Rx Instructions: 40 mg po qam. no fill history available unable to verify Changed pantoprazole 40 mg tablet,delayed release (DR/EC) 40 mg PO BID 30 Days Qty: 60 1RF Rx Instructions: 40 mg po daily. last filled 10/24/24 90 day supply Discontinued enoxaparin 40 mg/0.4 mL syringe 40 mg subcut DAILY Patient Comments: CONFIRMED W/ PT AND ON [facility] SUMMARY 02/19/25 Rx Instructions: X30 DAYS vancomycin 25 mg/mL recon soln 125 mg PO Q6H Patient Comments: CONFIRMED W/ PT AND ON [facility] SUMMARY 02/19/25 Rx Instructions: X13 DAYS Discharge Orders: Discharge Order (Routine); Ordered 03/04/25 Ordered By: Dmitriy Lazo/Other Patient Handouts: Anemia, Clostridium Difficile Infection, DVT Tx, ICV Filter Placement, ED Deep Vein Thrombosis (DVT) Admission Data Admit Date/Time: 02/25/25 05:45 Attending Provider: Dmitriy Livingston Admit Provider: Geno Cohen Primary Care Provider: Nohemi Teresa Other Providers: [facility]; [facility]; [facility]; [facility]; Bridger Samuels at [facility] Stay Data Consultations 02/27/25 12:18 Consult Vascular Surgery Routine Procedures Performed Operation Date: 02/28/25 14:00 Actual Procedures p Insertion of Vena Cava Filter, Left Femoral Vein Approach, Ultrasound Localization of Left Femoral Vein, Moderate Sedation [id number](Left) - Justin House MD Diagnostic Imagining Performed 02/25/25 01:31 CT abd pelvis IV con only Stat CT angio chest PE protocol Stat 02/25/25 01:34 CT head/brain wo con Stat 02/28/25 07:28 EV IVC filter placement Routine Pending Results Patient Have Any Pending Studies at Discharge: Yes Discharge Instructions Given to Patient (Per Discharging Provider) repeat CBC and BMP (creatinine value) in 7-10 days Total Time Total Time Spent Total Time Spent (In Minutes): 45 minutes Coding Level of Care Code 63363 INP/OBS DISCH >30 MIN Diagnoses Altered mental status R41.82 Pulmonary embolism I26.99 Renal insufficiency N28.9 Anemia D64.9 Time Spent (min) 45
== END 2025-03-04 14:48 | DRG 175 ==
LOC: ED 01:19 → EDINP 05:45 → SUATTDRO 05:45 → EDINP 08:57 → 2S 14:00

== ENCOUNTER 2025-06-05 03:18 | Observation (INO) ==
--- NOTE | 2025-06-05 03:34 | Emergency Department Note ---
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 Patient did have a head strike on his forehead where he suffered an abrasion. He reports it took him about 1/2-hour to call his daughter who came and contacted EMS. EMS found the patient to be hypotensive in the 70s. They had administered IV fluid hydration and the patient did become fluid responsive. Patient's presents in the setting of having abdominal surgery in January of this year which included hernia repair and partial pancreatectomy. Of note, the patient reports he has had chronic abdominal pain since his surgery but admits that over the past week or so had worsening pain in his left lower abdomen which he attributed to surgery as well. Patient had seen his PCP couple of weeks ago but admits that his new pain I do to occur. He otherwise reports having chronic diarrhea since his surgeries but recently has felt constipated and not moved his bowels for the past 2 days after taking Imodium. Patient denies any fevers, chills, cough, congestion. On evaluation the patient is fatigued appearing but no distress, afebrile with stable vital signs. He appears clinically dry. Superficial midline forehead abrasion without laceration or hematoma. No CTL midline tenderness to palpation or step-offs. He has left lower abdominal tenderness where there is area of ecchymosis consistent with subcutaneous hematoma in the setting of the patient's Lovenox injections. EKG demonstrates suspected atrial fibrillation versus sinus tachycardia with first-degree AV block without overt acute ischemia. CXR negative for acute cardiopulmonary process per my personal preliminary review/interpretation. WBC and platelets within normal limits. H/H 10.6/11.2 decreased from March of this year however similar to prior range of values in February. Chemistry without metabolic acidosis. Creatinine 1.4 consistent with patient's clinically dry appearance/mild PAYAM in the setting of his report of diarrhea up until recently. LFTs without significant normality. CPK 550 in the setting of the patient's fall and downtime prior to arrival. Lipase is not elevated. CT of the head, CTL-spine, chest and abdomen pelvis were performed were negative for acute traumatic injuries. Hematoma of the left anterior abdominal wall is unrelated to patient's fall last night given his report of pain in this area for over a week and correlates with the patient's Lovenox injections. No CT evidence to suggest active extravasation at this time. Note is made of fat infiltration of the pancreas consistent with the patient's postoperative status. Prostamegaly is noted with diffuse urinary bladder wall thickening with UA collection pending. Given the patient's syncope in the setting of hypotension prior to arrival patient does agree with plan for admission for further management. Case was discussed with Dr. Cohen, [facility] [place], [facility] [place] service to evaluate the patient for admission. Further management per admitting team. Triage Nursing notes reviewed and agree them. Prior/external medical records reviewed Vital Signs: reviewed Differential diagnosis: Vasovagal event, dehydration, infection, hypoglycemia, electrolyte abnormalities, cardiac sources, intracerebral event, pulmonary embolism, seizure, toxicologic, neurologic, as well as other pathologies. ER treatment provided: See below. Diagnostics interpreted by me: ECG: Atrial fibrillation versus sinus tachycardia with first-degree AV block, 99 bpm, right bundle branch block, no overt ST elevation or depression, QTc 433, QRS 124. Cardiac Monitoring: An order for continuous cardiac monitoring was placed and demonstrated Atrial fibrillation versus sinus tachycardia with first-degree AV block, 99 bpm Laboratory studies: See below Imaging studies: See below Consultation(s): Case was discussed with Dr. Cohen, [facility] hospitalist, [facility] hospital[place] service to evaluate the patient for admission. HPI: Per MDM. ROS: See above HPI for pertinent positives & negatives. A total of 10 systems reviewed and were otherwise negative. VITALS:See Below PHYSICAL EXAMINATION: GENERAL: Awake, alert, fatigued-appearing, in no distress HENT: Normocephalic, Superficial midline forehead abrasion without laceration or hematoma. Oropharynx with dry mucous membranes and otherwise unremarkable. EYES: Normal conjunctiva. Sclera non-icteric. EOMI. No nystamgus. PEARRL. NECK: Supple. No nuchal rigidity. FROM. No JVD. RESPIRATORY: Clear to auscultation. CARDIAC: Regular rate, irregular rhythm. Extremities warm and well perfused. Pulses equal. ABDOMEN: Soft, non-distended. No tenderness to palpation. No rebound or guarding. No masses. MUSCULOSKELETAL: Chest examination reveals no tenderness. The back is symmetrical on inspection without obvious abnormality. There is no CVA tenderness to palpation. No joint edema. LOWER EXTREMITIES: Calves are equal size bilaterally and non-tender. No edema. No discoloration. NEURO: Cranial nerves II-XII grossly intact. 5/5 strength and SILT x 4 extremities. Cerebellar function intact including [id number], alternating palms, [id number]. SKIN: No rash or jaundice noted. Syed Torrez MD Past Med/Surg History Problem List (Updated 06/05/25 @ 08:14 by Syed Torrez MD) Abdominal wall hematoma (Acute) PAYAM (acute kidney injury) (Acute) Hypotension (Acute) Syncope (Acute) Diarrhea Urinary symptom or sign Trauma of toe of left foot Enlarged prostate with lower urinary tract symptoms (LUTS) Anemia S/P laparotomy C. 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 Rash COVID (Acute) Intraductal papillary mucinous neoplasm of pancreas Urinary retention Cystic mass of pancreas Constipation (Acute) Acute thoracic back pain (Acute) Acute urinary retention (Acute) Hyperglycemia (Acute) Constipation Syncope Chronic back pain (~01/30/25) Grieving Vitamin D deficiency Steatosis of liver Metabolic syndrome Dietary counseling and surveillance GERD (gastroesophageal reflux disease) Cramping of hands Esophageal dysphagia Hyperlipidemia Acid reflux disease Benign hypertension Insomnia Low back pain Controlled type 2 diabetes mellitus, with long-term current use of insulin (Chronic) Diabetic peripheral neuropathy Obesity Elevated PSA Routine health maintenance Cerumen impaction Hematuria Prostate cancer screening BPH w urinary obs/LUTS Hearing loss Encounter for pre-operative examination Gastroenteritis due to norovirus Encounter for examination following treatment at hospital Medical History Renal insufficiency Hypoxia Pulmonary embolism Diabetes mellitus, type 2 Fall Syncope History of esophageal dilatation Morbid obesity Urinary retention s/p urinary catheter (05/2021)- since removed BPH (benign prostatic hyperplasia) Insulin pump in place History of TMJ syndrome Hypertension Hyperlipidemia Dysesthesia R/L feet Surgical History History of prostate biopsy (~10/05/21) under MAC anesthesia @ [facility] History of surgery Exam under anesthesia, removal of skin tags, fistulotomy (01/09/18): Grade view 1 with Glidescope#4, ETT 8.0 (difficult mask. vent with 2 person 2/2 hamilton > elective glidescope with minimal neck extension- ETT easily passed, small right upper lip laceration noted) History of esophagogastroduodenoscopy (EGD) History of colonoscopy Hx of LASIK History of cataract surgery RT/LEFT History of tooth extraction RECENT TOOTH EXTRACTION H/O knee surgery Spur removed from knee History of tonsillectomy and adenoidectomy H/O neck surgery History of carpal tunnel surgery RT Family History Aunt Diabetes Father Lung cancer Sister Diabetes Other No family history of adverse response to anesthesia Denies family history of Ovarian cancer Prostate cancer Myocardial infarction Breast cancer Colorectal cancer Hypertension Stroke Social History Smoking Status: Never smoker Second Hand Exposure: No; Do You Dip or Chew Tobacco: No; Hx Alcohol Use: Yes Alcohol type: beer Alcohol Intake Frequency: Monthly or Less Hx Substance Use: No Preferred Language: Chilean Communication Ability: Effective Visual Impairment: No Limitations Hearing Ability: Normal Data Security Coordinator Required: No Beliefs That Will Affect Care: None marital status: / Current Living Situation: Family Current Living Situation Comment: Lives with daughter 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 How many Children do You have: 2 Feels Safe at Home: Yes Childhood Exposure to Second-Hand Smoke: No Diet: regular caffeine: Yes (coffee) during the past year weight has: remained stable Dental Care, Regularly: Yes Physical Activity Frequency: Daily Seatbelt Use: always Sunscreen Use: Yes Do you think of yourself as: straight/heterosexual Gender Identity: Male Assistive Devices: Cane, Walker and Wheelchair Allergies Allergies Allergy/AdvReac Type Severity Reaction Status Date / Time Penicillins Allergy Intermediate HIVES Verified 05/15/25 08:57 metformin AdvReac Intermediate GI Verified 05/15/25 08:57 distress/diarrhea Home Meds Home Medications Medication Instructions Recorded Confirmed aspirin 81 mg tablet,delayed 81 mg PO QAM 05/02/21 05/15/25 release cholecalciferol (vitamin D3) 25 25 mcg PO DAILY 02/19/25 05/15/25 mcg (1,000 unit) tablet mecobalamin (vitamin B12) 1 tab PO DAILY 02/19/25 05/15/25 ondansetron 4 mg disintegrating 4 mg PO Q6H PRN nausea and vomiting 02/19/25 05/15/25 tablet Previous Rx's Medication Instructions Recorded insulin syringe-needle U-100 1 mL #300 ea 05/20/22 31 gauge x 5/16" (BD Insulin Syringe Ultra-Fine) blood sugar diagnostic (Contour #100 ea 09/29/22 Next Test Strips) acetaminophen 325 mg tablet 650 mg (2 x 325 mg) PO Q4H PRN 05/18/23 pain #30 tabs pen needle, diabetic 31 gauge x #100 ea 03/07/24 3/16" (BD Ultra-Fine Mini Pen Needle) hydrochlorothiazide 25 mg tablet 25 mg PO QAM #90 tabs 11/14/24 trazodone 100 mg tablet 100 mg PO HS #90 tabs 11/18/24 tramadol 50 mg tablet 50 mg PO BID PRN pain #90 tabs 01/27/25 amlodipine 5 mg tablet 5 mg PO QPM #90 tabs 03/19/25 pantoprazole 40 mg tablet,delayed 40 mg PO BID #180 tabs 03/19/25 release enoxaparin 120 mg/0.8 mL 120 mg (0.8 mL) subcut Q12H 90 04/01/25 subcutaneous syringe (Lovenox) days #144 mL atorvastatin 10 mg tablet 5 mg (1/2 x 10 mg) PO HS #45 tabs 04/14/25 gabapentin 300 mg capsule 300 mg PO HS #90 caps 04/14/25 insulin lispro 100 unit/mL 280 unit (2.8 mL) continuous 05/26/25 subcutaneous solution (Humalog subcutaneous infusion DAILY 90 U-100 Insulin) days #250 mL lisinopril 40 mg tablet 40 mg PO UD #90 tabs 05/28/25 Results & Data (ED) Vital Signs Vital Signs - 24 hr 06/05/25 03:05 06/05/25 03:05 06/05/25 03:32 Temperature 36.5 C 36.5 C Temperature Source Oral Oral Pulse Rate 67 93 H Pulse Rate [Right Finger] Pulse Rhythm [Right Finger] Respiratory Rate 16 16 16 Respiratory Depth Normal Normal Blood Pressure 100/55 L Blood Pressure [Left Arm] 100/55 L Blood Pressure Mean 70 Blood Pressure Mean [Left Arm] 70 Pulse Oximetry 97 97 95 Oxygen Delivery Method Room Air Room Air Sepsis Recent Fever Within 48 Hours No Sepsis New/Unexplained Change in Mental Status No Sepsis Action Taken by Nursing No Action Required 06/05/25 05:00 06/05/25 05:21 06/05/25 06:00 Temperature 36.7 C Temperature Source Oral Pulse Rate Pulse Rate [Right Finger] 96 H 99 H 102 H Pulse Rhythm [Right Finger] Regular Respiratory Rate 16 18 18 Respiratory Depth Normal Normal Blood Pressure Blood Pressure [Left Arm] 128/100 102/85 147/69 H Blood Pressure Mean Blood Pressure Mean [Left Arm] 109 90 95 Pulse Oximetry 95 98 94 Oxygen Delivery Method Room Air Room Air Room Air Sepsis Recent Fever Within 48 Hours Sepsis New/Unexplained Change in Mental Status Sepsis Action Taken by Nursing 06/05/25 06:32 Temperature Temperature Source Pulse Rate Pulse Rate [Right Finger] 92 H Pulse Rhythm [Right Finger] Respiratory Rate 18 Respiratory Depth Normal Blood Pressure Blood Pressure [Left Arm] 111/64 Blood Pressure Mean Blood Pressure Mean [Left Arm] 79 Pulse Oximetry 94 Oxygen Delivery Method Room Air Sepsis Recent Fever Within 48 Hours Sepsis New/Unexplained Change in Mental Status Sepsis Action Taken by Nursing Laboratory Data Attestation: I reviewed the patient's lab results. 06/05/25 03:35 06/05/25 03:35 Lab Results 06/05/25 06/05/25 06/05/25 Range/Units 03:35 03:44 03:47 WBC 10.31 (4.8-10.8) K/ul RBC 4.24 L (4.70-6.10) M/uL Hgb 10.6 L (14.0-18.0) g/dl POC Hgb 11.2 L (14.0-18.0) g/dl Hct 33.4 L (42.0-52.0) % POC Hct 33 L (42-52) % MCV 78.8 L (80.0-100.0) fL MCH 25.0 (25.0-34.0) pg MCHC 31.7 L (32.0-36.0) g/dL RDW Std Deviation 43.1 (36.4-46.3) fL RDW Coeff of Joselin 15.1 H (11.5-14.5) % Plt Count 208 (130-400) K/uL MPV 11.9 (9.4-12.4) fL Immature Gran % (Auto) 0.5 % Neut % (Auto) 79.6 % Lymph % (Auto) 10.8 % [place] % (Auto) 8.3 % Eos % (Auto) 0.5 % Baso % (Auto) 0.3 % Neut # (Auto) 8.21 H (1.40-6.50) K/uL Lymph # (Auto) 1.11 L (1.20-3.40) K/uL [place] # (Auto) 0.86 H (0.11-0.59) K/uL Eos # (Auto) 0.05 (0.00-0.50) K/uL Baso # (Auto) 0.03 (0.00-0.20) K/uL Immature Gran # (Auto) 0.05 (0.01-0.20) K/uL PT 11.6 (9.0-12.0) Seconds INR 1.1 (0.9-1.1) APTT 31 (21-31) Seconds PTT Ratio 1.2 POC Sodium 137 (135-144) mmol/L Sodium 135 L (136-145) mmol/L POC Potassium 3.5 (3.3-5.0) mmol/L Potassium 3.5 (3.5-5.1) mmol/L POC Chloride 102 (101-112) mmol/L Chloride 103 (98-107) mmol/L Carbon Dioxide 23 (21-32) mmol/L POC Total CO2 22 L (24-31) mmol/L Anion Gap 9 (3-11) POC Anion Gap 18.0 (16-25) mmol/L POC BUN 14 (7-18) mg/dl BUN 14 (6-23) mg/dl Creatinine 1.43 H (0.6-1.4) mg/dl POC Creatinine 1.6 H (0.6-1.3) mg/dl Est Cr Clr Drug Dosing Not Reportable eGFR 50.15 BUN/Creatinine Ratio 9.8 L (10-20) Glucose 121 H (70-99(Fasting)) mg/dl POC Glucose (other) 118 H (70-99) mg/dl Calcium 8.4 L (8.6-10.3) mg/dl POC Ioniz Calcium Ania 1.12 (1.12-1.32) mmol/l Total Bilirubin 0.6 (0.2-1.0) mg/dl AST 28 (13-39) U/L ALT 27 (7-52) U/L Alkaline Phosphatase 68 (34-104) U/L Total Creatine Kinase 553 H (30-223) U/L Troponin I High Sens 10.6 (0-20) pg/ml Total Protein 6.3 (6.0-8.3) gm/dl Albumin 3.5 (3.4-5.0) gm/dl Globulin 2.8 (2.5-4.0) gm/dl Albumin/Globulin Ratio 1.3 (0.9-2) Lipase 39 (11-82) U/L Blood Type A Positive Antibody Screen NEGATIVE Administered Medications Discontinued Medications Sodium Chloride (Nss) 1,000 mls @ 999 mls/hr IV .Q1H1M JEANA Stop: 06/05/25 04:45 Last Infusion: 06/05/25 06:33 Dose: Infused Documented By: Admin: 06/05/25 04:26 Dose: 999 mls/hr Documented By: PITO Ioversol (Optiray 320 100ml) 100 ml IV ONCE ONE Stop: 06/05/25 04:11 Last Admin: 06/05/25 04:11 Dose: 93 ml Documented By: ANSHUL Imaging Data Radiologist's Impression: Chest X-Ray 06/05/25 03:32 EXAM: XR chest 1V portable CLINICAL HISTORY: Trauma TECHNIQUE: Radiograph of chest was acquired. COMPARISON: FINDINGS: Left basal atelectasis changes- unchanged Interval unchanged cardiomegaly Prominent peripheral bronchovascular markings in bilateral lung sawyer-unchanged Rest of the lungs are clear and well-expanded. Rest of the cardiomediastinal silhouette is within normal limits. No acute osseous abnormality. IMPRESSION: Prominent peripheral bronchovascular markings in bilateral lung sawyer are likely of congestive etiology, clinical correlation is recommended. Left basal atelectasis changes- unchanged Interval unchanged cardiomegaly No interval changes Electronically signed by Yoel Montano 06-05-2025 04:[address] 06/05/25 03:32 EXAM: CT lumbar spine w con CLINICAL HISTORY: Trauma TECHNIQUE: Multiple contiguous axial images were obtained through the lumbar spine without IV contrast. Sagittal and coronal reformatted images were obtained from the axial data. CT scan was performed according to ALARA (as low as reasonable achievable). COMPARISON: No prior studies for comparison FINDINGS: The normal lordotic curvature of the lumbar spine is maintained. Degenerative changes are noted in the visualized spine in the form of marginal osteophytes, endplate irregularities and sclerosis, reduction in the disc height, small posterior disc bulges, vacuum phenomenon and facet arthropathy changes, Lumbar vertebral bodies are maintained in height and alignment. No vertebral estructive changes are seen. L1-L2: No disc bulge, canal stenosis or neuroforaminal narrowing. Subarticular recesses are patent. L2-L3: Posterior disc osteopjhyte complex indenting ventral thecal sac without canal stenosis and with bilateral neuroforaminal narrowing. L3-L4: No disc bulge, canal stenosis or neuroforaminal narrowing. Subarticular recesses are patent. L4-L5: No disc bulge, canal stenosis or neuroforaminal narrowing. Subarticular recesses are patent. L5-S1: No disc bulge, canal stenosis or neuroforaminal narrowing. Subarticular recesses are patent. Paravertebral soft tissues are unremarkable. 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 06/05/25 03:32 EXAM: CT thoracic spine w con CLINICAL HISTORY: trauma TECHNIQUE: Multiple contiguous axial images were obtained through the thoracic spine without IV contrast. Sagittal and coronal reformatted images were obtained from the axial data. CT scan was performed according to ALARA (as low as reasonable achievable). COMPARISON: may 17:34:32 PUBLIC HEALTH NURSE. FINDINGS: The alignment of the thoracic spine is maintained. Loss of cervical lordosis - suggest possibility of muscle spasm/positional. Degenerative changes involving cervical spine in the form of multilevel marginal osteophytes, disc space reduction and facetal arthrosis. Thoracic vertebral bodies are maintained in height and alignment. No vertebral destructive changes are seen. C7-T1: No disc bulge. No canal stenosis. No neuroforaminal narrowing. T1-T2: No disc bulge. No canal stenosis. No neuroforaminal narrowing. T2-T3: No disc bulge. No canal stenosis. No neuroforaminal narrowing. T3-T4: No disc bulge. No canal stenosis. No neuroforaminal narrowing. T4-T5: No disc bulge. No canal stenosis. No neuroforaminal narrowing. T5-T6: No disc bulge. No canal stenosis. No neuroforaminal narrowing. T6-T7: No disc bulge. No canal stenosis. No neuroforaminal narrowing. T7-T8: No disc bulge. No canal stenosis. No neuroforaminal narrowing. T8-T9: No disc bulge. No canal stenosis. No neuroforaminal narrowing. T9-T10: No disc bulge. No canal stenosis. No neuroforaminal narrowing. T10-T11: No disc bulge. No canal stenosis. No neuroforaminal narrowing. T11-T12: No disc bulge. No canal stenosis. No neuroforaminal narrowing. Paravertebral soft tissues are unremarkable. Visualized lung parenchyma appears unremarkable. IMPRESSION: 1. Thoracic spondylosis.-stable. 2. No fracture or dislocation. 3. No other new interval abnormality since prior study. Electronically signed by Yoel Montano 06-05-2025 05:59 AM Abdomen/Pelvis CT 06/05/25 03:33 EXAM: CT abd pelvis IV con only CLINICAL HISTORY: Trauma;br The absolute large TECHNIQUE: Contiguous axial images were obtained from the level of the diaphragm to the pubic symphysis with intravenous contrast. Coronal and sagittal reconstructions were likewise performed and indicated to increase the sensitivity for detecting clinically relevant pathology. If IV contrast material had not been administered, the likelihood of detecting abnormalities relevant to the patient's condition would have been substantially decreased. CT scan was performed according to ALARA (as low as reasonable achievable). COMPARISON: March 13:13:18 PUBLIC HEALTH NURSE FINDINGS: The visualized lung bases shows subsegmental atelectasis changes and a thin walled cyst in left lung base measuring ~27 x 21mm.- as seen previously. The liver is normal in size and attenuation. No focal liver lesions are seen. There is no intra or extrahepatic biliary ductal dilatation. Hepatic vasculature is patent. The gallbladder is distended. Faint hyperdense content seen in dependent areas- could be sludge. The spleen is enlarged in size with ill defined hypodense areas within, largest measuring ~ 51 x 47 x 40mm - could represent areas of infarcts- suggest ultrasound correlation - new finding. The pancreas is diffusely replaced by fat , predominantly in the region of body and tail( nonvisualization of pancreatic parenchyma) with subtle fat stranding in pancreatic and peripancreatic regions. there is interval increase of fatty infiltration compared to previous study. Adrenal glands are unremarkable. The kidneys are normal in size and attenuation. There is no hydronephrosis. Minimal bilateral perinephric fat stranding. No renal masses are identified. Bosniak type 1 cyst in upper pole of left kidney. ~2mm radiodense calculi in lower pole of right and upper pole of left kidney. The ureters are normal in caliber and no ureteral calculi are seen. The bladder is normal in contour with diffusely thickening of wall, measuring upto 6mm in thickness. Enlarged and heterodense prostate measuring ~5.5 x 4.6 x 3.8cm No evidence of focal or diffuse bowel wall thickening or evidence of bowel obstruction is seen. No evidence of inflamed appendix. No adenopathy or fluid collections are seen. The aorta is normal in caliber. No aggressive appearing osseous lesions are identified. Degenerative changes in visualised spine. Approximately 68 x 134 x 157 mm size well defined hyperdense lesion is noted involving left side of anterior abdominal wall muscle:: Predominantly rectus abdominis- possibility of large hematoma likely.-new finding. IMPRESSION: 1. Splenomegaly with interval development of hypodense areas within - could be infarcts - suggest ultrasound correlation - new finding. 2. Diffuse fatty infiltration of pancreas with peripancreatic fat stranding ( almost nonvisualization of pancreatic parenchyma in body and tail region) -stable. Subtle fat stranding in the pancreatic bed- isodense compared to prior study. 3. Prostatomegaly with diffuse urinary bladder wall thickening - could be due to chronic outflow obstruction - suggest clinical correlation.-stable. 4. Bilateral non obstructive renal calculi.-stable. 5. Faint hyperdense content seen in dependent area of gall bladder- could be sludge. Advised ultrasound correlation. 6. Approximately 68 x 134 x 157 mm size well defined hyperdense lesion is noted involving left side of anterior abdominal wall muscle:: Predominantly rectus abdominis- possibility of large hematoma likely.-new finding. No other new interval abnormality since prior study. Electronically signed by Yoel Montano 06-05-2025 05:[address] 06/05/25 03:33 EXAM: CT cervical spine wo con CLINICAL HISTORY: Trauma TECHNIQUE: Computed tomography of the cervical spine performed without intravenous contrast. Contiguous axial images were obtained from the skull base to T2, with sagittal and coronal reformatted images reconstructed from the axial data. CT scan was performed according to ALARA (as low as reasonable achievable). COMPARISON: 05/17/2023 17:34:32 PUBLIC HEALTH NURSE FINDINGS: Loss of cervical lordosis - suggest possibility of muscle spasm/positional. Degenerative changes involving cervical spine in the form of multilevel marginal osteophytes, disc space reduction and facetal arthrosis. Postoperative status with anterior fixation with fusion of C4-C7 vertebra. Fixation screw endplates are seen in situ without obvious loosening. Cervical vertebral bodies are normal in height and alignment, with no evidence of fracture or subluxation. Lateral masses of C1 are symmetrical, and the dens is intact. Prevertebral soft tissues are not widened. The remaining suprahyoid and infrahyoid soft tissues in the neck are unremarkable. Posterior uncovertebral arthrosis is noted at C3-C4 to C6-C7 levels which indenting ventral thecal sac and causes bilateral neuroforaminal narrowing. Thyroid gland appears unremarkable. IMPRESSION: 1.No acute fracture or subluxation in the cervical spine. 2.Cervical spondylosis.-stable. 3. Postoperative status with anterior fixation with fusion of C4-C7 vertebra. Fixation screw endplates are seen in situ without obvious loosening. -stable. Electronically signed by Yoel Montano 06-05-2025 05:[address] 06/05/25 03:33 EXAM: CT chest diagnostic w con CLINICAL HISTORY: Trauma TECHNIQUE: Contiguous axial images were obtained from the neck base through the upper abdomen following intravenous administration of contrast material. If IV contrast material had not been administered, the likelihood of detecting abnormalities relevant to the patient's condition would have been substantially decreased. In addition, sagittal and coronal reconstructions were performed. CT scan was performed according to ALARA (as low as reasonable achievable). 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 FINDINGS: A small thin walled cyst/bulla is noted involving lingula. Few atelectatic bands are noted involving bilateral lung bases. Rest of lungs are clear, with no focal areas of consolidation. No pulmonary nodules are seen. The central airways are patent. There are no pleural effusions. No pneumothorax is seen. No axillary, hilar, or mediastinal adenopathy is identified. The visualized thyroid is unremarkable. The heart, aorta, and pulmonary arteries are of normal size and configuration. No pericardial effusion is identified. Imaged portions of the upper abdomen are unremarkable. No aggressive appearing osseous lesions are identified. IMPRESSION: 1. A small thin walled cyst/bulla is noted involving lingula.-stable. 2. No obvious filling defect is noted involving pulmonary arteries. 3. Few atelectatic bands are noted involving bilateral lung bases.-stable. 4. No obvious trauma related abnormality seen. Electronically signed by Yoel Montano 06-05-2025 05:[address] 06/05/25 03:33 EXAM: CT head/brain wo con CLINICAL HISTORY: trauma TECHNIQUE: Multiple axial images are obtained from the skull base to the vertex without contrast. CT scan was performed according to ALARA (as low as reasonable achievable). COMPARISON: 01:36:12 PUBLIC HEALTH NURSE. FINDINGS: There is cerebral atrophy. No evidence of space occupying lesion, hemorrhage, edema, mass effect, midline shift, extra axial collection, or hydrocephalus is noted. Basal cisterns are symmetric and normal in size and configuration. There are scattered periventricular hypodensities as can be seen with chronic microvascular ischemic changes. The mares-white matter differentiation is preserved. Visualized paranasal sinuses and mastoid air cells are well aerated. Orbital contents are within normal limits. Bony structures are intact. IMPRESSION: 1. No evidence of acute intracranial abnormality is demonstrated. 2. Chronic microvascular ischemic changes.-stable. 3. Cerebral atrophy.-stable. No other new interval abnormality since prior study. Electronically signed by Yoel Montano 06-05-2025 05:09 AM Discharge Plan Visit Data Chief Complaint: Fall ED Provider: Syed Torrez Discharge Problem: Syncope, Hypotension, PAYAM (acute kidney injury), Abdominal wall hematoma Patient Disposition: Admitted As Inpatient Condition: Fair Forms Stand Alone Forms: [facility] [employer] Prescriptions Prescriptions: No Action trazodone 100 mg tablet 100 mg PO HS Qty: 90 3RF tramadol 50 mg tablet 50 mg PO BID PRN (Reason: pain) Qty: 90 0RF ondansetron 4 mg tablet,disintegrating 4 mg PO Q6H PRN (Reason: nausea and vomiting) cholecalciferol (vitamin D3) 25 mcg (1,000 unit) tablet 25 mcg PO DAILY mecobalamin (vitamin B12) 1 tab PO DAILY Rx Instructions: otc unknown strength/unable to verify gabapentin 300 mg capsule 300 mg PO HS Qty: 90 2RF atorvastatin 10 mg tablet 5 mg PO HS Qty: 45 3RF insulin lispro [Humalog U-100 Insulin] 100 unit/mL solution 280 unit continuous subcutaneous infusion DAILY 90 Days Qty: 250 3RF lisinopril 40 mg tablet 40 mg PO UD Qty: 90 3RF Rx Instructions: 40 mg po qam. no fill history available unable to verify (DME) insulin syringe-needle U-100 [BD Insulin Syringe Ultra-Fine] 1 mL 31 gauge x 5/16 syringe See Dose Instructions .ROUTE .MEDSUPPLY Qty: 300 3RF Dose Instruction: As directed Rx Instructions: Inject insulin 3 times a day (DME) Contour Next Test Strips Strip See Rx Instructions .ROUTE .MEDSUPPLY Qty: 100 3RF Rx Instructions: Check 1x a day (DME) pen needle, diabetic [BD Ultra-Fine Mini Pen Needle] 31 gauge x 3/16" needle See Rx Instructions .ROUTE .MEDSUPPLY Qty: 100 2RF Rx Instructions: as needed for smaller doses of Ozempic enoxaparin [Lovenox] 120 mg/0.8 mL syringe 120 mg subcut Q12H 90 Days Qty: 144 0RF hydrochlorothiazide 25 mg tablet 25 mg PO QAM Qty: 90 3RF pantoprazole 40 mg tablet,delayed release (DR/EC) 40 mg PO BID Qty: 180 1RF amlodipine 5 mg tablet 5 mg PO QPM Qty: 90 3RF aspirin 81 mg Tablet,Delayed Release (Dr/Ec) 81 mg PO QAM Hold Instructions: per pt-on hold until PCP f/u appt on 03/19 Patient Comments: on hold d/t tooth extraction acetaminophen 325 mg Tablet 650 mg PO Q4H PRN (Reason: pain) Qty: 30 0RF Rx Instructions: OTC unable to verify Referrals Referrals: Nohemi Teresa MD [Primary Care Provider] - Discharge Problem: Syncope Qualifiers: Syncope type: unspecified Qualified Code(s): R55 - Syncope and collapse Hypotension Qualifiers: Hypotension type: unspecified hypotension type Qualified Code(s): I95.9 - Hypotension, unspecified Abdominal wall hematoma Qualifiers: Encounter type: initial encounter Qualified Code(s): S30.1XXA - Contusion of abdominal wall, initial encounter
[2025-06-05 04:03] LABS: Hematocrit (blood only) 33.4 % (42.0-52.0); Hemoglobin 10.6 g/dl (14.0-18.0); Immature Granulocytes # (auto) 0.05 K/uL (0.01-0.20); Immature Granulocytes % (auto) 0.5 %; Mean Corpuscular Hemoglobin 25.0 pg (25.0-34.0); Mean Corpuscular Volume 78.8 fL (80.0-100.0); Platelet Count 208 K/uL (130-400); RDW Standard Deviation 43.1 fL (36.4-46.3); Red Blood Count 4.24 M/uL (4.70-6.10); White Blood Count 10.31 K/ul (4.8-10.8)
[2025-06-05] MEDS: OPTIRAY 320 100ml IV ONE (04:11)
[2025-06-05 04:19] LABS: Alanine Aminotransferase 27 U/L (7-52); Albumin Globulin Ratio 1.3 (0.9-2); Alkaline Phosphatase 68 U/L (34-104); Anion Gap 9 (3-11); Bilirubin,Total 0.6 mg/dl (0.2-1.0); Blood Urea Nitrogen 14 mg/dl (6-23); Calcium 8.4 mg/dl (8.6-10.3); Carbon Dioxide 23 mmol/L (21-32); Chloride 103 mmol/L (98-107); Creatine Kinase 553 U/L (30-223); Globulin 2.8 gm/dl (2.5-4.0); Glucose 121 mg/dl (70-99(Fasting)); Lipase 39 U/L (11-82); Potassium 3.5 mmol/L (3.5-5.1); Sodium 135 mmol/L (136-145); Total Protein 6.3 gm/dl (6.0-8.3)
[2025-06-05] MEDS: SODIUM CHLORIDE 0.9% 1,000 ML IV SCH (04:26)
[2025-06-05 04:28] LABS: INR 1.1 (0.9-1.1); Partial Thromboplastin Time 31 Seconds (21-31); Prothrombin Time 11.6 Seconds (9.0-12.0)
--- NOTE | 2025-06-05 04:43 | XRay Report ---
EXAM: XR chest 1V portable CLINICAL HISTORY: Trauma TECHNIQUE: Radiograph of chest was acquired. COMPARISON: FINDINGS: Left basal atelectasis changes- unchanged Interval unchanged cardiomegaly Prominent peripheral bronchovascular markings in bilateral lung sawyer-unchanged Rest of the lungs are clear and well-expanded. Rest of the cardiomediastinal silhouette is within normal limits. No acute osseous abnormality. IMPRESSION: Prominent peripheral bronchovascular markings in bilateral lung sawyer are likely of congestive etiology, clinical correlation is recommended. Left basal atelectasis changes- unchanged Interval unchanged cardiomegaly No interval changes Electronically signed by Yoel Montano 06-05-2025 04:43 AM
--- NOTE | 2025-06-05 05:10 | CT Scan Report ---
EXAM: CT head/brain wo con CLINICAL HISTORY: trauma TECHNIQUE: Multiple axial images are obtained from the skull base to the vertex without contrast. CT scan was performed according to ALARA (as low as reasonable achievable). 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 FINDINGS: There is cerebral atrophy. No evidence of space occupying lesion, hemorrhage, edema, mass effect, midline shift, extra axial collection, or hydrocephalus is noted. Basal cisterns are symmetric and normal in size and configuration. There are scattered periventricular hypodensities as can be seen with chronic microvascular ischemic changes. The mares-white matter differentiation is preserved. Visualized paranasal sinuses and mastoid air cells are well aerated. Orbital contents are within normal limits. Bony structures are intact. IMPRESSION: 1. No evidence of acute intracranial abnormality is demonstrated. 2. Chronic microvascular ischemic changes.-stable. 3. Cerebral atrophy.-stable. No other new interval abnormality since prior study. Electronically signed by Yoel Montano 06-05-2025 05:09 AM
--- NOTE | 2025-06-05 05:11 | CT Scan Report ---
EXAM: CT cervical spine wo con CLINICAL HISTORY: Trauma TECHNIQUE: Computed tomography of the cervical spine performed without intravenous contrast. Contiguous axial images were obtained from the skull base to T2, with sagittal and coronal reformatted images reconstructed from the axial data. CT scan was performed according to ALARA (as low as reasonable achievable). COMPARISON: 05/17/2023 17:34:32 DIRECTOR RELIGIOUS EDUCATION FINDINGS: Loss of cervical lordosis - suggest possibility of muscle spasm/positional. Degenerative changes involving cervical spine in the form of multilevel marginal osteophytes, disc space reduction and facetal arthrosis. Postoperative status with anterior fixation with fusion of C4-C7 vertebra. Fixation screw endplates are seen in situ without obvious loosening. Cervical vertebral bodies are normal in height and alignment, with no evidence of fracture or subluxation. Lateral masses of C1 are symmetrical, and the dens is intact. Prevertebral soft tissues are not widened. The remaining suprahyoid and infrahyoid soft tissues in the neck are unremarkable. Posterior uncovertebral arthrosis is noted at C3-C4 to C6-C7 levels which indenting ventral thecal sac and causes bilateral neuroforaminal narrowing. Thyroid gland appears unremarkable. IMPRESSION: 1.No acute fracture or subluxation in the cervical spine. 2.Cervical spondylosis.-stable. 3. Postoperative status with anterior fixation with fusion of C4-C7 vertebra. Fixation screw endplates are seen in situ without obvious loosening. -stable. Electronically signed by Yoel Montano 06-05-2025 05:11 AM
--- NOTE | 2025-06-05 05:44 | CT Scan Report ---
EXAM: CT chest diagnostic w con CLINICAL HISTORY: Trauma TECHNIQUE: Contiguous axial images were obtained from the neck base through the upper abdomen following intravenous administration of contrast material. If IV contrast material had not been administered, the likelihood of detecting abnormalities relevant to the patient's condition would have been substantially decreased. In addition, sagittal and coronal reconstructions were performed. CT scan was performed according to ALARA (as low as reasonable achievable). 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 FINDINGS: A small thin walled cyst/bulla is noted involving lingula. Few atelectatic bands are noted involving bilateral lung bases. Rest of lungs are clear, with no focal areas of consolidation. No pulmonary nodules are seen. The central airways are patent. There are no pleural effusions. No pneumothorax is seen. No axillary, hilar, or mediastinal adenopathy is identified. The visualized thyroid is unremarkable. The heart, aorta, and pulmonary arteries are of normal size and configuration. No pericardial effusion is identified. Imaged portions of the upper abdomen are unremarkable. No aggressive appearing osseous lesions are identified. IMPRESSION: 1. A small thin walled cyst/bulla is noted involving lingula.-stable. 2. No obvious filling defect is noted involving pulmonary arteries. 3. Few atelectatic bands are noted involving bilateral lung bases.-stable. 4. No obvious trauma related abnormality seen. Electronically signed by Yoel Montano 06-05-2025 05:43 AM
--- NOTE | 2025-06-05 05:49 | CT Scan Report ---
EXAM: CT abd pelvis IV con only CLINICAL HISTORY: Trauma;br The absolute large TECHNIQUE: Contiguous axial images were obtained from the level of the diaphragm to the pubic symphysis with intravenous contrast. Coronal and sagittal reconstructions were likewise performed and indicated to increase the sensitivity for detecting clinically relevant pathology. If IV contrast material had not been administered, the likelihood of detecting abnormalities relevant to the patient's condition would have been substantially decreased. CT scan was performed according to ALARA (as low as reasonable achievable). COMPARISON: March 13:13:18 PACKAGE CHECKER FINDINGS: The visualized lung bases shows subsegmental atelectasis changes and a thin walled cyst in left lung base measuring ~27 x 21mm.- as seen previously. The liver is normal in size and attenuation. No focal liver lesions are seen. There is no intra or extrahepatic biliary ductal dilatation. Hepatic vasculature is patent. The gallbladder is distended. Faint hyperdense content seen in dependent areas- could be sludge. The spleen is enlarged in size with ill defined hypodense areas within, largest measuring ~ 51 x 47 x 40mm - could represent areas of infarcts- suggest ultrasound correlation - new finding. The pancreas is diffusely replaced by fat , predominantly in the region of body and tail( nonvisualization of pancreatic parenchyma) with subtle fat stranding in pancreatic and peripancreatic regions. there is interval increase of fatty infiltration compared to previous study. Adrenal glands are unremarkable. The kidneys are normal in size and attenuation. There is no hydronephrosis. Minimal bilateral perinephric fat stranding. No renal masses are identified. Bosniak type 1 cyst in upper pole of left kidney. ~2mm radiodense calculi in lower pole of right and upper pole of left kidney. The ureters are normal in caliber and no ureteral calculi are seen. The bladder is normal in contour with diffusely thickening of wall, measuring upto 6mm in thickness. Enlarged and heterodense prostate measuring ~5.5 x 4.6 x 3.8cm No evidence of focal or diffuse bowel wall thickening or evidence of bowel obstruction is seen. No evidence of inflamed appendix. No adenopathy or fluid collections are seen. The aorta is normal in caliber. No aggressive appearing osseous lesions are identified. Degenerative changes in visualised spine. Approximately 68 x 134 x 157 mm size well defined hyperdense lesion is noted involving left side of anterior abdominal wall muscle:: Predominantly rectus abdominis- possibility of large hematoma likely.-new finding. IMPRESSION: 1. Splenomegaly with interval development of hypodense areas within - could be infarcts - suggest ultrasound correlation - new finding. 2. Diffuse fatty infiltration of pancreas with peripancreatic fat stranding ( almost nonvisualization of pancreatic parenchyma in body and tail region) -stable. Subtle fat stranding in the pancreatic bed- isodense compared to prior study. 3. Prostatomegaly with diffuse urinary bladder wall thickening - could be due to chronic outflow obstruction - suggest clinical correlation.-stable. 4. Bilateral non obstructive renal calculi.-stable. 5. Faint hyperdense content seen in dependent area of gall bladder- could be sludge. Advised ultrasound correlation. 6. Approximately 68 x 134 x 157 mm size well defined hyperdense lesion is noted involving left side of anterior abdominal wall muscle:: Predominantly rectus abdominis- possibility of large hematoma likely.-new finding. No other new interval abnormality since prior study. Electronically signed by Yoel Montano 06-05-2025 05:49 AM
--- NOTE | 2025-06-05 05:59 | CT Scan Report ---
EXAM: CT thoracic spine w con CLINICAL HISTORY: trauma TECHNIQUE: Multiple contiguous axial images were obtained through the thoracic spine without IV contrast. Sagittal and coronal reformatted images were obtained from the axial data. CT scan was performed according to ALARA (as low as reasonable achievable). 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 FINDINGS: The alignment of the thoracic spine is maintained. Loss of cervical lordosis - suggest possibility of muscle spasm/positional. Degenerative changes involving cervical spine in the form of multilevel marginal osteophytes, disc space reduction and facetal arthrosis. Thoracic vertebral bodies are maintained in height and alignment. No vertebral destructive changes are seen. C7-T1: No disc bulge. No canal stenosis. No neuroforaminal narrowing. T1-T2: No disc bulge. No canal stenosis. No neuroforaminal narrowing. T2-T3: No disc bulge. No canal stenosis. No neuroforaminal narrowing. T3-T4: No disc bulge. No canal stenosis. No neuroforaminal narrowing. T4-T5: No disc bulge. No canal stenosis. No neuroforaminal narrowing. T5-T6: No disc bulge. No canal stenosis. No neuroforaminal narrowing. T6-T7: No disc bulge. No canal stenosis. No neuroforaminal narrowing. T7-T8: No disc bulge. No canal stenosis. No neuroforaminal narrowing. T8-T9: No disc bulge. No canal stenosis. No neuroforaminal narrowing. T9-T10: No disc bulge. No canal stenosis. No neuroforaminal narrowing. T10-T11: No disc bulge. No canal stenosis. No neuroforaminal narrowing. T11-T12: No disc bulge. No canal stenosis. No neuroforaminal narrowing. Paravertebral soft tissues are unremarkable. Visualized lung parenchyma appears unremarkable. IMPRESSION: 1. Thoracic spondylosis.-stable. 2. No fracture or dislocation. 3. No other new interval abnormality since prior study. Electronically signed by Yoel Montano 06-05-2025 05:59 AM
--- NOTE | 2025-06-05 06:00 | CT Scan Report ---
EXAM: CT lumbar spine w con CLINICAL HISTORY: Trauma TECHNIQUE: Multiple contiguous axial images were obtained through the lumbar spine without IV contrast. Sagittal and coronal reformatted images were obtained from the axial data. CT scan was performed according to ALARA (as low as reasonable achievable). COMPARISON: No prior studies for comparison FINDINGS: The normal lordotic curvature of the lumbar spine is maintained. Degenerative changes are noted in the visualized spine in the form of marginal osteophytes, endplate irregularities and sclerosis, reduction in the disc height, small posterior disc bulges, vacuum phenomenon and facet arthropathy changes, Lumbar vertebral bodies are maintained in height and alignment. No vertebral estructive changes are seen. L1-L2: No disc bulge, canal stenosis or neuroforaminal narrowing. Subarticular recesses are patent. L2-L3: Posterior disc osteopjhyte complex indenting ventral thecal sac without canal stenosis and with bilateral neuroforaminal narrowing. L3-L4: No disc bulge, canal stenosis or neuroforaminal narrowing. Subarticular recesses are patent. L4-L5: No disc bulge, canal stenosis or neuroforaminal narrowing. Subarticular recesses are patent. L5-S1: No disc bulge, canal stenosis or neuroforaminal narrowing. Subarticular recesses are patent. Paravertebral soft tissues are unremarkable. 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
--- NOTE | 2025-06-05 07:58 | History & Physical Report ---
<Statement entered by Lani Javier MD - 06/05/25 17:20> I have reviewed vital signs, chart notes, labs and imaging. I have personally seen, evaluated and examined the patient. I have also discussed the management of the patient with the LILLIAN and I agree with the exam findings documented in the history and physical examination and the documented assessment and plan unless otherwise stated below. 79 y/o who presented with syncopal episode, found to have large abdominal wall hematoma Complex history past few months - I reviewed previous primary care and hospital notes from [facility] and SNF discharge summary In January of this year underwent distal pancreatectomy for IPMN at [facility], developed pancreatic leak and required repeat surgery 02/10. At that time he had appendectomy but finding was only a fecolith. Discharged on DVT prophylaxis dose enoxaparin 40 mg daily. Subsequently admitted at [facility] with breakthrough PE and splenic infarct, had IVC filter placed, discharged on therapeutic dose enoxaparin. 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 IVC filter in place I do not know that I would call this 'breakthrough' PE because initial enox was prophylaxis dose and would have been held for his multiple surgeries Plan was for repeat CTA scheduled for 06/13 but I'm unsure that there is any utility in repeat study Does not have s/sx of PE at this time -stop enoxaparin -LE duplex Date of Service June 05, 2025 Assessment & Plan (1) Abdominal wall hematoma: (2) Anemia: (3) Syncope: Plan 79 y/o man with history of PE on chronic anticoagulation with enoxaparin and on aspirin who presents after syncopal episode and with large left abdominal wall hematoma # Abdominal wall hematoma | Anemia Likely secondary to recent abd surgery at [facility] 02/2025 large abdominal wall hematoma left rectus abdominus. Based on measurements I'd approximate the volume as up to 750 mL he does have low normal BP and sinus tachycardia Hg 10.6 on presentation - same as recent baseline. Repeat H/H now 11.3 and check q4h -check orthostatic vital signs -hold enoxaparin and aspirin -hold antihypertensives (amlodipine, HCTZ, lisinopril -admit to PCU today for observation # Syncope -may be caused by ABLA or vasovagal reaction from the hematoma -repeat EKG since original EKG appears to have arm lead reversal. ddx would be interval lateral infarct compared to previous EKGs which I also reviewed -possibly related to medication effects: trazodone (reports usually dizzy with this + gabapentin) - HELD -tele monitor #PAYAM Cr 1.43 baseline 1.1-1.2 1L NSS given in ED trend AM BMP # Fall -flores CT unremarkable for any injury besides the hematoma # Renal insufficiency on CKD - baseline Cr 1-1.2. Cr 1.43 on presentation - prerenal from anemia - IVF, hold HCTZ and lisinopril, AM BMP # Hx PE, hypercoagulable state -splenic infarcts? # Hx IPMN, fatty pancreas - pancreas insufficiency? # GB sludge on CT noted # DM - insulin pump, diabetic diet # HTN/HLD - continue statin and hold antihypertensives # DVT ppx - SCDs, enox held History of Present Illness Chief Complaint: loss of consciousness Primary Care Provider: Nohemi Teresa MD 79 y/o man on chronic enoxaparin for history of PE as well as aspirin who presented to ED with syncopal episode. States he was getting up to change his insulin pump, got dizzy and feel. States his sugar was 180 when he feel. On the ground for 2 hours. Reports trazadone + gabapentin usually makes him lightheaded and he tries not to get up but this time he had to refill his pump. 02/11/25 hx of sx at [facility] for pancreas, hernia. then emergency appendectomy. still having residual pain from this on the left flank. Pain in the left side worst it has ever been on Monday. Was supposed to have an appointment next Monday to see if he could stop his AC for PE, he reports having IVC filter in place. BM this AM. usually uses a rollator. L lower abdominal wall swelling Flores-CT in ED notable for large left lower wall abdominal hematoma. Also notable for possible interval splenic infarcts, fatty pancreas, thickened bladder c/w chronic obstruction Allergies Allergy/AdvReac Type Severity Reaction Status Date / Time Penicillins Allergy Intermediate HIVES Verified 05/15/25 08:57 metformin AdvReac Intermediate GI Verified 05/15/25 08:57 distress/diarrhea Home Medications Medication Instructions Recorded Confirmed Type aspirin 81 mg tablet,delayed 81 mg PO QAM 05/02/21 05/15/25 History release insulin syringe-needle U-100 1 mL #300 ea 05/20/22 06/05/25 Rx 31 gauge x 5/16" (BD Insulin Syringe Ultra-Fine) blood sugar diagnostic (Contour #100 ea 09/29/22 06/05/25 Rx Next Test Strips) acetaminophen 325 mg tablet 650 mg (2 x 325 mg) PO Q4H PRN 05/18/23 06/05/25 Rx pain #30 tabs pen needle, diabetic 31 gauge x #100 ea 03/07/24 05/15/25 Rx 3/16" (BD Ultra-Fine Mini Pen Needle) hydrochlorothiazide 25 mg tablet 25 mg PO QAM #90 tabs 11/14/24 06/05/25 Rx trazodone 100 mg tablet 100 mg PO HS #90 tabs 11/18/24 06/05/25 Rx tramadol 50 mg tablet 50 mg PO BID PRN pain #90 tabs 01/27/25 06/05/25 Rx cholecalciferol (vitamin D3) 25 25 mcg PO DAILY 02/19/25 06/05/25 History mcg (1,000 unit) tablet mecobalamin (vitamin B12) 1,000 mcg PO DAILY 02/19/25 05/15/25 History ondansetron 4 mg disintegrating 4 mg PO Q6H PRN nausea and vomiting 02/19/25 06/05/25 History tablet amlodipine 5 mg tablet 5 mg PO QPM #90 tabs 03/19/25 06/05/25 Rx pantoprazole 40 mg tablet,delayed 40 mg PO BID #180 tabs 03/19/25 06/05/25 Rx release enoxaparin 120 mg/0.8 mL 120 mg (0.8 mL) subcut Q12H 90 04/01/25 06/05/25 Rx subcutaneous syringe (Lovenox) days #144 mL atorvastatin 10 mg tablet 5 mg (1/2 x 10 mg) PO HS #45 tabs 04/14/25 06/05/25 Rx gabapentin 300 mg capsule 300 mg PO HS #90 caps 04/14/25 06/05/25 Rx insulin lispro 100 unit/mL 280 unit (2.8 mL) continuous 05/26/25 06/05/25 Rx subcutaneous solution (Humalog subcutaneous infusion DAILY 90 U-100 Insulin) days #250 mL lisinopril 40 mg tablet 40 mg PO QAM 06/05/25 06/05/25 History Past Med/Surg History Problem List (Updated 06/05/25 @ 08:14 by Syed Torrez MD) Abdominal wall hematoma (Acute) PAYAM (acute kidney injury) (Acute) Hypotension (Acute) Syncope (Acute) Diarrhea Urinary symptom or sign Trauma of toe of left foot Enlarged prostate with lower urinary tract symptoms (LUTS) Anemia S/P laparotomy C. 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 Rash COVID (Acute) Intraductal papillary mucinous neoplasm of pancreas Urinary retention Cystic mass of pancreas Constipation (Acute) Acute thoracic back pain (Acute) Acute urinary retention (Acute) Hyperglycemia (Acute) Constipation Syncope Chronic back pain (~01/30/25) Grieving Vitamin D deficiency Steatosis of liver Metabolic syndrome Dietary counseling and surveillance GERD (gastroesophageal reflux disease) Cramping of hands Esophageal dysphagia Hyperlipidemia Acid reflux disease Benign hypertension Insomnia Low back pain Controlled type 2 diabetes mellitus, with long-term current use of insulin (Chronic) Diabetic peripheral neuropathy Obesity Elevated PSA Routine health maintenance Cerumen impaction Hematuria Prostate cancer screening BPH w urinary obs/LUTS Hearing loss Encounter for pre-operative examination Gastroenteritis due to norovirus Encounter for examination following treatment at hospital Medical History Renal insufficiency Hypoxia Pulmonary embolism Diabetes mellitus, type 2 Fall Syncope History of esophageal dilatation Morbid obesity Urinary retention s/p urinary catheter (05/2021)- since removed BPH (benign prostatic hyperplasia) Insulin pump in place History of TMJ syndrome Hypertension Hyperlipidemia Dysesthesia R/L feet Surgical History History of prostate biopsy (~10/05/21) under MAC anesthesia @ [facility] History of surgery Exam under anesthesia, removal of skin tags, fistulotomy (01/09/18): Grade view 1 with Glidescope#4, ETT 8.0 (difficult mask. vent with 2 person 2/2 hamilton > elective glidescope with minimal neck extension- ETT easily passed, small right upper lip laceration noted) History of esophagogastroduodenoscopy (EGD) History of colonoscopy Hx of LASIK History of cataract surgery RT/LEFT History of tooth extraction RECENT TOOTH EXTRACTION H/O knee surgery Spur removed from knee History of tonsillectomy and adenoidectomy H/O neck surgery History of carpal tunnel surgery RT Family History Aunt Diabetes Father Lung cancer Sister Diabetes Other No family history of adverse response to anesthesia Denies family history of Ovarian cancer Prostate cancer Myocardial infarction Breast cancer Colorectal cancer Hypertension Stroke Social History Smoking Status: Never smoker Second Hand Exposure: No; Do You Dip or Chew Tobacco: No; Hx Alcohol Use: Yes Alcohol type: beer Alcohol Intake Frequency: Monthly or Less Hx Substance Use: No Preferred Language: Guatemalan Communication Ability: Effective Visual Impairment: No Limitations Hearing Ability: Normal Construction Project Coordinator Required: No Beliefs That Will Affect Care: None marital status: / Current Living Situation: Family Current Living Situation Comment: Lives with daughter 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 How many Children do You have: 2 Feels Safe at Home: Yes Childhood Exposure to Second-Hand Smoke: No Diet: regular caffeine: Yes (coffee) during the past year weight has: remained stable Dental Care, Regularly: Yes Physical Activity Frequency: Daily Seatbelt Use: always Sunscreen Use: Yes Do you think of yourself as: straight/heterosexual Gender Identity: Male Assistive Devices: Cane, Walker and Wheelchair Review of Systems 2 Review of Systems: All systems reviewed & are unremarkable except as noted in HPI & below Physical Exam 2 Physical Exam: Last 24h vitals reviewed GEN: no acute distress, sitting in bed HEENT: pupils equal, sclerae anicteric, moist MM RESP: normal WOB, CTAB CV: reg no mrg ABD: soft/nd +BT, tenderness LLQ. insulin pump in place : no pérez SKIN: warm and dry, no generalized rashes NEURO: AOx person, place, and situation. Face symmetric, speech normal, moves 4 ext spontaneously and equally Results & Data Results & Data Vital Signs (Past 12 Hours) Vital Signs Temp Pulse Pulse Resp BP BP Pulse Ox 06/05/25 06:32 92 H 18 111/64 94 06/05/25 06:00 102 H 18 147/69 H 94 06/05/25 05:21 36.7 C 99 H 18 102/85 98 06/05/25 05:00 96 H 16 128/100 95 06/05/25 03:32 93 H 16 95 06/05/25 03:05 36.5 C 16 100/55 L 97 06/05/25 03:05 36.5 C 67 16 100/55 L 97 O2 Del Method 06/05/25 06:32 Room Air 06/05/25 06:00 Room Air 06/05/25 05:21 Room Air 06/05/25 05:00 Room Air 06/05/25 03:32 Room Air 06/05/25 03:05 06/05/25 03:05 Room Air Laboratory Results 06/05/25 03:35 06/05/25 03:35 CK 553 Diagnostic Findings CXR - unremarkable Flores - CT - head/neck/chest unremarkable. Abdomen/pelvis notable notable for large left lower wall abdominal hematoma. Also notable for possible interval splenic infarcts, fatty pancreas, thickened bladder c/w chronic obstruction. Hematoma apx 6.8 x 13.4 x 15.7 cm I personally reviewed the CT films and he does have a large abdominal wall hematoma of left rectus abdominus. Based on measurements I'd approximate the volume as up to 750 mL ECG Additional Comments: Personally reviewed tracing - sinus rhythm, RBBB, appears to have arm lead reversal pattern Repeat EKG ordered, pending Code Status & VTE Plan VTE Prophylaxis Plan VTE Prophylaxis will be ordered: Yes PG Care Time/CCT Total # of Minutes Spent Total Time Spent with Patient: Total time spent is greater than 50% in coordination of care (as documented) at patient's floor/unit and/or counseling patient: Coding Level of Care Code 23993 INT INP/OBS CARE 3/75MIN Diagnoses Abdominal wall hematoma S30.1XXA Encounter type: initial encounter Anemia, unspecified type D64.9 Anemia type: unspecified type Syncope R55 Syncope type: unspecified (1) Abdominal wall hematoma Encounter type: initial encounter Qualified Code(s): S30.1XXA - Contusion of abdominal wall, initial encounter (2) Anemia Anemia type: unspecified type Qualified Code(s): D64.9 - Anemia, unspecified (3) Syncope Syncope type: unspecified Qualified Code(s): R55 - Syncope and collapse
[2025-06-05 08:05] LABS: Hematocrit (blood only) 34.2 % (42.0-52.0); Hemoglobin 11.1 g/dl (14.0-18.0)
[2025-06-05 08:33] LABS: Appearance Urine Clear (Clear); Glucose Urine UA Negative (Negative)
[2025-06-05] MEDS ORDERED: GLUCOSE 40% GEL 15 GM TUBE PO PRN (10:12)
[2025-06-05] MEDS ORDERED: DEXTROSE 50% 50 ML SYRINGE IV PRN (10:12)
[2025-06-05] MEDS ORDERED: GLUCOSE 10 TAB/TUBE PO PRN (10:12)
[2025-06-05] MEDS ORDERED: CARBOHYDRATES FOR HYPOGLYCEMIA PO PRN (10:12)
[2025-06-05] MEDS ORDERED: GLUCAGON FOR INJ 1 MG VIAL SQ PRN (10:12)
[2025-06-05] MEDS ORDERED: INSULIN ASPART 100 UNITS/ML VIAL SC PRN (10:19)
[2025-06-05] MEDS ORDERED: ALUMINUM/MAGNESIUM SUSP 30 ML UDC PO PRN (10:46)
[2025-06-05] MEDS ORDERED: MELATONIN 3 MG TAB PO PRN (10:46)
[2025-06-05] MEDS ORDERED: POLYETHYLENE (MIRALAX) 17 GM PACK PO PRN (10:46)
[2025-06-05] MEDS ORDERED: MAGNESIUM HYDROXIDE SUSP 30 ML UDC PO PRN (10:46)
[2025-06-05] MEDS ORDERED: ONDANSETRON 4 MG OD TAB PO PRN (10:46)
[2025-06-05] MEDS: ACETAMINOPHEN 325 MG TAB PO PRN (12:09)
[2025-06-05] MEDS: Continuous Glucose Monitor SCH (12:13)
[2025-06-05] MEDS: INSULIN, Rapid-Acting PUMP SC SCH (12:15)
[2025-06-05 12:31] LABS: Hematocrit (blood only) 32.5 % (42.0-52.0); Hemoglobin 10.6 g/dl (14.0-18.0); Mean Corpuscular Hemoglobin 25.5 pg (25.0-34.0); Mean Corpuscular Volume 78.1 fL (80.0-100.0); Platelet Count 242 K/uL (130-400); RDW Standard Deviation 43.2 fL (36.4-46.3); Red Blood Count 4.16 M/uL (4.70-6.10); White Blood Count 17.14 K/ul (4.8-10.8)
[2025-06-05 13:02] LABS: Anion Gap 10.0 (3-11); Blood Urea Nitrogen 14.0 mg/dl (6-23); Calcium 8.3 mg/dl (8.6-10.3); Carbon Dioxide 23.0 mmol/L (21-32); Chloride 100.0 mmol/L (98-107); Creatinine Clr Calc Pharmacy 68.7 ml/min; Glucose 252.0 mg/dl (70-99(Fasting)); Potassium 4.4 mmol/L (3.5-5.1); Sodium 133.0 mmol/L (136-145)
[2025-06-05 18:20] LABS: Hematocrit (blood only) 28.1 % (42.0-52.0); Hemoglobin 9.4 g/dl (14.0-18.0)
[2025-06-05] MEDS: ATORVASTATIN 10 MG TAB PO SCH (20:36)
[2025-06-05] MEDS: GABAPENTIN 300 MG CAP PO SCH (20:36)
[2025-06-05 20:39] LABS: Hematocrit (blood only) 28.8 % (42.0-52.0); Hemoglobin 9.3 g/dl (14.0-18.0)
--- NOTE | 2025-06-05 22:55 | Ultrasound Report ---
Exam(s): US VENOUS BILATERAL LOWER EXTREMITIES EXAM: US Duplex Bilateral Lower Extremities Veins CLINICAL HISTORY: Reason for exam: follow up DVT/PE. TECHNIQUE: Real-time duplex ultrasound scan of the bilateral lower extremity veins integrating B-mode two-dimensional vascular structure, Doppler spectral analysis, color flow Doppler imaging and compression. COMPARISON: No relevant prior studies available. FINDINGS: Right deep veins: Unremarkable. No DVT in the right common femoral, femoral, proximal deep femoral or popliteal veins. The veins demonstrate normal color flow, are normally compressible, with normal phasic flow and/or augmentation response. Right superficial veins: Unremarkable. No thrombus in the visualized right great saphenous vein. Left deep veins: Unremarkable. No DVT in the left common femoral, femoral, proximal deep femoral or popliteal veins. The veins demonstrate normal color flow, are normally compressible, with normal phasic flow and/or augmentation response. Left superficial veins: Unremarkable. No thrombus in the visualized left great saphenous vein. Soft tissues: No acute findings. No popliteal cyst. IMPRESSION: No DVT. Electronically signed by: Iglesia Aviles MD 06/05/25 22:55 PM
[2025-06-06 05:53] LABS: Hematocrit (blood only) 27.2 % (42.0-52.0); Hemoglobin 8.8 g/dl (14.0-18.0); Mean Corpuscular Hemoglobin 24.8 pg (25.0-34.0); Mean Corpuscular Volume 76.6 fL (80.0-100.0); Platelet Count 216 K/uL (130-400); RDW Standard Deviation 42.3 fL (36.4-46.3); Red Blood Count 3.55 M/uL (4.70-6.10); White Blood Count 12.24 K/ul (4.8-10.8)
[2025-06-06 06:08] LABS: Anion Gap 6.0 (3-11); Blood Urea Nitrogen 14.0 mg/dl (6-23); Calcium 8.3 mg/dl (8.6-10.3); Carbon Dioxide 26.0 mmol/L (21-32); Chloride 103.0 mmol/L (98-107); Creatinine Clr Calc Pharmacy 66.5 ml/min; Glucose 136.0 mg/dl (70-99(Fasting)); Potassium 3.8 mmol/L (3.5-5.1); Sodium 135.0 mmol/L (136-145)
[2025-06-06 08:37] VITALS: BP 129/63; PULSE 104; RESP 18; TEMP 98.4; O2SAT 92
[2025-06-06 12:22] LABS: Hematocrit (blood only) 27.7 % (42.0-52.0); Hemoglobin 9.2 g/dl (14.0-18.0)
--- NOTE | 2025-06-06 14:33 | Discharge Summary ---
Discharge Summary Date of Service June 06, 2025 Principal Dx & Hospital Course #1 = Principal Diagnosis (1) Abdominal wall hematoma: (2) Anemia: (3) Syncope: Plan 79 y/o man with history of PE 02/2025 on anticoagulation with enoxaparin and on aspirin who presented after syncopal episode and with large left abdominal wall hematoma seen on CT # Abdominal wall hematoma | Acute Blood Loss Anemia large abdominal wall hematoma left rectus abdominus. Based on measurements I'd approximate the volume as up to 750 mL based on symptoms and chart review, at least some of this has been present since early May, however, I think that it rebled/reexpanded prior to his syncopal event enoxaparin was stopped (not taking aspirin) Hg was previously 13.2 in March, roughly 9.5 this admission. he remained stable with serial Hg, BP/HR improved with IV fluids, orthostatic symptoms resolved safest to stay off anticoagulation 1-2 weeks at least oral iron q48h and follow up in primary care for anemia # DVT/PE - occurred mid-February following a monthlong hospitalization at [facility] where he had two abdominal surgeries. It was deemed a lovenox failure, however, he was only on 40 mg SQ daily which is a prophylaxis not a therapeutic dose, so I do not think this qualifies as lovenox failure. Should also be considered provoked by his abdominal surgery and associated hospital stay. I'm also not clear why he was placed on therapeutic lovenox rather than a DOAC at that time. He's completed 4 months of anticoagulation at this time which hopefully will be sufficient. LE duplex this admission was negative for DVT and he does have IVC filter. He has CTA chest scheduled 06/13 - if significant residual clot recommend DOAC rather than resuming lovenox. # Syncope - happened at night when he got up to the bathroom. orthostatic prodrome. -may have been caused by ABLA or vasovagal reaction from the hematoma, also he has frequent orthostatic lightheadedness at nighttime after taking his trazodone and gabapentin -no evidence of arrhythmia or cardiac event -encouraged him to try and decrease his trazodone by 50% # Fall -flores CT unremarkable for any injury besides the hematoma # Renal insufficiency on CKD - baseline Cr 1-1.2. Cr 1.43 on presentation - prerenal from anemia - IVF, held HCTZ and lisinopril, resolved # Hx IPMN, fatty pancreas - pancreas insufficiency? # GB sludge on CT noted # DM - insulin pump, diabetic diet # HTN/HLD - continue statin and antihypertensives Notes For Next Care Provider large abdominal wall hematoma, syncope stopped enoxaparin. No DVT on LE duplex. Has IVC filter hold anticoagulation 1-2 weeks, chest CTA 06/13 - decide whether AC should be resumed/extended based on CT. Recommend DOAC if resumed. Medication Changes From Visit stopped enoxaparin oral iron Admission HPI Per Admitting Provider 79 y/o man on chronic enoxaparin for history of PE as well as aspirin who presented to ED with syncopal episode. States he was getting up to change his insulin pump, got dizzy and feel. States his sugar was 180 when he feel. On the ground for 2 hours. Reports trazadone + gabapentin usually makes him lightheaded and he tries not to get up but this time he had to refill his pump. 02/11/25 hx of sx at [facility] for pancreas, hernia. then emergency appendectomy. still having residual pain from this on the left flank. Pain in the left side worst it has ever been on Monday. Was supposed to have an appointment next Monday to see if he could stop his AC for PE, he reports having IVC filter in place. BM this AM. usually uses a rollator. L lower abdominal wall swelling Flores-CT in ED notable for large left lower wall abdominal hematoma. Also notable for possible interval splenic infarcts, fatty pancreas, thickened bladder c/w chronic obstruction Discharge Exam Last 24h vitals reviewed GEN: no acute distress, sitting in bed HEENT: pupils equal, sclerae anicteric, moist MM RESP: normal WOB, CTAB CV: reg no mrg ABD: soft/nt/nd +BT. Left sided firm abdominal swelling present with mild overlying ecchymoses : no pérez SKIN: warm and dry, no generalized rashes NEURO: AOx person, place, and situation. Face symmetric, speech normal, moves 4 ext spontaneously and equally Discharge Plan Discharge Items Patient Disposition: Home - Self-Care Reason For Visit: ABDOMINAL WALL HEMATOMA Discharge Diagnosis: Syncope, abdominal wall hematoma Condition on Discharge: Fair Activity: Resume your previous activity Non-emergency contact: Primary Care Provider Call non-emergency contact if: you have any medication questions and your symptoms worsen Follow-up/Referrals: Nohemi Teresa MD [Primary Care Provider] - 06/16/25 1:30 pm (Hospital follow up on June 16 at 1:30 pm.) Diet: Carb Consistent or DM2 Addtl Attending Provider Instructions: You had a syncopal event (passed out) This probably was triggered by increase in large hematoma in your abdominal wall and/or your medications Trazodone can cause a drop in blood pressure on standing - you may want to try cutting the dose in half and see whether it is still effective with less side effects You have been anticoagulated for four months for PE and now you have large hematoma. Its probably safest to hold anticoagulation at least for a few weeks to let the hematoma stabilize. Ideally you would be on anticoagulation for six months minimum. You will benefit from oral iron supplement for anemia - you can take it every OTHER day and it works just as well with less nausea/constipation Follow up in primary care and get blood count checked. If no worsening of hematoma it may be best to start anticoagulation again, however, I don't see why you can't be on an oral blood thinner like Eliquis or Xarelto. The CT chest that is scheduled may help with decision making regarding the blood thinner Repeat leg ultrasound this admission was negative for DVT It was a pleasure taking care of you in the hospital, Lani Javier MD Pending Studies at Discharge: No Stand-Alone Forms: My [facility] [employer], Smoking Cessation Medications and DC Order Prescriptions: New ferrous sulfate 325 mg (65 mg iron) tablet,delayed release (DR/EC) 325 mg PO Q OTHER DAY Qty: 14 0RF Rx Instructions: buy over the counter Continued trazodone 100 mg tablet 100 mg PO HS Qty: 90 3RF tramadol 50 mg tablet 50 mg PO BID PRN (Reason: pain) Qty: 90 0RF ondansetron 4 mg tablet,disintegrating 4 mg PO Q6H PRN (Reason: nausea and vomiting) cholecalciferol (vitamin D3) 25 mcg (1,000 unit) tablet 25 mcg PO DAILY mecobalamin (vitamin B12) 1,000 mcg PO DAILY Rx Instructions: OTC, pt believes it to be 1,000 mcg qam gabapentin 300 mg capsule 300 mg PO HS Qty: 90 2RF atorvastatin 10 mg tablet 5 mg PO HS Qty: 45 3RF insulin lispro [Humalog U-100 Insulin] 100 unit/mL solution 280 unit continuous subcutaneous infusion DAILY 90 Days Qty: 250 3RF Rx Instructions: Via insulin pump to pts right lower abd. (DME) insulin syringe-needle U-100 [BD Insulin Syringe Ultra-Fine] 1 mL 31 gauge x 5/16 syringe See Dose Instructions .ROUTE .MEDSUPPLY Qty: 300 3RF Dose Instruction: As directed Rx Instructions: Inject insulin 3 times a day (DME) Contour Next Test Strips Strip See Rx Instructions .ROUTE .MEDSUPPLY Qty: 100 3RF Rx Instructions: Check 1x a day (DME) pen needle, diabetic [BD Ultra-Fine Mini Pen Needle] 31 gauge x 3/16" needle See Rx Instructions .ROUTE .MEDSUPPLY Qty: 100 2RF Rx Instructions: as needed for smaller doses of Ozempic hydrochlorothiazide 25 mg tablet 25 mg PO QAM Qty: 90 3RF pantoprazole 40 mg tablet,delayed release (DR/EC) 40 mg PO BID Qty: 180 1RF amlodipine 5 mg tablet 5 mg PO QPM Qty: 90 3RF acetaminophen 325 mg Tablet 650 mg PO Q4H PRN (Reason: pain) Qty: 30 0RF Rx Instructions: OTC unable to verify lisinopril 40 mg tablet 40 mg PO QAM Held enoxaparin [Lovenox] 120 mg/0.8 mL syringe 120 mg subcut Q12H 90 Days Qty: 144 0RF Hold Instructions: Resume on 07/04/25. hold unless/until restarted by your doctor aspirin 81 mg Tablet,Delayed Release (Dr/Ec) 81 mg PO QAM Hold Instructions: per pt-on hold until PCP f/u appt on 03/19 Patient Comments: on hold d/t surgery, on Lovenox Discharge Orders: Discharge Order (Routine); Ordered 06/06/25 Ordered By: Lani Javier Admission Data Admit Date/Time: 06/05/25 07:43 Attending Provider: Lani Javier Admit Provider: Lani Javier Primary Care Provider: Nohemi Teresa Other Providers: Geno Cohen Other Interventions: Discharge Summary Assessment (RN) Last Done: 06/06/25 15:22 Hospital Stay Data Consultations 06/05/25 06:04 ED Decision to Admit Stat Diagnostic Imagining Performed 06/05/25 03:32 CT lumbar spine w con Stat CT thoracic spine w con Stat 06/05/25 03:33 CT abd pelvis IV con only Stat CT cervical spine wo con Stat CT chest diagnostic w con Stat CT head/brain wo con Stat 06/05/25 17:09 US venous duplex leg [US venous doppler LE BI] Routine Pending Results Patient Have Any Pending Studies at Discharge: No Discharge Instructions Given to Patient (Per Discharging Provider) You had a syncopal event (passed out) This probably was triggered by increase in large hematoma in your abdominal wall and/or your medications Trazodone can cause a drop in blood pressure on standing - you may want to try cutting the dose in half and see whether it is still effective with less side effects You have been anticoagulated for four months for PE and now you have large hematoma. Its probably safest to hold anticoagulation at least for a few weeks to let the hematoma stabilize. Ideally you would be on anticoagulation for six months minimum. You will benefit from oral iron supplement for anemia - you can take it every OT HER day and it works just as well with less nausea/constipation Follow up in primary care and get blood count checked. If no worsening of hematoma it may be best to start anticoagulation again, however, I don't see why you can't be on an oral blood thinner like Eliquis or Xarelto. The CT chest that is scheduled may help with decision making regarding the blood thinner Repeat leg ultrasound this admission was negative for DVT It was a pleasure taking care of you in the hospital, Lani Javier MD Total Time Total Time Spent Total Time Spent (In Minutes): I personally spent: 45 minutes today on clinical care activities including: reviewing chart notes and vital signs reviewing labs examining and counseling the patient counseling the patient's family writing orders writing prescriptions, discharge instructions documentation Coding Level of Care Code 35907 INP/OBS DISCH >30 MIN Diagnoses Abdominal wall hematoma S30.1XXA Encounter type: initial encounter Anemia, unspecified type D64.9 Anemia type: unspecified type Syncope R55 Syncope type: unspecified
[2025-06-06] MEDS: ONDANSETRON INJ 2 MG/ML 2 ML VIAL IV PRN (14:59)
--- NOTE | 2025-06-06 15:02 | Electrocardiogram Report ---
Test Reason : Blood Pressure : */* mmHG Vent. Rate : 106 BPM Atrial Rate : 108 BPM P-R Int : * ms QRS Dur : 122 ms QT Int : 370 ms P-R-T Axes : * -79 17 degrees QTcB Int : 491 ms Sinus rhythm with 1st degree A-V block Left axis deviation Right bundle branch block Abnormal ECG When compared with ECG of 05-Jun-2025 07:52, (unconfirmed) No significant change Confirmed by Renato Shah ([id number]) on 06/06/2025 3:02:16 PM Referred By: REFERRED SELF Confirmed By: Renato Shah
--- NOTE | 2025-06-07 05:43 | Electrocardiogram Report ---
Test Reason : Blood Pressure : */* mmHG Vent. Rate : 104 BPM Atrial Rate : * BPM P-R Int : * ms QRS Dur : 128 ms QT Int : 354 ms P-R-T Axes : * -78 25 degrees QTcB Int : 465 ms Suspect sinus tachycardia with 1st degree AV block Left axis deviation Right bundle branch block Possible Lateral infarct , age undetermined Abnormal ECG When compared with ECG of 25-Feb-2025 01:26, No significant change Confirmed by Renato Shah ([id number]) on 06/07/2025 5:42:56 AM Referred By: REFERRED SELF Confirmed By: Renato Shah
== END 2025-06-06 17:29 | disposition home or self-care (01) ==
LOC: ED 03:18 → 4W 03:18

== ENCOUNTER 2025-06-16 14:40 | Inpatient (IN) ==
--- NOTE | 2025-06-16 15:00 | Emergency Department Note ---
Impression & Plan Weakness, Abdominal wall hematoma, Pulmonary embolism ED Provider Note Provider: Tom Waters MD CHIEF COMPLAINT: Weakness, referred HISTORY OF PRESENT ILLNESS: Patient is a 79-year-old gentleman significant past medical history of prior partial pancreectomy this spring at [place] status post a fall 12 days ago with left-sided bruising and abdominal wall hematoma. Was hospitalized here overnight. Follow-up with his doctor today. States this morning after coming out of the shower he felt dizzy and a bit weak. Feeling some pain in the left flank. Had some difficulty obtaining a blood pressure in the outpatient setting and thus sent him here for evaluation. Denies fevers. Denies chest pain or shortness of breath. Reports some left-sided abdominal pain to the left back. States he noticed some bruising of his left back that was not there before but he is not sure when he last looked. Denies pain or numbness in the lower extremities its new. Denies bloody urination but does report a little bit of diarrhea. No right-sided abdominal pain. Not on blood thinners currently. Denies any headache. Not dizzy now more when he is up and moving earlier. Patient denies any new falls. PAST MEDICAL HISTORY: As noted above MEDICATIONS: Reviewed home medications and no reported anticoagulants or platelets at this time. SOCIAL HISTORY: Lives at home by himself on 1 level, uses rollator to ambulate PHYSICAL EXAM: GENERAL: alert and oriented in no acute distress on stretcher Head: normocephalic and atraumatic EYES: No injection, discharge or icterus. PERRL, EOMI. NECK: Trachea midline. ENT: Mucous membranes pink and moist. LUNGS: Airway patent. No retractions. Breath sounds clear HEART: Regular rate and rhythm. No chest wall tenderness ABDOMEN: Soft some mild left lower to left flank tenderness with some skin contusion/bruising noted at this area. Some yellow discoloration here likely more subacute. SKIN: Acyanotic, warm, dry, without rashes EXTREMITIES: Without swelling, tenderness or deformity NEUROLOGICAL: No focal deficits. No aphasia. No facial droop or slurred speech. Ambulatory. EK bpm normal sinus rhythm with frequent PVCs. No acute ST segment elevation or depression with some inferior T wave inversions right bundle branch block in the posterior fascicular blocks noted with QTc of 464. CONTINUOUS CARDIAC MONITORING: was ordered and showed a heart rate of 90s to 100 bpm in normal sinus rhythm to sinus tachycardia somewhat frequent PVCs Patient's laboratory studies and imaging reviewed. Differential includes trauma/intra-abdominal/pelvic/retroperitoneal hematoma, infection, dehydration, metabolic abnormality, hypo/hyperglycemia, electrolyte disturbance, anemia, hypoxia, cardiac sources, intracerebral event, toxicologic, neurologic, as well as other pathologies. IMPRESSION/MEDICAL DECISION MAKING: Patient well-appearing no distress. Not hypoxic here. Borderline tachycardia around 100 or so. Not on anticoagulation. Did have significant abdominal wall hematoma recently. No new trauma. Will complete blood counts and chemistries particular look for signs of anemia. Will complete CT chest abdomen pelvis to exclude PE and further evaluate for any worsening or new bleed in the abdominal wall retroperitoneal space although there is no new trauma. As he is feeling a little bit dizzy (lightheaded-estrellita) although not having focal deficits we will complete a CT of the head as well at this time. Doubt acute meningitis or CVA. Blood counts today with an improving hemoglobin of 10.0 up from a low of 8.8 on the . Slight leukocytosis 11.3 is downtrending from recent discharge numbers. No significant electrolyte abnormalities or signs of acute renal dysfunction today. Elevated blood sugars in the high 200s but no anion gap. No significant concerning transaminitis or elevated CK or troponin. CT of the head per radiology report without acute cranial abnormality. CT abdomen pelvis shows resolving abdominal hematoma. Inflammation of the bladder is noticed and urine studies sent to exclude UTI. CTA of the chest per radiology shows less burden but still filling defects in the right upper middle and lower lobe consistent with some remaining pulmonary embolism. UA is not impressive for infection but the CT report questions infection here and will send the urine for culture. Discussed with the patient findings. Due to some concerns while the hematoma is resolving, still with evidence of some PEs and feel that sending him home on restart on immediate oral anticoagulation at this time is somewhat risky. Certainly not in distress with decreased PE burden do not feel thrombolytics are indicated by any means, but feel that an observation overnight would be reasonable as well as a dose of ceftriaxone pending urine culture. Will discuss with hospitalist anticoagulation plan. DIAGNOSIS: Lightheadedness, UTI, pulmonary embolism, abdominal hematoma DISPOSITION: Hospitalist will evaluate Patient was agreeable with this plan. Past Med/Surg History Problem List (Updated 06/16/25 @ 22:44 by Tom Waters M.D.) Pulmonary embolism (Acute) Abdominal wall hematoma (Acute) Weakness (Acute) ABLA (acute blood loss anemia) Abdominal wall hematoma (Acute) Diarrhea Urinary symptom or sign Trauma of toe of left foot Enlarged prostate with lower urinary tract symptoms (LUTS) Anemia S/P laparotomy C. 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 Rash COVID (Acute) Intraductal papillary mucinous neoplasm of pancreas Urinary retention Cystic mass of pancreas Constipation (Acute) Acute thoracic back pain (Acute) Acute urinary retention (Acute) Hyperglycemia (Acute) Constipation Syncope Chronic back pain (~01/30/25) Grieving Vitamin D deficiency Steatosis of liver Metabolic syndrome Dietary counseling and surveillance GERD (gastroesophageal reflux disease) Cramping of hands Esophageal dysphagia Hyperlipidemia Acid reflux disease Benign hypertension Insomnia Low back pain Controlled type 2 diabetes mellitus, with long-term current use of insulin (Chronic) Diabetic peripheral neuropathy Obesity Elevated PSA Routine health maintenance Cerumen impaction Hematuria Prostate cancer screening BPH w urinary obs/LUTS Hearing loss Encounter for pre-operative examination Gastroenteritis due to norovirus Encounter for examination following treatment at hospital Medical History Renal insufficiency Hypoxia Pulmonary embolism Diabetes mellitus, type 2 Fall Syncope History of esophageal dilatation Morbid obesity Urinary retention s/p urinary catheter (05/2021)- since removed BPH (benign prostatic hyperplasia) Insulin pump in place History of TMJ syndrome Hypertension Hyperlipidemia Dysesthesia R/L feet Surgical History History of prostate biopsy (~10/05/21) under MAC anesthesia @ [facility] History of surgery Exam under anesthesia, removal of skin tags, fistulotomy (01/09/18): Grade view 1 with Glidescope#4, ETT 8.0 (difficult mask. vent with 2 person 2/2 hamilton > elective glidescope with minimal neck extension- ETT easily passed, small right upper lip laceration noted) History of esophagogastroduodenoscopy (EGD) History of colonoscopy Hx of LASIK History of cataract surgery RT/LEFT History of tooth extraction RECENT TOOTH EXTRACTION H/O knee surgery Spur removed from knee History of tonsillectomy and adenoidectomy H/O neck surgery History of carpal tunnel surgery RT Family History Aunt Diabetes Father Lung cancer Sister Diabetes Other No family history of adverse response to anesthesia Denies family history of Ovarian cancer Prostate cancer Myocardial infarction Breast cancer Colorectal cancer Hypertension Stroke Social History Smoking Status: Never smoker Second Hand Exposure: No; Do You Dip or Chew Tobacco: No; Hx Alcohol Use: Yes Alcohol type: beer Alcohol Intake Frequency: Monthly or Less Hx Substance Use: No Preferred Language: American Communication Ability: Effective Visual Impairment: No Limitations Hearing Ability: Normal Crossing Supervisor Required: No Beliefs That Will Affect Care: None marital status: / Current Living Situation: Alone Current Living Situation Comment: Lives with daughter current occupational status: retired current occupation: [employer] How many Children do You have: 2 Feels Safe at Home: Yes Childhood Exposure to Second-Hand Smoke: No Diet: regular caffeine: Yes (coffee) during the past year weight has: remained stable Dental Care, Regularly: Yes Physical Activity Frequency: Daily Seatbelt Use: always Sunscreen Use: Yes Do you think of yourself as: straight/heterosexual Gender Identity: Male Assistive Devices: Cane, Walker and Wheelchair Allergies Allergies Allergy/AdvReac Type Severity Reaction Status Date / Time Penicillins Allergy Intermediate HIVES Verified 06/10/25 11:19 metformin AdvReac Intermediate GI Verified 06/10/25 11:19 distress/diarrhea Home Meds Home Medications Medication Instructions Recorded Confirmed aspirin 81 mg tablet,delayed 81 mg PO QAM 05/02/21 06/16/25 release cholecalciferol (vitamin D3) 25 25 mcg PO DAILY 02/19/25 06/16/25 mcg (1,000 unit) tablet ondansetron 4 mg disintegrating 4 mg PO Q6H PRN nausea and vomiting 02/19/25 06/16/25 tablet lisinopril 40 mg tablet 40 mg PO QAM 06/05/25 06/16/25 mecobalamin (vitamin B12) 1,000 mcg PO DAILY 06/16/25 06/16/25 Previous Rx's Medication Instructions Recorded insulin syringe-needle U-100 1 mL #300 ea 05/20/22 31 gauge x 5/16" (BD Insulin Syringe Ultra-Fine) blood sugar diagnostic (Contour #100 ea 09/29/22 Next Test Strips) acetaminophen 325 mg tablet 650 mg (2 x 325 mg) PO Q4H PRN 05/18/23 pain #30 tabs pen needle, diabetic 31 gauge x #100 ea 03/07/24 3/" (BD Ultra-Fine Mini Pen Needle) hydrochlorothiazide 25 mg tablet 25 mg PO QAM #90 tabs 11/14/24 trazodone 100 mg tablet 100 mg PO HS #90 tabs 11/18/24 tramadol 50 mg tablet 50 mg PO BID PRN pain #90 tabs 01/27/25 amlodipine 5 mg tablet 5 mg PO QPM #90 tabs 03/19/25 pantoprazole 40 mg tablet,delayed 40 mg PO BID #180 tabs 03/19/25 release atorvastatin 10 mg tablet 5 mg (1/2 x 10 mg) PO HS #45 tabs 04/14/25 gabapentin 300 mg capsule 300 mg PO HS #90 caps 04/14/25 insulin lispro 100 unit/mL 280 unit (2.8 mL) continuous 05/26/25 subcutaneous solution (Humalog subcutaneous infusion DAILY 90 U-100 Insulin) days #250 mL ferrous sulfate 325 mg (65 mg 325 mg PO Q OTHER DAY #14 tabs 06/06/25 iron) tablet,delayed release Results & Data (ED) Vital Signs Vital Signs - 24 hr 06/16/25 14:56 06/16/25 15:01 06/16/25 16:11 Temperature 36.7 C Temperature Source Oral Pulse Rate 94 H 102 H Pulse Rate [Apical] 925 H Pulse Rate from SpO2 Sensor Respiratory Rate 18 18 Respiratory Effort / Characteristics Non-Labored Spontaneous Non-Labored Spontaneous Respiratory Depth Normal Normal Respiratory Pattern Regular Blood Pressure 163/93 H Blood Pressure [Right Arm] 151/64 H Blood Pressure Mean 116 Blood Pressure Mean [Right Arm] 93 Blood Pressure Position [Right Arm] Lying Pulse Oximetry 98 99 Oxygen Delivery Method Room Air Room Air Sepsis Recent Fever Within 48 Hours No Sepsis New/Unexplained Change in Mental Status No Sepsis Action Taken by Nursing No Action Required 06/16/25 18:30 06/16/25 18:48 06/16/25 19:00 Temperature Temperature Source Pulse Rate 84 Pulse Rate [Apical] 84 Pulse Rate from SpO2 Sensor Respiratory Rate 18 Respiratory Effort / Characteristics Non-Labored Spontaneous Respiratory Depth Normal Respiratory Pattern Blood Pressure 157/90 H Blood Pressure [Right Arm] 140/80 Blood Pressure Mean 103 Blood Pressure Mean [Right Arm] 100 Blood Pressure Position [Right Arm] Lying Pulse Oximetry 100 Oxygen Delivery Method Room Air Sepsis Recent Fever Within 48 Hours Sepsis New/Unexplained Change in Mental Status Sepsis Action Taken by Nursing 06/16/25 19:44 06/16/25 19:45 06/16/25 19:48 Temperature Temperature Source Pulse Rate 96 H 93 H Pulse Rate [Apical] Pulse Rate from SpO2 Sensor 95 H 93 H Respiratory Rate 16 24 Respiratory Effort / Characteristics Respiratory Depth Respiratory Pattern Blood Pressure 137/70 Blood Pressure [Right Arm] Blood Pressure Mean 106 Blood Pressure Mean [Right Arm] Blood Pressure Position [Right Arm] Pulse Oximetry 100 97 Oxygen Delivery Method Room Air Room Air Sepsis Recent Fever Within 48 Hours Sepsis New/Unexplained Change in Mental Status Sepsis Action Taken by Nursing 06/16/25 20:00 06/16/25 20:30 06/16/25 20:33 Temperature Temperature Source Pulse Rate 95 H Pulse Rate [Apical] Pulse Rate from SpO2 Sensor 93 H Respiratory Rate 31 H Respiratory Effort / Characteristics Respiratory Depth Respiratory Pattern Blood Pressure 162/82 H 138/70 Blood Pressure [Right Arm] Blood Pressure Mean 106 86 Blood Pressure Mean [Right Arm] Blood Pressure Position [Right Arm] Pulse Oximetry 100 Oxygen Delivery Method Room Air Sepsis Recent Fever Within 48 Hours Sepsis New/Unexplained Change in Mental Status Sepsis Action Taken by Nursing Laboratory Data 06/16/25 14:52 06/16/25 14:52 Lab Results 06/16/25 06/16/25 06/16/25 Range/Units 14:50 14:52 14:58 WBC 11.39 H (4.8-10.8) K/ul RBC 4.00 L (4.70-6.10) M/uL Hgb 10.0 L (14.0-18.0) g/dl POC Hgb 10.9 L (14.0-18.0) g/dl Hct 31.9 L (42.0-52.0) % POC Hct 32 L (42-52) % MCV 79.8 L (80.0-100.0) fL MCH 25.0 (25.0-34.0) pg MCHC 31.3 L (32.0-36.0) g/dL RDW Std Deviation 47.2 H (36.4-46.3) fL RDW Coeff of Joselin 16.8 H (11.5-14.5) % Plt Count 319 (130-400) K/uL MPV 10.6 (9.4-12.4) fL Immature Gran % (Auto) 0.6 % Neut % (Auto) 83.7 % Lymph % (Auto) 8.9 % Ware % (Auto) 5.3 % Eos % (Auto) 1.1 % Baso % (Auto) 0.4 % Neut # (Auto) 9.54 H (1.40-6.50) K/uL Lymph # (Auto) 1.01 L (1.20-3.40) K/uL Ware # (Auto) 0.60 H (0.11-0.59) K/uL Eos # (Auto) 0.13 (0.00-0.50) K/uL Baso # (Auto) 0.04 (0.00-0.20) K/uL Immature Gran # (Auto) 0.07 (0.01-0.20) K/uL PT 11.6 (9.0-12.0) Seconds INR 1.1 (0.9-1.1) POC Sodium 135 (135-144) mmol/L Sodium 134 L (136-145) mmol/L POC Potassium 3.9 (3.3-5.0) mmol/L Potassium 3.9 (3.5-5.1) mmol/L POC Chloride 98 L (101-112) mmol/L Chloride 100 (98-107) mmol/L Carbon Dioxide 26 (21-32) mmol/L POC Total CO2 23 L (24-31) mmol/L Anion Gap 8 (3-11) POC Anion Gap 19.0 (16-25) mmol/L POC BUN 14 (7-18) mg/dl BUN 15 (6-23) mg/dl Creatinine 1.22 (0.6-1.4) mg/dl POC Creatinine 1.3 (0.6-1.3) mg/dl Est Cr Clr Drug Dosing 66.3 ml/min eGFR 60.68 BUN/Creatinine Ratio 12.3 (10-20) Glucose 277 H (70-99(Fasting)) mg/dl POC Glucose 299 H (70-99) mg/dl POC Glucose (other) 271 H (70-99) mg/dl Calcium 8.8 (8.6-10.3) mg/dl POC Ioniz Calcium Ania 1.21 (1.12-1.32) mmol/l Magnesium 1.8 (1.7-2.4) mg/dl Total Bilirubin 1.6 H (0.2-1.0) mg/dl AST 23 (13-39) U/L ALT 21 (7-52) U/L Alkaline Phosphatase 77 (34-104) U/L Total Creatine Kinase 148 (30-223) U/L Troponin I High Sens 5.6 (0-20) pg/ml Total Protein 6.7 (6.0-8.3) gm/dl Albumin 4.0 (3.4-5.0) gm/dl Globulin 2.7 (2.5-4.0) gm/dl Albumin/Globulin Ratio 1.5 (0.9-2) TSH 1.521 (0.300-4.500) uIu/ml Urine Color Urine Appearance (Clear) Urine pH (4.5-7.5) Ur Specific [place] (1.000-1.030) Urine Protein (Negative) Urine Glucose (UA) (Negative) Urine Ketones (Negative) Urine Blood (Negative) Urine Nitrite (Negative) Urine Bilirubin (Negative) Urine Urobilinogen (Negative) Ur Leukocyte Esterase (Negative) Urine Comment SARS-CoV-2, RNA, NAAT (NEGATIVE) Blood Type A Positive Antibody Screen NEGATIVE 06/16/25 06/16/25 Range/Units 15:18 17:20 WBC (4.8-10.8) K/ul RBC (4.70-6.10) M/uL Hgb (14.0-18.0) g/dl POC Hgb (14.0-18.0) g/dl Hct (42.0-52.0) % POC Hct (42-52) % MCV (80.0-100.0) fL MCH (25.0-34.0) pg MCHC (32.0-36.0) g/dL RDW Std Deviation (36.4-46.3) fL RDW Coeff of Joselin (11.5-14.5) % Plt Count (130-400) K/uL MPV (9.4-12.4) fL Immature Gran % (Auto) % Neut % (Auto) % Lymph % (Auto) % Ware % (Auto) % Eos % (Auto) % Baso % (Auto) % Neut # (Auto) (1.40-6.50) K/uL Lymph # (Auto) (1.20-3.40) K/uL Ware # (Auto) (0.11-0.59) K/uL Eos # (Auto) (0.00-0.50) K/uL Baso # (Auto) (0.00-0.20) K/uL Immature Gran # (Auto) (0.01-0.20) K/uL PT (9.0-12.0) Seconds INR (0.9-1.1) POC Sodium (135-144) mmol/L Sodium (136-145) mmol/L POC Potassium (3.3-5.0) mmol/L Potassium (3.5-5.1) mmol/L POC Chloride (101-112) mmol/L Chloride (98-107) mmol/L Carbon Dioxide (21-32) mmol/L POC Total CO2 (24-31) mmol/L Anion Gap (3-11) POC Anion Gap (16-25) mmol/L POC BUN (7-18) mg/dl BUN (6-23) mg/dl Creatinine (0.6-1.4) mg/dl POC Creatinine (0.6-1.3) mg/dl Est Cr Clr Drug Dosing ml/min eGFR BUN/Creatinine Ratio (10-20) Glucose (70-99(Fasting)) mg/dl POC Glucose (70-99) mg/dl POC Glucose (other) (70-99) mg/dl Calcium (8.6-10.3) mg/dl POC Ioniz Calcium Ania (1.12-1.32) mmol/l Magnesium (1.7-2.4) mg/dl Total Bilirubin (0.2-1.0) mg/dl AST (13-39) U/L ALT (7-52) U/L Alkaline Phosphatase (34-104) U/L Total Creatine Kinase (30-223) U/L Troponin I High Sens (0-20) pg/ml Total Protein (6.0-8.3) gm/dl Albumin (3.4-5.0) gm/dl Globulin (2.5-4.0) gm/dl Albumin/Globulin Ratio (0.9-2) TSH (0.300-4.500) uIu/ml Urine Color Yellow Urine Appearance Clear (Clear) Urine pH 7.0 (4.5-7.5) Ur Specific [place] 1.027 (1.000-1.030) Urine Protein Negative (Negative) Urine Glucose (UA) Negative (Negative) Urine Ketones Negative (Negative) Urine Blood Negative (Negative) Urine Nitrite Negative (Negative) Urine Bilirubin Negative (Negative) Urine Urobilinogen Negative (Negative) Ur Leukocyte Esterase Negative (Negative) Urine Comment SARS-CoV-2, RNA, NAAT NEGATIVE (NEGATIVE) Blood Type Antibody Screen Administered Medications Discontinued Medications Ceftriaxone Sodium (Rocephin) 2,000 mg in 50 mls @ 100 mls/hr IV NOW STA Stop: 06/16/25 20:01 Last Infusion: 06/16/25 20:27 Dose: Infused Documented By: Admin: 06/16/25 19:44 Dose: 100 mls/hr Documented By: JOANN Ioversol (Optiray 320 125ml) 115 ml IV ONCE ONE Stop: 06/16/25 15:57 Last Admin: 06/16/25 15:57 Dose: 115 ml Documented By: CELIA Imaging Data Radiologist's Impression: Chest X-Ray 06/16/25 14:49 XR chest 1V portable HISTORY: 79 years-old Male weakness COMPARISON: 06/05/2025 TECHNIQUE: AP view of the chest FINDINGS: Cardiomediastinal hilar silhouettes are within normal limits. Atherosclerosis of the aorta. Spondylitic spurring of the spine. No pneumothorax, pleural effusion, airspace consolidation or pulmonary edema. Cervical spinal fusion hardware. IMPRESSION: No acute process. ACT 112: Negative or not required by law. The above report was generated using voice recognition software. It may contain grammatical, syntax or spelling errors. Electronically signed by: Connor Garcia M.D. 06/16/2025 3:30 PM Abdomen/Pelvis CT 06/16/25 14:58 CT ABDOMEN and PELVIS with INTRAVENOUS CONTRAST HISTORY: Abdominal pain TECHNIQUE: CT abdomen and pelvis with contrast. IV CONTRAST: 100 mL of OMNIPAQUE 300 ENTERIC CONTRAST: Not Given COMPARISON: CT abdomen pelvis June 05, 2025 FINDINGS: LOWER CHEST: Mild coronary and valvular calcifications of the heart. LIVER: No focal lesion identified. Hepatic steatosis and hepatomegaly. GALLBLADDER/BILIARY: Cholelithiasis without evidence of cholecystitis. No abnormal biliary dilatation. SPLEEN: Redemonstrated irregular transcortical hypoattenuation of the parenchyma likely represent sequela of infarct, unchanged. Splenomegaly. PANCREAS: Atrophic parenchyma with fatty replacement. ADRENALS: Unremarkable. KIDNEYS: Cortical cysts. 2 mm nonobstructing renal calculi bilaterally. No hydronephrosis identified. Ill-defined hypoattenuations of the renal parenchyma. PERITONEUM/RETROPERITONEUM. No lymphadenopathy by size criteria. No aortic aneurysm. Mild atherosclerosis. IVC filter. GASTROINTESTINAL: No obstruction. There is small fluid in the distal esophagus that is thickened. Surgical clips by the cecal tip is likely from prior appendectomy. REPRODUCTIVE: Nodular enlarged prostate gland impinging upon the urinary bladder outlet. URINARY BLADDER: Intense inflammation. ABDOMINAL WALL: Mixed density expansion of the left rectus abdominis muscle is again seen, and this appears to have decreased in size, though remains large. It currently measures 6.5 x 12.5 x 14.5 cm (AP x TV x CC), previously 8.5 x 13.0 x 18.0 cm. Surrounding inflammatory changes with stranding of the peritoneal fat and subcutaneous fat is again seen and this also appears to have decreased from previous. Redemonstrated nodular intermittent density structure measuring 2.6 cm in the right anterior abdominal wall subcutaneous tissues. BONES: No acute findings. IMPRESSION: Mixed density expansion of the left rectus abdominis muscle is again seen, and this appears to have decreased in size though remains large, with dimensions as provided above. This may represent a resolving rectus sheath hematoma although recurrent process is not excluded. Please correlate with symptomatology and the evolution of the finding in the interim. Intense inflammation of the urinary bladder suggesting cystitis. There is an underlying urinary bladder outlet obstruction by an enlarged, nodular prostate gland. Ill-defined hypoattenuations of the renal parenchyma may be due to renal atrophy and scarring however difficult to exclude early pyelonephritis. Bilateral 2 mm nonobstructing renal calculi. 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 Small gastroesophageal reflux with distal esophagitis. Electronically signed by Cem Bruno 06-16-2025 4:[address] 06/16/25 14:58 CT head without contrast History: Dizziness Comparison: 06/05/2025 Technique: Using multidetector thin collimation helical acquisition technique, axial, coronal and sagittal CT images from the skull base to the vertex were obtained without intravenous contrast. Dose reduction techniques were achieved by using automatic exposure control and/or adjustment of mA and/or kV according to patient size and/or use of iterative reconstruction technique. Findings: No intracranial hemorrhage, mass-effect, or midline shift. The ventricles are proportionate to the cerebral sulci. The mares to white matter differentiation of the cerebral hemispheres is preserved. The basal cisterns are patent. Mild cerebral atrophy. The visualized paranasal sinuses are clear. Mastoid air cells are clear. Bilateral pseudophakia. Impression: No acute intracranial pathology. Electronically signed by Pee Stewart 06-16-2025 4:20 PM Chest CTA 06/16/25 14:59 EXAM: CT angio chest PE protocol CLINICAL HISTORY: PE, L flnak pain, dizzy TECHNIQUE: Contiguous 3.[address] angiographic images of the chest were acquired with the administration of intravenous contrast. Coronal and sagittal reconstructions were obtained. 115 ML OPTIRAY 320 was administered for post-contrast images. One of these 3D techniques was utilized: Maximum Intensity Pixel (MIP), 3D Reconstructed Images, Volume Rendered Images, Surface Shaded Rendering. One of the following dose reduction techniques were utilized for this exam: Automated exposure control, adjustment of the mA and/or kV according to patient size, and use of iterative reconstruction. COMPARISON: comparison with the previous study dated 02/25/2025 FINDINGS: Pulmonary Arteries: Hypodense filling defects are noted involving the distal part of the anterior/apical segmental branch of the right upper lobe, segmental branch of the right middle lobe and posterior/ lateral segment of the right lower lobar artery- suggestive of pulmonary embolism. A small thin-walled cyst/bulla is noted involving the lingula. Few subsegmental atelectases are noted involving the bilateral lung bases. The central airways are patent. The rest of the lungs are clear. No pleural effusion. The aorta and pulmonary arteries are of normal size and configuration. There are coronary artery and aortic atherosclerotic calcifications. No pericardial effusion is identified. The thyroid is unremarkable. Mediastinum: No mediastinal mass or lymphadenopathy. Normal appearance of the thymus. Dilated esophagus with an air-fluid level down to the gastroesophageal junction Heart: Normal size and morphology of the heart. No pericardial effusion. Bones: No fractures or lytic/sclerotic lesions of the visualized bony structures. Normal alignment and bone density. Spondylodegenerative changes of the visualized vertebrae. Internal fixation of the lower cervical spine. Soft Tissues: Normal appearance of the visualized soft tissues. No abnormal masses or fluid collections. IMPRESSION: 1. Hypodense filling defects are noted involving the distal part of the anterior/apical segmental branch of the right upper lobe, segmental branch of the right middle lobe and the posterior and lateral segment right lower lobar artery, and its segmental branches - suggestive of pulmonary thromboembolism. Findings are less severe in comparison with the previous study, dated 02/25/2025, with total resolution of the filling defect involving the distal main right pulmonary artery. 2. A small thin-walled cyst/bulla is noted involving the lingula. stable 3. A few subsegmental atelectases are noted involving the bilateral lung bases. stable Electronically signed by Danny Dash 06-16-2025 6:50 PM Discharge Plan Visit Data Chief Complaint: Weakness Stated Complaint: WEAKNESS ED Provider: Tom Waters Discharge Problem: Weakness, Abdominal wall hematoma, Pulmonary embolism Patient Disposition: Admitted As Inpatient Condition: Fair Discharge Instructions Interventions: ED Discharge Assessment Last Done: 06/16/25 22:03 Discharge Problem: Abdominal wall hematoma Qualifiers: Encounter type: initial encounter Qualified Code(s): S30.1XXA - Contusion of abdominal wall, initial encounter Pulmonary embolism Qualifiers: Pulmonary embolism type: unspecified Chronicity: chronic Acute cor pulmonale presence: without acute cor pulmonale Qualified Code(s): I27.82 - Chronic pulmonary embolism
[2025-06-16 15:04] LABS: Hematocrit (blood only) 31.9 % (42.0-52.0); Hemoglobin 10.0 g/dl (14.0-18.0); Immature Granulocytes # (auto) 0.07 K/uL (0.01-0.20); Immature Granulocytes % (auto) 0.6 %; Mean Corpuscular Hemoglobin 25.0 pg (25.0-34.0); Mean Corpuscular Volume 79.8 fL (80.0-100.0); Platelet Count 319 K/uL (130-400); RDW Standard Deviation 47.2 fL (36.4-46.3); Red Blood Count 4.00 M/uL (4.70-6.10); White Blood Count 11.39 K/ul (4.8-10.8)
[2025-06-16 15:21] LABS: Alanine Aminotransferase 21.0 U/L (7-52); Albumin Globulin Ratio 1.5 (0.9-2); Alkaline Phosphatase 77.0 U/L (34-104); Anion Gap 8.0 (3-11); Bilirubin,Total 1.6 mg/dl (0.2-1.0); Blood Urea Nitrogen 15.0 mg/dl (6-23); Calcium 8.8 mg/dl (8.6-10.3); Carbon Dioxide 26.0 mmol/L (21-32); Chloride 100.0 mmol/L (98-107); Creatine Kinase 148.0 U/L (30-223); Creatinine Clr Calc Pharmacy 66.3 ml/min; Globulin 2.7 gm/dl (2.5-4.0); Glucose 277.0 mg/dl (70-99(Fasting)); Magnesium 1.8 mg/dl (1.7-2.4); Potassium 3.9 mmol/L (3.5-5.1); Sodium 134.0 mmol/L (136-145); Total Protein 6.7 gm/dl (6.0-8.3)
--- NOTE | 2025-06-16 15:31 | XRay Report ---
XR chest 1V portable HISTORY: 79 years-old Male weakness COMPARISON: 06/05/2025 TECHNIQUE: AP view of the chest FINDINGS: Cardiomediastinal hilar silhouettes are within normal limits. Atherosclerosis of the aorta. Spondylit ic spurring of the spine. No pneumothorax, pleural effusion, airspace consolidation or pulmonary ruthann a. Cervical spinal fusion hardware. IMPRESSION: No acute process. ACT 112: Negative or not required by law. The above report was generated using voice recognition software. It may contain grammatical, syntax o r spelling errors. Electronically signed by: Connor Garcia M.D. 06/16/2025 3:30 PM
[2025-06-16 15:34] LABS: INR 1.1 (0.9-1.1); Prothrombin Time 11.6 Seconds (9.0-12.0)
[2025-06-16 15:37] LABS: Thyroid Stimulating Hormone 1.521 uIu/ml (0.300-4.500)
--- NOTE | 2025-06-16 15:49 | Electrocardiogram Report ---
Test Reason : Blood Pressure : */* mmHG Vent. Rate : 100 BPM Atrial Rate : * BPM P-R Int : * ms QRS Dur : 132 ms QT Int : 360 ms P-R-T Axes : * 135 29 degrees QTcB Int : 464 ms Possible limb lead reversal Sinus rhythm with 1st degree AV block and PVCs Right bundle branch block Left posterior fascicular block Bifascicular block Abnormal ECG When compared with ECG of 05-Jun-2025 11:17, Left posterior fascicular block is now Present Confirmed by Pee Curtis ([id number]) on 06/16/2025 3:49:24 PM Referred By: Confirmed By: Pee Curtis
[2025-06-16] MEDS: OPTIRAY 320 125ml IV ONE (15:57)
--- NOTE | 2025-06-16 16:21 | CT Scan Report ---
CT head without contrast History: Dizziness Comparison: 06/05/2025 Technique: Using multidetector thin collimation helical acquisition technique, axial, coronal and sagittal CT images from the skull base to the vertex were obtained without intravenous contrast. Dose reduction techniques were achieved by using automatic exposure control and/or adjustment of mA and/or kV according to patient size and/or use of iterative reconstruction technique. Findings: No intracranial hemorrhage, mass-effect, or midline shift. The ventricles are proportionate to the cerebral sulci. The mares to white matter differentiation of the cerebral hemispheres is preserved. The basal cisterns are patent. Mild cerebral atrophy. The visualized paranasal sinuses are clear. Mastoid air cells are clear. Bilateral pseudophakia. Impression: No acute intracranial pathology. Electronically signed by Pee Stewart 06-16-2025 4:20 PM
--- NOTE | 2025-06-16 16:38 | CT Scan Report ---
CT ABDOMEN and PELVIS with INTRAVENOUS CONTRAST HISTORY: Abdominal pain TECHNIQUE: CT abdomen and pelvis with contrast. IV CONTRAST: 100 mL of OMNIPAQUE 300 ENTERIC CONTRAST: Not Given COMPARISON: CT abdomen pelvis June 05, 2025 FINDINGS: LOWER CHEST: Mild coronary and valvular calcifications of the heart. LIVER: No focal lesion identified. Hepatic steatosis and hepatomegaly. GALLBLADDER/BILIARY: Cholelithiasis without evidence of cholecystitis. No abnormal biliary dilatation. SPLEEN: Redemonstrated irregular transcortical hypoattenuation of the parenchyma likely represent sequela of infarct, unchanged. Splenomegaly. PANCREAS: Atrophic parenchyma with fatty replacement. ADRENALS: Unremarkable. KIDNEYS: Cortical cysts. 2 mm nonobstructing renal calculi bilaterally. No hydronephrosis identified. Ill-defined hypoattenuations of the renal parenchyma. PERITONEUM/RETROPERITONEUM. No lymphadenopathy by size criteria. No aortic aneurysm. Mild atherosclerosis. IVC filter. GASTROINTESTINAL: No obstruction. There is small fluid in the distal esophagus that is thickened. Surgical clips by the cecal tip is likely from prior appendectomy. REPRODUCTIVE: Nodular enlarged prostate gland impinging upon the urinary bladder outlet. URINARY BLADDER: Intense inflammation. ABDOMINAL WALL: Mixed density expansion of the left rectus abdominis muscle is again seen, and this appears to have decreased in size, though remains large. It currently measures 6.5 x 12.5 x 14.5 cm (AP x TV x CC), previously 8.5 x 13.0 x 18.0 cm. Surrounding inflammatory changes with stranding of the peritoneal fat and subcutaneous fat is again seen and this also appears to have decreased from previous. Redemonstrated nodular intermittent density structure measuring 2.6 cm in the right anterior abdominal wall subcutaneous tissues. BONES: No acute findings. IMPRESSION: Mixed density expansion of the left rectus abdominis muscle is again seen, and this appears to have decreased in size though remains large, with dimensions as provided above. This may represent a resolving rectus sheath hematoma although recurrent process is not excluded. Please correlate with symptomatology and the evolution of the finding in the interim. Intense inflammation of the urinary bladder suggesting cystitis. There is an underlying urinary bladder outlet obstruction by an enlarged, nodular prostate gland. Ill-defined hypoattenuations of the renal parenchyma may be due to renal atrophy and scarring however difficult to exclude early pyelonephritis. Bilateral 2 mm nonobstructing renal calculi. 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 Small gastroesophageal reflux with distal esophagitis. Electronically signed by Cem Bruno 06-16-2025 4:37 PM
[2025-06-16 17:46] LABS: Appearance Urine Clear (Clear); Glucose Urine UA Negative (Negative)
--- NOTE | 2025-06-16 18:51 | CT Scan Report ---
EXAM: CT angio chest PE protocol CLINICAL HISTORY: PE, L flnak pain, dizzy TECHNIQUE: Contiguous 3.[address] angiographic images of the chest were acquired with the administration of intravenous contrast. Coronal and sagittal reconstructions were obtained. 115 ML OPTIRAY 320 was administered for post-contrast images. One of these 3D techniques was utilized: Maximum Intensity Pixel (MIP), 3D Reconstructed Images, Volume Rendered Images, Surface Shaded Rendering. One of the following dose reduction techniques were utilized for this exam: Automated exposure control, adjustment of the mA and/or kV according to patient size, and use of iterative reconstruction. COMPARISON: comparison with the previous study dated 02/25/2025 FINDINGS: Pulmonary Arteries: Hypodense filling defects are noted involving the distal part of the anterior/apical segmental branch of the right upper lobe, segmental branch of the right middle lobe and posterior/ lateral segment of the right lower lobar artery- suggestive of pulmonary embolism. A small thin-walled cyst/bulla is noted involving the lingula. Few subsegmental atelectases are noted involving the bilateral lung bases. The central airways are patent. The rest of the lungs are clear. No pleural effusion. The aorta and pulmonary arteries are of normal size and configuration. There are coronary artery and aortic atherosclerotic calcifications. No pericardial effusion is identified. The thyroid is unremarkable. Mediastinum: No mediastinal mass or lymphadenopathy. Normal appearance of the thymus. Dilated esophagus with an air-fluid level down to the gastroesophageal junction Heart: Normal size and morphology of the heart. No pericardial effusion. Bones: No fractures or lytic/sclerotic lesions of the visualized bony structures. Normal alignment and bone density. Spondylodegenerative changes of the visualized vertebrae. Internal fixation of the lower cervical spine. Soft Tissues: Normal appearance of the visualized soft tissues. No abnormal masses or fluid collections. IMPRESSION: 1. Hypodense filling defects are noted involving the distal part of the anterior/apical segmental branch of the right upper lobe, segmental branch of the right middle lobe and the posterior and lateral segment right lower lobar artery, and its segmental branches - suggestive of pulmonary thromboembolism. Findings are less severe in comparison with the previous study, dated 02/25/2025, with total resolution of the filling defect involving the distal main right pulmonary artery. 2. A small thin-walled cyst/bulla is noted involving the lingula. stable 3. A few subsegmental atelectases are noted involving the bilateral lung bases. stable Electronically signed by Danny Dash 06-16-2025 6:50 PM
[2025-06-16] MEDS: cefTRIAXone SODIUM 2,000 MG/50 ML BAG IV STA (19:44)
--- NOTE | 2025-06-16 20:36 | History & Physical Report ---
Date of Service June 16, 2025 Assessment & Plan (1) Abdominal wall hematoma: (2) Pulmonary embolism: (3) Benign hypertension: (4) Controlled type 2 diabetes mellitus, with long-term current use of insulin: Plan 79yo male with history of partial pancreatectomy performed February 10 at [facility], prolonged hospitalization with subsequent development of pulmonary emboli. Patient with abdominal wall hematoma developed from Lovenox injections. Recent hospitalization for syncope. Patient's anticoagulation discontinued and he was discharged home. Episode of dizziness today. Patient not showing any clinical, laboratory or radiographic evidence of hematoma expansion. CT states hematoma is smaller than prior study, H/H slightly improved. Bruising on abdomen and flank, possible tracking from hematoma - no evidence of new or active bleeding on imaging. Dizziness possibly from Gabapentin? This was suggested during prior hospitalization. Trazodone has been DCd PEs still present on repeat CTA today. The larger filling defect in the distal right main pulmonary artery is not seen on repeat imaging. Patient sill has emboli present in the distal part of the anterior/apical segmental branch of the RUL, RML and RLL segmental branches. Findings are less severe in comparison to prior imaging. Patient is HD stable. Adequate oxygenation on RA He does have an IVC filter in place #Abdominal wall hematoma -Monitor CBC q 6 hours with initiation of heparin -If expansion is suspected may need reimaging -Continue FeSO4 #Pulmonary embolism - improved from prior imaging but still with emboli present in segmental branches -Low dose heparin gtt without bolus -Monitor CBC q 6 hours, monitor for expansion of hematoma -If tolerated, would consider DC on DOAC for 3 additional months of anticoagulation -Check bilateral LE venous dopplers -Hematology consultation appreciated #Diabetes - patient with insulin pump typically. Does not currently have it on. Last [id number] -Lantus 10u BID -ISS #Hyperlipidemia -Continue Atorvastatin #GERD -Protonix 40mg PO BID #Bladder thickening on CT - no urinary complaints. UA does not suggest infection. He received Ceftriaxone in the ER. History of Present Illness Chief Complaint: dizziness Primary Care Provider: Nohemi Teresa MD Tyshawn Garner is a 79yo male presenting with episode of dizziness. Patient recently had a partial pancreatectomy performed and [facility] on 02/10/2025 for history of intraductal papillary mucinous neoplasms. He was hospitalized for approximately one month during which he developed pulmonary emboli and was started on Lovenox injections (CTA chest from 02/25/25 with PE in distal right main pulmonary artery extending into the anterior segmental branch of the RUL, and segmental branches of the RML and RLL.) He was admitted to [facility] from 06/05 - 06/06/25 after a syncopal event. Found to have a large abdominal wall hematoma and acute blood loss anemia. His Lovenox was discontinued and plan to stay off anticoagulation for 1-2 weeks. Patient has been at home and overall doing well. His daughter has been away but his sister has been checking in on him recently. Two days ago he noticed some bruising on his left abdomen and flank. He got up this AM to go to his PCP appointment. He reports when he got up he felt a little dizzy and lightheaded. He sat on the edge of the bed for approximately one hour until the dizziness passed. He was then able to get a shower and go to his appointment. When he saw his PCP he told her about the bruising and the dizziness and was sent to the ER. Patient reports no other episodes of dizziness aside from the episode today. No chest pain or tightness, no palpitations or SOB. No syncope. No nausea, vomiting. He reports that his abdomen is still sore but has been improving. In the ER patient is afebrile, HD stable. ER Course: Ceftriaxone Allergies Allergy/AdvReac Type Severity Reaction Status Date / Time Penicillins Allergy Intermediate HIVES Verified 06/10/25 11:19 metformin AdvReac Intermediate GI Verified 06/10/25 11:19 distress/diarrhea Home Medications Medication Instructions Recorded Confirmed Type aspirin 81 mg tablet,delayed 81 mg PO QAM 05/02/21 06/16/25 History release insulin syringe-needle U-100 1 mL #300 ea 05/20/22 06/10/25 Rx 31 gauge x 5/16" (BD Insulin Syringe Ultra-Fine) blood sugar diagnostic (Contour #100 ea 09/29/22 06/10/25 Rx Next Test Strips) acetaminophen 325 mg tablet 650 mg (2 x 325 mg) PO Q4H PRN 05/18/23 06/16/25 Rx pain #30 tabs pen needle, diabetic 31 gauge x #100 ea 03/07/24 06/10/25 Rx 3/16" (BD Ultra-Fine Mini Pen Needle) hydrochlorothiazide 25 mg tablet 25 mg PO QAM #90 tabs 11/14/24 06/16/25 Rx trazodone 100 mg tablet 100 mg PO HS #90 tabs 11/18/24 06/16/25 Rx tramadol 50 mg tablet 50 mg PO BID PRN pain #90 tabs 01/27/25 06/16/25 Rx cholecalciferol (vitamin D3) 25 25 mcg PO DAILY 02/19/25 06/16/25 History mcg (1,000 unit) tablet ondansetron 4 mg disintegrating 4 mg PO Q6H PRN nausea and vomiting 02/19/25 06/16/25 History tablet amlodipine 5 mg tablet 5 mg PO QPM #90 tabs 03/19/25 06/16/25 Rx pantoprazole 40 mg tablet,delayed 40 mg PO BID #180 tabs 03/19/25 06/16/25 Rx release atorvastatin 10 mg tablet 5 mg (1/2 x 10 mg) PO HS #45 tabs 04/14/25 06/16/25 Rx gabapentin 300 mg capsule 300 mg PO HS #90 caps 04/14/25 06/16/25 Rx insulin lispro 100 unit/mL 280 unit (2.8 mL) continuous 05/26/25 06/16/25 Rx subcutaneous solution (Humalog subcutaneous infusion DAILY 90 U-100 Insulin) days #250 mL lisinopril 40 mg tablet 40 mg PO QAM 06/05/25 06/16/25 History ferrous sulfate 325 mg (65 mg 325 mg PO Q OTHER DAY #14 tabs 06/06/25 06/16/25 Rx iron) tablet,delayed release mecobalamin (vitamin B12) 1,000 mcg PO DAILY 06/16/25 06/16/25 History Past Med/Surg History Problem List Pulmonary embolism (Acute) Abdominal wall hematoma (Acute) Weakness (Acute) ABLA (acute blood loss anemia) Abdominal wall hematoma (Acute) Diarrhea Urinary symptom or sign Trauma of toe of left foot Enlarged prostate with lower urinary tract symptoms (LUTS) Anemia S/P laparotomy C. 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 Rash COVID (Acute) Intraductal papillary mucinous neoplasm of pancreas Urinary retention Cystic mass of pancreas Constipation (Acute) Acute thoracic back pain (Acute) Acute urinary retention (Acute) Hyperglycemia (Acute) Constipation Syncope Chronic back pain (~01/30/25) Grieving Vitamin D deficiency Steatosis of liver Metabolic syndrome Dietary counseling and surveillance GERD (gastroesophageal reflux disease) Cramping of hands Esophageal dysphagia Hyperlipidemia Acid reflux disease Benign hypertension Insomnia Low back pain Controlled type 2 diabetes mellitus, with long-term current use of insulin (Chronic) Diabetic peripheral neuropathy Obesity Elevated PSA Routine health maintenance Cerumen impaction Hematuria Prostate cancer screening BPH w urinary obs/LUTS Hearing loss Encounter for pre-operative examination Gastroenteritis due to norovirus Encounter for examination following treatment at hospital Medical History Syncope Renal insufficiency Hypoxia Pulmonary embolism Diabetes mellitus, type 2 Fall Syncope History of esophageal dilatation Morbid obesity Urinary retention s/p urinary catheter (05/2021)- since removed BPH (benign prostatic hyperplasia) Insulin pump in place History of TMJ syndrome Hypertension Hyperlipidemia Dysesthesia R/L feet Surgical History History of prostate biopsy (~10/05/21) under MAC anesthesia @ [facility] History of surgery Exam under anesthesia, removal of skin tags, fistulotomy (01/09/18): Grade view 1 with Glidescope#4, ETT 8.0 (difficult mask. vent with 2 person 2/2 hamilton > elective glidescope with minimal neck extension- ETT easily passed, s mall right upper lip laceration noted) History of esophagogastroduodenoscopy (EGD) History of colonoscopy Hx of LASIK History of cataract surgery RT/LEFT History of tooth extraction RECENT TOOTH EXTRACTION H/O knee surgery Spur removed from knee History of tonsillectomy and adenoidectomy H/O neck surgery History of carpal tunnel surgery RT Family History Aunt Diabetes Father Lung cancer Sister Diabetes Other No family history of adverse response to anesthesia Denies family history of Ovarian cancer Prostate cancer Myocardial infarction Breast cancer Colorectal cancer Hypertension Stroke Social History Smoking Status: Never smoker Second Hand Exposure: No; Do You Dip or Chew Tobacco: No; Hx Alcohol Use: Yes Alcohol type: beer Alcohol Intake Frequency: Monthly or Less Hx Substance Use: No Preferred Language: Uzbek Communication Ability: Effective Visual Impairment: No Limitations Hearing Ability: Normal Legal Administrator Required: No Beliefs That Will Affect Care: None marital status: / Current Living Situation: Alone Current Living Situation Comment: Lives with daughter current occupational status: retired current occupation: [employer] How many Children do You have: 2 Feels Safe at Home: Yes Childhood Exposure to Second-Hand Smoke: No Diet: regular caffeine: Yes (coffee) during the past year weight has: remained stable Dental Care, Regularly: Yes Physical Activity Frequency: Daily Seatbelt Use: always Sunscreen Use: Yes Do you think of yourself as: straight/heterosexual Gender Identity: Male Assistive Devices: Cane, Walker and Wheelchair Review of Systems Review of Systems: All systems reviewed & are unremarkable except as noted in HPI & below Physical Exam Physical Exam: General: patient resting comfortably, NAD, non-toxic in appearance, AA&O x 4 Skin: warm, dry, intact, no rashes or lesions HEENT: NC/AT, PERRL, EOMI, anicteric sclera, conjunctiva without injection, external ear normal to inspection and nontender, nares patent, moist mucus membranes, dentition intact, no oropharyngeal lesions, neck supple, trachea midline, no LAD, no thyromegaly, no JVD Heart: +S1/S2, regular, no m/r/g Lungs: equal air entry bilaterally, no rales/rhonchi/wheezes Abd: +BS, soft, NT/ND, palpable hematoma of left abdomen Bruising on left lower abdomen and flank Ext: warm, 2+ pulses in UE/LE bilaterally, no clubbing/cyanosis, trace pitting edema of LLE Neuro: nonfocal, patient AA&O x 4, speech intact, no facial droop, moving all extremities on command with equal strength 5/5 Results & Data Results & Data Vital Signs (Past 12 Hours) Vital Signs Temp Pulse Pulse Resp BP BP Pulse Ox 06/16/25 20:00 162/82 H 06/16/25 19:48 93 H 24 97 06/16/25 19:45 96 H 16 100 06/16/25 19:44 137/70 06/16/25 19:00 157/90 H 06/16/25 18:48 84 06/16/25 18:30 84 18 140/80 100 06/16/25 16:11 925 H 18 151/64 H 99 06/16/25 15:01 36.7 C 102 H 18 163/93 H 98 06/16/25 14:56 94 H O2 Del Method 06/16/25 20:00 06/16/25 19:48 Room Air 06/16/25 19:45 Room Air 06/16/25 19:44 06/16/25 19:00 06/16/25 18:48 06/16/25 18:30 Room Air 06/16/25 16:11 Room Air 06/16/25 15:01 Room Air 06/16/25 14:56 Laboratory Results Laboratory Results WBC 11.39 K/ul (4.8-10.8) H 06/16/25 14:52 RBC 4.00 M/uL (4.70-6.10) L 06/16/25 14:52 Hgb 10.0 g/dl (14.0-18.0) L 06/16/25 14:52 POC Hgb 10.9 g/dl (14.0-18.0) L 06/16/25 14:58 Hct 31.9 % (42.0-52.0) L 06/16/25 14:52 POC Hct 32 % (42-52) L 06/16/25 14:58 MCV 79.8 fL (80.0-100.0) L 06/16/25 14:52 MCH 25.0 pg (25.0-34.0) 06/16/25 14:52 MCHC 31.3 g/dL (32.0-36.0) L 06/16/25 14:52 RDW Std Deviation 47.2 fL (36.4-46.3) H 06/16/25 14:52 RDW Coeff of Joselin 16.8 % (11.5-14.5) H 06/16/25 14:52 Plt Count 319 K/uL (130-400) 06/16/25 14:52 MPV 10.6 fL (9.4-12.4) 06/16/25 14:52 Immature Gran % (Auto) 0.6 % 06/16/25 14:52 Neut % (Auto) 83.7 % 06/16/25 14:52 Lymph % (Auto) 8.9 % 06/16/25 14:52 Jackson % (Auto) 5.3 % 06/16/25 14:52 Eos % (Auto) 1.1 % 06/16/25 14:52 Baso % (Auto) 0.4 % 06/16/25 14:52 Neut # (Auto) 9.54 K/uL (1.40-6.50) H 06/16/25 14:52 Lymph # (Auto) 1.01 K/uL (1.20-3.40) L 06/16/25 14:52 Jackson # (Auto) 0.60 K/uL (0.11-0.59) H 06/16/25 14:52 Eos # (Auto) 0.13 K/uL (0.00-0.50) 06/16/25 14:52 Baso # (Auto) 0.04 K/uL (0.00-0.20) 06/16/25 14:52 Immature Gran # (Auto) 0.07 K/uL (0.01-0.20) 06/16/25 14:52 PT 11.6 Seconds (9.0-12.0) 06/16/25 14:52 INR 1.1 (0.9-1.1) 06/16/25 14:52 POC Sodium 135 mmol/L (135-144) 06/16/25 14:58 Sodium 134 mmol/L (136-145) L 06/16/25 14:52 POC Potassium 3.9 mmol/L (3.3-5.0) 06/16/25 14:58 Potassium 3.9 mmol/L (3.5-5.1) 06/16/25 14:52 POC Chloride 98 mmol/L (101-112) L 06/16/25 14:58 Chloride 100 mmol/L (98-107) 06/16/25 14:52 Carbon Dioxide 26 mmol/L (21-32) 06/16/25 14:52 POC Total CO2 23 mmol/L (24-31) L 06/16/25 14:58 Anion Gap 8 (3-11) 06/16/25 14:52 POC Anion Gap 19.0 mmol/L (16-25) 06/16/25 14:58 POC BUN 14 mg/dl (7-18) 06/16/25 14:58 BUN 15 mg/dl (6-23) 06/16/25 14:52 Creatinine 1.22 mg/dl (0.6-1.4) 06/16/25 14:52 POC Creatinine 1.3 mg/dl (0.6-1.3) 06/16/25 14:58 Est Cr Clr Drug Dosing 66.3 ml/min 06/16/25 14:52 eGFR 60.68 06/16/25 14:52 BUN/Creatinine Ratio 12.3 (10-20) 06/16/25 14:52 Glucose 277 mg/dl (70-99(Fasting)) H 06/16/25 14:52 POC Glucose 295 mg/dl (70-99) H 06/16/25 22:35 POC Glucose (other) 271 mg/dl (70-99) H 06/16/25 14:58 Calcium 8.8 mg/dl (8.6-10.3) 06/16/25 14:52 POC Ioniz Calcium Ania 1.21 mmol/l (1.12-1.32) 06/16/25 14:58 Magnesium 1.8 mg/dl (1.7-2.4) 06/16/25 14:52 Total Bilirubin 1.6 mg/dl (0.2-1.0) H 06/16/25 14:52 AST 23 U/L (13-39) 06/16/25 14:52 ALT 21 U/L (7-52) 06/16/25 14:52 Alkaline Phosphatase 77 U/L (34-104) 06/16/25 14:52 Total Creatine Kinase 148 U/L (30-223) 06/16/25 14:52 Troponin I High Sens 5.6 pg/ml (0-20) 06/16/25 14:52 Total Protein 6.7 gm/dl (6.0-8.3) 06/16/25 14:52 Albumin 4.0 gm/dl (3.4-5.0) 06/16/25 14:52 Globulin 2.7 gm/dl (2.5-4.0) 06/16/25 14:52 Albumin/Globulin Ratio 1.5 (0.9-2) 06/16/25 14:52 TSH 1.521 uIu/ml (0.300-4.500) 06/16/25 14:52 Urine Color Yellow 06/16/25 17:20 Urine Appearance Clear (Clear) 06/16/25 17:20 Urine pH 7.0 (4.5-7.5) 06/16/25 17:20 Ur Specific [place] 1.027 (1.000-1.030) 06/16/25 17:20 Urine Protein Negative (Negative) 06/16/25 17:20 Urine Glucose (UA) Negative (Negative) 06/16/25 17:20 Urine Ketones Negative (Negative) 06/16/25 17:20 Urine Blood Negative (Negative) 06/16/25 17:20 Urine Nitrite Negative (Negative) 06/16/25 17:20 Urine Bilirubin Negative (Negative) 06/16/25 17:20 Urine Urobilinogen Negative (Negative) 06/16/25 17:20 Ur Leukocyte Esterase Negative (Negative) 06/16/25 17:20 Urine Comment 06/16/25 17:20 SARS-CoV-2, RNA, NAAT NEGATIVE (NEGATIVE) 06/16/25 15:18 Blood Type A Positive 06/16/25 14:52 Antibody Screen NEGATIVE 06/16/25 14:52 Impressions Chest X-Ray 06/16/25 14:49 XR chest 1V portable HISTORY: 79 years-old Male weakness COMPARISON: 06/05/2025 TECHNIQUE: AP view of the chest FINDINGS: Cardiomediastinal hilar silhouettes are within normal limits. Atherosclerosis of the aorta. Spondylitic spurring of the spine. No pneumothorax, pleural effusion, airspace consolidation or pulmonary edema. Cervical spinal fusion hardware. IMPRESSION: No acute process. ACT 112: Negative or not required by law. The above report was generated using voice recognition software. It may contain grammatical, syntax or spelling errors. Electronically signed by: Connor Garcia M.D. 06/16/2025 3:30 PM Abdomen/Pelvis CT 06/16/25 14:58 CT ABDOMEN and PELVIS with INTRAVENOUS CONTRAST HISTORY: Abdominal pain TECHNIQUE: CT abdomen and pelvis with contrast. IV CONTRAST: 100 mL of OMNIPAQUE 300 ENTERIC CONTRAST: Not Given COMPARISON: CT abdomen pelvis June 05, 2025 FINDINGS: LOWER CHEST: Mild coronary and valvular calcifications of the heart. LIVER: No focal lesion identified. Hepatic steatosis and hepatomegaly. GALLBLADDER/BILIARY: Cholelithiasis without evidence of cholecystitis. No abnormal biliary dilatation. SPLEEN: Redemonstrated irregular transcortical hypoattenuation of the parenchyma likely represent sequela of infarct, unchanged. Splenomegaly. PANCREAS: Atrophic parenchyma with fatty replacement. ADRENALS: Unremarkable. KIDNEYS: Cortical cysts. 2 mm nonobstructing renal calculi bilaterally. No hydronephrosis identified. Ill-defined hypoattenuations of the renal parenchyma. PERITONEUM/RETROPERITONEUM. No lymphadenopathy by size criteria. No aortic aneurysm. Mild atherosclerosis. IVC filter. GASTROINTESTINAL: No obstruction. There is small fluid in the distal esophagus that is thickened. Surgical clips by the cecal tip is likely from prior appendectomy. REPRODUCTIVE: Nodular enlarged prostate gland impinging upon the urinary bladder outlet. URINARY BLADDER: Intense inflammation. ABDOMINAL WALL: Mixed density expansion of the left rectus abdominis muscle is again seen, and this appears to have decreased in size, though remains large. It currently measures 6.5 x 12.5 x 14.5 cm (AP x TV x CC), previously 8.5 x 13.0 x 18.0 cm. Surrounding inflammatory changes with stranding of the peritoneal fat and subcutaneous fat is again seen and this also appears to have decreased from previous. Redemonstrated nodular intermittent density structure measuring 2.6 cm in the right anterior abdominal wall subcutaneous tissues. BONES: No acute findings. IMPRESSION: Mixed density expansion of the left rectus abdominis muscle is again seen, and this appears to have decreased in size though remains large, with dimensions as provided above. This may represent a resolving rectus sheath hematoma although recurrent process is not excluded. Please correlate with symptomatology and the evolution of the finding in the interim. Intense inflammation of the urinary bladder suggesting cystitis. There is an underlying urinary bladder outlet obstruction by an enlarged, nodular prostate gland. Ill-defined hypoattenuations of the renal parenchyma may be due to renal atrophy and scarring however difficult to exclude early pyelonephritis. Bilateral 2 mm nonobstructing renal calculi. 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 Small gastroesophageal reflux with distal esophagitis. Electronically signed by Cem Bruno 06-16-2025 4:[address] 06/16/25 14:58 CT head without contrast History: Dizziness Comparison: 06/05/2025 Technique: Using multidetector thin collimation helical acquisition technique, axial, coronal and sagittal CT images from the skull base to the vertex were obtained without intravenous contrast. Dose reduction techniques were achieved by using automatic exposure control and/or adjustment of mA and/or kV according to patient size and/or use of iterative reconstruction technique. Findings: No intracranial hemorrhage, mass-effect, or midline shift. The ventricles are proportionate to the cerebral sulci. The mares to white matter differentiation of the cerebral hemispheres is preserved. The basal cisterns are patent. Mild cerebral atrophy. The visualized paranasal sinuses are clear. Mastoid air cells are clear. Bilateral pseudophakia. Impression: No acute intracranial pathology. Electronically signed by Pee Stewart 06-16-2025 4:20 PM Chest CTA 06/16/25 14:59 EXAM: CT angio chest PE protocol CLINICAL HISTORY: PE, L flnak pain, dizzy TECHNIQUE: Contiguous 3.[address] angiographic images of the chest were acquired with the administration of intravenous contrast. Coronal and sagittal reconstructions were obtained. 115 ML OPTIRAY 320 was administered for post-contrast images. One of these 3D techniques was utilized: Maximum Intensity Pixel (MIP), 3D Reconstructed Images, Volume Rendered Images, Surface Shaded Rendering. One of the following dose reduction techniques were utilized for this exam: Automated exposure control, adjustment of the mA and/or kV according to patient size, and use of iterative reconstruction. COMPARISON: comparison with the previous study dated 02/25/2025 FINDINGS: Pulmonary Arteries: Hypodense filling defects are noted involving the distal part of the anterior/apical segmental branch of the right upper lobe, segmental branch of the right middle lobe and posterior/ lateral segment of the right lower lobar artery- suggestive of pulmonary embolism. A small thin-walled cyst/bulla is noted involving the lingula. Few subsegmental atelectases are noted involving the bilateral lung bases. The central airways are patent. The rest of the lungs are clear. No pleural effusion. The aorta and pulmonary arteries are of normal size and configuration. There are coronary artery and aortic atherosclerotic calcifications. No pericardial effusion is identified. The thyroid is unremarkable. Mediastinum: No mediastinal mass or lymphadenopathy. Normal appearance of the thymus. Dilated esophagus with an air-fluid level down to the gastroesophageal junction Heart: Normal size and morphology of the heart. No pericardial effusion. Bones: No fractures or lytic/sclerotic lesions of the visualized bony structures. Normal alignment and bone density. Spondylodegenerative changes of the visualized vertebrae. Internal fixation of the lower cervical spine. Soft Tissues: Normal appearance of the visualized soft tissues. No abnormal masses or fluid collections. IMPRESSION: 1. Hypodense filling defects are noted involving the distal part of the anterior/apical segmental branch of the right upper lobe, segmental branch of the right middle lobe and the posterior and lateral segment right lower lobar artery, and its segmental branches - suggestive of pulmonary thromboembolism. Findings are less severe in comparison with the previous study, dated 02/25/2025, with total resolution of the filling defect involving the distal main right pulmonary artery. 2. A small thin-walled cyst/bulla is noted involving the lingula. stable 3. A few subsegmental atelectases are noted involving the bilateral lung bases. stable Electronically signed by Danny Dash 06-16-2025 6:50 PM Code Status & VTE Plan VTE Prophylaxis Plan VTE Prophylaxis will be ordered: Yes PG Care Time/CCT Total # of Minutes Spent Total Time Spent with Patient: Total time spent is greater than 50% in coordination of care (as documented) at patient's floor/unit and/or counseling patient: Coding Level of Care Code 10637 INT INP/OBS CARE 375MIN Diagnoses Abdominal wall hematoma S30.1XXA Encounter type: initial encounter Pulmonary embolism I27.82 Acute cor pulmonale presence: without acute cor pulmonale Chronicity: chronic Pulmonary embolism type: unspecified Benign hypertension I10 Controlled type 2 diabetes mellitus, with long-term current use of insulin E11.9; Z79.4 (1) Abdominal wall hematoma Encounter type: initial encounter Qualified Code(s): S30.1XXA - Contusion of abdominal wall, initial encounter (2) Pulmonary embolism Acute cor pulmonale presence: without acute cor pulmonale Chronicity: chronic Pulmonary embolism type: unspecified Qualified Code(s): I27.82 - Chronic pulmonary embolism
[2025-06-16] MEDS ORDERED: ONDANSETRON INJ 2 MG/ML 2 ML VIAL IV PRN (22:44)
[2025-06-16] MEDS ORDERED: DEXTROSE 50% 50 ML SYRINGE IV PRN (22:44)
[2025-06-16] MEDS ORDERED: GLUCAGON FOR INJ 1 MG VIAL SQ PRN (22:44)
[2025-06-16] MEDS ORDERED: CARBOHYDRATES FOR HYPOGLYCEMIA PO PRN (22:44)
[2025-06-16] MEDS ORDERED: GLUCOSE 10 TAB/TUBE PO PRN (22:44)
[2025-06-16] MEDS ORDERED: GLUCOSE 40% GEL 15 GM TUBE PO PRN (22:44)
[2025-06-16] MEDS ORDERED: Heparin IV Adult Wt-Based Low-Dose *NO* INITIAL Bolus Protocol IV STA (22:44)
[2025-06-16] MEDS: LANTUS PER UNIT CHARGE SQ SCH (23:24)
[2025-06-16] MEDS: INSULIN ASPART PER UNIT CHARGE SC SCH (23:25)
[2025-06-16 23:36] LABS: Hematocrit (blood only) 33.4 % (42.0-52.0); Hemoglobin 10.4 g/dl (14.0-18.0); Immature Granulocytes # (auto) 0.05 K/uL (0.01-0.20); Immature Granulocytes % (auto) 0.4 %; Mean Corpuscular Hemoglobin 24.8 pg (25.0-34.0); Mean Corpuscular Volume 79.7 fL (80.0-100.0); Platelet Count 294 K/uL (130-400); RDW Standard Deviation 46.7 fL (36.4-46.3); Red Blood Count 4.19 M/uL (4.70-6.10); White Blood Count 11.97 K/ul (4.8-10.8)
[2025-06-16] MEDS: GABAPENTIN 300 MG CAP PO SCH (23:38)
[2025-06-16] MEDS: ATORVASTATIN 10 MG TAB PO SCH (23:39)
[2025-06-16] MEDS: HEPARIN 25000 UNIT/500 ML D5W 25,000 UNITS/500 ML BAG IV SCH (23:41)
--- NOTE | 2025-06-17 00:18 | Ultrasound Report ---
Exam(s): US VENOUS BILATERAL LOWER EXTREMITIES EXAM: US Duplex Bilateral Lower Extremities Veins CLINICAL HISTORY: Reason for exam: PE. TECHNIQUE: Real-time duplex ultrasound scan of the bilateral lower extremity veins integrating B-mode two-dimensional vascular structure, Doppler spectral analysis, color flow Doppler imaging and compression. COMPARISON: 06/05/2025 FINDINGS: Right deep veins: No DVT in the right common femoral, femoral, proximal deep femoral or popliteal veins. The veins demonstrate normal color flow, are normally compressible, with normal phasic flow and/or augmentation response. Right superficial veins: No thrombus in the visualized right great saphenous vein. Left deep veins: No DVT in the left common femoral, femoral, proximal deep femoral or popliteal veins. The veins demonstrate normal color flow, are normally compressible, with normal phasic flow and/or augmentation response. Left superficial veins: No thrombus in the visualized left great saphenous vein. Soft tissues: No acute findings. IMPRESSION: No evidence of acute DVT. Electronically signed by: [place] M.D. 06/17/25 00:17 AM
[2025-06-17 01:22] LABS: INR 1.1 (0.9-1.1); Partial Thromboplastin Time 27 Seconds (21-31); Prothrombin Time 11.6 Seconds (9.0-12.0)
[2025-06-17 07:31] LABS: ANTI-Xa, UFH(UnfractionatedHep 0.11 IU/ml (0.3-0.7); Anion Gap 8.0 (3-11); Blood Urea Nitrogen 14.0 mg/dl (6-23); Calcium 8.9 mg/dl (8.6-10.3); Carbon Dioxide 26.0 mmol/L (21-32); Chloride 99.0 mmol/L (98-107); Creatinine Clr Calc Pharmacy 71.4 ml/min; Glucose 284.0 mg/dl (70-99(Fasting)); Potassium 4.3 mmol/L (3.5-5.1); Sodium 133.0 mmol/L (136-145)
[2025-06-17] MEDS ORDERED: GLUCOSE 10 TAB/TUBE PO PRN (08:01)
[2025-06-17] MEDS ORDERED: CARBOHYDRATES FOR HYPOGLYCEMIA PO PRN (08:01)
[2025-06-17] MEDS ORDERED: DEXTROSE 50% 50 ML SYRINGE IV PRN (08:01)
[2025-06-17] MEDS ORDERED: GLUCOSE 40% GEL 15 GM TUBE PO PRN (08:01)
[2025-06-17] MEDS ORDERED: GLUCAGON FOR INJ 1 MG VIAL SQ PRN (08:01)
[2025-06-17] MEDS: INSULIN HUMAN NPH SC SCH (08:50)
[2025-06-17] MEDS: ACETAMINOPHEN 325 MG TAB PO PRN (09:20)
[2025-06-17] MEDS: HEPARIN SOD (PORCINE) 1000 UNIT/ML IV ONE (09:45)
[2025-06-17] MEDS: KETOROLAC 30 MG/ML VIAL IV ONE (11:32)
--- NOTE | 2025-06-17 12:10 | Hospitalist Progress Note ---
Date of Service June 17, 2025 Assessment & Plan (1) Abdominal wall hematoma: Plan: Heparin drip has been discontinued. He is not tolerating systemic anticoagulation at all. Fortunately, his PEs are not acute and he does have an IVC filter in place. Pain control measures. (2) Pulmonary embolism: Plan: Fortunately not acute. He has an IVC filter in place. Systemic anticoagulation has been temporarily discontinued (3) Benign hypertension: Plan: Recent syncope and current dizziness. Amlodipine has been placed on hold. (4) Controlled type 2 diabetes mellitus, with long-term current use of insulin: Plan: He uses an insulin infusion pump at home. Glucose is running high and Lantus has been switched to scheduled twice daily NPH dosing. Sliding scale coverage has been adjusted. ADA diet. Plan To be determined. He may need short-term rehab placement before he can go home. OT and PT assessments have been requested Admission and Anticipated Discharge Date Admission Date: June 16, 2025 Subjective Alert and oriented. However he has pretty severe left flank pain associated with the abdominal wall hemorrhage/hematoma/bruising accompanied by ambulatory dysfunction. Heparin drip has been discontinued. He has a recent history of pulmonary embolism and has an IVC filter in place. He is not tolerating subcutaneous Lovenox. Will use intravenous ketorolac as needed for pain. OT and PT assessments have been requested. Lantus has been switched to NPH insulin twice daily and sliding scale coverage has been adjusted. Glucoses running high since he is not on his insulin pump. Multiple medications including gabapentin, amlodipine, and trazodone have been temporarily placed on hold. Review of Systems 2 Review of Systems: Constitutionalno fever or chills ENTno blurred vision, no double vision, no epistaxis, no sore throat Respiratoryno cough, no wheezing, no shortness of breath Cardiacno palpitations, no chest pain, no syncope Nayana nausea, vomiting, diarrhea, melena, hematochezia GUno urinary retention, no urinary incontinence, no dysuria, no hematuria Musculoskeletalleft flank bruising/swelling /tenderness. No joint pain Skinleft flank is ecchymotic and swollen and tender Neurono isolated weakness, no paresthesia, no weakness Psychno depression, no anxiety Physical Exam 2 Physical Exam: General-alert and oriented x3, no fever, no chills HEENT-head atraumatic and normocephalic, pupils equal and reactive to light, extraocular muscles intact Neck-no lymphadenopathy or thyromegaly, trachea midline Chest-clear to auscultation. No rales, wheezing or rhonchi Cardiac-regular rate and rhythm, normal S1 and S2 Abdomen-normal bowel sounds, no hepatosplenomegaly. Left flank is ecchymotic, swollen, tender Extremities-no cyanosis, clubbing, or edema Neuro-cranial nerves II through XII intact, motor and sensory function within normal limits, strength symmetrical, no focal deficits Psych-normal affect, normal mood Results & Data Results & Data Vital Signs (Past 12 Hours) Vital Signs Temp Pulse Pulse Resp BP Pulse Ox O2 Del Method 06/17/25 11:21 36.5 C 83 20 114/66 96 Room Air 06/17/25 08:09 36.5 C 80 20 155/64 H 96 Room Air 06/17/25 05:47 84 06/17/25 03:01 36.9 C 87 18 156/76 H 96 Room Air Laboratory Results 06/16/25 23:08 06/17/25 06:17 PG Care Time/CCT Total # of Minutes Spent Total Time Spent with Patient: Total time spent is greater than 50% in coordination of care (as documented) at patient's floor/unit and/or counseling patient: Coding Level of Care Code 66974 SUB INP/OBS CARE 3/50MIN Diagnoses Abdominal wall hematoma S30.1XXA Encounter type: initial encounter Pulmonary embolism I27.82 Acute cor pulmonale presence: without acute cor pulmonale Chronicity: chronic Pulmonary embolism type: unspecified Benign hypertension I10 Controlled type 2 diabetes mellitus, with long-term current use of insulin E11.9; Z79.4 (1) Abdominal wall hematoma Encounter type: initial encounter Qualified Code(s): S30.1XXA - Contusion of abdominal wall, initial encounter (2) Pulmonary embolism Acute cor pulmonale presence: without acute cor pulmonale Chronicity: chronic Pulmonary embolism type: unspecified Qualified Code(s): I27.82 - Chronic pulmonary embolism
[2025-06-17] MEDS: INSULIN ASPART PER UNIT CHARGE SC SCH (12:26)
[2025-06-17] MEDS: KETOROLAC 30 MG/ML VIAL IV PRN (21:11)
[2025-06-18] MEDS: FERROUS SULFATE 325 MG TAB PO SCH (07:37)
[2025-06-18 07:49] VITALS: TEMP 98.1
[2025-06-18 09:00] LABS: Glucose 287.0 mg/dl (70-99(Fasting))
[2025-06-18 10:21] LABS: Anion Gap 9.0 (3-11); Blood Urea Nitrogen 18.0 mg/dl (6-23); Calcium 9.1 mg/dl (8.6-10.3); Carbon Dioxide 26.0 mmol/L (21-32); Chloride 98.0 mmol/L (98-107); Creatinine Clr Calc Pharmacy 63.9 ml/min; Potassium 5.0 mmol/L (3.5-5.1); Sodium 133.0 mmol/L (136-145)
[2025-06-18 10:51] LABS: Hematocrit (blood only) 32.6 % (42.0-52.0); Hemoglobin 10.2 g/dl (14.0-18.0); Immature Granulocytes # (auto) 0.06 K/uL (0.01-0.20); Immature Granulocytes % (auto) 0.6 %; Mean Corpuscular Hemoglobin 24.9 pg (25.0-34.0); Mean Corpuscular Volume 79.7 fL (80.0-100.0); Platelet Count 282 K/uL (130-400); RDW Standard Deviation 46.8 fL (36.4-46.3); Red Blood Count 4.09 M/uL (4.70-6.10); White Blood Count 9.49 K/ul (4.8-10.8)
[2025-06-18 11:58] VITALS: BP 144/78; PULSE 95; RESP 18; O2SAT 98
--- NOTE | 2025-06-18 12:19 | Discharge Summary ---
Discharge Summary Date of Service June 18, 2025 Principal Dx & Hospital Course #1 = Principal Diagnosis (1) Abdominal wall hematoma: Heparin drip has been discontinued. He is not tolerating systemic anticoagulation at all. Fortunately, his PEs are not acute and he does have an IVC filter in place. Pain control measures. Hemoglobin is stable (2) Pulmonary embolism: Fortunately not acute. He has an IVC filter in place. Systemic anticoagulation has been discontinued (3) Benign hypertension: Recent syncope and current dizziness. Amlodipine was placed on hold on admission but restarted today, June 18. Blood pressure stable (4) Controlled type 2 diabetes mellitus, with long-term current use of insulin: He uses an insulin infusion pump at home. He will resume his usual diabetic management at discharge. He was treated with NPH insulin while hospitalized. ADA diet. Plan Home today, June 18 Admission HPI Per Admitting Provider Tyshawn Garner is a 79yo male presenting with episode of dizziness. 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 He was hospitalized for approximately one month during which he developed pulmonary emboli and was started on Lovenox injections (CTA chest from 02/25/25 with PE in distal right main pulmonary artery extending into the anterior segmental branch of the RUL, and segmental branches of the RML and RLL.) He was admitted to [facility] from 06/05 - 06/06/25 after a syncopal event. Found to have a large abdominal wall hematoma and acute blood loss anemia. His Lovenox was discontinued and plan to stay off anticoagulation for 1-2 weeks. Patient has been at home and overall doing well. His daughter has been away but his sister has been checking in on him recently. Two days ago he noticed some bruising on his left abdomen and flank. He got up this AM to go to his PCP appointment. He reports when he got up he felt a little dizzy and lightheaded. He sat on the edge of the bed for approx imately one hour until the dizziness passed. He was then able to get a shower and go to his appointment. When he saw his PCP he told her about the bruising and the dizziness and was sent to the ER. Patient reports no other episodes of dizziness aside from the episode today. No chest pain or tightness, no palpitations or SOB. No syncope. No nausea, vomiting. He reports that his abdomen is still sore but has been improving. In the ER patient is afebrile, HD stable. ER Course: Ceftriaxone Discharge Exam General-alert and oriented x3, no fever, no chills HEENT-head atraumatic and normocephalic, pupils equal and reactive to light, extraocular muscles intact Neck-no lymphadenopathy or thyromegaly, trachea midline Chest-clear to auscultation. No rales, wheezing or rhonchi Cardiac-regular rate and rhythm, normal S1 and S2 Abdomen-normal bowel sounds, no hepatosplenomegaly. Left flank is ecchymotic, swollen, tender Extremities-no cyanosis, clubbing, or edema Neuro-cranial nerves II through XII intact, motor and sensory function within normal limits, strength symmetrical, no focal deficits Psych-normal affect, normal mood Discharge Plan Discharge Items Patient Disposition: Home - Home Health Services Reason For Visit: ADOMIINAL WALL HEMATOMA, PEs Discharge Diagnosis: Abdominal wall hemorrhage, weakness Condition on Discharge: Fair Activity: Resume your previous activity Activity Comment: Use a wheeled walker when ambulating Non-emergency contact: Primary Care Provider Call non-emergency contact if: you have any medication questions and your symptoms worsen Follow-up/Referrals: Nohemi Teresa MD [Primary Care Provider] - Diet: Carb Consistent or DM2 Addtl Attending Provider Instructions: No blood thinners for now. Use a wheeled walker when ambulating. All other medications stay the same. See primary care provider soon as possible Pending Studies at Discharge: No Stand-Alone Forms: My [facility], Smoking Cessation Medications and DC Order Prescriptions: Continued tramadol 50 mg tablet 50 mg PO BID PRN (Reason: pain) Qty: 90 0RF ondansetron 4 mg tablet,disintegrating 4 mg PO Q6H PRN (Reason: nausea and vomiting) cholecalciferol (vitamin D3) 25 mcg (1,000 unit) tablet 25 mcg PO DAILY gabapentin 300 mg capsule 300 mg PO HS Qty: 90 2RF atorvastatin 10 mg tablet 5 mg PO HS Qty: 45 3RF insulin lispro [Humalog U-100 Insulin] 100 unit/mL solution 280 unit continuous subcutaneous infusion DAILY 90 Days Qty: 250 3RF Rx Instructions: Via insulin pump to pts right lower abd. (DME) insulin syringe-needle U-100 [BD Insulin Syringe Ultra-Fine] 1 mL 31 gauge x 5/16 syringe See Dose Instructions .ROUTE .MEDSUPPLY Qty: 300 3RF Dose Instruction: As directed Rx Instructions: Inject insulin 3 times a day (DME) Contour Next Test Strips Strip See Rx Instructions .ROUTE .MEDSUPPLY Qty: 100 3RF Rx Instructions: Check 1x a day (DME) pen needle, diabetic [BD Ultra-Fine Mini Pen Needle] 31 gauge x 3/16" needle See Rx Instructions .ROUTE .MEDSUPPLY Qty: 100 2RF Rx Instructions: as needed for smaller doses of Ozempic hydrochlorothiazide 25 mg tablet 25 mg PO QAM Qty: 90 3RF pantoprazole 40 mg tablet,delayed release (DR/EC) 40 mg PO BID Qty: 180 1RF amlodipine 5 mg tablet 5 mg PO QPM Qty: 90 3RF aspirin 81 mg Tablet,Delayed Release (Dr/Ec) 81 mg PO QAM Hold Instructions: Resume on 07/04/25. continue holding until/unless resumed by your doctor Patient Comments: on hold d/t surgery, on Lovenox acetaminophen 325 mg Tablet 650 mg PO Q4H PRN (Reason: pain) Qty: 30 0RF Rx Instructions: OTC unable to verify mecobalamin (vitamin B12) 1,000 mcg PO DAILY Rx Instructions: OTC, pt believes it to be 1,000 mcg qam lisinopril 40 mg tablet 40 mg PO QAM ferrous sulfate 325 mg (65 mg iron) tablet,delayed release (DR/EC) 325 mg PO Q OTHER DAY Qty: 14 0RF Rx Instructions: buy over the counter Discontinued trazodone 100 mg tablet 100 mg PO HS Qty: 90 3RF Discharge Orders: Discharge Order (Routine); Ordered 06/18/25 Ordered By: Raheel Roberts Admission Data Admit Date/Time: 06/16/25 20:35 Attending Provider: Raheel Roberts Admit Provider: Geno Cohen Primary Care Provider: Nohemi Teresa Other Providers: Geno Cohen; [facility] Stay Data Consultations 06/16/25 19:40 ED Decision to Admit Stat 06/16/25 22:44 Consult Hematology Routine Diagnostic Imagining Performed 06/16/25 14:58 CT abd pelvis IV con only Stat CT head/brain wo con Stat 06/16/25 14:59 CT angio chest PE protocol Stat 06/16/25 20:35 US venous doppler LE BI Routine Pending Results Patient Have Any Pending Studies at Discharge: No Discharge Instructions Given to Patient (Per Discharging Provider) No blood thinners for now. Use a wheeled walker when ambulating. All other medications stay the same. See primary care provider soon as possible Total Time Total Time Spent Total Time Spent (In Minutes): 45-minute Coding Level of Care Code 75482 INP/OBS DISCH >30 MIN Diagnoses Abdominal wall hematoma S30.1XXA Encounter type: initial encounter Pulmonary embolism I27.82 Acute cor pulmonale presence: without acute cor pulmonale Chronicity: chronic Pulmonary embolism type: unspecified Benign hypertension I10 Controlled type 2 diabetes mellitus, with long-term current use of insulin E11.9; Z79.4
== END 2025-06-18 14:01 | disposition home health service (06) | DRG 813 ==
LOC: ED 14:40 → SUATTDRO 20:35 → 2N 20:35

== ENCOUNTER 2025-06-23 08:39 | Inpatient (IN) ==
--- NOTE | 2025-06-23 08:42 | Emergency Department Note ---
Impression & Plan DVT (deep venous thrombosis), Left leg pain ED Provider Note NAME: XANDER VANEGAS AGE: 80 SEX: M : 1945 ARRIVES VIA: Ambulance INFORMANT: Patient, ED PROVIDER(S): Lance Sorto MD CHIEF COMPLAINT: Leg pain MEDICAL DECISION MAKING: Patient presents due to concern for leg pain. The patient does have discoloration to the left leg. Known history of DVT and IVC filter off chronic anticoagulation due to concerns for prior risks. Patient did have a fall and associated abdominal wall hematoma in the past. IV was established and blood work was obtained. The patient does have palpable DP pulses bilaterally although may be slightly weaker on the left. Patient does have a reportedly prior history of DVT. Patient may have worsening DVT burden PAD or both. Ultrasound were obtained arterial and venous of the left lower extremity. Patient does not have any evidence of discoloration or issue with the right leg. Patient does have an IVC filter but believes it less likely has significant clot burden in the IVC as the patient has no pain or discoloration of the right leg. Patient was ordered IV morphine 2 mg and IV Tylenol 1000 mg. The patient's blood work shows a normal white count hemoglobin of 11.2. The patient's platelet count is unremarkable. Kidney function unremarkable BSG 154 bilirubin 1.7. Patient's arterial Doppler is unremarkable. The patient's DVT ultrasound does show occlusive DVT from the left common femoral vein to the left popliteal which is new from June 16. Given these concerns and the fact the patient is not on anticoagulation and has had a recent abdominal wall hematoma I do believe the patient would benefit from admission and further discussion about risks and benefits of anticoagulation. I did speak with alcohol as well as Dr. Lopez and the patient was admitted to the medicine service. Critical Care: I have personally spent 37 minutes of critical care time in direct management of this patient. This includes bedside care, interpretation of diagnostic studies, and testing, discussion with consultants, patient, and family members, and other require inpatient management activities. This minutes is in excess of all separately billable procedures. Discussion w/ other healthcare providers: Dr. Lopez inpatient medicine service Prior /Outside records reviewed: none Differential diagnosis: DVT, limb ischemia, musculoskeletal pain, infection, joint effusion, trauma, lymphedema, idiopathic, CHF, as well as other pathologies. Diagnostics, as interpreted by me: ECG: Sinus rhythm, first-degree AV block, rate 94 prolonged AR wide QRS right bundle branch block pattern, T wave version lead III no ST elevations. Cardiac monitoring: An order was placed for continuous cardiac monitoring. The monitor shows a rate of 95 with sinus rhythm. Patient was placed on pulse oximetry Medical decision rules: None Imaging studies: See below HPI: Patient presents due to concern for leg pain. Patient primarily complains of pain to the left medial thigh. No falls or trauma. Does have a history of DVT in the left leg and states that it is swollen at baseline but does seem to be worse than normal. Patient denies any chest pains or shortness of breath. He did have a fall that was not that long ago with an associated abdominal wall hematoma. The patient does have a known history of prior PE but is off chronic anticoagulation due to concerns for his bleeding risks. Patient does not take anything for pain at home. The patient states that he has not had any injury fall or trauma since the time that he symptoms began. PAST MEDICAL HISTORY: See Below PAST SURGICAL HISTORY: See Below SOCIAL HISTORY: See Below HOME MEDICATIONS: See Below ALLERGIES: See Below VITALS: See Below PHYSICAL EXAMINATION: GENERAL: NAD, non-toxic. EYE EXAM: Normal conjunctiva. PERRL, no anisocoria and EOM's grossly intact w/o pain. OROPHARYNX: Moist mucus membranes, grossly normal dentition. NECK: Trachea midline, no stridor. LUNGS: Clear to auscultation. Normal chest wall mechanics. HEART: NSR, no MRG. ABDOMEN: Abdomen soft, non-tender, no masses, no rebound or guarding. BACK: No CVA TTP. SKIN: No rashes and no bruising. UPPER EXTREMITIES: Upper extremities are grossly normal. LOWER EXTREMITIES: Left leg with discoloration noted and swelling when compared to the right's, compartments are soft throughout, DP pulses present bilaterally but may be less prominent on the left. Sensate throughout the foot. No significant temperature difference bilaterally. No crepitus. NEURO EXAM: Awake and alert, follows commands, no obvious facial asymmetry, normal speech, moves all 4 extremities. Past Med/Surg History Problem List (Updated 06/23/25 @ 13:39 by Lance Sorto MD) Left leg pain (Acute) DVT (deep venous thrombosis) (Acute) Abdominal wall hematoma (Acute) Weakness (Acute) ABLA (acute blood loss anemia) Abdominal wall hematoma (Acute) Diarrhea Urinary symptom or sign Trauma of toe of left foot Enlarged prostate with lower urinary tract symptoms (LUTS) Anemia S/P laparotomy C. 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 Rash COVID (Acute) Intraductal papillary mucinous neoplasm of pancreas Urinary retention Cystic mass of pancreas Constipation (Acute) Acute thoracic back pain (Acute) Acute urinary retention (Acute) Hyperglycemia (Acute) Constipation Syncope Chronic back pain (~01/30/25) Grieving Vitamin D deficiency Steatosis of liver Metabolic syndrome Dietary counseling and surveillance GERD (gastroesophageal reflux disease) Cramping of hands Esophageal dysphagia Hyperlipidemia Acid reflux disease Insomnia Low back pain Diabetic peripheral neuropathy Obesity Elevated PSA Routine health maintenance Cerumen impaction Hematuria Prostate cancer screening BPH w urinary obs/LUTS Hearing loss Encounter for pre-operative examination Gastroenteritis due to norovirus Encounter for examination following treatment at hospital Medical History Pulmonary embolism Controlled type 2 diabetes mellitus, with long-term current use of insulin Benign hypertension Syncope Renal insufficiency Hypoxia Pulmonary embolism Diabetes mellitus, type 2 Fall Syncope History of esophageal dilatation Morbid obesity Urinary retention s/p urinary catheter (05/2021)- since removed BPH (benign prostatic hyperplasia) Insulin pump in place History of TMJ syndrome Hypertension Hyperlipidemia Dysesthesia R/L feet Surgical History History of prostate biopsy (~10/05/21) under MAC anesthesia @ [facility] History of surgery Exam under anesthesia, removal of skin tags, fistulotomy (01/09/18): Grade view 1 with Glidescope#4, ETT 8.0 (difficult mask. vent with 2 person 2/2 hamilton > elective glidescope with minimal neck extension- ETT easily passed, small right upper lip laceration noted) History of esophagogastroduodenoscopy (EGD) History of colonoscopy Hx of LASIK History of cataract surgery RT/LEFT History of tooth extraction RECENT TOOTH EXTRACTION H/O knee surgery Spur removed from knee History of tonsillectomy and adenoidectomy H/O neck surgery History of carpal tunnel surgery RT Family History Aunt Diabetes Father Lung cancer Sister Diabetes Other No family history of adverse response to anesthesia Denies family history of Ovarian cancer Prostate cancer Myocardial infarction Breast cancer Colorectal cancer Hypertension Stroke Social History Smoking Status: Never smoker Second Hand Exposure: No; Do You Dip or Chew Tobacco: No; Hx Alcohol Use: Yes Alcohol type: beer Alcohol Intake Frequency: Monthly or Less Hx Substance Use: No Preferred Language: Swiss Communication Ability: Effective Visual Impairment: No Limitations Hearing Ability: Normal 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 Beliefs That Will Affect Care: None marital status: / Current Living Situation: Alone Current Living Situation Comment: Pt lives alone, has daughter that lives nearby current occupational status: retired current occupation: [employer] How many Children do You have: 2 Feels Safe at Home: Yes Childhood Exposure to Second-Hand Smoke: No Diet: regular caffeine: Yes (coffee) during the past year weight has: remained stable Dental Care, Regularly: Yes Physical Activity Frequency: Daily Seatbelt Use: always Sunscreen Use: Yes Do you think of yourself as: straight/heterosexual Gender Identity: Male Assistive Devices: Walker Allergies Allergies Allergy/AdvReac Type Severity Reaction Status Date / Time Penicillins Allergy Intermediate HIVES Verified 06/23/25 10:38 metformin AdvReac Intermediate GI Verified 06/23/25 10:38 distress/diarrhea Home Meds Home Medications Medication Instructions Recorded Confirmed cholecalciferol (vitamin D3) 25 25 mcg PO DAILY 02/19/25 06/23/25 mcg (1,000 unit) tablet ondansetron 4 mg disintegrating 4 mg PO Q6H PRN nausea and vomiting 02/19/25 06/23/25 tablet lisinopril 40 mg tablet 40 mg PO QAM 06/05/25 06/23/25 cyanocobalamin (vitamin B-12) 1,000 mcg PO DAILY ##0 06/16/25 06/23/25 1,000 mcg tablet (Vitamin B-12) Previous Rx's Medication Instructions Recorded insulin syringe-needle U-100 1 mL #300 ea 05/20/22 31 gauge x 5/16" (BD Insulin Syringe Ultra-Fine) blood sugar diagnostic (Contour #100 ea 09/29/22 Next Test Strips) acetaminophen 325 mg tablet 650 mg (2 x 325 mg) PO Q4H PRN 05/18/23 pain #30 tabs pen needle, diabetic 31 gauge x #100 ea 03/07/24/16" (BD Ultra-Fine Mini Pen Needle) hydrochlorothiazide 25 mg tablet 25 mg PO QAM #90 tabs 11/14/24 tramadol 50 mg tablet 50 mg PO BID PRN pain #90 tabs 01/27/25 pantoprazole 40 mg tablet,delayed 40 mg PO BID #180 tabs 03/19/25 release atorvastatin 10 mg tablet 5 mg (1/2 x 10 mg) PO HS #45 tabs 04/14/25 gabapentin 300 mg capsule 300 mg PO HS #90 caps 04/14/25 insulin lispro 100 unit/mL 280 unit (2.8 mL) continuous 05/26/25 subcutaneous solution (Humalog subcutaneous infusion DAILY 90 U-100 Insulin) days #250 mL ferrous sulfate 325 mg (65 mg 325 mg PO Q OTHER DAY #14 tabs 06/06/25 iron) tablet,delayed release Results & Data (ED) Vital Signs Vital Signs - 24 hr 06/23/25 08:24 06/23/25 08:56 06/23/25 10:00 Temperature 36.8 C Temperature Source Oral Pulse Rate 93 H 88 Pulse Rate [Apical] 87 Respiratory Rate 18 18 Respiratory Effort / Characteristics Non-Labored Spontaneous Non-Labored Spontaneous Respiratory Depth Normal Normal Respiratory Pattern Regular Regular Blood Pressure 132/66 Blood Pressure [Right Arm] 131/74 Blood Pressure Mean 88 Blood Pressure Mean [Right Arm] 93 Pulse Oximetry 97 96 Oxygen Delivery Method Room Air Room Air Sepsis Recent Fever Within 48 Hours No Sepsis New/Unexplained Change in Mental Status N/A Sepsis Action Taken by Nursing No Action Required 06/23/25 10:00 06/23/25 12:00 Temperature Temperature Source Pulse Rate Pulse Rate [Apical] 105 H Respiratory Rate 18 Respiratory Effort / Characteristics Non-Labored Spontaneous Respiratory Depth Normal Respiratory Pattern Regular Blood Pressure Blood Pressure [Right Arm] 132/77 Blood Pressure Mean Blood Pressure Mean [Right Arm] 95 Pulse Oximetry 96 98 Oxygen Delivery Method Room Air Room Air Sepsis Recent Fever Within 48 Hours Sepsis New/Unexplained Change in Mental Status Sepsis Action Taken by Skilled Nursing Medications Current Medication List: was personally reviewed by me Laboratory Data Attestation: I reviewed the patient's lab results. 06/23/25 09:11 06/23/25 09:11 Lab Results 06/23/25 Range/Units 09:11 WBC 10.39 (4.8-10.8) K/ul RBC 4.46 L (4.70-6.10) M/uL Hgb 11.2 L (14.0-18.0) g/dl Hct 35.8 L (42.0-52.0) % MCV 80.3 (80.0-100.0) fL MCH 25.1 (25.0-34.0) pg MCHC 31.3 L (32.0-36.0) g/dL RDW Std Deviation 50.7 H (36.4-46.3) fL RDW Coeff of Joselin 17.3 H (11.5-14.5) % Plt Count 220 (130-400) K/uL MPV 11.0 (9.4-12.4) fL Immature Gran % (Auto) 0.5 % Neut % (Auto) 81.6 % Lymph % (Auto) 8.9 % [place] % (Auto) 7.5 % Eos % (Auto) 1.1 % Baso % (Auto) 0.4 % Neut # (Auto) 8.49 H (1.40-6.50) K/uL Lymph # (Auto) 0.92 L (1.20-3.40) K/uL [place] # (Auto) 0.78 H (0.11-0.59) K/uL Eos # (Auto) 0.11 (0.00-0.50) K/uL Baso # (Auto) 0.04 (0.00-0.20) K/uL Immature Gran # (Auto) 0.05 (0.01-0.20) K/uL PT 11.5 (9.0-12.0) Seconds INR 1.1 (0.9-1.1) APTT 28 (21-31) Seconds PTT Ratio 1.0 Sodium 136 (136-145) mmol/L Potassium 3.8 (3.5-5.1) mmol/L Chloride 101 (98-107) mmol/L Carbon Dioxide 26 (21-32) mmol/L Anion Gap 9 (3-11) BUN 19 (6-23) mg/dl Creatinine 1.32 (0.6-1.4) mg/dl Est Cr Clr Drug Dosing 60.1 ml/min eGFR 54.87 BUN/Creatinine Ratio 14.4 (10-20) Glucose 154 H (70-99(Fasting)) mg/dl Calcium 9.1 (8.6-10.3) mg/dl Total Bilirubin 1.7 H (0.2-1.0) mg/dl AST 32 (13-39) U/L ALT 21 (7-52) U/L Alkaline Phosphatase 94 (34-104) U/L Total Protein 7.7 (6.0-8.3) gm/dl Albumin 4.2 (3.4-5.0) gm/dl Globulin 3.5 (2.5-4.0) gm/dl Albumin/Globulin Ratio 1.2 (0.9-2) Administered Medications Heparin Sodium/Dextrose (Heparin 83694 Unit/500 Ml D5w) 25,000 units in 500 mls @ 20 mls/hr IV .Q24H JEANA; Protocol Stop: 07/23/25 12:14 Last Admin: 06/23/25 13:03 Dose: 1,000 units/hr, 20 mls/hr Documented By: EVAN Co-signed By: ALEXANDRE Discontinued Medications Heparin Sodium/Dextrose (Heparin Iv Adult Wt-Based Low-Dose *No* Initial Bolus Protocol) 1 each IV ONE STA; Protocol Stop: 06/23/25 11:58 Last Admin: 06/23/25 13:04 Dose: 1 each Documented By: EVAN Acetaminophen (Ofirmev) 1,000 mg in 100 mls @ 400 mls/hr IV NOW STA Stop: 06/23/25 09:09 Last Infusion: 06/23/25 09:30 Dose: Infused Documented By: Admin: 06/23/25 09:15 Dose: 400 mls/hr Documented By: EVAN Morphine Sulfate (Morphine Sulfate 2 Mg/Ml Carp) 2 mg IV NOW STA Stop: 06/23/25 08:56 Last Admin: 06/23/25 09:15 Dose: 2 mg Documented By: EVAN Imaging Data Radiologist's Impression: Duplex Scan Lower Extremity Artery 06/23/25 08:55 US arterial duplex LE LT CLINICAL HISTORY: swelling, discoloration COMPARISON STUDY: None FINDINGS: The peroneal artery is not visualized due to edema in the region. Otherwise no significant narrowing or occlusion seen at the arteries of the left lower extremity. There is mild scattered atherosclerotic plaque. IMPRESSION: No arterial occlusions seen at the left lower extremity. ACT 112: Negative or not required by law. Electronically signed by: Anthony Loya M.D. 06/23/2025 10:37 AM Venous Doppler Study 06/23/25 08:55 LEFT LOWER EXTREMITY VENOUS DOPPLER HISTORY: swelling, discoloration COMPARISON STUDY: 06/16/2025 FINDINGS: There is occlusive DVT extending from the left common femoral vein through the left superficial femoral vein and left popliteal vein. Evaluation of the calf veins is limited by edema. The visualized anterior tibial vein appears patent. IMPRESSION: Occlusive DVT extending from the left common femoral vein to the left popliteal vein. . ACT 112: Negative or not required by law. Electronically signed by: Anthony Loya M.D. 06/23/2025 10:21 AM Discharge Plan Visit Data Chief Complaint: Leg Injury/Pain ED Provider: Lance Sorto Discharge Problem: DVT (deep venous thrombosis), Left leg pain Patient Disposition: Admitted As Inpatient Condition: Good Forms Stand Alone Forms: bContext Prescriptions Prescriptions: No Action tramadol 50 mg tablet 50 mg PO BID PRN (Reason: pain) Qty: 90 0RF ondansetron 4 mg tablet,disintegrating 4 mg PO Q6H PRN (Reason: nausea and vomiting) cholecalciferol (vitamin D3) 25 mcg (1,000 unit) tablet 25 mcg PO DAILY gabapentin 300 mg capsule 300 mg PO HS Qty: 90 2RF atorvastatin 10 mg tablet 5 mg PO HS Qty: 45 3RF insulin lispro [Humalog U-100 Insulin] 100 unit/mL solution 280 unit continuous subcutaneous infusion DAILY 90 Days Qty: 250 3RF Rx Instructions: Via insulin pump to pts right lower abd. (DME) insulin syringe-needle U-100 [BD Insulin Syringe Ultra-Fine] 1 mL 31 gauge x 5/16 syringe See Dose Instructions .ROUTE .MEDSUPPLY Qty: 300 3RF Dose Instruction: As directed Rx Instructions: Inject insulin 3 times a day (DME) Contour Next Test Strips Strip See Rx Instructions .ROUTE .MEDSUPPLY Qty: 100 3RF Rx Instructions: Check 1x a day (DME) pen needle, diabetic [BD Ultra-Fine Mini Pen Needle] 31 gauge x 3/16" needle See Rx Instructions .ROUTE .MEDSUPPLY Qty: 100 2RF Rx Instructions: as needed for smaller doses of Ozempic hydrochlorothiazide 25 mg tablet 25 mg PO QAM Qty: 90 3RF pantoprazole 40 mg tablet,delayed release (DR/EC) 40 mg PO BID Qty: 180 1RF acetaminophen 325 mg Tablet 650 mg PO Q4H PRN (Reason: pain) Qty: 30 0RF cyanocobalamin (vitamin B-12) [Vitamin B-12] 1,000 mcg Tablet 1,000 mcg PO DAILY Qty: 0 lisinopril 40 mg tablet 40 mg PO QAM ferrous sulfate 325 mg (65 mg iron) tablet,delayed release (DR/EC) 325 mg PO Q OTHER DAY Qty: 14 0RF Discharge Problem: DVT (deep venous thrombosis) Qualifiers: DVT location: lower extremity Affected thrombotic vein of extremity: femoral C hronicity: acute Laterality: left Qualified Code(s): I82.412 - Acute embolism and thrombosis of left femoral vein
[2025-06-23] MEDS: ACETAMINOPHEN 1,000 MG/100 ML VIAL IV STA (09:15)
[2025-06-23] MEDS: MoRPHine SULFATE 2 MG/ML CARP IV STA (09:15)
[2025-06-23 09:55] LABS: Hematocrit (blood only) 35.8 % (42.0-52.0); Hemoglobin 11.2 g/dl (14.0-18.0); Immature Granulocytes # (auto) 0.05 K/uL (0.01-0.20); Immature Granulocytes % (auto) 0.5 %; Mean Corpuscular Hemoglobin 25.1 pg (25.0-34.0); Mean Corpuscular Volume 80.3 fL (80.0-100.0); Platelet Count 220 K/uL (130-400); RDW Standard Deviation 50.7 fL (36.4-46.3); Red Blood Count 4.46 M/uL (4.70-6.10); White Blood Count 10.39 K/ul (4.8-10.8)
[2025-06-23 09:56] LABS: Alanine Aminotransferase 21.0 U/L (7-52); Albumin Globulin Ratio 1.2 (0.9-2); Alkaline Phosphatase 94.0 U/L (34-104); Anion Gap 9.0 (3-11); Bilirubin,Total 1.7 mg/dl (0.2-1.0); Blood Urea Nitrogen 19.0 mg/dl (6-23); Calcium 9.1 mg/dl (8.6-10.3); Carbon Dioxide 26.0 mmol/L (21-32); Chloride 101.0 mmol/L (98-107); Creatinine Clr Calc Pharmacy 60.1 ml/min; Globulin 3.5 gm/dl (2.5-4.0); Glucose 154.0 mg/dl (70-99(Fasting)); Potassium 3.8 mmol/L (3.5-5.1); Sodium 136.0 mmol/L (136-145); Total Protein 7.7 gm/dl (6.0-8.3)
[2025-06-23 10:10] LABS: INR 1.1 (0.9-1.1); Partial Thromboplastin Time 28 Seconds (21-31); Prothrombin Time 11.5 Seconds (9.0-12.0)
--- NOTE | 2025-06-23 10:23 | Ultrasound Report ---
LEFT LOWER EXTREMITY VENOUS DOPPLER HISTORY: swelling, discoloration COMPARISON STUDY: 06/16/2025 FINDINGS: There is occlusive DVT extending from the left common femoral vein through the left superfi cial femoral vein and left popliteal vein. Evaluation of the calf veins is limited by edema. The visu alized anterior tibial vein appears patent. IMPRESSION: Occlusive DVT extending from the left common femoral vein to the left popliteal vein. . ACT 112: Negative or not required by law. Electronically signed by: Anthony Loya M.D. 06/23/2025 10:21 AM
--- NOTE | 2025-06-23 10:39 | Ultrasound Report ---
US arterial duplex LE LT CLINICAL HISTORY: swelling, discoloration COMPARISON STUDY: None FINDINGS: The peroneal artery is not visualized due to edema in the region. Otherwise no significant narrowing or occlusion seen at the arteries of the left lower extremity. There is mild scattered athe rosclerotic plaque. IMPRESSION: No arterial occlusions seen at the left lower extremity. ACT 112: Negative or not required by law. Electronically signed by: Anthony Loya M.D. 06/23/2025 10:37 AM
--- NOTE | 2025-06-23 12:16 | Electrocardiogram Report ---
Test Reason : Blood Pressure : */* mmHG Vent. Rate : 94 BPM Atrial Rate : 94 BPM P-R Int : 286 ms QRS Dur : 136 ms QT Int : 392 ms P-R-T Axes : 14 -28 -9 degrees QTcB Int : 490 ms Sinus rhythm with 1st degree A-V block Right bundle branch block Inferior infarct , age undetermined Abnormal ECG When compared with ECG of 16-Jun-2025 14:46, Left posterior fascicular block is no longer Present Confirmed by Godwin May ([id number]) on 06/23/2025 12:15:43 PM Referred By: Confirmed By: Godwin May
[2025-06-23] MEDS: HEPARIN 25000 UNIT/500 ML D5W 25,000 UNITS/500 ML BAG IV SCH (13:03)
[2025-06-23] MEDS: Heparin IV Adult Wt-Based Low-Dose *NO* INITIAL Bolus Protocol IV STA (13:04)
--- NOTE | 2025-06-23 13:55 | Ultrasound Report ---
US softtissue abdwall/lwr back HISTORY: 80 years-old Male hematoma size follow-up study in a patient with reported hematoma abdomin al wall COMPARISON: CT 06/16/2025 TECHNIQUE: Multiple real-time sonographic images of the left abdominal wall rectus sheath were obtain ed assessing grayscale appearance and color flow FINDINGS: Left rectus sheath hematoma redemonstrated measuring 13.9 x 5.1 x 14.1 cm demonstrating no definite c olor flow within the collection. On the prior study this measured approximately 12 x 6 x 13 cm. Diffe rence in measurement is likely secondary to technique. IMPRESSION: Left rectus sheath hematoma appears stable in size compared to the CT from June 16, 2025 . ACT 112: Negative or not required by law. The above report was generated using voice recognition software. It may contain grammatical, syntax o r spelling errors. Electronically signed by: Connor Garcia M.D. 06/23/2025 1:53 PM
[2025-06-23] MEDS ORDERED: DEXTROSE 50% 50 ML SYRINGE IV PRN (17:52)
[2025-06-23] MEDS ORDERED: GLUCOSE 40% GEL 15 GM TUBE PO PRN (17:52)
[2025-06-23] MEDS ORDERED: GLUCOSE 10 TAB/TUBE PO PRN (17:52)
[2025-06-23] MEDS ORDERED: CARBOHYDRATES FOR HYPOGLYCEMIA PO PRN (17:52)
[2025-06-23] MEDS ORDERED: GLUCAGON FOR INJ 1 MG VIAL SQ PRN (17:52)
[2025-06-23] MEDS ORDERED: INSULIN ASPART 100 UNITS/ML VIAL SC PRN (17:52)
[2025-06-23] MEDS ORDERED: ONDANSETRON INJ 2 MG/ML 2 ML VIAL IV PRN (17:55)
--- NOTE | 2025-06-23 17:58 | History & Physical Report ---
Date of Service June 23, 2025 Assessment & Plan (1) DVT (deep venous thrombosis): (2) Abdominal wall hematoma: Plan 80 year old male presents to the ER with left leg swelling and pain #Occlusive DVT Unable to safely place on DOAC/Lovenox at current time due to recent abdominal wall hematoma therefore he will be admitted for intravenous heparin and monitoring of this hematoma IV heparin low dose without bolus #Abdominal wall hematoma Initially presented with this 06/05 Suspect initial cause was his fall +/- insulin pump placement while on Lovenox rather than the surgery which occurred months before this started. Appears stab le on multiple imaging. Will ask ultrasound to size the hematoma to check this is not getting larger on the intravenous heparin, phased area not large enough to perform with POCUS' #Hypertension Continue amlodipine, HCTZ and lisinopril - however with prior history of dizziness will closely monitor for recurrence of this #T2DM Patient will use his own continuous glucose monitor and insulin pump while admitted #GERD / esophagitis Continue pantoprazole 40mg PO BID VTE Prophylaxis - IV heparin low dose without bolus Disposition - admit to med/tele Admission and Anticipated Discharge Date Admission Date: June 23, 2025 History of Present Illness Chief Complaint: Left leg swelling and pain Primary Care Provider: Nohemi Teresa MD Tyshawn Garner (Jake) is a 80 year old male who presents to the ER with left leg swelling and pain for the last 2 days. Occlusive DVT found on US doppler in the ER. He has a complex past medical history of partial pancreatectomy for IPMN performed by Dr Quinones at [facility] on 01/31/2025. His post operative course was complicated by acute blood loss requiring a blood transfusions and vasopressors that required return to the OR for diagnostic laparotomy and clot evacuation. His course was then complicated by c. diff colitis treated with PO vancomycin. He was given Lovenox 40mg SQ daily for VTE prophylaxis on discharge. He returned to the ER on 02/25/2025 due to altered mental state and hypoxia and was diagnosed with a pulmonary embolism. He was treated with IV heparin switched to SQ Lovenox on discharge. I am unclear on the reason why but an IVC filter was placed during that hospitalization with plans for potential removal in 2-3 months which has not been performed. He returned to the ER on 06/05/2025 for syncope and diagnosed with abdominal wall hematoma thought secondary to the initial abdominal surgery although he had fallen and has an insulin pump. His Lovenox was discontinued during that stay with negative lower extremity venous dopplers - he was discharged the following day with advice to hold off anticoagulation for 1-2 weeks. He returned to the ER on July 06 due to bruising on his left abdomen and flank with dizziness when getting up. Lower extremity venous dopplers at that time were negative for DVT, CT showed resolving rectus sheath hematoma, CT pulmonary angio showed less severe filling defects. Initially he was placed on a heparin drip but subsequently discontinued the next day as he was having pretty severe pain and felt not to be tolerating anticoagulation and PEs not felt to be acute (residual from initial). He was discharged off anticoagulation. He reports the abdominal wall hematoma has been improving since discharge. Allergies Allergy/AdvReac Type Severity Reaction Status Date / Time Penicillins Allergy Intermediate HIVES Verified 06/23/25 10:38 metformin AdvReac Intermediate GI Verified 06/23/25 10:38 distress/diarrhea Home Medications Medication Instructions Recorded Confirmed Type insulin syringe-needle U-100 1 mL #300 ea 05/20/22 06/20/25 Rx 31 gauge x 5/16" (BD Insulin Syringe Ultra-Fine) blood sugar diagnostic (Contour #100 ea 09/29/22 06/20/25 Rx Next Test Strips) acetaminophen 325 mg tablet 650 mg (2 x 325 mg) PO Q4H PRN 05/18/23 06/23/25 Rx pain #30 tabs pen needle, diabetic 31 gauge x #100 ea 03/07/24 06/20/25 Rx 3/16" (BD Ultra-Fine Mini Pen Needle) hydrochlorothiazide 25 mg tablet 25 mg PO QAM #90 tabs 11/14/24 06/23/25 Rx tramadol 50 mg tablet 50 mg PO BID PRN pain #90 tabs 01/27/25 06/23/25 Rx cholecalciferol (vitamin D3) 25 25 mcg PO DAILY 02/19/25 06/23/25 History mcg (1,000 unit) tablet ondansetron 4 mg disintegrating 4 mg PO Q6H PRN nausea and vomiting 02/19/25 06/23/25 History tablet pantoprazole 40 mg tablet,delayed 40 mg PO BID #180 tabs 03/19/25 06/23/25 Rx release atorvastatin 10 mg tablet 5 mg (1/2 x 10 mg) PO HS #45 tabs 04/14/25 06/23/25 Rx gabapentin 300 mg capsule 300 mg PO HS #90 caps 04/14/25 06/23/25 Rx insulin lispro 100 unit/mL 280 unit (2.8 mL) continuous 05/26/25 06/23/25 Rx subcutaneous solution (Humalog subcutaneous infusion DAILY 90 U-100 Insulin) days #250 mL lisinopril 40 mg tablet 40 mg PO QAM 06/05/25 06/23/25 History ferrous sulfate 325 mg (65 mg 325 mg PO Q OTHER DAY #14 tabs 06/06/25 06/23/25 Rx iron) tablet,delayed release cyanocobalamin (vitamin B-12) 1,000 mcg PO DAILY ##0 06/16/25 06/23/25 History 1,000 mcg tablet (Vitamin B-12) Past Med/Surg History Problem List (Updated 06/23/25 @ 13:39 by Lance Sorto MD) Left leg pain (Acute) DVT (deep venous thrombosis) (Acute) Abdominal wall hematoma (Acute) Weakness (Acute) ABLA (acute blood loss anemia) Abdominal wall hematoma (Acute) Diarrhea Urinary symptom or sign Trauma of toe of left foot Enlarged prostate with lower urinary tract symptoms (LUTS) Anemia S/P laparotomy C. 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 Rash COVID (Acute) Intraductal papillary mucinous neoplasm of pancreas Urinary retention Cystic mass of pancreas Constipation (Acute) Acute thoracic back pain (Acute) Acute urinary retention (Acute) Hyperglycemia (Acute) Constipation Syncope Chronic back pain (~01/30/25) Grieving Vitamin D deficiency Steatosis of liver Metabolic syndrome Dietary counseling and surveillance GERD (gastroesophageal reflux disease) Cramping of hands Esophageal dysphagia Hyperlipidemia Acid reflux disease Insomnia Low back pain Diabetic peripheral neuropathy Obesity Elevated PSA Routine health maintenance Cerumen impaction Hematuria Prostate cancer screening BPH w urinary obs/LUTS Hearing loss Encounter for pre-operative examination Gastroenteritis due to norovirus Encounter for examination following treatment at hospital Medical History Pulmonary embolism Controlled type 2 diabetes mellitus, with long-term current use of insulin Benign hypertension Syncope Renal insufficiency Hypoxia Pulmonary embolism Diabetes mellitus, type 2 Fall Syncope History of esophageal dilatation Morbid obesity Urinary retention s/p urinary catheter (05/2021)- since removed BPH (benign prostatic hyperplasia) Insulin pump in place History of TMJ syndrome Hypertension Hyperlipidemia Dysesthesia R/L feet Surgical History History of prostate biopsy (~10/05/21) under MAC anesthesia @ [facility] History of surgery Exam under anesthesia, removal of skin tags, fistulotomy (01/09/18): Grade view 1 with Glidescope#4, ETT 8.0 (difficult mask. vent with 2 person 2/2 hamilton > elective glidescope with minimal neck extension- ETT easily passed, small right upper lip laceration noted) History of esophagogastroduodenoscopy (EGD) History of colonoscopy Hx of LASIK History of cataract surgery RT/LEFT History of tooth extraction RECENT TOOTH EXTRACTION H/O knee surgery Spur removed from knee History of tonsillectomy and adenoidectomy H/O neck surgery History of carpal tunnel surgery RT Family History Aunt Diabetes Father Lung cancer Sister Diabetes Other No family history of adverse response to anesthesia Denies family history of Ovarian cancer Prostate cancer Myocardial infarction Breast cancer Colorectal cancer Hypertension Stroke Social History Smoking Status: Former smoker Second Hand Exposure: No; Do You Dip or Chew Tobacco: No; Hx Alcohol Use: Yes Alcohol type: beer Alcohol Intake Frequency: Monthly or Less Hx Substance Use: No Preferred Language: Occitan Communication Ability: Effective Visual Impairment: No Limitations Hearing Ability: Normal Jacquard Loom Fixer Required: No Beliefs That Will Affect Care: None marital status: / Current Living Situation: Alone Current Living Situation Comment: one story house 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 How many Children do You have: 2 Other Information That Helps Us Care for You: No Feels Safe at Home: Yes Safety Concerns: Feels Safe At This Time Childhood Exposure to Second-Hand Smoke: No Diet: regular caffeine: Yes (coffee) during the past year weight has: remained stable Dental Care, Regularly: Yes Physical Activity Frequency: Daily Seatbelt Use: always Sunscreen Use: Yes Do you think of yourself as: straight/heterosexual Gender Identity: Male Assistive Devices: Cane and Other Assistive Devices Comment: rollator Review of Systems Review of Systems: All systems reviewed & are unremarkable except as noted in HPI & below Physical Exam Constitutional: WD/WN, vitals as above ENMT: external ear and nose normal, oropharynx normal Respiratory: normal respiratory effort, lungs clear to auscultation Cardiovascular: Rate/Rhythm: regular rate and regular rhythm Heart Sounds: no murmur Extremities: + calf tenderness (left) and + pedal edema (1+ left) Gastrointestinal (Abdomen): Inspection/Auscultation: + abdominal wall ecchymosis (mild, underlying abdominal wall hematoma palpable and collection on POCUS) Neurologic: moves all extremities and awake; not confused Psychiatric: A+Ox3, euthymic affect Results & Data Results & Data Vital Signs (Past 12 Hours) Vital Signs Temp Pulse Pulse Pulse Resp BP BP 06/23/25 17:38 36.8 C 96 H 20 144/49 H 06/23/25 17:37 36.8 C 96 H 20 144/49 H 06/23/25 15:54 93 H 20 06/23/25 14:00 70 18 06/23/25 12:00 105 H 18 06/23/25 10:00 06/23/25 10:00 87 18 06/23/25 08:56 88 06/23/25 08:24 36.8 C 93 H 18 132/66 BP Pulse Ox O2 Del Method 06/23/25 17:38 98 Room Air 06/23/25 17:37 98 Room Air 06/23/25 15:54 156/79 H 94 Room Air 06/23/25 14:00 141/78 H 98 Room Air 06/23/25 12:00 132/77 98 Room Air 06/23/25 10:00 96 Room Air 06/23/25 10:00 131/74 96 Room Air 06/23/25 08:56 06/23/25 08:24 97 Room Air Laboratory Results Abnormal lab results 06/23/25 06/23/25 06/23/25 Range/Units 09:11 17:00 19:07 RBC 4.46 L (4.70-6.10) M/uL Hgb 11.2 L (14.0-18.0) g/dl Hct 35.8 L (42.0-52.0) % MCHC 31.3 L (32.0-36.0) g/dL RDW Std Deviation 50.7 H (36.4-46.3) fL RDW Coeff of Joselin 17.3 H (11.5-14.5) % Neut # (Auto) 8.49 H (1.40-6.50) K/uL Lymph # (Auto) 0.92 L (1.20-3.40) K/uL [place] # (Auto) 0.78 H (0.11-0.59) K/uL Heparin Anti-Xa, Unfract 0.17 L (0.3-0.7) IU/ml Glucose 154 H (70-99(Fasting)) mg/dl POC Glucose 158 H (70-99) mg/dl Total Bilirubin 1.7 H (0.2-1.0) mg/dl Diagnostic Findings LEFT LOWER EXTREMITY VENOUS DOPPLER HISTORY: swelling, discoloration COMPARISON STUDY: 06/16/2025 FINDINGS: There is occlusive DVT extending from the left common femoral vein through the left superficial femoral vein and left popliteal vein. Evaluation of the calf veins is limited by edema. The visualized anterior tibial vein appears patent. IMPRESSION: Occlusive DVT extending from the left common femoral vein to the left popliteal vein. US arterial duplex LE LT CLINICAL HISTORY: swelling, discoloration COMPARISON STUDY: None FINDINGS: The peroneal artery is not visualized due to edema in the region. Otherwise no significant narrowing or occlusion seen at the arteries of the left lower extremity. There is mild scattered atherosclerotic plaque. IMPRESSION: No arterial occlusions seen at the left lower extremity. Medications Administered ER Medications Given: None ECG Rate (beats per minute): 94 Rhythm: normal sinus Findings: + 1st degree AV block and + RBBB Comparison ECG Date: from (June 16, 2025) Change: the following changes noted (left posterior fascicular block) Code Status & VTE Plan Code Status Full VTE Prophylaxis Plan VTE Prophylaxis will be ordered: Yes PG Care Time/CCT Total # of Minutes Spent Total Time Spent with Patient: Total time spent is greater than 50% in coordination of care (as documented) at patient's floor/unit and/or counseling patient: Coding Level of Care Code 82365 INT INP/OBS CARE 3/75MIN Diagnoses DVT (deep venous thrombosis) I82.412 Affected thrombotic vein of extremity: femoral Chronicity: acute DVT location: lower extremity Laterality: left Abdominal wall hematoma S30.1XXA Encounter type: initial encounter (1) DVT (deep venous thrombosis) Affected thrombotic vein of extremity: femoral Chronicity: acute DVT location: lower extremity Laterality: left Qualified Code(s): I82.412 - Acute embolism and thrombosis of left femoral vein (2) Abdominal wall hematoma Encounter type: initial encounter Qualified Code(s): S30.1XXA - Contusion of abdominal wall, initial encounter
[2025-06-23 19:53] LABS: ANTI-Xa, UFH(UnfractionatedHep 0.17 IU/ml (0.3-0.7)
[2025-06-23] MEDS: HEPARIN SOD (PORCINE) 1000 UNIT/ML IV ONE (20:18)
[2025-06-23] MEDS: GABAPENTIN 300 MG CAP PO SCH (20:26)
[2025-06-23] MEDS: ATORVASTATIN 10 MG TAB PO SCH (20:26)
[2025-06-23] MEDS: ACETAMINOPHEN 325 MG TAB PO PRN (20:27)
[2025-06-23] MEDS: Continuous Glucose Monitor SCH (20:29)
[2025-06-23] MEDS: INSULIN, Rapid-Acting PUMP SC SCH (20:30)
[2025-06-24 02:26] LABS: ANTI-Xa, UFH(UnfractionatedHep 0.36 IU/ml (0.3-0.7)
[2025-06-24 09:04] LABS: Hematocrit (blood only) 33.1 % (42.0-52.0); Hemoglobin 10.5 g/dl (14.0-18.0); Mean Corpuscular Hemoglobin 25.2 pg (25.0-34.0); Mean Corpuscular Volume 79.6 fL (80.0-100.0); Platelet Count 175 K/uL (130-400); RDW Standard Deviation 48.2 fL (36.4-46.3); Red Blood Count 4.16 M/uL (4.70-6.10); White Blood Count 8.37 K/ul (4.8-10.8)
[2025-06-24 09:21] LABS: Anion Gap 7.0 (3-11); Blood Urea Nitrogen 17.0 mg/dl (6-23); Calcium 8.8 mg/dl (8.6-10.3); Carbon Dioxide 27.0 mmol/L (21-32); Chloride 101.0 mmol/L (98-107); Creatinine Clr Calc Pharmacy 64.5 ml/min; Glucose 108.0 mg/dl (70-99(Fasting)); Potassium 3.6 mmol/L (3.5-5.1); Sodium 135.0 mmol/L (136-145)
[2025-06-24 09:53] LABS: ANTI-Xa, UFH(UnfractionatedHep 0.22 IU/ml (0.3-0.7)
[2025-06-24] MEDS: CYANOCOBALAMIN (B-12) 500 MCG TABLET PO SCH (10:12)
[2025-06-24] MEDS: hydroCHLOROthiazide 25 MG TAB PO SCH (10:13)
--- NOTE | 2025-06-24 10:40 | Surgery Consultation ---
Date of Consultation June 24, 2025 Assessment & Plan (1) Abdominal wall hematoma: This is a 80y M who presented to the [facility] ED on 06/23/25 with complaints of left leg swelling. Workup revealed findings concerning for occlusive DVT in the left common femoral vein to left popliteal vein. We have been consulted today as patient has a left rectus sheath hematoma that has been stable to somewhat improving since May. This was likely provoked after sustaining a fall in May. Blood thinners largely held since while monitoring hematoma and in setting of having an IVC filter. Now, given his history of PE with newly diagnosed DVT he is currently on a IV heparin gtt this hospitalization. We have been asked to fo llow along for his hematoma while he is starting on anticoagulation. US of abdomen performed yesterday showed left rectus sheath hematoma remonstrated measuring 13.9 x 5.1 x 14.1 cm which is overall stable to what it has been. Labs show WBC 8.3. Hbg 10.5 (11). Vital signs are stable. On exam patient is resting in bed, no distress. Abdomen is overall soft with area of hematoma palpated and appreciated along the left sided abdomen into the flank region. There is mild ecchymosis tracking along this inferiorly. Mild tenderness to palpation. Can consider an abdominal binder. We can monitor hbg closely while initiating the heparin gtt. There are currently no signs of active extravasation or enlargement of this at this time and is stable since may. No plans for surgical intervention indicated at this time. There are no signs of infection within the hematoma and skin overlying the area other than some ecchymosis is unremarkable. With his history of pancreatectomy in january at [facility] he does report follow up with them in 2 weeks. Supervising Physician Co-Signing Physician Notes Patient seen and examined, labs and imaging reviewed, agree with above. 80-year-old male with 2-month old rectus sheath hematoma on the left, now admitted with DVT. He does have an IVC filter in place from a prior distal pancreatectomy in January to [facility]. On exam he is afebrile stable vitals. Slightly tender on the left with noticeable bulge secondary to the rectus sheath hematoma. No ecchymosis. Labs unremarkable. Old CTs and recent ultrasound personally reviewed and interpreted agree with the assessment of a stable to slightly decreased in size rectus sheath hematoma. These do take several months to resolve. There is no evidence of expansion or active extravasation. Rectus sheath hematoma. These do take several months to resolve. There is no evidence of expansion or active extravasation. Okay to s tart anticoagulation with heparin drip. Okay to restart oral anticoagulation, continue to monitor though I doubt he is at high risk for rebleed. If he were to have any further bleeding, we would recommend transfer for embolization. Surgery will follow peripherally, call with questions or concerns History of Present Illness Attending Physician: Lloyd Lopez MD History of Present Illness This is a 80y M who presented to the [facility] ED on 06/23/25 with complaints of left leg swelling. Workup revealed findings concerning for occlusive DVT in the left common femoral vein to left popliteal vein. 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 He did require subsequent surgery during his hospitalization for diagnostic laparotomy from for clot evacuation vs investigation of pancreatic leak. He was discharged on lovenox apparently and also has an IVC filter in place. The patient has been hospitalized here in may after a fall and in june and was diagnosed with a left rectus sheath hematoma that has been stable to improving overall. Decisions have been made to hold his lovenox in may for a couple weeks after it was founded. The patient tells me he noticed the hematoma there prior to him falling and being admitted in May. At that time it measured a 6.8 x 13.4 x 15.7 cm and lovenox held thereafter. He presented back in june for difficulty obtaining a blood pressure at his PCP's office. Hematoma at that time decreased in size somewhat measuring 6.5 x 12.5 x 14.5 cm (AP x TV x CC). It appears he was discharged at this time off of blood thinners, with known IVC filter in place. Yesterday as above patient here with left leg swelling, now with + DVT and ongoing PEs. He has been started on a hep gtt. US of abdomen showed Left rectus sheath hematoma remonstrated measuring 13.9 x 5.1 x 14.1 cm demonstrating no definite color flow within the collection. Patient denies any abdominal pain unless palpated over the area. No CP/SOB, fevers/chills, change in urinary or bowel habits. He is eating/drinking without issues. Reports follow up scheduled at [facility] in 2 weeks. Allergies Allergy/AdvReac Type Severity Reaction Status Date / Time Penicillins Allergy Intermediate HIVES Verified 06/23/25 10:38 metformin AdvReac Intermediate GI Verified 06/23/25 10:38 distress/diarrhea Home Medications Medication Instructions Recorded Confirmed Type insulin syringe-needle U-100 1 mL #300 ea 05/20/22 06/20/25 Rx 31 gauge x 5/16" (BD Insulin Syringe Ultra-Fine) blood sugar diagnostic (Contour #100 ea 09/29/22 06/20/25 Rx Next Test Strips) acetaminophen 325 mg tablet 650 mg (2 x 325 mg) PO Q4H PRN 05/18/23 06/23/25 Rx pain #30 tabs pen needle, diabetic 31 gauge x #100 ea 03/07/24 06/20/25 Rx 3/16" (BD Ultra-Fine Mini Pen Needle) hydrochlorothiazide 25 mg tablet 25 mg PO QAM #90 tabs 11/14/24 06/23/25 Rx tramadol 50 mg tablet 50 mg PO BID PRN pain #90 tabs 01/27/25 06/23/25 Rx cholecalciferol (vitamin D3) 25 25 mcg PO DAILY 02/19/25 06/23/25 History mcg (1,000 unit) tablet ondansetron 4 mg disintegrating 4 mg PO Q6H PRN nausea and vomiting 02/19/25 06/23/25 History tablet pantoprazole 40 mg tablet,delayed 40 mg PO BID #180 tabs 03/19/25 06/23/25 Rx release atorvastatin 10 mg tablet 5 mg (1/2 x 10 mg) PO HS #45 tabs 04/14/25 06/23/25 Rx gabapentin 300 mg capsule 300 mg PO HS #90 caps 04/14/25 06/23/25 Rx insulin lispro 100 unit/mL 280 unit (2.8 mL) continuous 05/26/25 06/23/25 Rx subcutaneous solution (Humalog subcutaneous infusion DAILY 90 U-100 Insulin) days #250 mL lisinopril 40 mg tablet 40 mg PO QAM 06/05/25 06/23/25 History ferrous sulfate 325 mg (65 mg 325 mg PO Q OTHER DAY #14 tabs 06/06/25 06/23/25 Rx iron) tablet,delayed release cyanocobalamin (vitamin B-12) 1,000 mcg PO DAILY ##0 06/16/25 06/23/25 History 1,000 mcg tablet (Vitamin B-12) Patient History Medical History Pulmonary embolism Controlled type 2 diabetes mellitus, with long-term current use of insulin Benign hypertension Syncope Renal insufficiency Hypoxia Pulmonary embolism Diabetes mellitus, type 2 Fall Syncope History of esophageal dilatation Morbid obesity Urinary retention s/p urinary catheter (05/2021)- since removed BPH (benign prostatic hyperplasia) Insulin pump in place History of TMJ syndrome Hypertension Hyperlipidemia Dysesthesia R/L feet Surgical History History of prostate biopsy (~10/05/21) under MAC anesthesia @ [facility] History of surgery Exam under anesthesia, removal of skin tags, fistulotomy (01/09/18): Grade view 1 with Glidescope#4, ETT 8.0 (difficult mask. vent with 2 person 2/2 be nanci > elective glidescope with minimal neck extension- ETT easily passed, small right upper lip laceration noted) History of esophagogastroduodenoscopy (EGD) History of colonoscopy Hx of LASIK History of cataract surgery RT/LEFT History of tooth extraction RECENT TOOTH EXTRACTION H/O knee surgery Spur removed from knee History of tonsillectomy and adenoidectomy H/O neck surgery History of carpal tunnel surgery RT Family History Aunt Diabetes Father Lung cancer Sister Diabetes Other No family history of adverse response to anesthesia Denies family history of Ovarian cancer Prostate cancer Myocardial infarction Breast cancer Colorectal cancer Hypertension Stroke Social History Smoking Status: Former smoker Second Hand Exposure: No; Do You Dip or Chew Tobacco: No; Hx Alcohol Use: Yes Alcohol type: beer Alcohol Intake Frequency: Monthly or Less Hx Substance Use: No Preferred Language: Ecuadorean Communication Ability: Effective Visual Impairment: No Limitations Hearing Ability: Normal Cardiology Consultant Required: No Beliefs That Will Affect Care: None marital status: / Current Living Situation: Alone Current Living Situation Comment: one story house 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 How many Children do You have: 2 Other Information That Helps Us Care for You: No Feels Safe at Home: Yes Safety Concerns: Feels Safe At This Time Childhood Exposure to Second-Hand Smoke: No Diet: regular caffeine: Yes (coffee) during the past year weight has: remained stable Dental Care, Regularly: Yes Physical Activity Frequency: Daily Seatbelt Use: always Sunscreen Use: Yes Do you think of yourself as: straight/heterosexual Gender Identity: Male Assistive Devices: Cane and Other Assistive Devices Comment: rollator Review of Systems Constitutional: no fever and no chills Respiratory: no dyspnea Cardiovascular: no chest pain Gastrointestinal: + abdominal pain (with palpation of left sided abdomen); no nausea, no vomiting and no change in bowel habits Genitourinary: no problem reported Musculoskeletal: left leg swelling Physical Exam Physical Exam: awake/alert, no distress Constitutional: well developed and well nourished; no acute distress Respiratory: normal respiratory effort on room air Gastrointestinal (Abdomen): + mild firmness of left sided abdomen co nsistent with area of hematoma, mild discomfort to palpation, some bruising along left lower abdomen that tracks along the flank Musculoskeletal: + LLE swelling Results & Data Vital Signs (Past 12 Hours) Vital Signs Temp Pulse Resp BP Pulse Ox O2 Del Method 06/24/25 07:41 98.6 F 86 20 138/75 96 Room Air 06/24/25 03:08 98.1 F 87 18 148/74 H 95 Room Air 06/23/25 23:00 Room Air Diagnostic Findings US softtissue abdwall/lwr back HISTORY: 80 years-old Male hematoma size follow-up study in a patient with reported hematoma abdominal wall COMPARISON: CT 06/16/2025 TECHNIQUE: Multiple real-time sonographic images of the left abdominal wall rectus sheath were obtained assessing grayscale appearance and color flow FINDINGS: Left rectus sheath hematoma redemonstrated measuring 13.9 x 5.1 x 14.1 cm demonstrating no definite color flow within the collection. On the prior study this measured approximately 12 x 6 x 13 cm. Difference in measurement is likely secondary to technique. IMPRESSION: Left rectus sheath hematoma appears stable in size compared to the CT from June 16, 2025. ACT 112: Negative or not required by law. The above report was generated using voice recognition software. It may contain grammatical, syntax or spelling errors. Electronically signed by: Connor Garcia M.D. 06/23/2025 1:53 PM PG Care Time/CCT Total # of Minutes Spent Total Time Spent with Patient: Total time spent is greater than 50% in coordination of care (as documented) at patient's floor/unit and/or counseling patient: Coding Level of Care Code 94279 INT INP/OBS CARE MIN Diagnoses Abdominal wall hematoma S30.1XXA Encounter type: initial encounter (1) Abdominal wall hematoma Encounter type: initial encounter Qualified Code(s): S30.1XXA - Contusion of abdominal wall, initial encounter
[2025-06-24 17:41] LABS: ANTI-Xa, UFH(UnfractionatedHep 0.26 IU/ml (0.3-0.7)
--- NOTE | 2025-06-24 23:48 | Hospitalist Progress Note ---
Date of Service June 24, 2025 Assessment & Plan (1) DVT (deep venous thrombosis): (2) Abdominal wall hematoma: Plan 80 year old male presents to the ER with left leg swelling and pain #Occlusive DVT Unable to safely place on DOAC/Lovenox on admission due to recent abdominal wall hematoma therefore he was be admitted for intravenous heparin and monitoring of this hematoma IV heparin low dose without bolus If stable hematoma, H&H tomorrow, consider discharge on DOAC/Lovenox Discussed with vascular surgery (Sanjana Judge PA-C) regarding follow for up for possible IVC filter removal as although this is reducing his risk of pulmonary embolism it increases risk of DVT. This was placed due to "multiple thrombotic events, cancer, and failure of Lovenox therapy in the past, we recommend that his filter to remain permanent". However he does not have cancer; he has IPMN which is considered precursor to cancer and not associated with hypercoagulability. I (nor the patient) is aware of any thrombotic event prior to February when he was diagnosed with pulmonary embolism; he did have possible splenic infarcts as well at that time but more likely this was related to his surgery as TTE does not mention PFO. He did not fail therapeutic Lovenox, just prophylaxis dose following his surgery. Recommend follow up with vascular surgery on discharge to discuss IVC filter removal to avoid recurrent DVTs. #Abdominal wall hematoma Initially presented with this 06/05 Suspect initial cause was his fall +/- insulin pump placement while on Lovenox rather than the surgery which occurred months before this started. Appears stable on multiple imaging (off anticoagulation). US soft tissue - Left rectus sheath hematoma redemonstrated measuring 13.9 x 5.1 x 14.1 cm Consult general surgery as may need to consider evacuation at some point as stable but not improving off anticoagulation therefore unlikely to improve now he requires anticoagulation. #Hypertension Continue amlodipine, HCTZ and lisinopril - however with prior history of dizziness will closely monitor for recurrence of this #T2DM Patient will use his own continuous glucose monitor and insulin pump while admitted #GERD / esophagitis Continue pantoprazole 40mg PO BID VTE Prophylaxis - IV heparin low dose without bolus Disposition - admit to med/tele Admission and Anticipated Discharge Date Admission Date: June 23, 2025 Subjective No acute concern or questions from the patient. He feels no change in the hematoma but if anything it may have decreased in size. No chest pain, dizziness or shortness of breath. No dizziness on current anti-hypertensives. Physical Exam Constitutional: WD/WN, vitals as above ENMT: external ear and nose normal, oropharynx normal Respiratory: normal respiratory effort, lungs clear to auscultation Cardiovascular: Rate/Rhythm: regular rate and regular rhythm Heart Sounds: no murmur Extremities: + calf tenderness (left) and + pedal edema (1+ left) Gastrointestinal (Abdomen): Inspection/Auscultation: + abdominal wall ecchymosis (mild, underlying abdominal wall hematoma palpable and collection on POCUS) Neurologic: moves all extremities and awake; not confused Psychiatric: A+Ox3, euthymic affect Results & Data Results & Data Vital Signs (Past 12 Hours) Vital Signs Temp Pulse Pulse Resp BP BP Pulse Ox 06/24/25 23:25 36.8 C 87 20 119/73 96 06/24/25 20:36 37.2 C 100 H 20 104/63 98 06/24/25 16:11 36.6 C 86 18 110/64 94 06/24/25 15:36 96 H 06/24/25 11:56 86 06/24/25 11:56 06/24/25 11:55 36.9 C 78 12 107/67 95 O2 Del Method 06/24/25 23:25 Room Air 06/24/25 20:36 Room Air 06/24/25 16:11 Room Air 06/24/25 15:36 06/24/25 11:56 06/24/25 11:56 Room Air 06/24/25 11:55 Room Air PG Care Time/CCT Total # of Minutes Spent Total Time Spent with Patient: Total time spent is greater than 50% in coordination of care (as documented) at patient's floor/unit and/or counseling patient: Coding Level of Care Code 24077 SUB INP/OBS CARE 3/50MIN Diagnoses DVT (deep venous thrombosis) I82.412 Affected thrombotic vein of extremity: femoral Chronicity: acute DVT location: lower extremity Laterality: left Abdominal wall hematoma S30.1XXA Encounter type: initial encounter (1) DVT (deep venous thrombosis) Affected thrombotic vein of extremity: femoral Chronicity: acute DVT location: lower extremity Laterality: left Qualified Code(s): I82.412 - Acute embolism and thrombosis of left femoral vein (2) Abdominal wall hematoma Encounter type: initial encounter Qualified Code(s): S30.1XXA - Contusion of abdominal wall, initial encounter
[2025-06-25 01:07] LABS: ANTI-Xa, UFH(UnfractionatedHep 0.29 IU/ml (0.3-0.7)
[2025-06-25] MEDS: FERROUS SULFATE 325 MG TAB PO SCH (09:19)
[2025-06-25 09:27] LABS: Hematocrit (blood only) 33.3 % (42.0-52.0); Hemoglobin 10.3 g/dl (14.0-18.0); Mean Corpuscular Hemoglobin 24.5 pg (25.0-34.0); Mean Corpuscular Volume 79.3 fL (80.0-100.0); Platelet Count 194 K/uL (130-400); RDW Standard Deviation 47.4 fL (36.4-46.3); Red Blood Count 4.20 M/uL (4.70-6.10); White Blood Count 8.82 K/ul (4.8-10.8)
[2025-06-25 09:43] LABS: Anion Gap 8.0 (3-11); Blood Urea Nitrogen 19.0 mg/dl (6-23); Calcium 8.7 mg/dl (8.6-10.3); Carbon Dioxide 26.0 mmol/L (21-32); Chloride 98.0 mmol/L (98-107); Creatinine Clr Calc Pharmacy 57.7 ml/min; Glucose 156.0 mg/dl (70-99(Fasting)); Potassium 3.4 mmol/L (3.5-5.1); Sodium 132.0 mmol/L (136-145)
[2025-06-25 09:49] LABS: ANTI-Xa, UFH(UnfractionatedHep 0.33 IU/ml (0.3-0.7)
--- NOTE | 2025-06-25 15:40 | Hospitalist Progress Note ---
Date of Service June 25, 2025 Assessment & Plan (1) DVT (deep venous thrombosis): (2) Abdominal wall hematoma: Plan 80 year old male with PMH of DVT s/p ICV filter, diabetes on insulin pump, C. difficle infection he's recently has whipple procedure at [facility] hx of C. difficile. presents to the ER with left leg swelling and pain started on heparin drip for left DVT. monitor for hematoma. on , mentioned ongoing abdominal pain, hematology consulted. #Occlusive DVT Unable to safely place on DOAC/Lovenox on admission due to recent abdominal wall hematoma therefore he was be admitted for intravenous heparin and monitoring of this hematoma IV heparin low dose without bolus If stable hematoma, H&H tomorrow, consider discharge on DOAC/Lovenox Discussed with vascular surgery (Sanjana Judge PA-C) regarding follow for up for possible IVC filter removal as although this is reducing his risk of pulmonary embolism it increases risk of DVT. This was placed due to "multiple thrombotic events, cancer, and failure of Lovenox therapy in the past, we recommend that his filter to remain permanent". However he does not have cancer; he has IPMN which is considered precursor to cancer and not associated with hypercoagulability. I (nor the patient) is aware of any thrombotic event prior to February when he was diagnosed with pulmonary embolism; he did have possible splenic infarcts as well at that time but more likely this was related to his surgery as TTE does not mention PFO. He did not fail therapeutic Lovenox, just prophylaxis dose following his surgery. Recommend follow up with vascular surgery on discharge to discuss IVC filter removal to avoid recurrent DVTs. #Abdominal wall hematoma Initially presented with this 06/05 Suspect initial cause was his fall +/- insulin pump placement while on Lovenox r ather than the surgery which occurred months before this started. Appears stable on multiple imaging (off anticoagulation). US soft tissue - Left rectus sheath hematoma redemonstrated measuring 13.9 x 5.1 x 14.1 cm Consult general surgery as may need to consider evacuation at some point as stable but not improving off anticoagulation therefore unlikely to improve now he requires anticoagulation. #Hypertension, prior hx of dizziness Continue amlodipine, HCTZ and lisinopril - however with prior history of dizziness will closely monitor for recurrence of this #T2DM Patient will use his own continuous glucose monitor and insulin pump while admitted #GERD / esophagitis, c/w pantoprazole 40mg PO BID VTE Prophylaxis - IV heparin low dose without bolus Disposition - admit to med/tele Admission and Anticipated Discharge Date Admission Date: June 23, 2025 Subjective no hematoma, on heparin drip for left leg DVT still in significant leg pain. need ongoing monitor for another 24-48 hours hematology consulted Review of Systems Review of Systems: Constitutional: No Weight Change, No Fever, No Chills, No Night Sweats, No Fatigue, No Malaise Cardiovascular: No Chest Pain, No SOB, No PND, No Dyspnea on Exertion, No Orthopnea, No Claudication, No Edema, No Palpitations Respiratory: No Cough, No Sputum, No Wheezing, No Smoke Exposure, No Dyspnea Gastrointestinal: No Nausea, No Vomiting, No Diarrhea, No Constipation, No Pain, No Heartburn, No Dysphagia, No Hematochezia, Musculoskeletal: + for leg pain (left side) Skin: No Skin Lesions, No Pruritis, No Hair Changes, No Breast/Skin Changes, No Nipple Discharge Neuro: No Weakness, No Numbness, No Paresthesias, No Loss of Consciousness, No Syncope, No Dizziness, No Headache, No Coordination Changes, No Recent Falls Heme/Lymph: + for hx of DVT Endocrine: + for type 1 diabetes on insulin pump Physical Exam Physical Exam: VITALS: Reviewed. WEIGHT/BMI reviewed. GEN: Healthy appearing, well-developed, NAD. -Head: NC/AT; NECK: Supple, with no masses. CV: RRR, no m/r/g. LUNGS: CTAB, no w/r/c. ABD: Soft, NT/ND, NBS, no masses or organomegaly. + for abdominal scar from whipple surgery : N/A SKIN: Warm, well perfused. No skin rashes or abnormal lesions. MSK: left calf tenderness; normal sensation to soft touch; no crepitus appreciated EXT: No clubbing, cyanosis, or edema. NEURO: AAox3 Results & Data Results & Data Vital Signs (Past 12 Hours) Vital Signs Temp Pulse Pulse Resp BP Pulse Ox O2 Del Method 06/25/25 14:22 90 06/25/25 11:30 36.5 C 83 16 117/66 92 Room Air 06/25/25 10:56 85 06/25/25 10:56 Room Air 06/25/25 07:49 36.6 C 87 20 132/68 96 Room Air 06/25/25 04:21 36.5 C 87 20 132/72 95 Room Air Laboratory Results Laboratory Results - last 72 hr 06/23/25 06/23/25 06/23/25 09:11 17:00 19:07 WBC 10.39 RBC 4.46 L Hgb 11.2 L Hct 35.8 L MCV 80.3 MCH 25.1 MCHC 31.3 L RDW Std Deviation 50.7 H RDW Coeff of Joselin 17.3 H Plt Count 220 MPV 11.0 Immature Gran % (Auto) 0.5 Neut % (Auto) 81.6 Lymph % (Auto) 8.9 [place] % (Auto) 7.5 Eos % (Auto) 1.1 Baso % (Auto) 0.4 Neut # (Auto) 8.49 H Lymph # (Auto) 0.92 L [place] # (Auto) 0.78 H Eos # (Auto) 0.11 Baso # (Auto) 0.04 Immature Gran # (Auto) 0.05 PT 11.5 INR 1.1 APTT 28 PTT Ratio 1.0 Heparin Anti-Xa, Unfract 0.17 L Sodium 136 Potassium 3.8 Chloride 101 Carbon Dioxide 26 Anion Gap 9 BUN 19 Creatinine 1.32 Est Cr Clr Drug Dosing 60.1 eGFR 54.87 BUN/Creatinine Ratio 14.4 Glucose 154 H POC Glucose 158 H Calcium 9.1 Total Bilirubin 1.7 H AST 32 ALT 21 Alkaline Phosphatase 94 Total Protein 7.7 Albumin 4.2 Globulin 3.5 Albumin/Globulin Ratio 1.2 06/24/25 06/24/25 06/24/25 01:41 08:06 08:27 WBC 8.37 RBC 4.16 L Hgb 10.5 L Hct 33.1 L MCV 79.6 L MCH 25.2 MCHC 31.7 L RDW Std Deviation 48.2 H RDW Coeff of Joselin 17.1 H Plt Count 175 MPV 11.0 Immature Gran % (Auto) Neut % (Auto) Lymph % (Auto) [place] % (Auto) Eos % (Auto) Baso % (Auto) Neut # (Auto) Lymph # (Auto) [place] # (Auto) Eos # (Auto) Baso # (Auto) Immature Gran # (Auto) PT INR APTT PTT Ratio Heparin Anti-Xa, Unfract 0.36 0.22 L Sodium 135 L Potassium 3.6 Chloride 101 Carbon Dioxide 27 Anion Gap 7 BUN 17 Creatinine 1.20 Est Cr Clr Drug Dosing 64.5 eGFR 61.52 BUN/Creatinine Ratio 14.2 Glucose 108 H POC Glucose 126 H Calcium 8.8 Total Bilirubin AST ALT Alkaline Phosphatase Total Protein Albumin Globulin Albumin/Globulin Ratio 06/24/25 06/25/25 06/25/25 16:54 00:18 08:05 WBC RBC Hgb Hct MCV MCH MCHC RDW Std Deviation RDW Coeff of Joselin Plt Count MPV Immature Gran % (Auto) Neut % (Auto) Lymph % (Auto) [place] % (Auto) Eos % (Auto) Baso % (Auto) Neut # (Auto) Lymph # (Auto) [place] # (Auto) Eos # (Auto) Baso # (Auto) Immature Gran # (Auto) PT INR APTT PTT Ratio Heparin Anti-Xa, Unfract 0.26 L 0.29 L Sodium Potassium Chloride Carbon Dioxide Anion Gap BUN Creatinine Est Cr Clr Drug Dosing eGFR BUN/Creatinine Ratio Glucose POC Glucose 124 H Calcium Total Bilirubin AST ALT Alkaline Phosphatase Total Protein Albumin Globulin Albumin/Globulin Ratio 06/25/25 09:12 WBC 8.82 RBC 4.20 L Hgb 10.3 L Hct 33.3 L MCV 79.3 L MCH 24.5 L MCHC 30.9 L RDW Std Deviation 47.4 H RDW Coeff of Joselin 17.0 H Plt Count 194 MPV 11.0 Immature Gran % (Auto) Neut % (Auto) Lymph % (Auto) [place] % (Auto) Eos % (Auto) Baso % (Auto) Neut # (Auto) Lymph # (Auto) [place] # (Auto) Eos # (Auto) Baso # (Auto) Immature Gran # (Auto) PT INR APTT PTT Ratio Heparin Anti-Xa, Unfract 0.33 Sodium 132 L Potassium 3.4 L Chloride 98 Carbon Dioxide 26 Anion Gap 8 BUN 19 Creatinine 1.34 Est Cr Clr Drug Dosing 57.7 eGFR 53.89 BUN/Creatinine Ratio 14.2 Glucose 156 H POC Glucose Calcium 8.7 Total Bilirubin AST ALT Alkaline Phosphatase Total Protein Albumin Globulin Albumin/Globulin Ratio Medications Administered Current Inpatient Medications Acetaminophen (Acetaminophen 325 Mg Tab) 650 mg PO Q6H PRN PRN Reason: Pain & Pre PT Stop: 07/23/25 16:39 Last Admin: 06/25/25 12:54 Dose: 650 mg Atorvastatin Calcium (Atorvastatin 10 Mg Tab) 5 mg PO HS [facility] Stop: 07/23/25 20:59 Last Admin: 06/24/25 20:39 Dose: 5 mg Cyanocobalamin (Cyanocobalamin (B-12) 500 Mcg Tablet) 1,000 mcg PO DAILY JEANA Stop: 07/24/25 08:59 Last Admin: 06/25/25 09:19 Dose: 1,000 mcg Dextrose (Dextrose 50% 50 Ml Syringe) 25 - 50 ml IV UD PRN; Protocol PRN Reason: Hypoglycemia Protocol Stop: 07/23/25 17:51 Ferrous Sulfate (Ferrous Sulfate 325 Mg Tab) 325 mg PO Q2D@0900 [facility] Stop: 07/25/25 08:59 Last Admin: 06/25/25 09:19 Dose: 325 mg Gabapentin (Gabapentin 300 Mg Cap) 300 mg PO HS [facility] Stop: 07/23/25 20:59 Last Admin: 06/24/25 20:39 Dose: 300 mg Glucagon (Glucagon For Inj 1 Mg Vial) 1 mg SQ UD PRN; Protocol PRN Reason: Hypoglycemia Protocol Stop: 07/23/25 17:51 Glucose (Glucose 40% Gel 15 Gm Tube) 15 - 30 gm PO UD PRN; Protocol PRN Reason: Hypoglycemia Protocol Stop: 07/23/25 17:51 Glucose (Glucose 10 Tab/Tube) 4 - 8 tab PO UD PRN; Protocol PRN Reason: Hypoglycemia Protocol Stop: 07/23/25 17:51 Hydrochlorothiazide (Hydrochlorothiazide 25 Mg Tab) 25 mg PO QAM [facility] Stop: 07/24/25 08:59 Last Admin: 06/25/25 09:19 Dose: 25 mg Heparin Sodium/Dextrose (Heparin 84590 Unit/500 Ml D5w) 25,000 units in 500 mls @ 30 mls/hr IV .[id number] JEANA; Protocol Stop: 07/23/25 12:14 Last Titration: 06/25/25 10:40 Dose: 1,500 units/hr, 30 mls/hr Insulin Aspart (Insulin, Rapid-Acting Pump) 0 each SC ACHS JEANA; Protocol Stop: 07/23/25 20:59 Last Admin: 06/25/25 12:48 Dose: 1 each Insulin Aspart (Insulin Aspart 100 Units/Ml Vial) 0 units SC PRN PRN PRN Reason: Insulin (Rapid-Acting) Pump Refill Stop: 07/23/25 17:51 Lisinopril (Lisinopril 40 Mg Tab) 40 mg PO QAM [facility] Stop: 07/24/25 08:59 Last Admin: 06/25/25 09:19 Dose: 40 mg Miscellaneous (Continuous Glucose Monitor) 0 each N/A ACHS [facility] Stop: 07/23/25 20:59 Last Admin: 06/25/25 12:48 Dose: 1 each Miscellaneous (Carbohydrates For Hypoglycemia ) 15 - 30 gm PO UD PRN PRN Reason: Hypoglycemia Protocol Stop: 07/23/25 17:51 Ondansetron HCl (Ondansetron Inj 2 Mg/Ml 2 Ml Vial) 4 mg IV Q4H PRN PRN Reason: Nausea Stop: 07/23/25 17:54 Oxycodone HCl (Oxycodone Hcl Ir 5 Mg Tab (Immediate Release)) 5 mg PO Q4H PRN PRN Reason: MODERATE Pain (4,5,6) & Pre PT Stop: 07/07/25 16:39 Last Admin: 06/25/25 08:55 Dose: 5 mg Oxycodone HCl (Oxycodone Hcl Ir 5 Mg Tab (Immediate Release)) 10 mg PO Q4H PRN PRN Reason: SEVERE Pain (7,8,9,10) Stop: 07/07/25 16:39 Pantoprazole Sodium (Pantoprazole 40 Mg Tab) 40 mg PO BID [facility] Stop: 07/23/25 20:59 Last Admin: 06/25/25 09:19 Dose: 40 mg PG Care Time/CCT Total # of Minutes Spent Total Time Spent with Patient: Total time spent is greater than 50% in coordination of care (as documented) at patient's floor/unit and/or counseling patient: Coding Level of Care Code 03207 SUB INP/OBS CARE 12/07MIN Diagnoses DVT (deep venous thrombosis) I82.412 Affected thrombotic vein of extremity: femoral Chronicity: acute DVT location: lower extremity Laterality: left Abdominal wall hematoma S30.1XXA Encounter type: initial encounter Time Spent (min) 25 (1) DVT (deep venous thrombosis) Affected thrombotic vein of extremity: femoral Chronicity: acute DVT location: lower extremity Laterality: left Qualified Code(s): I82.412 - Acute embolism and thrombosis of left femoral vein (2) Abdominal wall hematoma Encounter type: initial encounter Qualified Code(s): S30.1XXA - Contusion of abdominal wall, initial encounter
[2025-06-26 08:01] LABS: Hematocrit (blood only) 29.8 % (42.0-52.0); Hemoglobin 9.4 g/dl (14.0-18.0); Mean Corpuscular Hemoglobin 24.9 pg (25.0-34.0); Mean Corpuscular Volume 79.0 fL (80.0-100.0); Platelet Count 176 K/uL (130-400); RDW Standard Deviation 47.6 fL (36.4-46.3); Red Blood Count 3.77 M/uL (4.70-6.10); White Blood Count 7.04 K/ul (4.8-10.8)
[2025-06-26 08:30] LABS: ANTI-Xa, UFH(UnfractionatedHep 0.29 IU/ml (0.3-0.7)
[2025-06-26 08:33] LABS: Alanine Aminotransferase 9.0 U/L (7-52); Albumin Globulin Ratio 1.4 (0.9-2); Alkaline Phosphatase 64.0 U/L (34-104); Anion Gap 8.0 (3-11); Bilirubin,Total 1.9 mg/dl (0.2-1.0); Blood Urea Nitrogen 20.0 mg/dl (6-23); Calcium 8.4 mg/dl (8.6-10.3); Carbon Dioxide 25.0 mmol/L (21-32); Chloride 97.0 mmol/L (98-107); Creatinine Clr Calc Pharmacy 56.3 ml/min; Globulin 2.5 gm/dl (2.5-4.0); Glucose 267.0 mg/dl (70-99(Fasting)); Potassium 4.1 mmol/L (3.5-5.1); Sodium 130.0 mmol/L (136-145); Total Protein 6.0 gm/dl (6.0-8.3)
[2025-06-26] MEDS: POTASSIUM CHLORIDE 20 MEQ/15 ML UDC PO SCH (09:26)
--- NOTE | 2025-06-26 13:08 | Oncology Consultation ---
Date of Consultation June 26, 2025 Assessment & Plan (1) DVT (deep venous thrombosis): (2) Abdominal wall hematoma: Plan Gentleman with history of PE status post IVC filter placement, abdominal hematoma who was recently diagnosed with lower extremity DVT. -Labs suggestive of iron deficiency anemia with microcytosis. Recommend obtaining anemia workup including iron studies, B12 and folate level. If iron studies suggest iron deficiency, recommend IV Venofer daily x 2-3 doses while in the hospital -Recommend continue with IV heparin for another 24 hours. If hemoglobin remained stable with no evidence of worsening hematoma, can be discharged home on Eliquis. Could consider starting with prophylactic dose of 2.5 mg p.o. twice daily and if well-tolerated with no evidence of worsening hematoma, can increase to full dose of 5 mg p.o. twice daily. History of Present Illness Reason for Consultation: DVT, hx of abdominal hematoma, GERd, high BMI Attending Physician: Dmitriy Livingston DO History of Present Illness 80-year-old gentleman with history of p IPMN s/p pancreatectomy for performed at [facility] on 01/31/2025. Postoperative, he developed hematoma for which he required PRBC transfusions and laparotomy with clot evacuation. Was discharged home on Lovenox 40 mg SC daily for DVT prophylaxis but developed PE around February, and was placed on Lovenox. Admitted on 06/05/2025 for syncopal episode and diagnosed with abdominal wall hematoma possibly secondary to fall. He was discharged home off anticoagulation. Presented to the ER at [facility] on 06/23/2025 with left lower extremity pain and swelling with ultrasound revealing occlusive DVT. He is currently on IV heparin. Allergies Allergy/AdvReac Type Severity Reaction Status Date / Time Penicillins Allergy Intermediate HIVES Verified 06/23/25 10:38 metformin AdvReac Intermediate GI Verified 06/23/25 10:38 distress/diarrhea Home Medications Medication Instructions Recorded Confirmed Type insulin syringe-needle U-100 1 mL #300 ea 05/20/22 06/20/25 Rx 31 gauge x 5/16" (BD Insulin Syringe Ultra-Fine) blood sugar diagnostic (Contour #100 ea 09/29/22 06/20/25 Rx Next Test Strips) acetaminophen 325 mg tablet 650 mg (2 x 325 mg) PO Q4H PRN 05/18/23 06/23/25 Rx pain #30 tabs pen needle, diabetic 31 gauge x #100 ea 03/07/24 06/20/25 Rx 3/16" (BD Ultra-Fine Mini Pen Needle) hydrochlorothiazide 25 mg tablet 25 mg PO QAM #90 tabs 11/14/24 06/23/25 Rx tramadol 50 mg tablet 50 mg PO BID PRN pain #90 tabs 01/27/25 06/23/25 Rx cholecalciferol (vitamin D3) 25 25 mcg PO DAILY 02/19/25 06/23/25 History mcg (1,000 unit) tablet ondansetron 4 mg disintegrating 4 mg PO Q6H PRN nausea and vomiting 02/19/25 06/23/25 History tablet pantoprazole 40 mg tablet,delayed 40 mg PO BID #180 tabs 03/19/25 06/23/25 Rx release atorvastatin 10 mg tablet 5 mg (1/2 x 10 mg) PO HS #45 tabs 04/14/25 06/23/25 Rx gabapentin 300 mg capsule 300 mg PO HS #90 caps 04/14/25 06/23/25 Rx insulin lispro 100 unit/mL 280 unit (2.8 mL) continuous 05/26/25 06/23/25 Rx subcutaneous solution (Humalog subcutaneous infusion DAILY 90 U-100 Insulin) days #250 mL lisinopril 40 mg tablet 40 mg PO QAM 06/05/25 06/23/25 History ferrous sulfate 325 mg (65 mg 325 mg PO Q OTHER DAY #14 tabs 06/06/25 06/23/25 Rx iron) tablet,delayed release cyanocobalamin (vitamin B-12) 1,000 mcg PO DAILY ##0 06/16/25 06/23/25 History 1,000 mcg tablet (Vitamin B-12) apixaban 5 mg tablet (Eliquis) 5 mg PO Q12H 30 days #60 tabs 06/26/25 Rx Patient History Medical History Pulmonary embolism Controlled type 2 diabetes mellitus, with long-term current use of insulin Benign hypertension Syncope Renal insufficiency Hypoxia Pulmonary embolism Diabetes mellitus, type 2 Fall Syncope History of esophageal dilatation Morbid obesity Urinary retention s/p urinary catheter (05/2021)- since removed BPH (benign prostatic hyperplasia) Insulin pump in place History of TMJ syndrome Hypertension Hyperlipidemia Dysesthesia R/L feet Surgical History History of prostate biopsy (~10/05/21) under MAC anesthesia @ [facility] History of surgery Exam under anesthesia, removal of skin tags, fistulotomy (01/09/18): Grade view 1 with Glidescope#4, ETT 8.0 (difficult mask. vent with 2 person 2/2 hamilton > elective glidescope with minimal neck extension- ETT easily passed, small right upper lip laceration noted) History of esophagogastroduodenoscopy (EGD) History of colonoscopy Hx of LASIK History of cataract surgery RT/LEFT History of tooth extraction RECENT TOOTH EXTRACTION H/O knee surgery Spur removed from knee History of tonsillectomy and adenoidectomy H/O neck surgery History of carpal tunnel surgery RT Family History Aunt Diabetes Father Lung cancer Sister Diabetes Other No family history of adverse response to anesthesia Denies family history of Ovarian cancer Prostate cancer Myocardial infarction Breast cancer Colorectal cancer Hypertension Stroke Social History Smoking Status: Former smoker Second Hand Exposure: No; Do You Dip or Chew Tobacco: No; Hx Alcohol Use: Yes Alcohol type: beer Alcohol Intake Frequency: Monthly or Less Hx Substance Use: No Preferred Language: Albanian Communication Ability: Effective Visual Impairment: No Limitations Hearing Ability: Normal 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: No Beliefs That Will Affect Care: None marital status: / Current Living Situation: Alone Current Living Situation Comment: one story house 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 How many Children do You have: 2 Other Information That Helps Us Care for You: No Feels Safe at Home: Yes Safety Concerns: Feels Safe At This Time Childhood Exposure to Second-Hand Smoke: No Diet: regular caffeine: Yes (coffee) during the past year weight has: remained stable Dental Care, Regularly: Yes Physical Activity Frequency: Daily Seatbelt Use: always Sunscreen Use: Yes Do you think of yourself as: straight/heterosexual Gender Identity: Male Assistive Devices: Walker Assistive Devices Comment: rollator Results & Data Vital Signs (Past 12 Hours) Vital Signs Temp Pulse Pulse Resp BP BP Pulse Ox 06/26/25 12:16 36.7 C 84 17 113/70 100 06/26/25 07:56 36.8 C 93 H 18 161/76 H 95 06/26/25 07:45 06/26/25 07:00 91 H 06/26/25 03:41 36.6 C 62 18 117/68 95 O2 Del Method O2 Flow Rate 06/26/25 12:16 Room Air 06/26/25 07:56 Nasal Cannula 2 06/26/25 07:45 Room Air 06/26/25 07:00 06/26/25 03:41 Room Air (1) DVT (deep venous thrombosis) Affected thrombotic vein of extremity: femoral Chronicity: acute DVT locati on: lower extremity Laterality: left Qualified Code(s): I82.412 - Acute embo lism and thrombosis of left femoral vein (2) Abdominal wall hematoma Encounter type: initial encounter Qualified Code(s): S30.1XXA - Contusion of abdominal wall, initial encounter
[2025-06-26] MEDS: IRON SUCROSE 300 MG in SODIUM CHLORIDE 0.9% 250 ML IV ONE (13:37)
[2025-06-26 14:47] LABS: Iron 33.0 mcg/dl (35-175); Total Iron Binding Cap Calc 391.0 mcg/dl (250-450); Transferrin 279.0 mg/dl (200-360); Transferrin (FE) Percent Satur 8.0 % (20-50)
[2025-06-26 14:55] LABS: Folate (Folic Acid),Ser orPlas > 22.30 ng/ml (>5.38)
[2025-06-26 14:57] LABS: Vitamin B12 954 pg/ml (180-914)
[2025-06-26 15:07] LABS: Ferritin 61.6 ng/ml (8-388)
[2025-06-26 16:56] LABS: ANTI-Xa, UFH(UnfractionatedHep 0.24 IU/ml (0.3-0.7)
--- NOTE | 2025-06-26 17:59 | Hospitalist Progress Note ---
Date of Service June 26, 2025 Assessment & Plan (1) DVT (deep venous thrombosis): (2) Abdominal wall hematoma: Plan 80 year old male with PMH of DVT s/p ICV filter, diabetes on insulin pump, C. difficle infection he's recently has whipple procedure at [facility] hx of C. difficile. presents to the ER with left leg swelling and pain started on heparin drip for left DVT. monitor for hematoma. on 06/25/, mentioned ongoing abdominal pain, hematology consulted. #Occlusive DVT Unable to safely place on DOAC/Lovenox on admission due to recent abdominal wall hematoma therefore he was be admitted for intravenous heparin and monitoring of this hematoma IV heparin low dose without bolus If stable hematoma, H&H tomorrow, consider discharge on DOAC/Lovenox Discussed with vascular surgery (Sanjana Judge PA-C) regarding follow for up for possible IVC filter removal as although this is reducing his risk of pulmonary embolism it increases risk of DVT. This was placed due to "multiple thrombotic events, cancer, and failure of Lovenox therapy in the past, we recommend that his filter to remain permanent". s/p IVC filter placement need close f/u with vascular surgery about removing the filter as concern about increase risk of DVT hx of IPMN s/p whippple surgery at [facility] uncleard if IPMN is actually leading to hypercoagulable he will be following with hematology for outpatient evaluation ambulatory dysfunction PT/OT to assess for need for home services #Abdominal wall hematoma Initially presented with this 06/05 Suspect initial cause was his fall +/- insulin pump placement while on Lovenox US soft tissue - Left rectus sheath hematoma redemonstrated measuring 13.9 x 5.1 x 14.1 cm Consult general surgery as may need to consider evacuation at some point as stable but not improving off anticoagulation therefore unlikely to improve now he requires anticoagulation. #Hypertension, prior hx of dizziness Continue amlodipine, HCTZ and lisinopril - however with prior history of dizziness will closely monitor for recurrence of this #T2DM Patient will use his own continuous glucose monitor and insulin pump while admitted #GERD / esophagitis, c/w pantoprazole 40mg PO BID VTE treatment - IV heparin low dose without bolus patient does not want to be dc on lovenox requested DOAC, eliquis prescribed Disposition - admit to med/tele Admission and Anticipated Discharge Date Admission Date: June 23, 2025 Subjective he still need oxycodone to address the limb pain given his multiple admission, need another 24 hours of heparin drip patient no longer want to be be loveonx spoke with hematology attending, plan for dc home eliquis 10 BID for 7 days and then eliquis 5 BID for 3-5 months Review of Systems Review of Systems: Constitutional: No Weight Change, No Fever, No Chills, No Night Sweats, No Fatigue, No Malaise Cardiovascular: No Chest Pain, No SOB, No PND, No Dyspnea on Exertion, Respiratory: No Cough, No Sputum, No Wheezing, No Smoke Exposure, No Dyspnea Gastrointestinal: No Nausea, No Vomiting, No Diarrhea, No Constipation, No Pain, No Heartburn, No Anorexia, Musculoskeletal: + for left leg pain. Physical Exam Physical Exam: VITALS: Reviewed. WEIGHT/BMI reviewed. GEN: Healthy appearing, well-developed, NAD. -Head: NC/AT; NECK: Supple, with no masses. CV: RRR, no m/r/g. LUNGS: CTAB, no w/r/c. ABD: Soft, NT/ND, NBS, no masses or organomegaly. + for whipple surgery scar; no discharge; healing no bleeding SKIN: Warm, well perfused. No skin rashes or abnormal lesions. MSK: + for left calf tenderness; no erythema; edema improving NEURO: AAox3 Results & Data Results & Data Vital Signs (Past 12 Hours) Vital Signs Temp Pulse Pulse Resp BP Pulse Ox O2 Del Method 06/26/25 15:30 Room Air 06/26/25 15:26 36.4 C L 86 18 106/56 L 97 Room Air 06/26/25 14:19 85 06/26/25 12:16 36.7 C 84 17 113/70 100 Room Air 06/26/25 07:56 36.8 C 93 H 18 161/76 H 95 Nasal Cannula 06/26/25 07:45 Room Air 06/26/25 07:00 91 H O2 Flow Rate 06/26/25 15:30 06/26/25 15:26 06/26/25 14:19 06/26/25 12:16 06/26/25 07:56 2 06/26/25 07:45 06/26/25 07:00 Laboratory Results Laboratory Results - last 72 hr 0806/24/25 06/24/25 19:07 01:41 08:06 WBC 8.37 RBC 4.16 L Hgb 10.5 L Hct 33.1 L MCV 79.6 L MCH 25.2 MCHC 31.7 L RDW Std Deviation 48.2 H RDW Coeff of Joselin 17.1 H Plt Count 175 MPV 11.0 Heparin Anti-Xa, Unfract 0.17 L 0.36 0.22 L Sodium 135 L Potassium 3.6 Chloride 101 Carbon Dioxide 27 Anion Gap 7 BUN 17 Creatinine 1.20 Est Cr Clr Drug Dosing 64.5 eGFR 61.52 BUN/Creatinine Ratio 14.2 Glucose 108 H POC Glucose Calcium 8.8 Iron TIBC Transferrin Transferrin % Sat Ferritin Total Bilirubin AST ALT Alkaline Phosphatase Total Protein Albumin Globulin Albumin/Globulin Ratio Vitamin B12 Folate 06/24/25 06/24/25 06/25/25 08:27 16:54 00:18 WBC RBC Hgb Hct MCV MCH MCHC RDW Std Deviation RDW Coeff of Joselin Plt Count MPV Heparin Anti-Xa, Unfract 0.26 L 0.29 L Sodium Potassium Chloride Carbon Dioxide Anion Gap BUN Creatinine Est Cr Clr Drug Dosing eGFR BUN/Creatinine Ratio Glucose POC Glucose 126 H Calcium Iron TIBC Transferrin Transferrin % Sat Ferritin Total Bilirubin AST ALT Alkaline Phosphatase Total Protein Albumin Globulin Albumin/Globulin Ratio Vitamin B12 Folate 06/25/25 06/25/25 06/26/25 08:05 09:12 07:35 WBC 8.82 7.04 RBC 4.20 L 3.77 L Hgb 10.3 L 9.4 L Hct 33.3 L 29.8 L MCV 79.3 L 79.0 L MCH 24.5 L 24.9 L MCHC 30.9 L 31.5 L RDW Std Deviation 47.4 H 47.6 H RDW Coeff of Joselin 17.0 H 16.8 H Plt Count 194 176 MPV 11.0 11.5 Heparin Anti-Xa, Unfract 0.33 0.29 L Sodium 132 L 130 L Potassium 3.4 L 4.1 D Chloride 98 97 L Carbon Dioxide 26 25 Anion Gap 8 8 BUN 19 20 Creatinine 1.34 1.38 Est Cr Clr Drug Dosing 57.7 56.3 eGFR 53.89 52.02 BUN/Creatinine Ratio 14.2 14.5 Glucose 156 H 267 H POC Glucose 124 H Calcium 8.7 8.4 L Iron 33 L TIBC 391 Transferrin 279 Transferrin % Sat 8 L Ferritin 61.6 Total Bilirubin 1.9 H AST 13 ALT 9 Alkaline Phosphatase 64 Total Protein 6.0 Albumin 3.5 Globulin 2.5 Albumin/Globulin Ratio 1.4 Vitamin B12 Folate 06/26/25 06/26/25 06/26/25 07:39 08:25 11:59 WBC RBC Hgb Hct MCV MCH MCHC RDW Std Deviation RDW Coeff of Joselin Plt Count MPV Heparin Anti-Xa, Unfract Sodium Potassium Chloride Carbon Dioxide Anion Gap BUN Creatinine Est Cr Clr Drug Dosing eGFR BUN/Creatinine Ratio Glucose POC Glucose 280 H 247 H Calcium Iron TIBC Transferrin Transferrin % Sat Ferritin Total Bilirubin AST ALT Alkaline Phosphatase Total Protein Albumin Globulin Albumin/Globulin Ratio Vitamin B12 954 H Folate > 22.30 06/26/25 15:42 WBC RBC Hgb Hct MCV MCH MCHC RDW Std Deviation RDW Coeff of Joselin Plt Count MPV Heparin Anti-Xa, Unfract 0.24 L Sodium Potassium Chloride Carbon Dioxide Anion Gap BUN Creatinine Est Cr Clr Drug Dosing eGFR BUN/Creatinine Ratio Glucose POC Glucose Calcium Iron TIBC Transferrin Transferrin % Sat Ferritin Total Bilirubin AST ALT Alkaline Phosphatase Total Protein Albumin Globulin Albumin/Globulin Ratio Vitamin B12 Folate Medications Administered Current Inpatient Medications Acetaminophen (Acetaminophen 325 Mg Tab) 650 mg PO Q6H PRN PRN Reason: Pain & Pre PT Stop: 07/23/25 16:39 Last Admin: 06/26/25 08:02 Dose: 650 mg Atorvastatin Calcium (Atorvastatin 10 Mg Tab) 5 mg PO HS JEANA Stop: 07/23/25 20:59 Last Admin: 06/25/25 21:09 Dose: 5 mg Cyanocobalamin (Cyanocobalamin (B-12) 500 Mcg Tablet) 1,000 mcg PO DAILY JEANA Stop: 07/24/25 08:59 Last Admin: 06/26/25 08:03 Dose: 1,000 mcg Dextrose (Dextrose 50% 50 Ml Syringe) 25 - 50 ml IV UD PRN; Protocol PRN Reason: Hypoglycemia Protocol Stop: 07/23/25 17:51 Ferrous Sulfate (Ferrous Sulfate 325 Mg Tab) 325 mg PO Q2D@0900 JEANA Stop: 07/25/25 08:59 Last Admin: 06/25/25 09:19 Dose: 325 mg Gabapentin (Gabapentin 300 Mg Cap) 300 mg PO HS JEANA Stop: 07/23/25 20:59 Last Admin: 06/25/25 21:09 Dose: 300 mg Glucagon (Glucagon For Inj 1 Mg Vial) 1 mg SQ UD PRN; Protocol PRN Reason: Hypoglycemia Protocol Stop: 07/23/25 17:51 Glucose (Glucose 40% Gel 15 Gm Tube) 15 - 30 gm PO UD PRN; Protocol PRN Reason: Hypoglycemia Protocol Stop: 07/23/25 17:51 Glucose (Glucose 10 Tab/Tube) 4 - 8 tab PO UD PRN; Protocol PRN Reason: Hypoglycemia Protocol Stop: 07/23/25 17:51 Hydrochlorothiazide (Hydrochlorothiazide 25 Mg Tab) [facility] [place] Stop: 07/24/25 08:59 Last Admin: 06/26/25 08:02 Dose: 25 mg Heparin Sodium/Dextrose (Heparin 22581 Unit/500 Ml D5w) 25,000 units in 500 mls @ 34 mls/hr IV .[id number] [facility]; Protocol Stop: 07/23/25 12:14 Last Titration: 06/26/25 16:58 Dose: 1,700 units/hr, 34 mls/hr Insulin Aspart (Insulin, Rapid-Acting Pump) 0 each SC ACHS [facility]; Protocol Stop: 07/23/25 20:59 Last Admin: 06/26/25 17:43 Dose: 17 each Insulin Aspart (Insulin Aspart 100 Units/Ml Vial) 0 units SC PRN PRN PRN Reason: Insulin (Rapid-Acting) Pump Refill Stop: 07/23/25 17:51 Lisinopril (Lisinopril 40 Mg Tab) 40 [facility] [place] Stop: 07/24/25 08:59 Last Admin: 06/26/25 08:03 Dose: 40 mg Miscellaneous (Continuous Glucose Monitor) 0 each N/A ACHS [facility] Stop: 07/23/25 20:59 Last Admin: 06/26/25 17:43 Dose: 17 each Miscellaneous (Carbohydrates For Hypoglycemia ) 15 - 30 gm PO UD PRN PRN Reason: Hypoglycemia Protocol Stop: 07/23/25 17:51 Ondansetron HCl (Ondansetron Inj 2 Mg/Ml 2 Ml Vial) 4 mg IV Q4H PRN PRN Reason: Nausea Stop: 07/23/25 17:54 Oxycodone HCl (Oxycodone Hcl Ir 5 Mg Tab (Immediate Release)) 5 mg PO Q4H PRN PRN Reason: MODERATE Pain (4,5,6) & Pre PT Stop: 07/07/25 16:39 Last Admin: 06/26/25 16:09 Dose: 5 mg Oxycodone HCl (Oxycodone Hcl Ir 5 Mg Tab (Immediate Release)) 10 mg PO Q4H PRN PRN Reason: SEVERE Pain (7,8,9,10) Stop: 07/07/25 16:39 Last Admin: 06/25/25 21:10 Dose: 10 mg Pantoprazole Sodium (Pantoprazole 40 Mg Tab) 40 mg PO BID JEANA Stop: 07/23/25 20:59 Last Admin: 06/26/25 08:03 Dose: 40 mg PG Care Time/CCT Total # of Minutes Spent Total Time Spent with Patient: Total time spent is greater than 50% in coordination of care (as documented) at patient's floor/unit and/or counseling patient: Coding Level of Care Code 88843 SUB INP/OBS CARE 2/35MIN Diagnoses DVT (deep venous thrombosis) I82.412 Affected thrombotic vein of extremity: femoral Chronicity: acute DVT location: lower extremity Laterality: left Abdominal wall hematoma S30.1XXA Encounter type: initial encounter Time Spent (min) 35 (1) DVT (deep venous thrombosis) Affected thrombotic vein of extremity: femoral Chronicity: acute DVT location: lower extremity Laterality: left Qualified Code(s): I82.412 - Acute embolism and thrombosis of left femoral vein (2) Abdominal wall hematoma Encounter type: initial encounter Qualified Code(s): S30.1XXA - Contusion of abdominal wall, initial encounter
[2025-06-27 02:47] LABS: Hematocrit (blood only) 29.4 % (42.0-52.0); Hemoglobin 9.4 g/dl (14.0-18.0); Mean Corpuscular Hemoglobin 25.1 pg (25.0-34.0); Mean Corpuscular Volume 78.4 fL (80.0-100.0); Platelet Count 185 K/uL (130-400); RDW Standard Deviation 47.4 fL (36.4-46.3); Red Blood Count 3.75 M/uL (4.70-6.10); White Blood Count 5.99 K/ul (4.8-10.8)
[2025-06-27 03:04] LABS: Alanine Aminotransferase 9.0 U/L (7-52); Albumin Globulin Ratio 1.3 (0.9-2); Alkaline Phosphatase 63.0 U/L (34-104); Anion Gap 8.0 (3-11); Bilirubin,Total 1.3 mg/dl (0.2-1.0); Blood Urea Nitrogen 19.0 mg/dl (6-23); Calcium 8.6 mg/dl (8.6-10.3); Carbon Dioxide 25.0 mmol/L (21-32); Chloride 98.0 mmol/L (98-107); Creatinine Clr Calc Pharmacy 64.2 ml/min; Globulin 2.6 gm/dl (2.5-4.0); Glucose 201.0 mg/dl (70-99(Fasting)); Potassium 3.7 mmol/L (3.5-5.1); Sodium 131.0 mmol/L (136-145); Total Protein 6.0 gm/dl (6.0-8.3)
[2025-06-27 03:10] LABS: ANTI-Xa, UFH(UnfractionatedHep 0.43 IU/ml (0.3-0.7)
--- NOTE | 2025-06-27 07:24 | Ultrasound Report ---
EXAM: US softtissue abdwall/lwr back CLINICAL HISTORY: Assess for stability of rectus sheath hematoma. TECHNIQUE: Ultrasound examination of the soft tissues of the anterior abdominal wall was performed in real time and duplex. COMPARISON: Prior US dated 06/23/2025. FINDINGS: Multiple images are taken through the soft tissues of the anterior abdominal wall. Minimal interval decrease in size of rectus sheath hematoma in the left lower quadrant and measures 11.2 x 4.8 x 12.3 cm (prior size 13.9 x 5.1 x 14.1 cm). Multiple thin fibrin strands are seen in the hematoma. The surrounding tissues appear unremarkable. IMPRESSION: Minimal interval decrease in size of rectus sheath hematoma in left lower quadrant and measures 11.2 x 4.8 x 12.3 cm (prior size 13.9 x 5.1 x 14.1 cm). Electronically signed by Danny Dash 06-27-2025 07:23 AM
[2025-06-27] MEDS: IRON SUCROSE 400 MG in SODIUM CHLORIDE 0.9% 250 ML IV ONE (09:11)
[2025-06-27 11:37] VITALS: BP 126/74; RESP 20; TEMP 97.5; O2SAT 98
[2025-06-27] MEDS ORDERED: APIXABAN 5 MG TABLET PO ONE (13:10)
[2025-06-27] MEDS: APIXABAN 2.5 MG TAB PO ONE (14:20)
[2025-06-27 15:22] VITALS: PULSE 87
== END 2025-06-27 15:28 | disposition home health service (06) | DRG 301 ==
LOC: ED 08:39 → EDINP 12:22 → SUATTDRO 12:22 → 2N 14:53